=== PATIENT | female | born 1935 | race Caucasian/White ===

== ENCOUNTER 2019-01-15 19:35 | Inpatient (IN) | payer MEDICARE, MEDICAID ==
[~2019-01-15] VITALS: Ht 154.9 cm; Wt 51.3 kg
--- NOTE | 2019-01-15 22:00 | NUR ---
NURSE NOTES: Patient came on the floor via ambulance accompanied by 2 EMS. Patient is non compliant. Patient keeps on getting up without pressing the call light. Admission orders done. No belongings list. Patient has unsteady gait. Needs attended. Call light within reach. In stable condition.
[2019-01-15] MEDS ORDERED: MOM30 ML ORAL (22:47)
[2019-01-15] MEDS ORDERED: CRESTOR10 M1 ORAL (22:47)
[2019-01-15] MEDS ORDERED: LETROZOLE2.5 MG ORAL (22:47)
[2019-01-15] MEDS ORDERED: METOPROLOL TART25 MG ORAL (22:47)
[2019-01-15] MEDS ORDERED: FOLIC ACID0.8 MG ORAL (22:47)
[2019-01-15] MEDS ORDERED: DULCOLAX10 MG RC (22:47)
[2019-01-15] MEDS ORDERED: DYAZIDE1 CAP ORAL (22:47)
[2019-01-15] MEDS ORDERED: POTASSIUM CHLO20 ME2 ORAL (22:47)
[2019-01-15] MEDS ORDERED: ASPIRIN-LOW81 MG ORAL (22:47)
[2019-01-16] VITALS: BP 134/81
--- NOTE | 2019-01-16 02:14 | NUR ---
NURSE NOTES: Patient removed IV line several times. IV site wrapped but patient still removed IV. Will notify
[2019-01-16 04:00] VITALS: BP 145/85
[2019-01-16 06:16] LABS: HEMATOCRIT 48.5 % (37.0-47.0); HEMOGLOBIN 16.4 G/DL (12.0-16.0); MEAN CORPUSCULAR VOLUME 84 FL (80-99); PLATELET COUNT 290 K/UL (150-450); RED BLOOD COUNT 5.78 M/UL (4.20-5.40); RED CELL DISTRIBUTION WIDTH 11.2 % (11.6-14.8); WHITE BLOOD COUNT 18.9 K/UL (4.8-10.8)
[2019-01-16] MEDS ORDERED: LORazepam Inj 2mg/ml 1ml IV PRN (07:00)
[2019-01-16] MEDS ORDERED: LORazepam 1mg tab ORAL PRN ×2 (07:00→11:00)
--- NOTE | 2019-01-16 07:01 | NUR ---
NURSE NOTES: Dr. Chapa came and saw the patient with orders noted and carried out.
[2019-01-16 07:27] LABS: ALANINE AMINOTRANSFERASE 45 U/L (12-78); ALBUMIN 3.1 G/DL (3.4-5.0); ALBUMIN/GLOBULIN RATIO 0.6 (1.0-2.7); ALKALINE PHOSPHATASE 181 U/L (46-116); ANION GAP 21 mmol/L (5-15); ASPARTATE AMINO TRANSFERASE 73 U/L (15-37); BILIRUBIN,TOTAL 0.7 MG/DL (0.2-1.0); BLOOD UREA NITROGEN 64 mg/dL (7-18); CALCIUM 6.9 MG/DL (8.5-10.1); CARBON DIOXIDE 22 MMOL/L (21-32); CHLORIDE 93 MMOL/L (98-107); CREATININE 3.6 MG/DL (0.55-1.30); SODIUM 136 MMOL/L (136-145)
--- NOTE | 2019-01-16 07:45 | History and Physical Report ---
DATE OF ADMISSION: 01/15/2019 CHIEF COMPLAINT: Failure to thrive and dehydration. HISTORY OF PRESENT ILLNESS: The patient is an 84-year-old female known to me from the longterm facility. She has a history of breast cancer, status post mastectomy. She has a history of ischemic cardiomyopathy, status post angioplasty, scleroderma, and hypertension. She has a prior history of left hip fracture, status post ORIF. She presented from longterm facility with complaints of dehydration, failure to thrive, and generalized weakness. At the [facility], she had multiple falls. She has been refusing to eat or drink. An IV was placed at the [facility], the patient repetitively pulled out her IV. Because of continued dehydration and failure to thrive, she is now admitted for further evaluation and care. PAST MEDICAL HISTORY: As above. She has a history of depression and insomnia. History of scleroderma. PAST SURGICAL HISTORY: Includes mastectomy and left hip ORIF. CURRENT MEDICATIONS: Reconciled and reviewed. ALLERGIES: None. FAMILY HISTORY: Significant for heart disease. SOCIAL HISTORY: The patient was a prior smoker, but quit. No alcohol. No drugs. REVIEW OF SYSTEMS: GENERAL: No fevers or chills. HEENT: No headaches or visual changes. CARDIOPULMONARY: No chest pain or shortness of breath. GASTROINTESTINAL: No nausea or vomiting. Positive anorexia. GENITOURINARY: No urgency or frequency. MUSCULOSKELETAL: No joint pain or swelling. NEUROLOGIC: No evidence of seizures. PHYSICAL EXAMINATION: VITAL SIGNS: Temperature was 98.5, pulse 61, respirations 18, and blood pressure 145/85. GENERAL: The patient is well developed, in no apparent distress. She is awake, alert, and oriented x1. NECK: Supple. There is no adenopathy noted. HEART: Regular rate and rhythm. LUNGS: Clear. ABDOMEN: Soft, nontender, and nondistended. EXTREMITIES: Without clubbing or cyanosis. The patient has multiple wounds on the chest. LABORATORY DATA: Labs are pending. ASSESSMENT: This is an 84-year-old female with history of hypertensive heart disease, ischemic cardiomyopathy, breast cancer, and scleroderma admitted with failure to thrive and dehydration. PLAN: 1. IV hydration. 2. Check a swallow evaluation. 3. Check urinalysis. 4. Check thyroid function test. 5. Psychiatric consultation. Mesfin Chapa M.D. DR: RENY JOB#: [id number] CC:
--- NOTE | 2019-01-16 07:47 | NUR ---
NURSE NOTES: dr ding gave orders for potassium 40 meq , one dose now and one dose in 4 hours. Secondary to pt potassium level at 2.0 . Gave orders for ekg as well, and to transfer pt to tele
[2019-01-16 08:00] VITALS: BP 130/83
--- NOTE | 2019-01-16 08:29 | NUR ---
NURSE NOTES: Pt vomited into hand holding pills due medications administration undone
--- NOTE | 2019-01-16 08:55 | NUR ---
NURSE NOTES: pt. admitted to tele unit. Report given by Laura. Pt on potline monitor no signs of cardiac or respiratory distress at this time. Pt has multiple wounds (right breast and Right shoulder / Laura pictures have been taken pt was admitted with this wounds). In addition pt has r thigh skin tare and multiple skin discoloration in different parts of her body. Pt has no belongings. Bed is locked and in lowest position. Call light is within reach. Food tray is at bedside. Bed alarm is on . Pt has no IV access she has pulled them out, we will try to put new IV. Per lilian Real to use soft restrains to make sure pt keeps IV on. will continue to monitor labs and follow plans of care.
--- NOTE | 2019-01-16 08:57 | NUR ---
NURSE NOTES: Pt transferred to tele . Report given to Tiarra Griffin RN, informed of pt impulsive bx despite being able to answer multiple questions correctly. Receiving nurse made that pt does not have an IV line, and there are orders to attempt and restrain pt. Pt does not have any belonging with exception of glasses she is wearing. Pt is a fall risk , bed alarm on on when pt arrived to room
[2019-01-16] MEDS ORDERED: Heparin 5000 units/ml inj SUBQ SCH (09:00)
[2019-01-16] MEDS ORDERED: Metoprolol 25mg tab ORAL SCH (09:00)
[2019-01-16] MEDS ORDERED: Anastrazole 1mg tab ORAL SCH (09:00)
[2019-01-16] MEDS ORDERED: Aspirin EC 81mg tab ORAL SCH (09:00)
--- NOTE | 2019-01-16 09:03 | NUR ---
NURSE NOTES: Dr Sabillon phoned made aware that pt has been transferred and is already on tele, for abnormal potassium level, multiple abnormal labs did not give further orders with exception of po potassium ekg and to transfer pt
[2019-01-16] MEDS ORDERED: Piperacillin/Tazobactam 3.375 GM in NS 110 ML IVPB SCH (10:00)
--- NOTE | 2019-01-16 11:12 | Consultation ---
History of Present Illness General Date patient seen: Jan 16, 2019 Present Illness HPI This is a very pleasant 84-year-old female [facility] resident with history of breast cancer status post mastectomy, cardiomyopathy, scleroderma, hypertension, hip fracture status post ORIF, failure to thrive who presented to [facility] for evaluation of dehydration, failure to thrive, deteriorating condition. Per report patient has been having minimal p.o. intake and not compliant with care plan. On admission identified to have multiple decubitus ulcers requiring care and management. Surgery called to evaluate and assist with care. Patient seen, patient [place], chart reviewed. I discussion the patient and she states she is able to move but very reluctant to do so. She states she only moves minimally and does not want to move much more. She understands the concept behind decubitus ulcers and understands that she inform them but does not want to. Currently no nausea vomiting fever chills. Leukocytosis on labs. Abnormal electrolytes. Allergies: Coded Allergies: No Known Allergies (Unverified , 01/15/19) Medication History Scheduled Aspirin (Aspirin EC), 81 MG ORAL DAILY, (Reported) Folic Acid (Folic Acid), 1 MG ORAL DAILY, (Reported) Letrozole (Letrozole), 2.5 MG ORAL DAILY, (Reported) Magnesium Hydroxide (Milk of Magnesia), 30 ML ORAL DAILY, (Reported) Metoprolol Tartrate* (Metoprolol Tartrate*), 25 MG ORAL EVERY 12 HOURS, ( Reported) Potassium Chloride (Potassium Chloride), 20 MEQ ORAL DAILY, (Reported) Rosuvastatin Calcium (Crestor), 40 MG ORAL DAILY, (Reported) Triamterene/Hctz (Triamterene-Hctz 37.5-25 mg Cp), 1 CAP ORAL DAILY, (Reported) Miscellaneous Medications Bisacodyl (Dulcolax), 10 MG RC, (Reported) Patient History Limited by: other History Provided By: Patient, Medical Record, PMD Healthcare decision maker N Resuscitation status Do Not Resuscitate Advanced Directive on File Past Medical/Surgical History Past Medical/Surgical History: (1) Leukocytosis (2) Severe protein-calorie malnutrition (3) Failure to thrive in adult (4) Decubitus skin ulcer (5) Dehydration Review of Systems Review of Symptoms General ROS: no weight loss or fever Psychological ROS: no depression or mood changes, no memory loss Ophthalmic ROS: no visual changes or eye irritation ENT ROS: no nasal congestion, hearing loss, dizziness Allergy and Immunology ROS: no allergic symptoms or urticaria Hematological and Lymphatic ROS: no swollen glands, unusual bleeding or bruising Endocrine ROS: no polyuria, polydipsia, weight changes, temperature intolerance Respiratory ROS: no cough, shortness of breath, or wheezing Cardiovascular ROS: no chest pain or dyspnea on exertion Gastrointestinal ROS: denies abdominal pain, no bright red blood in stool. Musculoskeletal ROS: no myalgias or arthralgias Neurological ROS: no TIA or stroke symptoms Dermatological ROS: no new or changing skin lesions, rashes or pruritis Physical Exam Physical Exam General appearance: alert, cooperative, no distress, appears stated age Head: Normocephalic, without obvious abnormality, atraumatic Eyes: conjunctivae/corneas clear. PERRL, EOM's intact. Fundi benign Throat: Lips, mucosa, and tongue normal. Teeth and gums normal Neck: supple, symmetrical, trachea midline, no adenopathy, thyroid: not enlarged, symmetric, no tenderness/mass/nodules, no carotid bruit and no JVD Lungs: clear to auscultation bilaterally Heart: regular rate and rhythm, S1, S2 normal, no murmur, click, rub or gallop Abdomen: soft, non-tender. Bowel sounds normal. No masses, no organomegaly Extremities: extremities normal, atraumatic, no cyanosis or edema Pulses: 2+ and symmetric Skin: Skin color, texture, turgor normal. No rashes or lesions Neurologic: Grossly normal Last 24 Hour Vital Signs Date Time Temp Pulse Resp B/P (MAP) Pulse Ox O2 Delivery O2 Flow Rate FiO2 01/16/19 09:00 Room Air 01/16/19 08:00 97.5 82 16 130/83 (99) 01/16/19 04:00 98.5 61 18 145/85 (105) 94 01/16/19 00:00 98.5 74 20 134/81 (98) 01/15/19 23:35 Room Air Intake and Output 01/15/19 01/16/19 19:00 07:00 Intake Total 300 ml Balance 300 ml Intake Oral 300 ml # Voids 1 Laboratory Tests Test 01/16/19 05:05 White Blood Count 18.9 K/UL (4.8-10.8) H Red Blood Count 5.78 M/UL (4.20-5.40) H Hemoglobin 16.4 G/DL (12.0-16.0) H Hematocrit 48.5 % (37.0-47.0) H Mean Corpuscular Volume 84 FL (80-99) Mean Corpuscular Hemoglobin 28.3 PG (27.0-31.0) Mean Corpuscular Hemoglobin Concent 33.8 G/DL (32.0-36.0) Red Cell Distribution Width 11.2 % (11.6-14.8) L Platelet Count 290 K/UL (150-450) Mean Platelet Volume 8.0 FL (6.5-10.1) Neutrophils (%) (Auto) % (45.0-75.0) Lymphocytes (%) (Auto) % (20.0-45.0) Monocytes (%) (Auto) % (1.0-10.0) Eosinophils (%) (Auto) % (0.0-3.0) Basophils (%) (Auto) % (0.0-2.0) Differential Total Cells Counted 100 Neutrophils % (Manual) 85 % (45-75) H Lymphocytes % (Manual) 6 % (20-45) L Monocytes % (Manual) 9 % (1-10) Eosinophils % (Manual) 0 % (0-3) Basophils % (Manual) 0 % (0-2) Band Neutrophils 0 % (0-8) Platelet Estimate Adequate Platelet Morphology Normal Red Blood Cell Morphology Normal Sodium Level 136 MMOL/L (136-145) Potassium Level 2.0 MMOL/L (3.5-5.1) *L Chloride Level 93 MMOL/L (98-107) L Carbon Dioxide Level 22 MMOL/L (21-32) Anion Gap 21 mmol/L (5-15) H Blood Urea Nitrogen 64 mg/dL (7-18) H Creatinine 3.6 MG/DL (0.55-1.30) H Estimat Glomerular Filtration Rate mL/min (>60) Glucose Level 149 MG/DL (74-106) H Calcium Level 6.9 MG/DL (8.5-10.1) L Total Bilirubin 0.7 MG/DL (0.2-1.0) Aspartate Amino Transf (AST/SGOT) 73 U/L (15-37) H Alanine Aminotransferase (ALT/SGPT) 45 U/L (12-78) Alkaline Phosphatase 181 U/L (46-116) H Troponin I 0.042 ng/mL (0.000-0.056) Total Protein 8.4 G/DL (6.4-8.2) H Albumin 3.1 G/DL (3.4-5.0) L Globulin 5.3 g/dL Albumin/Globulin Ratio 0.6 (1.0-2.7) L Thyroid Stimulating Hormone (TSH) 3.939 uiU/mL (0.358-3.740) Height (Feet): 5 Height (Inches): 1.00 Weight (Pounds): 110 Medications Current Medications Medications (Trade) Dose Ordered Sig/Whitley Route PRN Reason Start Time Stop Time Status Last Admin Dose Admin Anastrozole (Arimidex) 1 mg DAILY ORAL 01/17/19 09:00 02/15/19 08:59 Aspirin (Ecotrin) 81 mg DAILY ORAL 01/17/19 09:00 02/15/19 08:59 Atorvastatin Calcium (Lipitor) 20 mg BEDTIME ORAL 01/16/19 21:00 02/15/19 20:59 Dextrose/ Electrolytes 1,000 ml @ 100 mls/hr Q10H IV 01/16/19 10:15 02/14/19 21:59 Heparin Sodium (Porcine) (Heparin 5000 units/ml) 5,000 units EVERY 12 HOURS SUBQ 01/16/19 21:00 02/15/19 08:59 Lorazepam (Ativan 2mg/ml 1ml) 1 mg Q4H PRN IV For Anxiety 01/16/19 11:00 01/23/19 06:59 Lorazepam (Ativan) 1 mg Q4H PRN ORAL For Anxiety 01/16/19 11:00 01/23/19 06:59 Metoprolol Tartrate (Lopressor) 25 mg Q12HR ORAL 01/16/19 21:00 02/15/19 08:59 Piperacillin Sod/ Tazobactam Sod 3.375 gm/Sodium Chloride 110 ml @ 27.5 mls/hr Q12H IVPB 01/16/19 22:00 01/23/19 09:59 Potassium Chloride 100 ml @ 100 mls/hr Q1H IVPB 01/16/19 11:00 01/16/19 14:59 Potassium Chloride (K-Dur) 40 meq ONCE ONCE ORAL 01/16/19 12:00 01/16/19 12:01 Assessment/Plan Problem List: (1) Dehydration ICD Codes: E86.0 - Dehydration SNOMED: 36744294 (2) Decubitus skin ulcer Assessment & Plan: Pt presented on admission with multiple wounds.Hx R Mastectomy . Full thickness wound that is tunneled into R axilla noted to aleksander R mastectomy.Base of wound is sahara with macerated borders oozing small amt serous exudate noted. No odor noted. (L)3cm x (W)6cm x (D)0.3, tunneling clockwise @10o'clock by 6.6cm. Full thickness wound lateral/posterior R chest. Scattered slough at base of wound with erythematous borders .Periwound indurated. wound oozing small amt serous exudate. (L)1cm x (W)3cm. Full thickness wound posterior thoracic. 100% slough at base of wound. Erythematous borders. No odor or exudate noted(L)2.3cm x (W)2.5cm. Full thickness wound median R humerus. 100% slough with erythematous borders. No odor or exudate noted.(L)3.9cm x (W)2.4cm. Incontinence associated dermatitis noted to sacral and cleft of buttocks. Affected area is erythematous. Pt denied burning or itching. DTPI noted to medial L foot . Base of wound is indurated,purple with red margins.(L)3.2cm x (W)1cm. L heel boggy with non-blanchable erythema. Non-blanchable erythema without fluctuance R heel. Tx.Plan: Cleanse wound Aleksander R chest with Saline. Loosely pack wound (@10o'clock) with 1 /2 inch Iodoform packing. Apply Cavilon periwound. Cover with Optifoam drsg.Daily and prn. Cleanse wounds R arm with saline. Apply Xeroform gauze.Apply Cavilon periwound. Cover with Optifoam drsg. Change daily and prn. Cleanse wound Lateral/posterior chest with Saline. Apply xeroform gauze. Cover with Optifoam drsg. Change Daily and prn. Cleanse wound Posterior R thoracic with Saline. Cover with Xeroform. Apply Cavilon Skin Barrier periwound. Cover with Optifoam drsg. Daily and prn. Apply Triad Paste to Buttocks with each perineal care. Apply Cavilon Skin Barrier to both heels. Cover each heel with Optifoam drsg. every 7 days and prn. Reposition at least every 2hours or as tolerated. Off-load heels with pillow. ICD Codes: L89.90 - Pressure ulcer of unspecified site, unspecified stage SNOMED: 541506930 (3) Leukocytosis Assessment & Plan: cont Abx ICD Codes: D72.829 - Elevated white blood cell count, unspecified SNOMED: 559605867, 323254148 (4) Severe protein-calorie malnutrition ICD Codes: E43 - Unspecified severe protein-calorie malnutrition SNOMED: 439128577, 104353724, 509861159 (5) Failure to thrive in adult ICD Codes: R62.7 - Adult failure to thrive SNOMED: 072758991 Jesus Bennett Jan 16, 2019 11:12
[2019-01-16 12:00] VITALS: BP 133/87
--- NOTE | 2019-01-16 12:18 | Diagnostic Imaging Report ---
Indications: Altered mental status Technique: Spiral acquisitions obtained through the brain. Angled axial and coronal 5 x 5 mm slices were reconstructed. Total dose length product 1245.89 mGycm. CTDI vol(s) 70.38 mGy. Dose reduction achieved using automated exposure control Comparison: None. Findings: There is age-related enlargement of the ventricles and extra-axial CSF spaces. There is periventricular deep white matter low-attenuation, consistent with chronic microvascular ischemic change. No acute intracranial hemorrhage or edema, mass effect, nor midline shift. The calvarium is intact. The mastoids are clear. The visualized orbits and sinuses are unremarkable. Impression: Chronic age-related changes, as described Negative for acute intracranial bleed or mass effect The CT scanner at [facility] is accredited by the [employer] and the scans are performed using protocols designed to limit radiation exposure to as low as reasonably achievable to attain images of sufficient resolution adequate for diagnostic evaluation.
--- NOTE | 2019-01-16 12:38 | NUR ---
NURSE NOTES: pt. is complaining that IV infusion is hurting but is not allowing us to start a new IV site. Pt family Fidencio was informed and he will try to convince her to allow us to start a new IV.
--- NOTE | 2019-01-16 13:39 | NUR ---
NOTES: Referred for swallow evaluation by Dr. Chapa, see full report to follow. Dysphagia Risk factors for this advanced aged 84 y.o.f.: Acute Status: dehydration, FTT, lungs are clear, on room air relevant meds: ativan h/o Dementia, scleroderma, HTN, MDD, Anxiety, breast cancer s/p mastectomy, left hip fx s/p ORIF. Hospitalized at [facility] 12/25-12/29/18 for abscess of breast. h/o cognitive-communicative deficit. The patient lives at a SNF but has a son. At snf on a GAGE Regular texture and thin liquids. No RD report to date. Currently on a Regular Soft Chew diet and thin liquids (no record of intake). PER POLST ON COMFORT-FOCUSED CARE. ALERT BUT FEELS NAUSEATED. DOES NOT WANT TO EAT ANY LUNCH. ABLE TO EXPRESS BASIC NEEDS IN INTELLIGIBLE SPEECH. INITIAL IMPRESSIONS: LIMITED ASSESSMENT SINCE PT FEELS NAUSEATED. GROSSLY FUNCTIONAL SWALLOW SKILLS WITH THIN LIQUIDS VIA STRAW SEQUENTIAL SIPS (3 OZ WATER RICO SWALLOW PROTOCOL) W/ OVERT ASPIRATION. REFUSED PUREED AND MASTICATED SOLIDS AND DOES NOT WANT ANY DIET DOWNGRADES. MAY HAVE SILENT ASPIRATION RISK GIVEN DEMENTIA HX RECOMMENDATIONS: CONSIDER CONTINUING WITH CURRENT SOFT CHEW DIET AND THIN LIQUIDS WITH GENERAL ASPIRATION PRECAUTIONS AND SUPERVISION/ASSIST NEEDED. CONSIDER CALORIE COUNT AND SEND HIGH PANCHO SUP IF POOR PO INTAKE (AND PER RD RECOMMENDATIONS) CONSIDER ADDING GAGE (NSF DIET TYPE) OR PER RD. WILL F/UP WITH MODIFIED BARIUM SWALLOW STUDY IF NEEDED WILL OBSERVE MEAL AND CONTINUE WITH DYSPHAGIA MANAGEMENT/TX IF NEEDS [facility] [place] EVAL/TX IF NEEDS Addendum: 01/16/19 at 1342 by NAWAF CARSON EDUCATION MANAGERS TONGUE WHITISH COLOR HAS UPPER FULL DENTURES AND PARTIAL LOWER DENTURES. EDUCATED/TRAINED STAFF IN ORAL CARE AND POSTED GENERAL ASPIRATION PRECAUTIONS.
[2019-01-16 16:00] VITALS: BP 139/73
--- NOTE | 2019-01-16 16:31 | NUR ---
CASE MANAGEMENT:REVIEW 84YR OLD FEMALE DIRECTLY ADMITTED TO HOSPITAL SI: DEHYDRATION. FAILURE TO THRIVE 97.5 82 16 130/83 94% ON RA K-2.0 BUN+64 CR+3.6 IS: IVF@100/HR K-DUR PO X1 HEPARIN SQ Q12 IV ZOSYN Q12 IV KCL Q1HRS X4 BAGS : TELEMETRY
--- NOTE | 2019-01-16 19:00 | NUR ---
NURSE NOTES: Report received from GAIL Mayen, patient stable AOx2,3, able to make needs known, denies pain at this time, resting in bed, watching tv, IV site on L wrist G24, asymptomatic, intact, patent, bed low&locked, side rails upX3, call light within reach will continue to monitor and reassess
--- NOTE | 2019-01-16 19:48 | NUR ---
HAND-OFF: Report given to Ariadna/RN, pt recieved 4 bags of potassium.
[2019-01-16 20:00] VITALS: BP 131/73
[2019-01-16] MEDS: Metoprolol 25mg tab ORAL SCH (20:52)
[2019-01-16] MEDS: Heparin 5000 units/ml inj SUBQ SCH (20:56)
[2019-01-16] MEDS ORDERED: Atorvastatin 20mg tab ORAL SCH ×2 (21:00)
[2019-01-16] MEDS: Piperacillin/Tazobactam 3.375 GM in NS 110 ML IVPB SCH (22:19)
[2019-01-17] VITALS: BP 111/59
--- NOTE | 2019-01-17 01:00 | NUR ---
Patient pulled out IV. Unable to insert another IV, aware, awaiting call back.
[2019-01-17 04:00] VITALS: BP 117/65
[2019-01-17 05:38] LABS: HEMATOCRIT 49.6 % (37.0-47.0); HEMOGLOBIN 16.6 G/DL (12.0-16.0); MEAN CORPUSCULAR VOLUME 86 FL (80-99); PLATELET COUNT 243 K/UL (150-450); RED BLOOD COUNT 5.79 M/UL (4.20-5.40); RED CELL DISTRIBUTION WIDTH 11.5 % (11.6-14.8); WHITE BLOOD COUNT 18.4 K/UL (4.8-10.8)
[2019-01-17 05:55] LABS: ANION GAP 17 mmol/L (5-15); BLOOD UREA NITROGEN 66 mg/dL (7-18); CALCIUM 6.6 MG/DL (8.5-10.1); CARBON DIOXIDE 21 MMOL/L (21-32); CHLORIDE 98 MMOL/L (98-107); CREATININE 3.6 MG/DL (0.55-1.30); SODIUM 136 MMOL/L (136-145)
[2019-01-17 05:59] LABS: ALANINE AMINOTRANSFERASE 41 U/L (12-78); ALBUMIN 2.8 G/DL (3.4-5.0); ALBUMIN/GLOBULIN RATIO 0.6 (1.0-2.7); ALKALINE PHOSPHATASE 154 U/L (46-116); ASPARTATE AMINO TRANSFERASE 76 U/L (15-37); BILIRUBIN,TOTAL 0.8 MG/DL (0.2-1.0)
--- NOTE | 2019-01-17 07:15 | NUR ---
Md ordered PICC line, noted and endorsed to incoming nurse to carry out the order
--- NOTE | 2019-01-17 07:32 | NUR ---
HAND-OFF: Report given to GAIL Webster, patient stable, plan of care endorsed.
--- NOTE | 2019-01-17 07:33 | NUR ---
NURSE NOTES: Received patient in bed. Awake, confused, able to verbalize some needs. Bed alarm on, in lowest position. Call light within reach. Will continue plan of care.
--- NOTE | 2019-01-17 07:53 | NUR ---
NURSE NOTES:WOUND CARE NOTES:Pt presented on admission with multiple wounds.Hx R Mastectomy . Full thickness wound that is tunneled into R axilla noted to aleksander R mastectomy.Base of wound is sahara with macerated borders oozing small amt serous exudate noted. No odor noted. (L)3cm x (W)6cm x (D)0.3, tunneling clockwise @10o'clock by 6.6cm. Full thickness wound lateral/posterior R chest. Scattered slough at base of wound with erythematous borders .Periwound indurated. wound oozing small amt serous exudate. (L)1cm x (W)3cm. Full thickness wound posterior thoracic. 100% slough at base of wound. Erythematous borders. No odor or exudate noted(L)2.3cm x (W)2.5cm. Full thickness wound median R humerus. 100% slough with erythematous borders. No odor or exudate noted.(L)3.9cm x (W)2.4cm. Incontinence associated dermatitis noted to sacral and cleft of buttocks. Affected area is erythematous. Pt denied burning or itching. DTPI noted to medial L foot . Base of wound is indurated,purple with red margins.(L)3.2cm x (W)1cm. L heel boggy with non-blanchable erythema. Non-blanchable erythema without fluctuance R heel. Tx.Plan: Cleanse wound Aleksander R chest with Saline. Loosely pack wound (@10o'clock) with 1/2 inch Iodoform packing. Apply Cavilon periwound. Cover with Optifoam drsg.Daily and prn. Cleanse wounds R arm with saline. Apply Xeroform gauze.Apply Cavilon periwound. Cover with Optifoam drsg. Change daily and prn. Cleanse wound Lateral/posterior chest with Saline. Apply xeroform gauze. Cover with Optifoam drsg. Change Daily and prn. Cleanse wound Posterior R thoracic with Saline. Cover with Xeroform. Apply Cavilon Skin Barrier periwound. Cover with Optifoam drsg. Daily and prn. Apply Triad Paste to Buttocks with each perineal care. Apply Cavilon Skin Barrier to both heels. Cover each heel with Optifoam drsg. every 7 days and prn. Reposition at least every 2hours or as tolerated. Off-load heels with pillow. Addendum: 01/17/19 at 0840 by Raul Day LVN ABOVE WOUND NOTES IS A LATE ENTRY FOR 01/16/2019
[2019-01-17 08:00] VITALS: BP 113/68
--- NOTE | 2019-01-17 08:52 | General Progress Note ---
Assessment/Plan Problem List: (1) Acute renal failure (ARF) ICD Codes: N17.9 - Acute kidney failure, unspecified SNOMED: 48867257 (2) Dehydration ICD Codes: E86.0 - Dehydration SNOMED: 99960953 (3) Decubitus skin ulcer ICD Codes: L89.90 - Pressure ulcer of unspecified site, unspecified stage SNOMED: 321097325 (4) Leukocytosis ICD Codes: D72.829 - Elevated white blood cell count, unspecified SNOMED: 188006183, 368368303 (5) Failure to thrive in adult ICD Codes: R62.7 - Adult failure to thrive SNOMED: 081856152 (6) Severe protein-calorie malnutrition ICD Codes: E43 - Unspecified severe protein-calorie malnutrition SNOMED: 824380527, 782276213, [id number] Status: stable Assessment/Plan: picc line cont ivf renal us monitor renal fxn/lytes psych and renal eval wound care Subjective ROS Limited/Unobtainable: No Constitutional: Reports: malaise, weakness HEENT: Reports: no symptoms Cardiovascular: Reports: no symptoms Respiratory: Reports: no symptoms Gastrointestinal/Abdominal: Reports: poor appetite, poor fluid intake Genitourinary: Reports: no symptoms Neurologic/Psychiatric: Reports: no symptoms Endocrine: Reports: no symptoms Hematologic/Lymphatic: Reports: no symptoms Allergies: Coded Allergies: No Known Allergies (Unverified , 01/15/19) All Systems: reviewed and negative except above Subjective poor po intake. pulled out iv. renal fxn not improved. K better Objective Last 24 Hour Vital Signs Date Time Temp Pulse Resp B/P (MAP) Pulse Ox O2 Delivery O2 Flow Rate FiO2 01/17/19 08:00 97.4 115 18 113/68 (83) 97 01/17/19 04:00 67 01/17/19 04:00 97.8 70 18 117/65 (82) 98 01/17/19 00:11 65 01/17/19 00:00 97.7 70 18 111/59 (76) 98 01/16/19 23:23 Room Air 01/16/19 20:52 88 131/73 01/16/19 20:00 83 01/16/19 20:00 97.5 88 18 131/73 (92) 98 9/11/19 16:00 97.0 86 22 139/73 (95) 94 01/16/19 14:27 82 01/16/19 12:00 97.0 83 21 133/87 (102) 94 01/16/19 09:00 Room Air Intake and Output 01/16/19 01/17/19 18:59 06:59 Intake Total 100 ml Balance 100 ml Intake Oral 100 ml # Voids 2 1 Laboratory Tests 01/17/19 05:27: White Blood Count 18.4H, Red Blood Count 5.79H, Hemoglobin 16.6H, Hematocrit 49.6H, Mean Corpuscular Volume 86, Mean Corpuscular Hemoglobin 28.6, Mean Corpuscular Hemoglobin Concent 33.4, Red Cell Distribution Width 11.5L, Platelet Count 243, Mean Platelet Volume 9.0, Neutrophils (%) (Auto) , Lymphocytes (%) (Auto) , Monocytes (%) (Auto) , Eosinophils (%) (Auto) , Basophils (%) (Auto) , Neutrophils % (Manual) [Pending], Lymphocytes % (Manual) [Pending], Platelet Estimate [Pending], Platelet Morphology [Pending], Sodium Level 136, Potassium Level 4.0#, Chloride Level 98, Carbon Dioxide Level 21, Anion Gap 17H, Blood Urea Nitrogen 66H, Creatinine 3.6H, Estimat Glomerular Filtration Rate , Glucose Level 127H, Calcium Level 6.6L, Total Bilirubin 0.8, Aspartate Amino Transf (AST/SGOT) 76H, Alanine Aminotransferase (ALT/SGPT) 41, Alkaline Phosphatase 154H, Total Protein 7.8, Albumin 2.8L, Globulin 5.0, Albumin/Globulin Ratio 0.6L Height (Feet): 5 Height (Inches): 1.00 Weight (Pounds): 110 General Appearance: WD/WN, no apparent distress, alert Neck: supple Cardiovascular: normal rate, regular rhythm Respiratory/Chest: chest wall non-tender, lungs clear, normal breath sounds, no respiratory distress Abdomen: normal bowel sounds, non tender, soft, no organomegaly Edema: no edema noted Arm (L), no edema noted Arm (R), no edema noted Leg (L), no edema noted Leg (R), no edema noted Pedal (L), no edema noted Pedal (R), no edema noted Generalized Neurologic: alert, responsive UomotoMesfin MD Jan 17, 2019 08:51
[2019-01-17] MEDS: Heparin 5000 units/ml inj SUBQ SCH ×2 (09:00→21:09)
[2019-01-17] MEDS ORDERED: Heparin1,000 units/500ml Premix(Conc:2 units/ml) IV PRN (09:00)
[2019-01-17] MEDS ORDERED: Lidocaine 1% Plain 30 ml INJ PRN (09:00)
[2019-01-17] MEDS: Aspirin EC 81mg tab ORAL SCH (09:08)
[2019-01-17] MEDS: Metoprolol 25mg tab ORAL SCH ×2 (09:08→21:05)
[2019-01-17] MEDS: Anastrazole 1mg tab ORAL SCH (09:09)
--- NOTE | 2019-01-17 09:25 | NUR ---
RD ASSESSMENT & RECOMMENDATIONS SEE CARE ACTIVITY FOR COMPLETE ASSESSMENT DAILY ESTIMATED NEEDS: Needs based on Cancer, wounds 48kg 30-40 kcals/kg 1450-4741 total kcals 1.25-2 g protein/kg 60-96 g total protein 25-30 mL/kg 7339-0735 total fluid mLs NUTRITION DIAGNOSIS: Increased kcal and pro needs r/t wound healing and low BMI as evidenced by BMI underweight per guidelines, pt w/ multiple partial thickness wounds, refer to WC eval. CURRENT DIET: Soft GAGE PO DIET RECOMMENDATIONS: GAGE diet/ texture as tolerated ADDITIONAL RECOMMENDATIONS: - Pt w/ poor po intake, would rec to liberalized diet to REGULAR - Add ENSURE ENLIVE TID w/ meals - Obtain a standing scale wt as able Or recalibrate bed scale for accurate CBW - Monitor renal fxn/ lytes and need for renal supplement - WOUND CARE: add DILAN BID + MVI x1 + VIT C 500mg daily
--- NOTE | 2019-01-17 10:00 | NUR ---
NURSE NOTES: Patient is still have no IV access. Patient is for PICC placement today. Spoke with radiology department/Scott and he said that they will have the procedure in the afternoon.
--- NOTE | 2019-01-17 10:46 | Consultation ---
Consult Note Consult Note I WAS ASKED TO EVAL FOR RENAL FAILURE Patient admitted last night for renal failure and dehydration and FTT 84-year-old female assisted resident with history of breast cancer status post mastectomy, cardiomyopathy, scleroderma, hypertension, hip fracture status post ORIF, failure to thrive deteriorating condition. Per report patient has been having minimal p.o. intake and not compliant with care plan. On admission identified to have multiple decubitus ulcers requiring care and management. examined- discussed with elementary school registrar/Plan Acute on chronic renal failure- Dehydration Failing to thrive, Malnutrition Decubiti Urinary retention marte Urine studies Hydrate change IV with no KCL until BUN and Cr improves CXR STANLEY kidney per orders Mauri Huddleston MD Jan 17, 2019 10:46
[2019-01-17 11:22] LABS: APPEARANCE,URINE CLEAR; BILIRUBIN, URINE NEGATIVE (NEGATIVE); COLOR,URINE PALE YELLOW; GLUCOSE, URINE (UA) NEGATIVE (NEGATIVE); KETONES,URINE NEGATIVE (NEGATIVE); LEUKOCYTE ESTERASE ,URINE NEGATIVE (NEGATIVE); NITRITE,URINE NEGATIVE (NEGATIVE); PH,URINE 5 (4.5-8.0); PROTEIN,URINE 2+ (NEGATIVE); UROBILINOGEN,URINE NORMAL MG/DL (0.0-1.0)
[2019-01-17 12:00] VITALS: BP 110/70
--- NOTE | 2019-01-17 12:30 | NUR ---
NURSE NOTES: Patient's son/Jose Raul at bedside. Informed son that patient is not cooperating with care. Patient still doesn't have IV access. Patient son said that he will talk to his mom.
--- NOTE | 2019-01-17 12:38 | Diagnostic Imaging Report ---
Indication:Elevated Bun and Creatinine. Technique: Grayscale and duplex Doppler imaging of the kidneys performed. Comparison: None Findings: There are cysts within both kidneys of varying size. Largest cyst is seen in the left kidney measuring about 2.7 cm.. Cortical echogenicity is within normal limits. There is no hydronephrosis. The right kidney measures 9.3 cm. in length. The left kidney measures 9.3 cm. in length. The IVC is patent. Urinary bladder is unremarkable. IMPRESSION: Bilateral renal cysts
--- NOTE | 2019-01-17 14:16 | Surgery Progress Note ---
Surgery Progress Note Subjective Additional Comments no acute events comfortable stable Objective Last 24 Hour Vital Signs Date Time Temp Pulse Resp B/P (MAP) Pulse Ox O2 Delivery O2 Flow Rate FiO2 01/17/19 12:29 85 01/17/19 12:00 98.1 108 20 110/70 (83) 98 01/17/19 11:00 Room Air 01/17/19 09:08 115 113/68 01/17/19 09:00 Room Air 01/17/19 08:00 97.4 115 18 113/68 (83) 97 01/17/19 07:47 72 01/17/19 07:47 72 01/17/19 04:00 67 01/17/19 04:00 97.8 70 18 117/65 (82) 98 01/17/19 00:11 65 01/17/19 00:00 97.7 70 18 111/59 (76) 98 01/16/19 23:23 Room Air 01/16/19 20:52 88 131/73 01/16/19 20:00 83 01/16/19 20:00 97.5 88 18 131/73 (92) 98 01/16/19 16:00 97.0 86 22 139/73 (95) 94 01/16/19 14:27 82 I&O Intake and Output 01/16/19 01/17/19 19:00 07:00 Intake Total 100 ml Balance 100 ml Intake Oral 100 ml # Voids 2 1 Dressing: other Wound: other Drains: other Cardiovascular: RSR Respiratory: clear Abdomen: soft, flat, present bowel sounds, non-distended Extremities: no cyanosis, other Laboratory Tests Test 01/17/19 05:27 01/17/19 11:00 White Blood Count 18.4 K/UL (4.8-10.8) H Red Blood Count 5.79 M/UL (4.20-5.40) H Hemoglobin 16.6 G/DL (12.0-16.0) H Hematocrit 49.6 % (37.0-47.0) H Mean Corpuscular Volume 86 FL (80-99) Mean Corpuscular Hemoglobin 28.6 PG (27.0-31.0) Mean Corpuscular Hemoglobin Concent 33.4 G/DL (32.0-36.0) Red Cell Distribution Width 11.5 % (11.6-14.8) L Platelet Count 243 K/UL (150-450) Mean Platelet Volume 9.0 FL (6.5-10.1) Neutrophils (%) (Auto) % (45.0-75.0) Lymphocytes (%) (Auto) % (20.0-45.0) Monocytes (%) (Auto) % (1.0-10.0) Eosinophils (%) (Auto) % (0.0-3.0) Basophils (%) (Auto) % (0.0-2.0) Differential Total Cells Counted 100 Neutrophils % (Manual) 87 % (45-75) H Lymphocytes % (Manual) 5 % (20-45) L Monocytes % (Manual) 8 % (1-10) Eosinophils % (Manual) 0 % (0-3) Basophils % (Manual) 0 % (0-2) Band Neutrophils 0 % (0-8) Platelet Estimate Adequate Platelet Morphology Normal Red Blood Cell Morphology Normal Sodium Level 136 MMOL/L (136-145) Potassium Level 4.0 MMOL/L (3.5-5.1) # Chloride Level 98 MMOL/L (98-107) Carbon Dioxide Level 21 MMOL/L (21-32) Anion Gap 17 mmol/L (5-15) H Blood Urea Nitrogen 66 mg/dL (7-18) H Creatinine 3.6 MG/DL (0.55-1.30) H Estimat Glomerular Filtration Rate mL/min (>60) Glucose Level 127 MG/DL (74-106) H Calcium Level 6.6 MG/DL (8.5-10.1) L Total Bilirubin 0.8 MG/DL (0.2-1.0) Aspartate Amino Transf (AST/SGOT) 76 U/L (15-37) H Alanine Aminotransferase (ALT/SGPT) 41 U/L (12-78) Alkaline Phosphatase 154 U/L (46-116) H Total Protein 7.8 G/DL (6.4-8.2) Albumin 2.8 G/DL (3.4-5.0) L Globulin 5.0 g/dL Albumin/Globulin Ratio 0.6 (1.0-2.7) L Urine Color Pale yellow Urine Appearance Clear Urine pH 5 (4.5-8.0) Urine Specific [place] 1.010 (1.005-1.035) Urine Protein 2+ (NEGATIVE) H Urine Glucose (UA) Negative (NEGATIVE) Urine Ketones Negative (NEGATIVE) Urine Blood 3+ (NEGATIVE) H Urine Nitrite Negative (NEGATIVE) Urine Bilirubin Negative (NEGATIVE) Urine Urobilinogen Normal MG/DL (0.0-1.0) Urine Leukocyte Esterase Negative (NEGATIVE) Urine RBC 5-10 /HPF (0 - 2) H Urine WBC 2-4 /HPF (0 - 2) Urine Squamous Epithelial Cells Few /LPF (NONE/OCC) Urine Bacteria Few /HPF (NONE) Urine Granular Casts 2-4 /LPF (NONE) H Urine Random Sodium 23 mmol/L (20-110) Plan Problems: (1) Dehydration (2) Decubitus skin ulcer Assessment & Plan: Pt presented on admission with multiple wounds.Hx R Mastectomy . Full thickness wound that is tunneled into R axilla noted to aleksander R mastectomy.Base of wound is sahara with macerated borders oozing small amt serous exudate noted. No odor noted. (L)3cm x (W)6cm x (D)0.3, tunneling clockwise @10o'clock by 6.6cm. Full thickness wound lateral/posterior R chest. Scattered slough at base of wound with erythematous borders .Periwound indurated. wound oozing small amt serous exudate. (L)1cm x (W)3cm. Full thickness wound posterior thoracic. 100% slough at base of wound. Erythematous borders. No odor or exudate noted(L)2.3cm x (W)2.5cm. Full thickness wound median R humerus. 100% slough with erythematous borders. No odor or exudate noted.(L)3.9cm x (W)2.4cm. Incontinence associated dermatitis noted to sacral and cleft of buttocks. Affected area is erythematous. Pt denied burning or itching. DTPI noted to medial L foot . Base of wound is indurated,purple with red margins.(L)3.2cm x (W)1cm. L heel boggy with non-blanchable erythema. Non-blanchable erythema without fluctuance R heel. Tx.Plan: Cleanse wound Aleksander R chest with Saline. Loosely pack wound (@10o'clock) with 1 /2 inch Iodoform packing. Apply Cavilon periwound. Cover with Optifoam drsg.Daily and prn. Cleanse wounds R arm with saline. Apply Xeroform gauze.Apply Cavilon periwound. Cover with Optifoam drsg. Change daily and prn. Cleanse wound Lateral/posterior chest with Saline. Apply xeroform gauze. Cover with Optifoam drsg. Change Daily and prn. Cleanse wound Posterior R thoracic with Saline. Cover with Xeroform. Apply Cavilon Skin Barrier periwound. Cover with Optifoam drsg. Daily and prn. Apply Triad Paste to Buttocks with each perineal care. Apply Cavilon Skin Barrier to both heels. Cover each heel with Optifoam drsg. every 7 days and prn. Reposition at least every 2hours or as tolerated. Off-load heels with pillow. (3) Leukocytosis Assessment & Plan: cont Abx (4) Severe protein-calorie malnutrition Assessment & Plan: DAILY ESTIMATED NEEDS: Needs based on Cancer, wounds 48kg 30-40 kcals/kg 4411-8468 total kcals 1.25-2 g protein/kg 60-96 g total protein 25-30 mL/kg 5483-9803 total fluid mLs NUTRITION DIAGNOSIS: Increased kcal and pro needs r/t wound healing and low BMI as evidenced by BMI underweight per guidelines, pt w/ multiple partial thickness wounds, refer to WC eval. CURRENT DIET: Soft GAGE PO DIET RECOMMENDATIONS: GAGE diet/ texture as tolerated ADDITIONAL RECOMMENDATIONS: - Pt w/ poor po intake, would rec to liberalized diet to REGULAR - Add ENSURE ENLIVE TID w/ meals - Obtain a standing scale wt as able Or recalibrate bed scale for accurate CBW - Monitor renal fxn/ lytes and need for renal supplement - WOUND CARE: add DILAN BID + MVI x1 + VIT C 500mg daily (5) Failure to thrive in adult Jesus Bennett Jan 17, 2019 14:16
--- NOTE | 2019-01-17 14:33 | NUR ---
NURSE NOTES: Dr. Huddleston made aware that patient still have no IV access. Unable to administer D5NS IV hydration and albumin order.
--- NOTE | 2019-01-17 14:40 | NUR ---
NURSE NOTES: Informed Dr. Chapa via telephone that patient is refusing to cooperate with PICC line placement procedure. Informed MD that even charge nurse tried to talk with patient, but patient is not cooperating. Order obtained to have haldol 2 mg IM every 4 hours PRN for agitation.
[2019-01-17] MEDS: Haloperidol 5mg/ml Inj IM PRN ×2 (14:55→22:31)
--- NOTE | 2019-01-17 16:00 | NUR ---
NURSE NOTES: Patient's son/Fidencio at bedside. Informed him that patient is not cooperating with care. Patient's son said he'll try to talk with the patient.
[2019-01-17] MEDS: Piperacillin/Tazobactam 3.375 GM in NS 110 ML IVPB SCH ×2 (16:40→22:00)
--- NOTE | 2019-01-17 17:30 | NUR ---
NURSE NOTES: Tried to insert peripheral IV with patient's family presence but unable to have successful insertion. Patient son asked to stop trying for now and to have the PICC insertion tomorrow.
[2019-01-17] MEDS: D5NS 1,000 ML IV SCH ×2 (17:37→21:00)
--- NOTE | 2019-01-17 18:30 | NUR ---
NURSE NOTES: Informed Dr. Chapa that patient is really uncooperative with care. Trying to get out of bed, pulling plate mill hand and pulling marte cath. With order obtained to apply bilateral soft wrist restraints. Charge nurse made aware.
--- NOTE | 2019-01-17 19:20 | NUR ---
NURSE NOTES: Received patient from GAIL Webster, patient in stable condition, AOx2, denies pain at this time, no IV site, patient scheduled for PICC, F/C patent , draining well, soft restraints on, tolerating well no skin impairment under restraints, resting in bed, bed low&locked, side rails up x3, call light within easy reach, will continue to monitor and reassess.
--- NOTE | 2019-01-17 19:30 | NUR ---
HAND-OFF: Report given to Yaritza Talbert RN.
[2019-01-17 20:00] VITALS: BP 133/75
[2019-01-17] MEDS: Dyna-Hex 2% Top Sol 2oz TOPIC SCH (21:09)
--- NOTE | 2019-01-17 23:24 | NUR ---
NURSE NOTES: Unable to give patient remeron. She received Haldol prn, sleeping deeply and unable to follow simple commands, at risk for aspiration. Will continue to monitor.
--- NOTE | 2019-01-17 23:45 | Consultation ---
DATE OF CONSULTATION: 01/17/2019 CONSULTING PHYSICIAN: Cynthia Nicholson M.D. HISTORY OF PRESENT ILLNESS: The patient is an 84-year-old female with a history of multiple medical problems including depression, anxiety, scleroderma who has been admitted to the hospital due to failure to thrive and dehydration. The patient has a history of breast cancer, status post mastectomy. The patient has been presenting with more forgetfulness, confusion, memory impairment, decreased appetite, weakness, weight loss, depressed mood, worthlessness. The patient also has been refusing to eat and drink. The patient is able to simple answer questions; however, she has poor memory. PAST PSYCHIATRIC HISTORY: Depression and insomnia. PAST MEDICAL HISTORY: Significant for breast cancer, ischemic cardiomyopathy, scleroderma, hypertension. ALLERGIES: No known drug allergies. SUBSTANCE ABUSE HISTORY: No known history of illicit drug use or alcohol. MENTAL STATUS EXAMINATION: The patient is alert, oriented x2. Mood is depressed. Affect is constricted, congruent with mood. Thought process is linear and goal oriented. Thought content, no suicidal or homicidal ideation. ASSESSMENT: Acute metabolic encephalopathy, major depressive disorder. PLAN: 1. We will start the patient on Remeron 15 mg at bedtime. 2. Continue the Ativan p.r.n. 3. Continue the bilateral soft restraints. Cynthia Nicholson M.D. DR: JAKY JOB#: [id number] CC:
[2019-01-18] VITALS: BP 125/68
--- NOTE | 2019-01-18 01:00 | Consultation ---
DATE OF CONSULTATION: 01/15/2019 CARDIOLOGY CONSULTATION CONSULTING PHYSICIAN: Jorge Self M.D. REFERRING PHYSICIAN: Mesfin Chapa M.D. REASON: Abnormal EKG. HISTORY OF PRESENT ILLNESS: This is an 84-year-old female. She resides at a assisted facility. She has a history of coronary artery disease with prior angioplasty. She has had generalized weakness and failure to thrive. She is unable to give much reliable history and she has been refusing to eat or drink and has failed outpatient care. I have been asked to address her cardiovascular disease and possible acute event contributing to this presentation. PAST MEDICAL HISTORY: Depression, insomnia, scleroderma, coronary artery disease, breast cancer with mastectomy, history of coronary angioplasty, hypertension, history of hip fracture and left ORIF. MEDICATIONS: Reviewed and reconciled. ALLERGIES: None known. SOCIAL HISTORY: Prior smoker, quit several years ago. No alcohol or substance abuse. FAMILY HISTORY: Notable for premature coronary artery disease. REVIEW OF SYSTEMS: A 10-point review of systems performed. All systems negative other than noted above. PHYSICAL EXAMINATION: VITAL SIGNS: Blood pressure 145/85, pulse 61, respiratory rate 18, afebrile. HEENT: Temporal wasting. Pale conjunctivae. Oropharynx clear. Mucous membranes dry. NECK: Supple. Jugular venous pressure normal. LUNGS: Clear. CARDIAC: Regular rhythm and rate. Normal S1, S2 with a fourth heart sound. ABDOMEN: Soft, nontender. EXTREMITIES: No edema. There are several wounds on the chest. DIAGNOSTIC DATA: EKG revealed sinus rhythm, anterior and inferolateral ST-T wave abnormalities, possible inferior infarction of indeterminate age. LABORATORY DATA: Pending. IMPRESSION: 1. Failure to thrive. 2. Ischemic cardiomyopathy. 3. Hypovolemia. 4. Dehydration. 5. Cerebrovascular disease with dementia. PLAN: 1. Hydration. 2. Review laboratory studies. 3. Echocardiogram to be checked. 4. Lipid panel to be checked. 5. Anti-platelet therapy to be considered as well as further cardiovascular regimen. Jorge Self M.D. DR: MARIO JOB#: [id number] CC:
--- NOTE | 2019-01-18 01:45 | Progress Note ---
DATE: 01/16/2019 CARDIOLOGY PROGRESS NOTE Late entry for 01/16/2019. SUBJECTIVE: Labs have been obtained and reviewed. The patient remains withdrawn with poor appetite. No fevers or chills. OBJECTIVE: VITAL SIGNS: Blood pressure 133/87, pulse 83, and respirations 21. Afebrile. HEENT: Dry mucous membranes. NECK: Jugular venous pressure normal. LUNGS: Clear. CARDIAC: Regular. Normal S1, S2 with a 1/6 systolic murmur at apex. ABDOMEN: Soft. EXTREMITIES: No edema. DIAGNOSTIC DATA: Echocardiogram revealed normal ejection fraction, mild mitral regurgitation. No pulmonary hypertension. IMPRESSION: 1. Failure to thrive. 2. Hypokalemia. 3. Coronary artery disease. 4. Stable angina. 5. Leukocytosis. 6. Acute on chronic renal failure. 7. Mild protein-calorie malnutrition. PLAN: 1. Continue hydration. 2. Replace potassium. 3. Monitor renal function, cardiovascular parameters, and volume status. 4. Metabolic profile pending. 5. DVT prophylaxis. 6. Anti-platelet therapy added. 7. Titrate anti-failure and antihypertensive regimen based on clinical parameters as well. Jorge Self M.D. DR: DREW JOB#: [id number] CC:
--- NOTE | 2019-01-18 01:45 | Progress Note ---
DATE: 01/17/2019 CARDIOLOGY PROGRESS NOTE SUBJECTIVE: Renal ultrasound revealed cyst. Labs are reviewed. Potassium has been repleted. Vitals remained stable. Metabolic profile is still pending. OBJECTIVE: LUNGS: Clear. CARDIAC: Regular. ABDOMEN: Soft. EXTREMITIES: No edema. IMPRESSION: 1. Ischemic heart disease. 2. Stable angina. 3. Acute on chronic renal failure. 4. Hypovolemia. 5. Dehydration. 6. Dementia. 7. Possible depression. PLAN: 1. Hydration by IV route. 2. Continue to monitor and replace electrolytes. 3. DVT and stress ulcer prophylaxes. 4. Continue anti-platelet and anti-lipid therapy, and antianginal regimen with titration based on clinical parameters. Jorge Self M.D. DR: DREW JOB#: [id number] CC:
[2019-01-18 04:00] VITALS: BP 133/59
[2019-01-18] MEDS: Haloperidol 5mg/ml Inj IM PRN ×2 (04:24→09:22)
[2019-01-18] MEDS: D5NS 1,000 ML IV SCH ×3 (07:00→21:52)
[2019-01-18 07:11] LABS: HEMATOCRIT 48.7 % (37.0-47.0); HEMOGLOBIN 16.3 G/DL (12.0-16.0); MEAN CORPUSCULAR VOLUME 85 FL (80-99); PLATELET COUNT 232 K/UL (150-450); RED BLOOD COUNT 5.73 M/UL (4.20-5.40); RED CELL DISTRIBUTION WIDTH 11.1 % (11.6-14.8)
[2019-01-18 07:24] LABS: AMMONIA 32 umol/L (11-32)
[2019-01-18 07:45] LABS: ALANINE AMINOTRANSFERASE 37 U/L (12-78); ALBUMIN 2.4 G/DL (3.4-5.0); ALBUMIN/GLOBULIN RATIO 0.5 (1.0-2.7); ALKALINE PHOSPHATASE 141 U/L (46-116); ANION GAP 19 mmol/L (5-15); ASPARTATE AMINO TRANSFERASE 73 U/L (15-37); BILIRUBIN,TOTAL 0.6 MG/DL (0.2-1.0); BLOOD UREA NITROGEN 67 mg/dL (7-18); CALCIUM 7.5 MG/DL (8.5-10.1); CARBON DIOXIDE 23 MMOL/L (21-32); CHLORIDE 89 MMOL/L (98-107); CHOLESTEROL 119 MG/DL (< 200); CREATINE KINASE 861 U/L (26-308); CREATININE 3.1 MG/DL (0.55-1.30); FERRITIN 335 NG/ML (8-388); GAMMA GLUTAMYL TRANSPEPTIDASE 6 U/L (5-85); HDL CHOLESTEROL 45 MG/DL (40-60); PHOSPHORUS 2.7 MG/DL (2.5-4.9); SODIUM 131 MMOL/L (136-145); TRIGLYCERIDES 102 MG/DL (30-150)
--- NOTE | 2019-01-18 07:45 | NUR ---
NURSE NOTES: Nurse report given by GAIL Arnold. Patient's awake in bed, AO x 1, no s/s of distress or SOB. On soft wrist restraints, bilateral wrists. No IV access, is aware. Naranjo is drained well, will renew at 1042. Bed at lowest position, call light within reach, break engaged, safety precaution is on, side rails x 3. Will continue to monitor.
--- NOTE | 2019-01-18 07:47 | NUR ---
HAND-OFF: Report given to Blank REYNOLDS, patient in stable condition, plan of care endorsed.
[2019-01-18 07:48] LABS: POTASSIUM 3.3 MMOL/L (3.5-5.1)
[2019-01-18 08:00] VITALS: BP 108/66
[2019-01-18 08:15] LABS: WHITE BLOOD COUNT 25.5 K/UL (4.8-10.8)
[2019-01-18 08:31] LABS: % IRON SATURATION 12 % (15-50); IRON 26 ug/dL (50-175); TOTAL IRON BINDING CAPACITY 218 ug/dL (250-450)
--- NOTE | 2019-01-18 08:36 | NUR ---
RADIOLOGY DEPT., CHEST X-RAY DONE.-P.DYE
[2019-01-18] MEDS: Anastrazole 1mg tab ORAL SCH (08:44)
[2019-01-18] MEDS: Aspirin EC 81mg tab ORAL SCH (08:46)
[2019-01-18] MEDS: Heparin 5000 units/ml inj SUBQ SCH ×2 (08:46→21:55)
[2019-01-18] MEDS: Metoprolol 25mg tab ORAL SCH ×2 (08:47→21:51)
[2019-01-18] MEDS: Ascorbic Acid 500mg tab ORAL SCH (08:48)
--- NOTE | 2019-01-18 09:09 | Nephrology Progress Note ---
Assessment/Plan Problem List: (1) Acute renal failure (ARF) (2) Failure to thrive in adult (3) Severe protein-calorie malnutrition (4) Dehydration Assessment Acute on chronic renal failure- Dehydration Failing to thrive, Malnutrition Decubiti Urinary retention Plan marte Urine studies Hydrate- patient refused IV hydration and Picc line since admission K supplement CXR STANLEY kidney per orders Subjective ROS Limited/Unobtainable: No Constitutional: Reports: malaise, weakness Objective Objective Last 24 Hour Vital Signs Date Time Temp Pulse Resp B/P (MAP) Pulse Ox O2 Delivery O2 Flow Rate FiO2 01/18/19 08:47 85 109/66 01/18/19 04:00 79 01/18/19 04:00 97.9 68 18 133/59 (83) 98 01/18/19 00:00 98.0 69 18 125/68 (87) 97 01/18/19 00:00 73 01/17/19 21:05 77 133/75 01/17/19 21:00 Room Air 01/17/19 20:00 98.3 77 18 133/75 (94) 99 01/17/19 20:00 80 01/17/19 15:31 92 01/17/19 12:29 85 01/17/19 12:00 98.1 108 20 110/70 (83) 98 01/17/19 11:00 Room Air 01/17/19 09:08 115 113/68 Intake and Output 01/17/19 01/18/19 18:59 06:59 Intake Total 120 ml 500 ml Output Total 400 ml 375 ml Balance -280 ml 125 ml Intake Oral 120 ml 500 ml Output Urine Total 400 ml 375 ml # Bowel Movements 2 1 Laboratory Tests 01/17/19 11:00: Urine Color Pale yellow, Urine Appearance Clear, Urine pH 5, Urine Specific [place] 1.010, Urine Protein 2+H, Urine Glucose (UA) Negative, Urine Ketones Negative, Urine Blood 3+H, Urine Nitrite Negative, Urine Bilirubin Negative, Urine Urobilinogen Normal, Urine Leukocyte Esterase Negative, Urine RBC 5-10H, Urine WBC 2-4, Urine Squamous Epithelial Cells Few, Urine Bacteria Few, Urine Granular Casts 2-4H, Urine Random Sodium 23 01/18/19 06:14: White Blood Count 25.5*H, Red Blood Count 5.73H, Hemoglobin 16.3H, Hematocrit 48.7H, Mean Corpuscular Volume 85, Mean Corpuscular Hemoglobin 28.4, Mean Corpuscular Hemoglobin Concent 33.5, Red Cell Distribution Width 11.1L, Platelet Count 232, Mean Platelet Volume 7.5, Neutrophils (%) (Auto) , Lymphocytes (%) (Auto) , Monocytes (%) (Auto) , Eosinophils (%) (Auto) , Basophils (%) (Auto) , Differential Total Cells Counted 100, Neutrophils % ( Manual) 79H, Lymphocytes % (Manual) 4L, Monocytes % (Manual) 14H, Eosinophils % (Manual) 0, Basophils % (Manual) 0, Band Neutrophils 3, Platelet Estimate Adequate, Platelet Morphology Normal, Red Blood Cell Morphology Normal, Sodium Level 131L, Potassium Level 3.3L, Chloride Level 89L, Carbon Dioxide Level 23, Anion Gap 19H, Blood Urea Nitrogen 67H, Creatinine 3.1H, Estimat Glomerular Filtration Rate , Glucose Level 233#H, Uric Acid 9.1H, Calcium Level 7.5L, Phosphorus Level 2.7, Magnesium Level 2.5H, Iron Level 26L, Total Iron Binding Capacity 218L, Percent Iron Saturation 12L, Unsaturated Iron Binding 192, Ferritin 335, Total Bilirubin 0.6, Gamma Glutamyl Transpeptidase 6, Aspartate Amino Transf (AST/SGOT) 73H, Alanine Aminotransferase (ALT/SGPT) 37, Alkaline Phosphatase 141H, Ammonia 32, Total Creatine Kinase 861H, C-Reactive Protein, Quantitative 5.6H, Pro-B-Type Natriuretic Peptide 3734H, Total Protein 7.4, Albumin 2.4L, Globulin 5.0, Albumin/Globulin Ratio 0.5L, Triglycerides Level 102 , Cholesterol Level 119, LDL Cholesterol 54, HDL Cholesterol 45, Cholesterol/ HDL Ratio 2.6L, Lipase > 2000H, Vitamin B12 Level 1398H, Folate 23.6, Free Thyroxine 1.31, Free Triiodothyronine 1.6L Height (Feet): 5 Height (Inches): 1.00 Weight (Pounds): 110 General Appearance: no apparent distress, lethargic Cardiovascular: regular rhythm Respiratory/Chest: decreased breath sounds Abdomen: soft Mauri Huddleston MD Jan 18, 2019 09:09
--- NOTE | 2019-01-18 09:30 | NUR ---
NURSE NOTES: Patient's off the floor for PICC placement. IM Haldol was given prior to the procedure. Patient tolerated well. Patient's transported by dealer support technician. Patient was in stable condition when leaving the floor. Off tele order was put in.
--- NOTE | 2019-01-18 09:30 | NUR ---
NURSE NOTES: Patient's off the floor for MRI procedure. Nurse gave Haldol IM prior to the procedure. Patient tolerated well, Patient was in stable condition before going off the floor for the procedure, assisted by Radiology technicians. Addendum: 01/18/19 at 1124 by Lisa Mendes RN Entered wrong procedure.
[2019-01-18] MEDS ORDERED: Heparin1,000 units/500ml Premix(Conc:2 units/ml) IV PRN (10:00)
[2019-01-18] MEDS ORDERED: Lidocaine 1% Plain 30 ml INJ PRN (10:00)
--- NOTE | 2019-01-18 10:08 | Diagnostic Imaging Report ---
Indication: Cough Technique: One view of the chest Comparison: none Findings: There is slight blunting of the right costophrenic sulcus. The left hemidiaphragm is elevated. Gas is seen in the right axilla. Surgical clips are seen in the right axilla. The lungs and pleural spaces are otherwise clear. The heart size is normal. Impression: Gas within the right axilla. Review of electronic medical record indicates patient has an open wound in the right axilla so this finding is presumably related to such Possible small right pleural effusion. Clear lungs otherwise
--- NOTE | 2019-01-18 10:45 | Diagnostic Imaging Report ---
. Indications: Needs long-term IV access Technique: Ultrasound confirms patent compressible left basilic vein. Total sterile technique, including sterile probe cover and sterile gel, hat, mask, sterile gown, large sterile drape, and preparation with 2% chlorhexidine utilized. Local anesthesia with 1% lidocaine. Under real-time ultrasound guidance, puncture basilic vein using 21-gauge needle, documented and archived, passage 0.018 guidewire under direct fluoroscopy, which was used to determine appropriate catheter length, exchange for 4 Australian peel-away sheath. 4 Australian Bard dual-lumen power PICC cut to 41 cm. It was inserted through the peel-away sheath. Peel-away sheath and guidewire removed. Catheter fixed to the skin. Both catheter ports aspirated and flushed. Patient tolerated procedure well, without immediate complication. Digital radiograph documents satisfactory catheter tip position, at the cavoatrial junction. Total fluoroscopy time 10.5 seconds. Total dose area product [id number] mGym2 Total number of images: 1 Impression: Successful placement of left arm PICC under sonographic and fluoroscopic guidance, as described above.
--- NOTE | 2019-01-18 10:50 | NUR ---
NURSE NOTES: Patient's back from the procedure. Patient is still sedated and arouseable. PICC line assessment, no s/s of bleeding, flushed well, blood flash back, no pain, patent and asymptomatic. Bed in lowest position, break engaged, call light within reach, side rails x 3, safety precaution is on, soft wrist restraints bilateral applied. Will continue to monitor.
[2019-01-18] MEDS: Piperacillin/Tazobactam 3.375 GM in NS 110 ML IVPB SCH ×2 (11:02→21:53)
[2019-01-18 12:00] VITALS: BP 101/66
--- NOTE | 2019-01-18 14:53 | Surgery Progress Note ---
Surgery Progress Note Subjective Additional Comments worsening leukocytosis electrolytes and labs noted exam stable no complaints cxr noted PICC line Objective Last 24 Hour Vital Signs Date Time Temp Pulse Resp B/P (MAP) Pulse Ox O2 Delivery O2 Flow Rate FiO2 01/18/19 12:00 97.7 86 18 101/66 (78) 94 01/18/19 12:00 99 01/18/19 09:00 Room Air 01/18/19 08:47 85 109/66 01/18/19 08:00 93 01/18/19 08:00 97.6 82 18 108/66 (80) 98 01/18/19 04:00 79 01/18/19 04:00 97.9 68 18 133/59 (83) 98 01/18/19 00:00 98.0 69 18 125/68 (87) 97 01/18/19 00:00 73 01/17/19 21:05 77 133/75 01/17/19 21:00 Room Air 01/17/19 20:00 98.3 77 18 133/75 (94) 99 01/17/19 20:00 80 01/17/19 15:31 92 I&O Intake and Output 01/17/19 01/18/19 19:00 07:00 Intake Total 120 ml 500 ml Output Total 400 ml 375 ml Balance -280 ml 125 ml Intake Oral 120 ml 500 ml Output Urine Total 400 ml 375 ml # Bowel Movements 2 1 Dressing: saturated Wound: clean Cardiovascular: RSR Respiratory: clear Abdomen: soft, non-tender, present bowel sounds Extremities: no cyanosis, other Laboratory Tests Test 01/18/19 06:14 White Blood Count 25.5 K/UL (4.8-10.8) *H Red Blood Count 5.73 M/UL (4.20-5.40) H Hemoglobin 16.3 G/DL (12.0-16.0) H Hematocrit 48.7 % (37.0-47.0) H Mean Corpuscular Volume 85 FL (80-99) Mean Corpuscular Hemoglobin 28.4 PG (27.0-31.0) Mean Corpuscular Hemoglobin Concent 33.5 G/DL (32.0-36.0) Red Cell Distribution Width 11.1 % (11.6-14.8) L Platelet Count 232 K/UL (150-450) Mean Platelet Volume 7.5 FL (6.5-10.1) Neutrophils (%) (Auto) % (45.0-75.0) Lymphocytes (%) (Auto) % (20.0-45.0) Monocytes (%) (Auto) % (1.0-10.0) Eosinophils (%) (Auto) % (0.0-3.0) Basophils (%) (Auto) % (0.0-2.0) Differential Total Cells Counted 100 Neutrophils % (Manual) 79 % (45-75) H Lymphocytes % (Manual) 4 % (20-45) L Monocytes % (Manual) 14 % (1-10) H Eosinophils % (Manual) 0 % (0-3) Basophils % (Manual) 0 % (0-2) Band Neutrophils 3 % (0-8) Platelet Estimate Adequate Platelet Morphology Normal Red Blood Cell Morphology Normal Sodium Level 131 MMOL/L (136-145) L Potassium Level 3.3 MMOL/L (3.5-5.1) L Chloride Level 89 MMOL/L (98-107) L Carbon Dioxide Level 23 MMOL/L (21-32) Anion Gap 19 mmol/L (5-15) H Blood Urea Nitrogen 67 mg/dL (7-18) H Creatinine 3.1 MG/DL (0.55-1.30) H Estimat Glomerular Filtration Rate mL/min (>60) Glucose Level 233 MG/DL (74-106) #H Uric Acid 9.1 MG/DL (2.6-7.2) H Calcium Level 7.5 MG/DL (8.5-10.1) L Phosphorus Level 2.7 MG/DL (2.5-4.9) Magnesium Level 2.5 MG/DL (1.8-2.4) H Iron Level 26 ug/dL (50-175) L Total Iron Binding Capacity 218 ug/dL (250-450) L Percent Iron Saturation 12 % (15-50) L Unsaturated Iron Binding 192 ug/dL (112-346) Ferritin 335 NG/ML (8-388) Total Bilirubin 0.6 MG/DL (0.2-1.0) Gamma Glutamyl Transpeptidase 6 U/L (5-85) Aspartate Amino Transf (AST/SGOT) 73 U/L (15-37) H Alanine Aminotransferase (ALT/SGPT) 37 U/L (12-78) Alkaline Phosphatase 141 U/L (46-116) H Ammonia 32 umol/L (11-32) Total Creatine Kinase 861 U/L (26-308) H C-Reactive Protein, Quantitative 5.6 mg/dL (0.00-0.90) H Pro-B-Type Natriuretic Peptide 3734 pg/mL (0-125) H Total Protein 7.4 G/DL (6.4-8.2) Albumin 2.4 G/DL (3.4-5.0) L Globulin 5.0 g/dL Albumin/Globulin Ratio 0.5 (1.0-2.7) L Triglycerides Level 102 MG/DL (30-150) Cholesterol Level 119 MG/DL (< 200) LDL Cholesterol 54 mg/dL (<100) HDL Cholesterol 45 MG/DL (40-60) Cholesterol/HDL Ratio 2.6 (3.3-4.4) L Lipase > 2000 U/L (73-393) H Vitamin B12 Level 1398 PG/ML (193-986) H Folate 23.6 NG/ML (8.6-58.9) Free Thyroxine 1.31 NG/DL (0.76-1.46) Free Triiodothyronine 1.6 pg/mL (2.3-4.2) L Plan Problems: (1) Dehydration (2) Decubitus skin ulcer Assessment & Plan: Pt presented on admission with multiple wounds.Hx R Mastectomy . Full thickness wound that is tunneled into R axilla noted to aleksander R mastectomy.Base of wound is sahara with macerated borders oozing small amt serous exudate noted. No odor noted. (L)3cm x (W)6cm x (D)0.3, tunneling clockwise @10o'clock by 6.6cm. Full thickness wound lateral/posterior R chest. Scattered slough at base of wound with erythematous borders .Periwound indurated. wound oozing small amt serous exudate. (L)1cm x (W)3cm. Full thickness wound posterior thoracic. 100% slough at base of wound. Erythematous borders. No odor or exudate noted(L)2.3cm x (W)2.5cm. Full thickness wound median R humerus. 100% slough with erythematous borders. No odor or exudate noted.(L)3.9cm x (W)2.4cm. Incontinence associated dermatitis noted to sacral and cleft of buttocks. Affected area is erythematous. Pt denied burning or itching. DTPI noted to medial L foot . Base of wound is indurated,purple with red margins.(L)3.2cm x (W)1cm. L heel boggy with non-blanchable erythema. Non-blanchable erythema without fluctuance R heel. Tx.Plan: Cleanse wound Aleksander R chest with Saline. Loosely pack wound (@10o'clock) with 1 /2 inch Iodoform packing. Apply Cavilon periwound. Cover with Optifoam drsg.Daily and prn. Cleanse wounds R arm with saline. Apply Xeroform gauze.Apply Cavilon periwound. Cover with Optifoam drsg. Change daily and prn. Cleanse wound Lateral/posterior chest with Saline. Apply xeroform gauze. Cover with Optifoam drsg. Change Daily and prn. Cleanse wound Posterior R thoracic with Saline. Cover with Xeroform. Apply Cavilon Skin Barrier periwound. Cover with Optifoam drsg. Daily and prn. Apply Triad Paste to Buttocks with each perineal care. Apply Cavilon Skin Barrier to both heels. Cover each heel with Optifoam drsg. every 7 days and prn. Reposition at least every 2hours or as tolerated. Off-load heels with pillow. (3) Leukocytosis Assessment & Plan: cont Abx worsening unlikely related to wounds that do not seem actively infected (4) Severe protein-calorie malnutrition Assessment & Plan: DAILY ESTIMATED NEEDS: Needs based on Cancer, wounds 48kg 30-40 kcals/kg 9312-2598 total kcals 1.25-2 g protein/kg 60-96 g total protein 25-30 mL/kg 9959-6275 total fluid mLs NUTRITION DIAGNOSIS: Increased kcal and pro needs r/t wound healing and low BMI as evidenced by BMI underweight per guidelines, pt w/ multiple partial thickness wounds, refer to WC eval. CURRENT DIET: Soft GAGE PO DIET RECOMMENDATIONS: GAGE diet/ texture as tolerated ADDITIONAL RECOMMENDATIONS: - Pt w/ poor po intake, would rec to liberalized diet to REGULAR - Add ENSURE ENLIVE TID w/ meals - Obtain a standing scale wt as able Or recalibrate bed scale for accurate CBW - Monitor renal fxn/ lytes and need for renal supplement - WOUND CARE: add DILAN BID + MVI x1 + VIT C 500mg daily (5) Failure to thrive in adult Jesus Bennett Jan 18, 2019 14:53
--- NOTE | 2019-01-18 15:30 | General Progress Note ---
Assessment/Plan Problem List: (1) Acute renal failure (ARF) ICD Codes: N17.9 - Acute kidney failure, unspecified SNOMED: 91331867 (2) Dehydration ICD Codes: E86.0 - Dehydration SNOMED: 20740644 (3) Decubitus skin ulcer ICD Codes: L89.90 - Pressure ulcer of unspecified site, unspecified stage SNOMED: 767462512 (4) Leukocytosis ICD Codes: D72.829 - Elevated white blood cell count, unspecified SNOMED: 651513915, 684553314 (5) Failure to thrive in adult ICD Codes: R62.7 - Adult failure to thrive SNOMED: 677040484 (6) Severe protein-calorie malnutrition ICD Codes: E43 - Unspecified severe protein-calorie malnutrition SNOMED: 662000304, 749986346, 788479812 Status: stable, progressing Assessment/Plan: picc line cont ivf renal us noted monitor renal fxn/lytes psych and renal eval appreciated ID called for leukocytosis check blood culture wound care Subjective ROS Limited/Unobtainable: No Constitutional: Reports: malaise, weakness HEENT: Reports: no symptoms Cardiovascular: Reports: no symptoms Respiratory: Reports: no symptoms Gastrointestinal/Abdominal: Reports: no symptoms Genitourinary: Reports: no symptoms Neurologic/Psychiatric: Reports: anxiety, emotional problems Endocrine: Reports: no symptoms Hematologic/Lymphatic: Reports: anemia Allergies: Coded Allergies: No Known Allergies (Unverified , 01/15/19) All Systems: reviewed and negative except above Subjective uncooperative with care and rx. +bladder distention. pulled out iv and refused picc. states she will cooperative now. WBC higher Objective Last 24 Hour Vital Signs Date Time Temp Pulse Resp B/P (MAP) Pulse Ox O2 Delivery O2 Flow Rate FiO2 01/18/19 12:00 97.7 86 18 101/66 (78) 94 01/18/19 12:00 99 01/18/19 09:00 Room Air 01/18/19 08:47 85 109/66 01/18/19 08:00 93 01/18/19 08:00 97.6 82 18 108/66 (80) 98 01/18/19 04:00 79 01/18/19 04:00 97.9 68 18 133/59 (83) 98 01/18/19 00:00 98.0 69 18 125/68 (87) 97 01/18/19 00:00 73 01/17/19 21:05 77 133/75 01/17/19 21:00 Room Air 01/17/19 20:00 98.3 77 18 133/75 (94) 99 01/17/19 20:00 80 01/17/19 15:31 92 Intake and Output 01/17/19 01/18/19 19:00 07:00 Intake Total 120 ml 500 ml Output Total 400 ml 375 ml Balance -280 ml 125 ml Intake Oral 120 ml 500 ml Output Urine Total 400 ml 375 ml # Bowel Movements 2 1 Laboratory Tests 01/18/19 06:14: White Blood Count 25.5*H, Red Blood Count 5.73H, Hemoglobin 16.3H, Hematocrit 48.7H, Mean Corpuscular Volume 85, Mean Corpuscular Hemoglobin 28.4, Mean Corpuscular Hemoglobin Concent 33.5, Red Cell Distribution Width 11.1L, Platelet Count 232, Mean Platelet Volume 7.5, Neutrophils (%) (Auto) , Lymphocytes (%) (Auto) , Monocytes (%) (Auto) , Eosinophils (%) (Auto) , Basophils (%) (Auto) , Differential Total Cells Counted 100, Neutrophils % ( Manual) 79H, Lymphocytes % (Manual) 4L, Monocytes % (Manual) 14H, Eosinophils % (Manual) 0, Basophils % (Manual) 0, Band Neutrophils 3, Platelet Estimate Adequate, Platelet Morphology Normal, Red Blood Cell Morphology Normal, Sodium Level 131L, Potassium Level 3.3L, Chloride Level 89L, Carbon Dioxide Level 23, Anion Gap 19H, Blood Urea Nitrogen 67H, Creatinine 3.1H, Estimat Glomerular Filtration Rate , Glucose Level 233#H, Uric Acid 9.1H, Calcium Level 7.5L, Phosphorus Level 2.7, Magnesium Level 2.5H, Iron Level 26L, Total Iron Binding Capacity 218L, Percent Iron Saturation 12L, Unsaturated Iron Binding 192, Ferritin 335, Total Bilirubin 0.6, Gamma Glutamyl Transpeptidase 6, Aspartate Amino Transf (AST/SGOT) 73H, Alanine Aminotransferase (ALT/SGPT) 37, Alkaline Phosphatase 141H, Ammonia 32, Total Creatine Kinase 861H, C-Reactive Protein, Quantitative 5.6H, Pro-B-Type Natriuretic Peptide 3734H, Total Protein 7.4, Albumin 2.4L, Globulin 5.0, Albumin/Globulin Ratio 0.5L, Triglycerides Level 102 , Cholesterol Level 119, LDL Cholesterol 54, HDL Cholesterol 45, Cholesterol/ HDL Ratio 2.6L, Lipase > 2000H, Vitamin B12 Level 1398H, Folate 23.6, Free Thyroxine 1.31, Free Triiodothyronine 1.6L Height (Feet): 5 Height (Inches): 1.00 Weight (Pounds): 110 General Appearance: WD/WN, alert Neck: supple Cardiovascular: regular rhythm Respiratory/Chest: chest wall non-tender, lungs clear, normal breath sounds, no respiratory distress Abdomen: normal bowel sounds, non tender, soft, no organomegaly Edema: no edema noted Arm (L), no edema noted Arm (R), no edema noted Leg (L), no edema noted Leg (R), no edema noted Pedal (L), no edema noted Pedal (R), no edema noted Generalized Mesfin Chapa MD Jan 18, 2019 15:30
[2019-01-18] MEDS ORDERED: D5NS 1000ml IV ONE (15:47)
[2019-01-18] MEDS ORDERED: NS 275ml ONE (15:47)
[2019-01-18 16:00] VITALS: BP 106/63
[2019-01-18] MEDS ORDERED: Vancomycin 1gm/D5W 275ml IVPB ONE ×2 (17:00)
--- NOTE | 2019-01-18 19:15 | NUR ---
HAND-OFF: Report given to GAIL Donovan. Plan of care endorsed. .
--- NOTE | 2019-01-18 19:20 | NUR ---
NURSE NOTES: Received report from GAIL Parson. Pt is resting in bed. In no acute distress. SHAHNAZ PICC line intact and patent. Bed in lowest position, call light within reach. Will continue plan of care.
[2019-01-18 20:00] VITALS: BP 94/59
[2019-01-18] MEDS: Dyna-Hex 2% Top Sol 2oz TOPIC SCH (21:03)
[2019-01-18] MEDS: LORazepam Inj 2mg/ml 1ml IV PRN (21:56)
[2019-01-19] VITALS: BP 136/75
--- NOTE | 2019-01-19 00:30 | Progress Note ---
DATE: 01/18/2019 CARDIOLOGY PROGRESS NOTE SUBJECTIVE: The patient is frequently confused and agitated and refuses care. OBJECTIVE: VITAL SIGNS: Blood pressure 101/66, pulse 86, respirations 18, and afebrile. LUNGS: Clear. CARDIAC: Regular. Normal S1, S2 with a fourth heart sound. ABDOMEN: Soft. EXTREMITIES: No edema. LABORATORY DATA: White count 25.5, hemoglobin 16.3. Sodium 131, potassium 3.3, chloride 89, BUN 67, and creatinine 3.1. Glucose 233. Magnesium 2.5. Ammonia normal. Natriuretic peptide 3700. Lipase over 2000. IMPRESSION: 1. Leukocytosis. 2. Possible pancreatitis. 3. Acute renal failure. 4. Ischemic cardiomyopathy. 5. Chronic ischemic heart disease. 6. Dehydration. 7. Hypovolemia. 8. Severe protein-calorie malnutrition. PLAN: 1. Imaging of the abdomen. 2. Consider NPO. 3. IV fluid hydration. 4. Maintain beta-rehana, anti-lipid and anti-platelet drugs. 5. Follow up blood cultures. Jorge Self M.D. DR: DREW JOB#: [id number] CC:
--- NOTE | 2019-01-19 02:00 | Progress Note ---
DATE: 01/18/2019 SUBJECTIVE: The patient has been uncooperative, confused, disoriented. She is unable to understand process, communicate, and appreciate information given to her. The patient is having episodes of agitation and refuses care. MENTAL STATUS EXAMINATION: The patient is alert, confused, disoriented. Mood is anxious. Affect is flat. Thought process, there is a paucity of thought content. Thought content, no suicidal or homicidal ideation. ASSESSMENT: 1. Acute encephalopathy. 2. Dementia with behavior disturbance. 3. The patient lacks capacity to make any decisions. 4. Continue the current psychotropic medications. 5. The patient any care or medication as she lacks capacity. Medications were given to her against her will. Cynthia Nicholson M.D. DR: Calvin JOB#: [id number] CC: AMISHA
[2019-01-19 04:00] VITALS: BP 106/50
--- NOTE | 2019-01-19 07:28 | NUR ---
HAND-OFF: Report given to GAIL Jackson.
--- NOTE | 2019-01-19 07:31 | NUR ---
NURSE NOTES: received patinet report from zack brush. patienti s on bed asleep. not in acute distress. no arrythmias reported during the night. bed is low and locked for safety. will follow plan of care.
[2019-01-19 07:57] LABS: HEMATOCRIT 36.4 % (37.0-47.0); HEMOGLOBIN 11.6 G/DL (12.0-16.0); MEAN CORPUSCULAR VOLUME 90 FL (80-99); PLATELET COUNT 156 K/UL (150-450); RED BLOOD COUNT 4.06 M/UL (4.20-5.40)
[2019-01-19 08:00] VITALS: BP 117/68
[2019-01-19] MEDS: D5NS 1,000 ML IV SCH ×2 (08:13→18:15)
[2019-01-19] MEDS: Metoprolol 25mg tab ORAL SCH ×2 (08:15→21:32)
[2019-01-19] MEDS: Anastrazole 1mg tab ORAL SCH (08:15)
[2019-01-19] MEDS: Aspirin EC 81mg tab ORAL SCH (08:15)
[2019-01-19] MEDS: Ascorbic Acid 500mg tab ORAL SCH (08:15)
[2019-01-19 08:16] LABS: WHITE BLOOD COUNT 29.1 K/UL (4.8-10.8)
[2019-01-19] MEDS: Heparin 5000 units/ml inj SUBQ SCH ×2 (08:16→21:33)
--- NOTE | 2019-01-19 10:20 | General Progress Note ---
Assessment/Plan Problem List: (1) Acute renal failure (ARF) ICD Codes: N17.9 - Acute kidney failure, unspecified SNOMED: 01025980 (2) Dehydration ICD Codes: E86.0 - Dehydration SNOMED: 48894140 (3) Decubitus skin ulcer ICD Codes: L89.90 - Pressure ulcer of unspecified site, unspecified stage SNOMED: 556536388 (4) Leukocytosis ICD Codes: D72.829 - Elevated white blood cell count, unspecified SNOMED: 669261621, 146270649 (5) Failure to thrive in adult ICD Codes: R62.7 - Adult failure to thrive SNOMED: 873781364 (6) Severe protein-calorie malnutrition ICD Codes: E43 - Unspecified severe protein-calorie malnutrition SNOMED: 472361512, 214366052, 501884190 Status: stable, progressing Assessment/Plan: npo cont ivf follow up ct trending labs/lipase ID eval pending monitor renal fxn/lytes psych and renal eval appreciated wound care Subjective ROS Limited/Unobtainable: No Constitutional: Reports: malaise, weakness HEENT: Reports: no symptoms Cardiovascular: Reports: no symptoms Respiratory: Reports: no symptoms Gastrointestinal/Abdominal: Reports: poor appetite Genitourinary: Reports: no symptoms Neurologic/Psychiatric: Reports: anxiety, depressed, emotional problems, pre- existing deficit Endocrine: Reports: no symptoms Hematologic/Lymphatic: Reports: anemia Allergies: Coded Allergies: No Known Allergies (Unverified , 01/15/19) All Systems: reviewed and negative except above Subjective s/p picc. on ivf. wbc trending up. elevated lipase noted. denies pain but "no appetite." npo currently ct pending. Objective Last 24 Hour Vital Signs Date Time Temp Pulse Resp B/P (MAP) Pulse Ox O2 Delivery O2 Flow Rate FiO2 01/19/19 09:00 Room Air 01/19/19 08:15 87 118/65 01/19/19 08:00 97.5 85 24 117/68 (84) 100 01/19/19 07:44 83 01/19/19 04:00 97.8 73 20 106/50 (68) 99 01/19/19 04:00 73 01/19/19 00:00 97.8 83 20 136/75 (95) 98 01/19/19 00:00 83 01/18/19 21:51 94 127/80 01/18/19 21:00 Room Air 01/18/19 20:00 97.9 83 20 94/59 (71) 98 01/18/19 20:00 83 01/18/19 16:00 98.7 83 18 106/63 (77) 100 01/18/19 16:00 84 01/18/19 12:00 97.7 86 18 101/66 (78) 94 01/18/19 12:00 99 Intake and Output 01/18/19 01/19/19 18:59 06:59 Intake Total 500 ml 1285 ml Output Total 900 ml Balance 500 ml 385 ml Intake Oral 500 ml IV Total 1285 ml Output Urine Total 900 ml # Bowel Movements 1 1 Laboratory Tests 01/19/19 05:40: White Blood Count 29.1*H, Red Blood Count 4.06L, Hemoglobin 11.6L, Hematocrit 36.4L, Mean Corpuscular Volume 90, Mean Corpuscular Hemoglobin 28.7, Mean Corpuscular Hemoglobin Concent 32.0, Red Cell Distribution Width 12.0, Platelet Count 156, Mean Platelet Volume 8.0, Neutrophils (%) (Auto) , Lymphocytes (%) ( Auto) , Monocytes (%) (Auto) , Eosinophils (%) (Auto) , Basophils (%) (Auto) , Differential Total Cells Counted 100, Neutrophils % (Manual) 83H, Lymphocytes % (Manual) 9L, Monocytes % (Manual) 8, Eosinophils % (Manual) 0, Basophils % ( Manual) 0, Band Neutrophils 0, Platelet Estimate Adequate, Platelet Morphology Normal, Red Blood Cell Morphology Normal, Sodium Level [Pending], Potassium Level [Pending], Chloride Level [Pending], Carbon Dioxide Level [Pending], Blood Urea Nitrogen [Pending], Creatinine [Pending], Estimat Glomerular Filtration Rate [Pending], Glucose Level [Pending], Calcium Level [Pending], Total Bilirubin [Pending], Aspartate Amino Transf (AST/SGOT) [Pending], Alanine Aminotransferase (ALT/SGPT) [Pending], Alkaline Phosphatase [Pending], Total Protein [Pending], Albumin [Pending], Globulin [Pending], Lipase [Pending] Height (Feet): 5 Height (Inches): 1.00 Weight (Pounds): 110 Objective General Appearance: WD/WN, alert Neck: supple Cardiovascular: regular rhythm Respiratory/Chest: chest wall non-tender, lungs clear, normal breath sounds, no respiratory distress Abdomen: normal bowel sounds, non tender, soft, no organomegaly Edema: no edema noted Arm (L), no edema noted Arm (R), no edema noted Leg (L), no edema noted Leg (R), no edema noted Pedal (L), no edema noted Pedal (R), no edema noted Generalized Mesfin Chapa MD Jan 19, 2019 10:20
--- NOTE | 2019-01-19 10:23 | Nephrology Progress Note ---
Assessment/Plan Status: stable, progressing Assessment/Plan: A/P 1) MELANIE- resolving, Cr down to 3.1 - am labs pending 2) Failure to thrive in adult- continue aggressive nutrition 3) Severe protein-calorie malnutrition 4) Dehydration- IVFs Subjective Date patient seen: Jan 19, 2019 Time patient seen: 10:21 ROS Limited/Unobtainable: Yes Allergies: Coded Allergies: No Known Allergies (Unverified , 01/15/19) Subjective Patient remains confused and disoriented Objective Last 24 Hour Vital Signs Date Time Temp Pulse Resp B/P (MAP) Pulse Ox O2 Delivery O2 Flow Rate FiO2 01/19/19 09:00 Room Air 01/19/19 08:15 87 118/65 01/19/19 08:00 97.5 85 24 117/68 (84) 100 01/19/19 07:44 83 01/19/19 04:00 97.8 73 20 106/50 (68) 99 01/19/19 04:00 73 01/19/19 00:00 97.8 83 20 136/75 (95) 98 01/19/19 00:00 83 01/18/19 21:51 94 127/80 01/18/19 21:00 Room Air 01/18/19 20:00 97.9 83 20 94/59 (71) 98 01/18/19 20:00 83 01/18/19 16:00 98.7 83 18 106/63 (77) 100 01/18/19 16:00 84 01/18/19 12:00 97.7 86 18 101/66 (78) 94 01/18/19 12:00 99 Intake and Output 01/18/19 01/19/19 18:59 06:59 Intake Total 500 ml 1285 ml Output Total 900 ml Balance 500 ml 385 ml Intake Oral 500 ml IV Total 1285 ml Output Urine Total 900 ml # Bowel Movements 1 1 Laboratory Tests 01/19/19 05:40: White Blood Count 29.1*H, Red Blood Count 4.06L, Hemoglobin 11.6L, Hematocrit 36.4L, Mean Corpuscular Volume 90, Mean Corpuscular Hemoglobin 28.7, Mean Corpuscular Hemoglobin Concent 32.0, Red Cell Distribution Width 12.0, Platelet Count 156, Mean Platelet Volume 8.0, Neutrophils (%) (Auto) , Lymphocytes (%) ( Auto) , Monocytes (%) (Auto) , Eosinophils (%) (Auto) , Basophils (%) (Auto) , Differential Total Cells Counted 100, Neutrophils % (Manual) 83H, Lymphocytes % (Manual) 9L, Monocytes % (Manual) 8, Eosinophils % (Manual) 0, Basophils % ( Manual) 0, Band Neutrophils 0, Platelet Estimate Adequate, Platelet Morphology Normal, Red Blood Cell Morphology Normal, Sodium Level [Pending], Potassium Level [Pending], Chloride Level [Pending], Carbon Dioxide Level [Pending], Blood Urea Nitrogen [Pending], Creatinine [Pending], Estimat Glomerular Filtration Rate [Pending], Glucose Level [Pending], Calcium Level [Pending], Total Bilirubin [Pending], Aspartate Amino Transf (AST/SGOT) [Pending], Alanine Aminotransferase (ALT/SGPT) [Pending], Alkaline Phosphatase [Pending], Total Protein [Pending], Albumin [Pending], Globulin [Pending], Lipase [Pending] Height (Feet): 5 Height (Inches): 1.00 Weight (Pounds): 110 General Appearance: no apparent distress EENT: normal ENT inspection Neck: normal alignment, supple Cardiovascular: normal rate, regular rhythm Respiratory/Chest: lungs clear, normal breath sounds Abdomen: non tender, soft Edema: no edema noted Arm (L), no edema noted Arm (R), no edema noted Leg (L), no edema noted Leg (R), no edema noted Pedal (L), no edema noted Pedal (R), no edema noted Generalized Esequiel Salter MD Jan 19, 2019 10:23
--- NOTE | 2019-01-19 10:33 | NUR ---
CASE MANAGEMENT: REVIEW 01/19/2019 SI: DEHYDRATION. FAILURE TO THRIVE T 97.5 HR 85 RR 24 B/P 117/68 SATS 100% ON RA WBC 29.1 BMP: PENDING IS: IVF @ 100 mL/HR ZOSYN IV Q8H MEROPENEM IV Q12H REMERON PO QHS ARIMEDEX PO QD ASA PO QD PROTONIX PO QD LOPRESSOR PO Q12H : TELEMETRY DCP: PATIENT TO BE DISCHARGED TO PAVILION ONCE MEDICALLY CLEARED. PLAN OF CARE: CT ABD PELVIS
[2019-01-19 10:53] LABS: ALANINE AMINOTRANSFERASE 27 U/L (12-78); ALBUMIN 1.4 G/DL (3.4-5.0); ALBUMIN/GLOBULIN RATIO 0.4 (1.0-2.7); ALKALINE PHOSPHATASE 93 U/L (46-116); ANION GAP 15 mmol/L (5-15); ASPARTATE AMINO TRANSFERASE 45 U/L (15-37); BILIRUBIN,TOTAL 0.7 MG/DL (0.2-1.0); BLOOD UREA NITROGEN 52 mg/dL (7-18); CARBON DIOXIDE 19 MMOL/L (21-32); CHLORIDE 108 MMOL/L (98-107); SODIUM 142 MMOL/L (136-145)
--- NOTE | 2019-01-19 11:09 | NUR ---
NURSE NOTES: reported to dr sousa regarding blood sugar of 601 and k of 2.0 and ca 6.0. awaits callback and new order.
[2019-01-19] MEDS: Meropenem 500 MG in NS 55 ML IVPB SCH ×2 (11:45→23:02)
[2019-01-19 12:00] VITALS: BP 120/67
--- NOTE | 2019-01-19 12:00 | Consultation ---
DATE OF CONSULTATION: 01/19/2019 INFECTIOUS DISEASES CONSULTATION CONSULTING PHYSICIAN: Lalito Major M.D. REFERRING PHYSICIAN: Mesfin Chapa M.D. REASON FOR CONSULTATION: Leukocytosis. HISTORY OF PRESENTING ILLNESS: This is an 84-year-old lady with history of breast cancer, status post mastectomy, cardiomyopathy, scleroderma, hypertension, who comes in from a retirement facility with dehydration, failure to thrive, and weakness. She was found to have leukocytosis and an Infectious Diseases consultation has been obtained for antibiotics. PAST MEDICAL HISTORY: 1. History of breast cancer, status post mastectomy. 2. Cardiomyopathy, status post angioplasty. 3. Scleroderma. 4. Hypertension. 5. History of left hip fracture, status post ORIF. 6. Depression. SOCIAL HISTORY: She used to be a smoker. She does not smoke anymore. No history of alcohol or drug use. FAMILY HISTORY: Positive for heart disease. REVIEW OF SYSTEMS: Unable to obtain currently. MEDICATIONS: As an inpatient, she is on IV vancomycin, barium sulfate, Protonix, multivitamin, ascorbic acid, Remeron, chlorhexidine gluconate, haloperidol, Arimidex, aspirin, Zosyn, subcu heparin, metoprolol, Ativan. ALLERGIES: No known drug allergies. PHYSICAL EXAMINATION: VITAL SIGNS: Temperature of 97.5, T-max of 98.3, pulse of 87, respiratory rate 24, blood pressure 118/65, O2 saturation of 100%. HEENT: Pupils equally reactive to light and accommodation. Mouth appears clean without thrush. NECK: Supple. No adenopathy. No JVD. CARDIOVASCULAR: Regular rate and rhythm. No murmurs. LUNGS: Clear to auscultation bilaterally. No crackles. No wheezes. The right chest wound noted. ABDOMEN: Soft, nontender. No organomegaly. EXTREMITIES: No cyanosis, no clubbing, no edema. Left arm PICC line noted. LABORATORY AND DIAGNOSTIC DATA: White count of 29.1, hemoglobin 11.6, hematocrit 36.4, MCV 90, platelet count of 156,000. Sodium 131, potassium 3.3, chloride 89, bicarb 23, BUN 67, creatinine 3.1, glucose 233, calcium 7.5, AST 73, ALT 37, and alkaline phosphatase 141. CK of 861. C-reactive protein 5.6. Beta-natriuretic peptide 3734. Total protein 7.4, albumin 2.4. Cholesterol of 119. Lipase more than 2000. Urine cultures are negative. Rectal swab was negative for Enterobacteriaceae. Rectal swab was negative for VRE. Nasal swab was positive for MRSA. Chest x-ray showing possible small right-sided pleural effusion, right axillary wound noted. Renal ultrasound showing bilateral renal cysts. CT of head showing chronic age-related changes, negative for bleed or mass effect. ASSESSMENT: This is an 84-year-old lady with history of breast cancer, cardiomyopathy, and hypertension, who comes in and is found to have: 1. Pancreatitis. 2. Leukocytosis, is worsening. 3. Renal failure, is improving. 4. History of breast cancer. PLAN: 1. We will order blood cultures. 2. Continue IV vancomycin. 3. Discontinue Zosyn. 4. We will start the patient on meropenem. 5. We will follow up cultures and adjust antibiotics accordingly. I would like to thank, Dr. Chapa, for this consultation. Lalito Major M.D. DR: Ana JOB#: [id number] CC: Mesfin Chapa M.D.
[2019-01-19] MEDS: NovoLOG Insulin Flexpen SUBQ SCH ×3 (12:48→21:36)
--- NOTE | 2019-01-19 13:17 | Cardiology Report ---
APPROVED REPORT EKG Measurement Heart [id number] Normal sinus rhythm Biatrial enlargement Abnormal ECG
--- NOTE | 2019-01-19 13:19 | Diagnostic Imaging Report ---
EXAM: CT Abdomen and Pelvis Without Intravenous Contrast CLINICAL HISTORY: ABN LABS TECHNIQUE: Axial computed tomography images of the abdomen and pelvis without intravenous contrast. CTDI is 9.57 mGy and DLP is 503 mGy-cm. One or more of the following dose reduction techniques were used: automated exposure control, adjustment of the mA and or kV according to patient size, use of iterative reconstruction technique. COMPARISON: No relevant prior studies available. FINDINGS: Lung bases: Thickened interstitial markings in the right lung base. Pleural space: Trace complex and loculated right pleural effusion. Right pleural thickening. ABDOMEN: Liver: Small lobulated liver with mass lesions. Mass lesion in the right upper quadrant versus exophytic hepatic lesion, about 6 cm. Gallbladder and bile ducts: Gallbladder distention and gallbladder wall thickening with surrounding infiltration. No radiodense gallstones. Pancreas: Unremarkable. Spleen: Unremarkable. Adrenals: Unremarkable. Kidneys and ureters: Renal cysts, the largest measures approximately 17 mm in the left kidney. No hydronephrosis. Stomach and bowel: Stomach is underdistended and not well assessed. Large amount of stool in the rectum. Nonspecific thickening in segments of the colon. PELVIS: Appendix: No findings to suggest acute appendicitis. Bladder: Naranjo catheter. Reproductive: Unremarkable. Subperitoneal space: Presacral edema. ABDOMEN and PELVIS: Intraperitoneal space: Small amount of fluid in the peritoneal cavity. Bones joints: Osseous metastasis. Left hip replacement. Soft tissues: Right mastectomy. Vasculature: Unremarkable. No abdominal aortic aneurysm. Lymph nodes: No enlarged lymph nodes. IMPRESSION: 1. Gallbladder distention and gallbladder wall thickening with surrounding infiltration. No radiodense gallstones. Findings worrisome for cholecystitis. Ultrasound HIDA scan can further assess as warranted. 2. Small lobulated liver with mass lesions. Mass lesion in the right upper quadrant versus exophytic hepatic lesion, about 6 cm. 3. Osseous metastasis. <MYCVCSECTION> Critical [employer] 01 19 19 13:30 Verify Receipt with Nurse Verified receipt with GAIL Jackson on 01 19 13:30 (-07:00)
[2019-01-19] MEDS ORDERED: Piperacillin/Tazobactam 3.375 GM in NS 110 ML IVPB SCH (14:00)
--- NOTE | 2019-01-19 14:08 | Surgery Progress Note ---
Surgery Progress Note Subjective Additional Comments Patient seen and examined bedside. She is mildly confused and very agitated. Very difficult to the pain exam on the patient given she yells at me and potentially tries to be aggressive and combative. Leukocytosis worsening. CT noted and distended inflamed gallbladder with thickened wall and pericholecystic induration but no stones identified. Electrolytes off. On the limited exam unable to obtain from her she does not seem significantly more tender on the right side. Furthermore multiple liver masses identified. Acutely elevated lipase levels yesterday which have resolved since. Objective Last 24 Hour Vital Signs Date Time Temp Pulse Resp B/P (MAP) Pulse Ox O2 Delivery O2 Flow Rate FiO2 01/19/19 12:00 97.3 81 19 120/67 (84) 98 01/19/19 09:00 Room Air 01/19/19 08:15 87 118/65 01/19/19 08:00 97.5 85 24 117/68 (84) 100 01/19/19 07:44 83 01/19/19 04:00 97.8 73 20 106/50 (68) 99 01/19/19 04:00 73 01/19/19 00:00 97.8 83 20 136/75 (95) 98 01/19/19 00:00 83 01/18/19 21:51 94 127/80 01/18/19 21:00 Room Air 01/18/19 20:00 97.9 83 20 94/59 (71) 98 01/18/19 20:00 83 01/18/19 16:00 98.7 83 18 106/63 (77) 100 01/18/19 16:00 84 I&O Intake and Output 01/18/19 01/19/19 18:59 06:59 Intake Total 500 ml 1285 ml Output Total 900 ml Balance 500 ml 385 ml Intake Oral 500 ml IV Total 1285 ml Output Urine Total 900 ml # Bowel Movements 1 1 Cardiovascular: RSR Respiratory: clear Abdomen: soft, distended, non-tender, present bowel sounds Extremities: no edema, no tenderness, no cyanosis, other Laboratory Tests Test 01/19/19 05:40 01/19/19 10:15 01/19/19 11:38 White Blood Count 29.1 K/UL (4.8-10.8) *H Red Blood Count 4.06 M/UL (4.20-5.40) L Hemoglobin 11.6 G/DL (12.0-16.0) L Hematocrit 36.4 % (37.0-47.0) L Mean Corpuscular Volume 90 FL (80-99) Mean Corpuscular Hemoglobin 28.7 PG (27.0-31.0) Mean Corpuscular Hemoglobin Concent 32.0 G/DL (32.0-36.0) Red Cell Distribution Width 12.0 % (11.6-14.8) Platelet Count 156 K/UL (150-450) Mean Platelet Volume 8.0 FL (6.5-10.1) Neutrophils (%) (Auto) % (45.0-75.0) Lymphocytes (%) (Auto) % (20.0-45.0) Monocytes (%) (Auto) % (1.0-10.0) Eosinophils (%) (Auto) % (0.0-3.0) Basophils (%) (Auto) % (0.0-2.0) Differential Total Cells Counted 100 Neutrophils % (Manual) 83 % (45-75) H Lymphocytes % (Manual) 9 % (20-45) L Monocytes % (Manual) 8 % (1-10) Eosinophils % (Manual) 0 % (0-3) Basophils % (Manual) 0 % (0-2) Band Neutrophils 0 % (0-8) Platelet Estimate Adequate Platelet Morphology Normal Red Blood Cell Morphology Normal Sodium Level 142 MMOL/L (136-145) Potassium Level 2.0 MMOL/L (3.5-5.1) *L Chloride Level 108 MMOL/L (98-107) H Carbon Dioxide Level 19 MMOL/L (21-32) L Anion Gap 15 mmol/L (5-15) Blood Urea Nitrogen 52 mg/dL (7-18) H Creatinine 3.0 MG/DL (0.55-1.30) H Estimat Glomerular Filtration Rate mL/min (>60) Glucose Level 601 MG/DL (74-106) #*H Calcium Level 6.0 MG/DL (8.5-10.1) L Total Bilirubin 0.7 MG/DL (0.2-1.0) Aspartate Amino Transf (AST/SGOT) 45 U/L (15-37) H Alanine Aminotransferase (ALT/SGPT) 27 U/L (12-78) Alkaline Phosphatase 93 U/L (46-116) Total Protein 5.1 G/DL (6.4-8.2) #L Albumin 1.4 G/DL (3.4-5.0) L Globulin 3.7 g/dL Albumin/Globulin Ratio 0.4 (1.0-2.7) L Lipase 382 U/L (73-393) Hemoglobin A1c 6.4 % (4.3-6.0) H Plan Problems: (1) Dehydration (2) Decubitus skin ulcer Assessment & Plan: Pt presented on admission with multiple wounds.Hx R Mastectomy . Full thickness wound that is tunneled into R axilla noted to aleksander R mastectomy.Base of wound is sahara with macerated borders oozing small amt serous exudate noted. No odor noted. (L)3cm x (W)6cm x (D)0.3, tunneling clockwise @10o'clock by 6.6cm. Full thickness wound lateral/posterior R chest. Scattered slough at base of wound with erythematous borders .Periwound indurated. wound oozing small amt serous exudate. (L)1cm x (W)3cm. Full thickness wound posterior thoracic. 100% slough at base of wound. Erythematous borders. No odor or exudate noted(L)2.3cm x (W)2.5cm. Full thickness wound median R humerus. 100% slough with erythematous borders. No odor or exudate noted.(L)3.9cm x (W)2.4cm. Incontinence associated dermatitis noted to sacral and cleft of buttocks. Affected area is erythematous. Pt denied burning or itching. DTPI noted to medial L foot . Base of wound is indurated,purple with red margins.(L)3.2cm x (W)1cm. L heel boggy with non-blanchable erythema. Non-blanchable erythema without fluctuance R heel. Tx.Plan: Cleanse wound Aleksander R chest with Saline. Loosely pack wound (@10o'clock) with 1 /2 inch Iodoform packing. Apply Cavilon periwound. Cover with Optifoam drsg.Daily and prn. Cleanse wounds R arm with saline. Apply Xeroform gauze.Apply Cavilon periwound. Cover with Optifoam drsg. Change daily and prn. Cleanse wound Lateral/posterior chest with Saline. Apply xeroform gauze. Cover with Optifoam drsg. Change Daily and prn. Cleanse wound Posterior R thoracic with Saline. Cover with Xeroform. Apply Cavilon Skin Barrier periwound. Cover with Optifoam drsg. Daily and prn. Apply Triad Paste to Buttocks with each perineal care. Apply Cavilon Skin Barrier to both heels. Cover each heel with Optifoam drsg. every 7 days and prn. Reposition at least every 2hours or as tolerated. Off-load heels with pillow. (3) Leukocytosis Assessment & Plan: cont Abx worsening unlikely related to wounds that do not seem actively infected (4) Severe protein-calorie malnutrition Assessment & Plan: DAILY ESTIMATED NEEDS: Needs based on Cancer, wounds 48kg 30-40 kcals/kg 6618-0834 total kcals 1.25-2 g protein/kg 60-96 g total protein 25-30 mL/kg 6307-0926 total fluid mLs NUTRITION DIAGNOSIS: Increased kcal and pro needs r/t wound healing and low BMI as evidenced by BMI underweight per guidelines, pt w/ multiple partial thickness wounds, refer to WC eval. CURRENT DIET: Soft GAGE PO DIET RECOMMENDATIONS: GAGE diet/ texture as tolerated ADDITIONAL RECOMMENDATIONS: - Pt w/ poor po intake, would rec to liberalized diet to REGULAR - Add ENSURE ENLIVE TID w/ meals - Obtain a standing scale wt as able Or recalibrate bed scale for accurate CBW - Monitor renal fxn/ lytes and need for renal supplement - WOUND CARE: add DILAN BID + MVI x1 + VIT C 500mg daily (5) Failure to thrive in adult (6) Acute cholecystitis Assessment & Plan: Patient with possible acalculous cholecystitis. Afebrile, hemodynamic stable, leukocytosis, acute episode of pancreatitis which is resolved chemically. On examination difficult to examine but no significant tenderness identified in the right upper quadrant. CT reviewed. Will order ultrasound to further evaluate these liver masses as well as gallbladder. Continue IV antibiotics We will follow with recommendations Will need to consider depending on ultrasound findings potential laparoscopic versus percutaneous drainage if necessary. Jesus Bennett Jan 19, 2019 14:08
[2019-01-19] MEDS ORDERED: D5NS 1000ml IV ONE (15:55)
[2019-01-19 16:00] VITALS: BP 111/68
[2019-01-19] MEDS ORDERED: Vancomycin 1gm/D5W 275ml IVPB ONE ×2 (19:00)
--- NOTE | 2019-01-19 19:25 | NUR ---
HAND-OFF: Report given to zack brush.
[2019-01-19] MEDS: Dyna-Hex 2% Top Sol 2oz TOPIC SCH (19:59)
[2019-01-19 20:00] VITALS: BP 139/69
--- NOTE | 2019-01-19 20:00 | Diagnostic Imaging Report ---
EXAM: US Abdomen Complete CLINICAL HISTORY: ABN LABS TECHNIQUE: Real-time ultrasound of the abdomen with image documentation. COMPARISON: No relevant prior studies available. FINDINGS: Limitations: Limited examination. Patient combative. Distal colonic gas limits assessment. Liver: The liver is heterogeneous and with irregular lobulated wall. No intrahepatic bile duct dilation. Gallbladder: Gallbladder is distended with wall thickening to 10 mm. No definite shadowing gallstones. Common bile duct: Unremarkable as visualized. No stones. No dilation. Pancreas: Pancreas is hyperechoic without focal mass. Kidneys: Right kidney is unremarkable. No stones. No hydronephrosis. Spleen: Unremarkable. No splenomegaly. Aorta: Aorta contains a large amount of calcific plaque. No aneurysm. Inferior vena cava: Unremarkable. IMPRESSION: Cirrhotic liver is suggested. No ascites, and spleen was not evaluated. Thickened gallbladder wall could be related to underlying chronic liver disease with no shadowing gallstones or pericholecystic seen.
--- NOTE | 2019-01-19 20:25 | NUR ---
NURSE NOTES: Report received from GAIL Jackson. pt in bed resting. no s/s of distress. left upper arm PICC line intact and patent. f/c intact and draining. bed in lowest position, call lights within reach. will continue plan of care. Addendum: 01/19/19 at 2030 by Reg Mcgee RN received report at 1924.
--- NOTE | 2019-01-19 23:45 | Progress Note ---
DATE: 01/19/2019 CARDIOLOGY PROGRESS NOTE SUBJECTIVE: The patient has a new PICC line. She remains on IV fluid. The patient has poor appetite. She is NPO since lipase level was noted to be elevated. PHYSICAL EXAMINATION: VITAL SIGNS: Blood pressure 118/65, pulse 87, respiratory rate 18. NECK: Supple. LUNGS: Clear. ABDOMEN: Soft. No focal tenderness. EXTREMITIES: No edema LABORATORY AND DIAGNOSTIC DATA: Abdominal ultrasound reveals cirrhotic liver, thickened gallbladder. Abdominal CT scan reveals possible cholecystitis, lobulated liver with mass lesions, osseous metastatic disease. White count 29, hemoglobin 11. Albumin 1.4. Lipase down to 382 now. Glucose now over 600. Potassium 2. IMPRESSION: 1. Possible laboratory erroneous draw. 2. Possible metastatic disease. 3. History of breast cancer with right mastectomy. 4. Ischemic cardiomyopathy. 5. Stable angina. 6. Chronic diastolic and systolic congestive heart failure. 7. Possible cholecystitis. 8. Persistent leukocytosis. PLAN: 1. Recheck lab studies. 2. HIDA scan. 3. NPO. 4. IV fluids. 5. Malignancy workup. 6. Empiric antimicrobials. Jorge Self M.D. DR: Alyce JOB#: [id number] CC:
[2019-01-20] VITALS (7 sets, daily range): BP systolic 94–153; BP diastolic 48–78
[2019-01-20] MEDS: LORazepam Inj 2mg/ml 1ml IV PRN (00:04)
--- NOTE | 2019-01-20 02:45 | Progress Note ---
DATE: 01/20/2019 SUBJECTIVE: The patient continues to have low appetite, confused, agitated, and not able to be engaged during the evaluation. MENTAL STATUS EXAMINATION: The patient is alert and confused. Mood is anxious and agitated. Affect is flat. Thought process, there is a paucity of thought content. Thought content, no suicidal or homicidal ideations. ASSESSMENT: 1. Acute encephalopathy. 2. Dementia with behavior disturbance. PLAN: 1. We will continue the Remeron 7.5 at bedtime. 2. Zyprexa 5 mg at bedtime and 2.5 mg in the morning. 3. We will continue to follow and readjust her medications. Cynthia Nicholson M.D. DR: KARINA JOB#: [id number] CC:
[2019-01-20] MEDS: D5NS 1,000 ML IV SCH (05:09)
[2019-01-20] MEDS: NovoLOG Insulin Flexpen SUBQ SCH ×4 (06:46→20:56)
--- NOTE | 2019-01-20 07:20 | NUR ---
NURSE NOTES: Report received from GAIL Rosario. pt in bed resting. AAO x 2. no s/s of distress. left upper arm PICC line intact and patent. f/c intact and draining. bed in lowest position, call lights within reach. will continue plan of care.
[2019-01-20 07:32] LABS: HEMATOCRIT 32.6 % (37.0-47.0); HEMOGLOBIN 10.9 G/DL (12.0-16.0); MEAN CORPUSCULAR VOLUME 86 FL (80-99); PLATELET COUNT 154 K/UL (150-450); RED BLOOD COUNT 3.78 M/UL (4.20-5.40)
--- NOTE | 2019-01-20 07:32 | NUR ---
HAND-OFF: Report given to GAIL Allison.
[2019-01-20 07:34] LABS: WHITE BLOOD COUNT 23.9 K/UL (4.8-10.8)
[2019-01-20 08:04] LABS: ALANINE AMINOTRANSFERASE 35 U/L (12-78); ALBUMIN 1.2 G/DL (3.4-5.0); ALBUMIN/GLOBULIN RATIO 0.3 (1.0-2.7); ALKALINE PHOSPHATASE 94 U/L (46-116); ASPARTATE AMINO TRANSFERASE 57 U/L (15-37); BILIRUBIN,TOTAL 0.5 MG/DL (0.2-1.0); BLOOD UREA NITROGEN 45 mg/dL (7-18); CHLORIDE 113 MMOL/L (98-107); CREATININE 3.2 MG/DL (0.55-1.30); SODIUM 146 MMOL/L (136-145)
[2019-01-20 08:19] LABS: ANION GAP 13 mmol/L (5-15); CALCIUM 5.7 MG/DL (8.5-10.1); CARBON DIOXIDE 20 MMOL/L (21-32); POTASSIUM 2.2 MMOL/L (3.5-5.1)
--- NOTE | 2019-01-20 08:26 | NUR ---
NURSE NOTES: 7:35am- Critical lab value of wbc 23.9 8:25am- Critical lab value of potassium 2.2 and calcium 5.7. 8:26am- Notified Dr. Chapa of all three critical lab values. Received order.
[2019-01-20] MEDS: Metoprolol 25mg tab ORAL SCH ×2 (08:42→20:53)
--- NOTE | 2019-01-20 09:15 | NUR ---
NURSE NOTES: Morning oral meds were on hold. Patient was obtunded and only awakens by sternal rub.
[2019-01-20] MEDS: Heparin 5000 units/ml inj SUBQ SCH ×2 (09:42→20:55)
--- NOTE | 2019-01-20 10:00 | General Progress Note ---
Assessment/Plan Problem List: (1) Acute renal failure (ARF) ICD Codes: N17.9 - Acute kidney failure, unspecified SNOMED: 90295766 (2) Dehydration ICD Codes: E86.0 - Dehydration SNOMED: 52655562 (3) Decubitus skin ulcer ICD Codes: L89.90 - Pressure ulcer of unspecified site, unspecified stage SNOMED: 964865438 (4) Leukocytosis ICD Codes: D72.829 - Elevated white blood cell count, unspecified SNOMED: 017934027, 732492262 (5) Failure to thrive in adult ICD Codes: R62.7 - Adult failure to thrive SNOMED: 779576069 (6) Severe protein-calorie malnutrition ICD Codes: E43 - Unspecified severe protein-calorie malnutrition SNOMED: 924780216, 403853652, 997739394 Status: stable, progressing Assessment/Plan: cont ivf follow up hida scan replace lytes monitor renal fxn/lytes psych and renal eval appreciated wound care poor prognosis Subjective ROS Limited/Unobtainable: No Constitutional: Reports: malaise, weakness HEENT: Reports: no symptoms Cardiovascular: Reports: no symptoms Respiratory: Reports: no symptoms Gastrointestinal/Abdominal: Reports: poor appetite, poor fluid intake Genitourinary: Reports: no symptoms Neurologic/Psychiatric: Reports: anxiety, depressed Endocrine: Reports: no symptoms Hematologic/Lymphatic: Reports: anemia Allergies: Coded Allergies: No Known Allergies (Unverified , 01/15/19) All Systems: reviewed and negative except above Subjective no events. stable. remains on ivf. po intake labe- as good as 50%. surgery noted. Objective Last 24 Hour Vital Signs Date Time Temp Pulse Resp B/P (MAP) Pulse Ox O2 Delivery O2 Flow Rate FiO2 01/20/19 09:38 97.5 72 22 153/61 (91) 100 01/20/19 08:42 72 94/48 01/20/19 08:00 97.5 72 22 94/48 (63) 100 01/20/19 07:47 73 01/20/19 04:00 84 01/20/19 04:00 97.5 84 16 137/73 (94) 98 01/20/19 00:00 88 01/20/19 00:00 97.7 88 18 134/72 (92) 97 01/19/19 21:32 80 157/72 01/19/19 21:00 Room Air 01/19/19 20:00 85 01/19/19 20:00 97.5 85 18 139/69 (92) 98 01/19/19 16:00 97.5 79 21 111/68 (82) 97 01/19/19 15:44 78 01/19/19 12:00 97.3 81 19 120/67 (84) 98 01/19/19 11:46 81 Intake and Output 01/19/19 01/20/19 19:00 07:00 Intake Total 1530 ml 1190 ml Output Total 500 ml 900 ml Balance 1030 ml 290 ml Intake Oral 120 ml 60 ml IV Total 1410 ml 1130 ml Output Urine Total 500 ml 900 ml # Bowel Movements 3 1 Laboratory Tests 01/19/19 10:15: Sodium Level 142, Potassium Level 2.0*L, Chloride Level 108H, Carbon Dioxide Level 19L, Anion Gap 15, Blood Urea Nitrogen 52H, Creatinine 3.0H, Estimat Glomerular Filtration Rate , Glucose Level 601#*H, Calcium Level 6.0L, Total Bilirubin 0.7, Aspartate Amino Transf (AST/SGOT) 45H, Alanine Aminotransferase ( ALT/SGPT) 27, Alkaline Phosphatase 93, Total Protein 5.1#L, Albumin 1.4L, Globulin 3.7, Albumin/Globulin Ratio 0.4L, Lipase 382 01/19/19 11:38: Hemoglobin A1c 6.4H 01/19/19 16:45: Random Vancomycin Level 14.1 01/20/19 05:50: Sodium Level 146H, Potassium Level 2.2*L, Chloride Level 113H, Carbon Dioxide Level 20L, Anion Gap 13, Blood Urea Nitrogen 45H, Creatinine 3.2H, Estimat Glomerular Filtration Rate , Glucose Level 438#H, Calcium Level 5.7*L, Total Bilirubin 0.5, Aspartate Amino Transf (AST/SGOT) 57H, Alanine Aminotransferase ( ALT/SGPT) 35, Alkaline Phosphatase 94, Total Protein 4.7L, Albumin 1.2L, Globulin 3.5, Albumin/Globulin Ratio 0.3L, Lipase 191, White Blood Count 23.9*H , Red Blood Count 3.78L, Hemoglobin 10.9L, Hematocrit 32.6L, Mean Corpuscular Volume 86, Mean Corpuscular Hemoglobin 28.8, Mean Corpuscular Hemoglobin Concent 33.4, Red Cell Distribution Width 12.0, Platelet Count 154, Mean Platelet Volume 8.7, Neutrophils (%) (Auto) , Lymphocytes (%) (Auto) , Monocytes (%) (Auto) , Eosinophils (%) (Auto) , Basophils (%) (Auto) , Differential Total Cells Counted 100, Neutrophils % (Manual) 85H, Lymphocytes % (Manual) 2L, Monocytes % (Manual) 13H, Eosinophils % (Manual) 0, Basophils % ( Manual) 0, Band Neutrophils 0, Platelet Estimate Adequate, Platelet Morphology Normal, Red Blood Cell Morphology Normal Height (Feet): 5 Height (Inches): 1.00 Weight (Pounds): 110 Objective General Appearance: WD/WN, alert Neck: supple Cardiovascular: regular rhythm Respiratory/Chest: chest wall non-tender, lungs clear, normal breath sounds, no respiratory distress Abdomen: normal bowel sounds, non tender, soft, no organomegaly Edema: no edema noted Arm (L), no edema noted Arm (R), no edema noted Leg (L), no edema noted Leg (R), no edema noted Pedal (L), no edema noted Pedal (R), no edema noted Generalized Mesfin Chapa MD Jan 20, 2019 10:00
--- NOTE | 2019-01-20 10:06 | Nephrology Progress Note ---
Assessment/Plan Status: stable, progressing Assessment/Plan: A/P 1) MELANIE- resolving, AM labs possibly contaminated - STAT peripheral (not line draw) re-ordered 2) Failure to thrive in adult- continue aggressive nutrition 3) Severe protein-calorie malnutrition 4) Dehydration- IVFs adjusted 5) Hyperglycemia- D5NS changed to NS 6) E- ABN- Ca / K+ / Glu - stat re-order peripheral check only Subjective Date patient seen: Jan 20, 2019 Time patient seen: 10:04 ROS Limited/Unobtainable: Yes Allergies: Coded Allergies: No Known Allergies (Unverified , 01/15/19) Subjective Patient remains confused and disoriented but arousable Objective Last 24 Hour Vital Signs Date Time Temp Pulse Resp B/P (MAP) Pulse Ox O2 Delivery O2 Flow Rate FiO2 01/20/19 09:38 97.5 72 22 153/61 (91) 100 01/20/19 08:42 72 94/48 01/20/19 08:00 97.5 72 22 94/48 (63) 100 01/20/19 07:47 73 01/20/19 04:00 84 01/20/19 04:00 97.5 84 16 137/73 (94) 98 01/20/19 00:00 88 01/20/19 00:00 97.7 88 18 134/72 (92) 97 01/19/19 21:32 80 157/72 01/19/19 21:00 Room Air 01/19/19 20:00 85 01/19/19 20:00 97.5 85 18 139/69 (92) 98 01/19/19 16:00 97.5 79 21 111/68 (82) 97 01/19/19 15:44 78 01/19/19 12:00 97.3 81 19 120/67 (84) 98 01/19/19 11:46 81 Intake and Output 01/19/19 01/20/19 19:00 07:00 Intake Total 1530 ml 1190 ml Output Total 500 ml 900 ml Balance 1030 ml 290 ml Intake Oral 120 ml 60 ml IV Total 1410 ml 1130 ml Output Urine Total 500 ml 900 ml # Bowel Movements 3 1 Laboratory Tests 01/19/19 10:15: Sodium Level 142, Potassium Level 2.0*L, Chloride Level 108H, Carbon Dioxide Level 19L, Anion Gap 15, Blood Urea Nitrogen 52H, Creatinine 3.0H, Estimat Glomerular Filtration Rate , Glucose Level 601#*H, Calcium Level 6.0L, Total Bilirubin 0.7, Aspartate Amino Transf (AST/SGOT) 45H, Alanine Aminotransferase ( ALT/SGPT) 27, Alkaline Phosphatase 93, Total Protein 5.1#L, Albumin 1.4L, Globulin 3.7, Albumin/Globulin Ratio 0.4L, Lipase 382 01/19/19 11:38: Hemoglobin A1c 6.4H 01/19/19 16:45: Random Vancomycin Level 14.1 01/20/19 05:50: Sodium Level 146H, Potassium Level 2.2*L, Chloride Level 113H, Carbon Dioxide Level 20L, Anion Gap 13, Blood Urea Nitrogen 45H, Creatinine 3.2H, Estimat Glomerular Filtration Rate , Glucose Level 438#H, Calcium Level 5.7*L, Total Bilirubin 0.5, Aspartate Amino Transf (AST/SGOT) 57H, Alanine Aminotransferase ( ALT/SGPT) 35, Alkaline Phosphatase 94, Total Protein 4.7L, Albumin 1.2L, Globulin 3.5, Albumin/Globulin Ratio 0.3L, Lipase 191, White Blood Count 23.9*H , Red Blood Count 3.78L, Hemoglobin 10.9L, Hematocrit 32.6L, Mean Corpuscular Volume 86, Mean Corpuscular Hemoglobin 28.8, Mean Corpuscular Hemoglobin Concent 33.4, Red Cell Distribution Width 12.0, Platelet Count 154, Mean Platelet Volume 8.7, Neutrophils (%) (Auto) , Lymphocytes (%) (Auto) , Monocytes (%) (Auto) , Eosinophils (%) (Auto) , Basophils (%) (Auto) , Differential Total Cells Counted 100, Neutrophils % (Manual) 85H, Lymphocytes % (Manual) 2L, Monocytes % (Manual) 13H, Eosinophils % (Manual) 0, Basophils % ( Manual) 0, Band Neutrophils 0, Platelet Estimate Adequate, Platelet Morphology Normal, Red Blood Cell Morphology Normal Height (Feet): 5 Height (Inches): 1.00 Weight (Pounds): 110 General Appearance: lethargic, confused EENT: normal ENT inspection Neck: normal alignment, supple Cardiovascular: regular rhythm Respiratory/Chest: rhonchi - bilaterally Abdomen: non tender, soft Edema: no edema noted Arm (L), no edema noted Arm (R), no edema noted Leg (L), no edema noted Leg (R), no edema noted Pedal (L), no edema noted Pedal (R), no edema noted Generalized Esequiel Saltre MD Jan 20, 2019 10:06
[2019-01-20] MEDS: Ascorbic Acid 500mg tab ORAL SCH (10:25)
[2019-01-20] MEDS: OLANZapine 2.5mg tab ORAL SCH (10:25)
[2019-01-20] MEDS: Anastrazole 1mg tab ORAL SCH (10:26)
[2019-01-20] MEDS: Aspirin EC 81mg tab ORAL SCH (10:26)
--- NOTE | 2019-01-20 10:30 | NUR ---
NURSE NOTES: 1015 - Spoke to Dr. Salter. States the need to draw potassium via peripheral after 2nd potassium IV bag was completed 1016- Spoke to Dr. Chapa about patient being obtunded and was unable to take oral medications. Will continue monitoring patient. 10:17- Spoke with lab about blood draw. It will be finished at 10:45am and the blood draw will be at 11:20am per protocol. 10:30am- Patient was alert x2. Patient was able to swallow medications.
--- NOTE | 2019-01-20 11:30 | NUR ---
NURSE NOTES: 1140- 3rd bag of potassium out of 4 bags were hold. Lab was drawn by [employer] recruiter.
[2019-01-20] MEDS: Meropenem 500 MG in NS 55 ML IVPB SCH ×2 (12:42→22:42)
[2019-01-20 13:03] LABS: ANION GAP 13 mmol/L (5-15); BLOOD UREA NITROGEN 49 mg/dL (7-18); CALCIUM 6.8 MG/DL (8.5-10.1); CARBON DIOXIDE 20 MMOL/L (21-32); CHLORIDE 108 MMOL/L (98-107); CREATININE 3.3 MG/DL (0.55-1.30); POTASSIUM 2.8 MMOL/L (3.5-5.1); SODIUM 142 MMOL/L (136-145)
--- NOTE | 2019-01-20 13:15 | Infectious Diseases Prog Note ---
Assessment/Plan Assessment/Plan Impression: 1. Pancreatitis. 2. Leukocytosis, 3. Renal failure, is improving. 4. 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 Dementia PLAN: 1. We will f/u HIDA scan cultures. 2. Continue IV vancomycin &meropenem Subjective ROS Limited/Unobtainable: Yes Neurologic: Reports: confusion, other - on restraint Allergies: Coded Allergies: No Known Allergies (Unverified , 01/15/19) Objective Vital Signs Last 24 Hour Vital Signs Date Time Temp Pulse Resp B/P (MAP) Pulse Ox O2 Delivery O2 Flow Rate FiO2 01/20/19 09:38 97.5 72 22 153/61 (91) 100 01/20/19 09:00 Room Air 01/20/19 08:42 72 94/48 01/20/19 08:00 97.5 72 22 94/48 (63) 100 01/20/19 07:47 73 01/20/19 04:00 84 01/20/19 04:00 97.5 84 16 137/73 (94) 98 01/20/19 00:00 88 01/20/19 00:00 97.7 88 18 134/72 (92) 97 01/19/19 21:32 80 157/72 01/19/19 21:00 Room Air 01/19/19 20:00 85 01/19/19 20:00 97.5 85 18 139/69 (92) 98 01/19/19 16:00 97.5 79 21 111/68 (82) 97 01/19/19 15:44 78 Height (Feet): 5 Height (Inches): 1.00 Weight (Pounds): 110 General Appearance: no acute distress HEENT: mucous membranes moist Respiratory/Chest: lungs clear Cardiovascular: normal rate, other - Left arm PICC line Abdomen: soft, non tender Extremities: no edema Neurologic/Psychiatric: other - sleeping Laboratory Tests Test 01/19/19 16:45 01/20/19 05:50 01/20/19 12:30 Random Vancomycin Level 14.1 ug/mL White Blood Count 23.9 K/UL (4.8-10.8) *H Red Blood Count 3.78 M/UL (4.20-5.40) L Hemoglobin 10.9 G/DL (12.0-16.0) L Hematocrit 32.6 % (37.0-47.0) L Mean Corpuscular Volume 86 FL (80-99) Mean Corpuscular Hemoglobin 28.8 PG (27.0-31.0) Mean Corpuscular Hemoglobin Concent 33.4 G/DL (32.0-36.0) Red Cell Distribution Width 12.0 % (11.6-14.8) Platelet Count 154 K/UL (150-450) Mean Platelet Volume 8.7 FL (6.5-10.1) Neutrophils (%) (Auto) % (45.0-75.0) Lymphocytes (%) (Auto) % (20.0-45.0) Monocytes (%) (Auto) % (1.0-10.0) Eosinophils (%) (Auto) % (0.0-3.0) Basophils (%) (Auto) % (0.0-2.0) Differential Total Cells Counted 100 Neutrophils % (Manual) 85 % (45-75) H Lymphocytes % (Manual) 2 % (20-45) L Monocytes % (Manual) 13 % (1-10) H Eosinophils % (Manual) 0 % (0-3) Basophils % (Manual) 0 % (0-2) Band Neutrophils 0 % (0-8) Platelet Estimate Adequate Platelet Morphology Normal Red Blood Cell Morphology Normal Sodium Level 146 MMOL/L (136-145) H 142 MMOL/L (136-145) Potassium Level 2.2 MMOL/L (3.5-5.1) *L 2.8 MMOL/L (3.5-5.1) L Chloride Level 113 MMOL/L (98-107) H 108 MMOL/L (98-107) H Carbon Dioxide Level 20 MMOL/L (21-32) L 20 MMOL/L (21-32) L Anion Gap 13 mmol/L (5-15) 13 mmol/L (5-15) Blood Urea Nitrogen 45 mg/dL (7-18) H 49 mg/dL (7-18) H Creatinine 3.2 MG/DL (0.55-1.30) H 3.3 MG/DL (0.55-1.30) H Estimat Glomerular Filtration Rate mL/min (>60) mL/min (>60) Glucose Level 438 MG/DL (74-106) #H 132 MG/DL (74-106) #H Calcium Level 5.7 MG/DL (8.5-10.1) *L 6.8 MG/DL (8.5-10.1) L Total Bilirubin 0.5 MG/DL (0.2-1.0) Aspartate Amino Transf (AST/SGOT) 57 U/L (15-37) H Alanine Aminotransferase (ALT/SGPT) 35 U/L (12-78) Alkaline Phosphatase 94 U/L (46-116) Total Protein 4.7 G/DL (6.4-8.2) L Albumin 1.2 G/DL (3.4-5.0) L Globulin 3.5 g/dL Albumin/Globulin Ratio 0.3 (1.0-2.7) L Lipase 191 U/L (73-393) Current Medications Medications (Trade) Dose Ordered Sig/Whitley Route PRN Reason Start Time Stop Time Status Last Admin Dose Admin Acetaminophen (Tylenol) 650 mg Q4H PRN ORAL Mild Pain/Temp > 100.5 01/16/19 15:30 02/15/19 15:29 01/16/19 15:39 Anastrozole (Arimidex) 1 mg DAILY ORAL 01/17/19 09:00 02/15/19 08:59 01/20/19 10:26 Ascorbic Acid (Vitamin C) 500 mg DAILY ORAL 01/18/19 09:00 02/17/19 08:59 01/20/19 10:25 Aspirin (Ecotrin) 81 mg DAILY ORAL 01/17/19 09:00 02/15/19 08:59 01/20/19 10:26 Barium Sulfate (Readi-Cat 2) 450 ml NOW PRN ORAL Radiology Procedure 01/18/19 23:30 01/20/19 23:19 Chlorhexidine Gluconate (Lizette-Hex 2%) 1 applic DAILY@1999 TOPIC 01/17/19 20:00 02/16/19 19:59 01/19/19 19:59 Dextrose (Dextrose 50%) 25 ml Q30M PRN IV Hypoglycemia 01/19/19 11:15 02/18/19 11:14 Dextrose (Dextrose 50%) 50 ml Q30M PRN IV Hypoglycemia 01/19/19 11:15 02/18/19 11:14 Haloperidol Lactate (Haldol) 2 mg Q4H PRN IM Agitation 01/17/19 14:45 02/16/19 14:44 01/18/19 09:22 Heparin Sodium (Porcine) (Heparin 5000 units/ml) 5,000 units EVERY 12 HOURS SUBQ 01/16/19 21:00 02/15/19 08:59 01/20/19 09:42 Insulin Aspart (NovoLOG) BEFORE MEALS AND HS SUBQ 01/19/19 11:30 02/18/19 11:29 01/20/19 06:46 Lorazepam (Ativan 2mg/ml 1ml) 1 mg Q4H PRN IV For Anxiety 01/16/19 11:00 01/23/19 06:59 01/20/19 00:04 Lorazepam (Ativan) 1 mg Q4H PRN ORAL For Anxiety 01/16/19 11:00 01/23/19 06:59 01/18/19 01:11 Meropenem 500 mg/ Sodium Chloride 55 ml @ 110 mls/hr Q12H IVPB 01/19/19 11:00 01/24/19 10:59 01/20/19 12:42 Metoprolol Tartrate (Lopressor) 25 mg Q12HR ORAL 01/16/19 21:00 02/15/19 08:59 01/19/19 21:32 Mirtazapine (Remeron) 15 mg BEDTIME ORAL 01/17/19 23:15 02/16/19 23:14 01/19/19 21:32 Multivitamins (Multivitamins) 1 tab DAILY ORAL 01/18/19 09:00 02/17/19 08:59 01/20/19 10:26 Olanzapine (ZyPREXA) 2.5 mg DAILY ORAL 01/20/19 09:00 02/19/19 08:59 01/20/19 10:25 Olanzapine (ZyPREXA) 5 mg BEDTIME ORAL 01/20/19 21:00 02/19/19 20:59 Pantoprazole (Protonix) 40 mg DAILY ORAL 01/18/19 09:00 02/17/19 08:59 01/20/19 10:26 Sodium Chloride 1,000 ml @ 75 mls/hr [id number] IV 01/20/19 10:15 02/19/19 10:14 01/20/19 10:26 Vancomycin HCl (Vanco rx to dose) 1 ea DAILY PRN MISC Per rx protocol 01/18/19 15:30 02/17/19 15:29 Gregorio Paredes MD Jan 20, 2019 13:15
--- NOTE | 2019-01-20 13:53 | Surgery Progress Note ---
Surgery Progress Note Subjective Additional Comments no acute events wbc slightly decreased US noted and inconsistent with CT findings HIDA ordered she is otherwise the same Objective Last 24 Hour Vital Signs Date Time Temp Pulse Resp B/P (MAP) Pulse Ox O2 Delivery O2 Flow Rate FiO2 01/20/19 09:38 97.5 72 22 153/61 (91) 100 01/20/19 09:00 Room Air 01/20/19 08:42 72 94/48 01/20/19 08:00 97.5 72 22 94/48 (63) 100 01/20/19 07:47 73 01/20/19 04:00 84 01/20/19 04:00 97.5 84 16 137/73 (94) 98 01/20/19 00:00 88 01/20/19 00:00 97.7 88 18 134/72 (92) 97 01/19/19 21:32 80 157/72 01/19/19 21:00 Room Air 01/19/19 20:00 85 01/19/19 20:00 97.5 85 18 139/69 (92) 98 01/19/19 16:00 97.5 79 21 111/68 (82) 97 01/19/19 15:44 78 I&O Intake and Output 01/19/19 01/20/19 18:59 06:59 Intake Total 1530 ml 1190 ml Output Total 500 ml 900 ml Balance 1030 ml 290 ml Intake Oral 120 ml 60 ml IV Total 1410 ml 1130 ml Output Urine Total 500 ml 900 ml # Bowel Movements 3 1 Dressing: saturated Wound: clean Cardiovascular: RSR Respiratory: clear Abdomen: soft, flat, non-tender, present bowel sounds, non-distended Extremities: no edema, no tenderness, no cyanosis Laboratory Tests Test 01/19/19 16:45 01/20/19 05:50 01/20/19 12:30 Random Vancomycin Level 14.1 ug/mL White Blood Count 23.9 K/UL (4.8-10.8) *H Red Blood Count 3.78 M/UL (4.20-5.40) L Hemoglobin 10.9 G/DL (12.0-16.0) L Hematocrit 32.6 % (37.0-47.0) L Mean Corpuscular Volume 86 FL (80-99) Mean Corpuscular Hemoglobin 28.8 PG (27.0-31.0) Mean Corpuscular Hemoglobin Concent 33.4 G/DL (32.0-36.0) Red Cell Distribution Width 12.0 % (11.6-14.8) Platelet Count 154 K/UL (150-450) Mean Platelet Volume 8.7 FL (6.5-10.1) Neutrophils (%) (Auto) % (45.0-75.0) Lymphocytes (%) (Auto) % (20.0-45.0) Monocytes (%) (Auto) % (1.0-10.0) Eosinophils (%) (Auto) % (0.0-3.0) Basophils (%) (Auto) % (0.0-2.0) Differential Total Cells Counted 100 Neutrophils % (Manual) 85 % (45-75) H Lymphocytes % (Manual) 2 % (20-45) L Monocytes % (Manual) 13 % (1-10) H Eosinophils % (Manual) 0 % (0-3) Basophils % (Manual) 0 % (0-2) Band Neutrophils 0 % (0-8) Platelet Estimate Adequate Platelet Morphology Normal Red Blood Cell Morphology Normal Sodium Level 146 MMOL/L (136-145) H 142 MMOL/L (136-145) Potassium Level 2.2 MMOL/L (3.5-5.1) *L 2.8 MMOL/L (3.5-5.1) L Chloride Level 113 MMOL/L (98-107) H 108 MMOL/L (98-107) H Carbon Dioxide Level 20 MMOL/L (21-32) L 20 MMOL/L (21-32) L Anion Gap 13 mmol/L (5-15) 13 mmol/L (5-15) Blood Urea Nitrogen 45 mg/dL (7-18) H 49 mg/dL (7-18) H Creatinine 3.2 MG/DL (0.55-1.30) H 3.3 MG/DL (0.55-1.30) H Estimat Glomerular Filtration Rate mL/min (>60) mL/min (>60) Glucose Level 438 MG/DL (74-106) #H 132 MG/DL (74-106) #H Calcium Level 5.7 MG/DL (8.5-10.1) *L 6.8 MG/DL (8.5-10.1) L Total Bilirubin 0.5 MG/DL (0.2-1.0) Aspartate Amino Transf (AST/SGOT) 57 U/L (15-37) H Alanine Aminotransferase (ALT/SGPT) 35 U/L (12-78) Alkaline Phosphatase 94 U/L (46-116) Total Protein 4.7 G/DL (6.4-8.2) L Albumin 1.2 G/DL (3.4-5.0) L Globulin 3.5 g/dL Albumin/Globulin Ratio 0.3 (1.0-2.7) L Lipase 191 U/L (73-393) Plan Problems: (1) Dehydration (2) Decubitus skin ulcer Assessment & Plan: Pt presented on admission with multiple wounds.Hx R Mastectomy . Full thickness wound that is tunneled into R axilla noted to aleksander R mastectomy.Base of wound is sahara with macerated borders oozing small amt serous exudate noted. No odor noted. (L)3cm x (W)6cm x (D)0.3, tunneling clockwise @10o'clock by 6.6cm. Full thickness wound lateral/posterior R chest. Scattered slough at base of wound with erythematous borders .Periwound indurated. wound oozing small amt serous exudate. (L)1cm x (W)3cm. Full thickness wound posterior thoracic. 100% slough at base of wound. Erythematous borders. No odor or exudate noted(L)2.3cm x (W)2.5cm. Full thickness wound median R humerus. 100% slough with erythematous borders. No odor or exudate noted.(L)3.9cm x (W)2.4cm. Incontinence associated dermatitis noted to sacral and cleft of buttocks. Affected area is erythematous. Pt denied burning or itching. DTPI noted to medial L foot . Base of wound is indurated,purple with red margins.(L)3.2cm x (W)1cm. L heel boggy with non-blanchable erythema. Non-blanchable erythema without fluctuance R heel. Tx.Plan: Cleanse wound Aleksander R chest with Saline. Loosely pack wound (@10o'clock) with 1 /2 inch Iodoform packing. Apply Cavilon periwound. Cover with Optifoam drsg.Daily and prn. Cleanse wounds R arm with saline. Apply Xeroform gauze.Apply Cavilon periwound. Cover with Optifoam drsg. Change daily and prn. Cleanse wound Lateral/posterior chest with Saline. Apply xeroform gauze. Cover with Optifoam drsg. Change Daily and prn. Cleanse wound Posterior R thoracic with Saline. Cover with Xeroform. Apply Cavilon Skin Barrier periwound. Cover with Optifoam drsg. Daily and prn. Apply Triad Paste to Buttocks with each perineal care. Apply Cavilon Skin Barrier to both heels. Cover each heel with Optifoam drsg. every 7 days and prn. Reposition at least every 2hours or as tolerated. Off-load heels with pillow. (3) Leukocytosis Assessment & Plan: cont Abx worsening unlikely related to wounds that do not seem actively infected (4) Severe protein-calorie malnutrition Assessment & Plan: DAILY ESTIMATED NEEDS: Needs based on Cancer, wounds 48kg 30-40 kcals/kg 3737-4974 total kcals 1.25-2 g protein/kg 60-96 g total protein 25-30 mL/kg 0656-9380 total fluid mLs NUTRITION DIAGNOSIS: Increased kcal and pro needs r/t wound healing and low BMI as evidenced by BMI underweight per guidelines, pt w/ multiple partial thickness wounds, refer to WC eval. CURRENT DIET: Soft GAGE PO DIET RECOMMENDATIONS: GAGE diet/ texture as tolerated ADDITIONAL RECOMMENDATIONS: - Pt w/ poor po intake, would rec to liberalized diet to REGULAR - Add ENSURE ENLIVE TID w/ meals - Obtain a standing scale wt as able Or recalibrate bed scale for accurate CBW - Monitor renal fxn/ lytes and need for renal supplement - WOUND CARE: add DILAN BID + MVI x1 + VIT C 500mg daily (5) Failure to thrive in adult (6) Acute cholecystitis Assessment & Plan: Patient with possible acalculous cholecystitis. Afebrile, hemodynamic stable, leukocytosis, acute episode of pancreatitis which is resolved chemically. On examination difficult to examine but no significant tenderness identified in the right upper quadrant. CT reviewed. US noted. inconsistent with CT findings HIDA ordered Continue IV antibiotics We will follow with recommendations Will need to consider depending on ultrasound findings potential laparoscopic versus percutaneous drainage if necessary. Jesus Bennett Jan 20, 2019 13:52
--- NOTE | 2019-01-20 14:30 | NUR ---
NURSE NOTES: Spoke to Dr. Salter. Potassium was 2.8. States to continue potassium IVPB and finish bag 3 and 4.
--- NOTE | 2019-01-20 18:23 | NUR ---
NURSE NOTES: 1140- 3rd bag of potassium out of 4 bags were hold. Lab was drawn by iron worker foreman.
--- NOTE | 2019-01-20 19:29 | NUR ---
HAND-OFF: Report given to GAIL Donovan.
--- NOTE | 2019-01-20 19:30 | NUR ---
NURSE NOTES: Report received from GAIL Allison. Patient in bed, resting. PICC line on left upper arm intact and patent. No acute distress noted. bed in lowest position. Will continue plan of care.
--- NOTE | 2019-01-20 20:00 | Progress Note ---
DATE: 01/20/2019 CARDIOLOGY PROGRESS NOTE SUBJECTIVE: The patient remains on IV fluids. Oral intake is improved. HIDA scan is pending. PHYSICAL EXAMINATION: VITAL SIGNS: Blood pressure 153/61, earlier 94/48, heart rate 72, respiratory rate 22, afebrile. LUNGS: Clear. CARDIAC: Regular. ABDOMEN: Soft. No rebound tenderness. EXTREMITIES: Without edema. LABORATORY DATA: White count 23.9, hemoglobin 10.9. Potassium 2.8, BUN 49 creatinine 3.3. IMPRESSION: 1. Renal failure. 2. Severe protein-calorie malnutrition. 3. Possible metastatic disease. 4. History of breast cancer. 5. Hypokalemia. 6. Metabolic acidosis . 7. Possible cholecystitis. 8. Obstructive uropathy, remains serious and guarded. 9. Possible pancreatitis. PLAN: 1. IV fluids. 2. Await HIDA. 3. Replace potassium. 4. Recheck magnesium. 5. Antimicrobials per Infectious Diseases client experience consultant. Jorge Self M.D. DR: Alyce JOB#: [id number] CC:
[2019-01-20 20:13] LABS: ANION GAP 12 mmol/L (5-15); BLOOD UREA NITROGEN 48 mg/dL (7-18); CALCIUM 6.5 MG/DL (8.5-10.1); CARBON DIOXIDE 18 MMOL/L (21-32); CHLORIDE 111 MMOL/L (98-107); CREATININE 3.4 MG/DL (0.55-1.30); POTASSIUM 3.4 MMOL/L (3.5-5.1); SODIUM 141 MMOL/L (136-145)
[2019-01-20] MEDS ORDERED: Tubing IV Secondary IV ONE ×2 (20:29→20:30)
[2019-01-20] MEDS ORDERED: NS 275ml ONE (20:29)
[2019-01-20] MEDS ORDERED: D5NS 1000ml IV ONE (20:30)
[2019-01-20] MEDS: Dyna-Hex 2% Top Sol 2oz TOPIC SCH (20:52)
[2019-01-21] VITALS: BP 119/64
[2019-01-21] MEDS: LORazepam Inj 2mg/ml 1ml IV PRN (01:22)
[2019-01-21 04:00] VITALS: BP 117/68
[2019-01-21] MEDS ORDERED: Vancomycin 1gm/D5W 275ml IVPB ONE ×2 (06:00)
[2019-01-21] MEDS: NovoLOG Insulin Flexpen SUBQ SCH ×4 (06:30→21:02)
[2019-01-21 07:12] LABS: HEMOGLOBIN 13.1 G/DL (12.0-16.0); MEAN CORPUSCULAR VOLUME 87 FL (80-99); PLATELET COUNT 179 K/UL (150-450); RED BLOOD COUNT 4.62 M/UL (4.20-5.40); RED CELL DISTRIBUTION WIDTH 12.1 % (11.6-14.8); WHITE BLOOD COUNT 18.9 K/UL (4.8-10.8)
--- NOTE | 2019-01-21 07:14 | NUR ---
HAND-OFF: Report given to GAIL Raymond.
--- NOTE | 2019-01-21 07:15 | NUR ---
NURSE NOTES: Received bedside report from Zion REYNOLDS. Pt. in bed, asleep but arousable. No sign of distress. No grimacing noted. PICC line at left upper arm with 2 lumen in placed patent/intact running NS at 75cc/hr. On calorie count. Bilateral soft wrist restrain in placed. F/C in placed patent/intact draining yellow colored urine. Bed in low position, locked. Call light within reach. Will cont. to monitor.
[2019-01-21 08:00] VITALS: BP 150/86
[2019-01-21 08:33] LABS: ALANINE AMINOTRANSFERASE 141 U/L (12-78); ALBUMIN 1.7 G/DL (3.4-5.0); ALBUMIN/GLOBULIN RATIO 0.4 (1.0-2.7); ALKALINE PHOSPHATASE 214 U/L (46-116); ANION GAP 14 mmol/L (5-15); ASPARTATE AMINO TRANSFERASE 204 U/L (15-37); BILIRUBIN,TOTAL 0.7 MG/DL (0.2-1.0); BLOOD UREA NITROGEN 47 mg/dL (7-18); CARBON DIOXIDE 19 MMOL/L (21-32); CHLORIDE 112 MMOL/L (98-107); CREATININE 3.5 MG/DL (0.55-1.30); POTASSIUM 3.3 MMOL/L (3.5-5.1); SODIUM 144 MMOL/L (136-145)
--- NOTE | 2019-01-21 08:54 | Cardiology Report ---
APPROVED REPORT EXAM: Two-dimensional echocardiogram with contrast. INDICATION Congestive Heart Failure M-Mode DIMENSIONS IVSd1.5 (0.7-1.1cm)Left Atrium (MM)3.6 (1.6-4.0cm) LVDd5.4 (3.5-5.6cm)Aortic Root2.6 (2.0-3.7cm) PWd1.0 (0.7-1.1cm)Aortic Cusp Exc.1.6 (1.5-2.0cm) IVSs1.8 cm LVDs3.6 (2.5-4.0cm) PWs1.4 cm Technically difficult study due to poor acoustical windows. Normal left ventricular chamber size, systolic function and wall motion to extent visualized. Left ventricular ejection fraction estimated to be 55-60%. Mild left ventricular hypertrophy. No evidence of pericardial effusion. All other cardiac chamber sizes are within normal limits. Focal aortic valve sclerosis with adequate cusp excursion. Thickened mitral valve leaflets with normal excursion. Mitral annulus and aortic root calcification. Pulmonic valve not well visualized. Normal tricuspid valve structure. No subcostal views obtained. A color flow and spectral Doppler study was performed and revealed: Trace aortic regurgitation. Mild mitral regurgitation. Mitral diastolic velocities suggest reduced left ventricular relaxation c/w mild LV diastolic dysfunction (Grade I). Trace tricuspid regurgitation. Tricuspid systolic velocities suggests peak right ventricular systolic pressure of 12mmHg. Pulmonic regurgitation present.
[2019-01-21] MEDS: Anastrazole 1mg tab ORAL SCH (09:00)
[2019-01-21] MEDS: OLANZapine 2.5mg tab ORAL SCH (09:00)
[2019-01-21] MEDS: Heparin 5000 units/ml inj SUBQ SCH ×2 (09:00→21:01)
[2019-01-21] MEDS: Ascorbic Acid 500mg tab ORAL SCH (09:00)
[2019-01-21] MEDS: Aspirin EC 81mg tab ORAL SCH (09:00)
[2019-01-21] MEDS: Metoprolol 25mg tab ORAL SCH ×2 (09:00→21:03)
[2019-01-21 09:55] LABS: CALCIUM 6.8 MG/DL (8.5-10.1)
[2019-01-21 09:56] LABS: PHOSPHORUS 2.6 MG/DL (2.5-4.9)
--- NOTE | 2019-01-21 10:08 | Surgery Progress Note ---
Surgery Progress Note Subjective Additional Comments leukocytosis trending down lft's elevated US with ?liver cirrhosis. multiple liver lesions exam stable Objective Last 24 Hour Vital Signs Date Time Temp Pulse Resp B/P (MAP) Pulse Ox O2 Delivery O2 Flow Rate FiO2 01/21/19 08:00 97.3 90 20 150/86 (107) 99 01/21/19 04:00 98.2 90 18 117/68 (84) 97 01/21/19 04:00 90 01/21/19 00:00 98.1 88 18 119/64 (82) 100 01/21/19 00:00 88 01/20/19 21:00 Room Air 01/20/19 20:53 90 119/60 01/20/19 20:00 98.1 93 18 119/60 (79) 100 01/20/19 20:00 93 01/20/19 16:00 97.9 95 21 147/78 (101) 97 01/20/19 12:00 97.4 92 22 116/53 (74) 95 01/20/19 11:58 93 I&O Intake and Output 01/20/19 01/21/19 19:00 07:00 Intake Total 200 ml 930 ml Output Total 700 ml Balance -500 ml 930 ml IV Total 200 ml 930 ml Output Urine Total 700 ml # Voids 3 # Bowel Movements 1 3 Cardiovascular: RSR Respiratory: clear Abdomen: soft, non-tender, present bowel sounds, non-distended Extremities: no edema, no tenderness, no cyanosis Laboratory Tests Test 01/20/19 12:30 01/20/19 19:30 01/21/19 06:39 Sodium Level 142 MMOL/L (136-145) 141 MMOL/L (136-145) 144 MMOL/L (136-145) Potassium Level 2.8 MMOL/L (3.5-5.1) L 3.4 MMOL/L (3.5-5.1) L 3.3 MMOL/L (3.5-5.1) L Chloride Level 108 MMOL/L (98-107) H 111 MMOL/L (98-107) H 112 MMOL/L (98-107) H Carbon Dioxide Level 20 MMOL/L (21-32) L 18 MMOL/L (21-32) L 19 MMOL/L (21-32) L Anion Gap 13 mmol/L (5-15) 12 mmol/L (5-15) 14 mmol/L (5-15) Blood Urea Nitrogen 49 mg/dL (7-18) H 48 mg/dL (7-18) H 47 mg/dL (7-18) H Creatinine 3.3 MG/DL (0.55-1.30) H 3.4 MG/DL (0.55-1.30) H 3.5 MG/DL (0.55-1.30) H Estimat Glomerular Filtration Rate mL/min (>60) mL/min (>60) mL/min (>60) Glucose Level 132 MG/DL (74-106) #H 152 MG/DL (74-106) H 108 MG/DL (74-106) H Calcium Level 6.8 MG/DL (8.5-10.1) L 6.5 MG/DL (8.5-10.1) L 6.8 MG/DL (8.5-10.1) L C-Reactive Protein, Quantitative 41.9 mg/dL (0.00-0.90) H Random Vancomycin Level 21.2 ug/mL White Blood Count 18.9 K/UL (4.8-10.8) H Red Blood Count 4.62 M/UL (4.20-5.40) Hemoglobin 13.1 G/DL (12.0-16.0) Hematocrit 40.0 % (37.0-47.0) Mean Corpuscular Volume 87 FL (80-99) Mean Corpuscular Hemoglobin 28.3 PG (27.0-31.0) Mean Corpuscular Hemoglobin Concent 32.7 G/DL (32.0-36.0) Red Cell Distribution Width 12.1 % (11.6-14.8) Platelet Count 179 K/UL (150-450) Mean Platelet Volume 8.0 FL (6.5-10.1) Neutrophils (%) (Auto) % (45.0-75.0) Lymphocytes (%) (Auto) % (20.0-45.0) Monocytes (%) (Auto) % (1.0-10.0) Eosinophils (%) (Auto) % (0.0-3.0) Basophils (%) (Auto) % (0.0-2.0) Differential Total Cells Counted 100 Neutrophils % (Manual) 87 % (45-75) H Lymphocytes % (Manual) 5 % (20-45) L Monocytes % (Manual) 8 % (1-10) Eosinophils % (Manual) 0 % (0-3) Basophils % (Manual) 0 % (0-2) Band Neutrophils 0 % (0-8) Platelet Estimate Adequate Platelet Morphology Normal Red Blood Cell Morphology Normal Uric Acid 6.4 MG/DL (2.6-7.2) Phosphorus Level 2.6 MG/DL (2.5-4.9) Magnesium Level 1.9 MG/DL (1.5-2.4) Total Bilirubin 0.7 MG/DL (0.2-1.0) Aspartate Amino Transf (AST/SGOT) 204 U/L (15-37) H Alanine Aminotransferase (ALT/SGPT) 141 U/L (12-78) H Alkaline Phosphatase 214 U/L (46-116) H Total Protein 6.1 G/DL (6.4-8.2) L Albumin 1.7 G/DL (3.4-5.0) L Globulin 4.4 g/dL Albumin/Globulin Ratio 0.4 (1.0-2.7) L Plan Problems: (1) Dehydration (2) Decubitus skin ulcer Assessment & Plan: Pt presented on admission with multiple wounds.Hx R Mastectomy . Full thickness wound that is tunneled into R axilla noted to aleksander R mastectomy.Base of wound is sahara with macerated borders oozing small amt serous exudate noted. No odor noted. (L)3cm x (W)6cm x (D)0.3, tunneling clockwise @10o'clock by 6.6cm. Full thickness wound lateral/posterior R chest. Scattered slough at base of wound with erythematous borders .Periwound indurated. wound oozing small amt serous exudate. (L)1cm x (W)3cm. Full thickness wound posterior thoracic. 100% slough at base of wound. Erythematous borders. No odor or exudate noted(L)2.3cm x (W)2.5cm. Full thickness wound median R humerus. 100% slough with erythematous borders. No odor or exudate noted.(L)3.9cm x (W)2.4cm. Incontinence associated dermatitis noted to sacral and cleft of buttocks. Affected area is erythematous. Pt denied burning or itching. DTPI noted to medial L foot . Base of wound is indurated,purple with red margins.(L)3.2cm x (W)1cm. L heel boggy with non-blanchable erythema. Non-blanchable erythema without fluctuance R heel. Tx.Plan: Cleanse wound Aleksander R chest with Saline. Loosely pack wound (@10o'clock) with 1 /2 inch Iodoform packing. Apply Cavilon periwound. Cover with Optifoam drsg.Daily and prn. Cleanse wounds R arm with saline. Apply Xeroform gauze.Apply Cavilon periwound. Cover with Optifoam drsg. Change daily and prn. Cleanse wound Lateral/posterior chest with Saline. Apply xeroform gauze. Cover with Optifoam drsg. Change Daily and prn. Cleanse wound Posterior R thoracic with Saline. Cover with Xeroform. Apply Cavilon Skin Barrier periwound. Cover with Optifoam drsg. Daily and prn. Apply Triad Paste to Buttocks with each perineal care. Apply Cavilon Skin Barrier to both heels. Cover each heel with Optifoam drsg. every 7 days and prn. Reposition at least every 2hours or as tolerated. Off-load heels with pillow. (3) Leukocytosis Assessment & Plan: cont Abx worsening unlikely related to wounds that do not seem actively infected (4) Severe protein-calorie malnutrition Assessment & Plan: DAILY ESTIMATED NEEDS: Needs based on Cancer, wounds 48kg 30-40 kcals/kg 9995-4007 total kcals 1.25-2 g protein/kg 60-96 g total protein 25-30 mL/kg 3882-8088 total fluid mLs NUTRITION DIAGNOSIS: Increased kcal and pro needs r/t wound healing and low BMI as evidenced by BMI underweight per guidelines, pt w/ multiple partial thickness wounds, refer to WC eval. CURRENT DIET: Soft GAGE PO DIET RECOMMENDATIONS: GAGE diet/ texture as tolerated ADDITIONAL RECOMMENDATIONS: - Pt w/ poor po intake, would rec to liberalized diet to REGULAR - Add ENSURE ENLIVE TID w/ meals - Obtain a standing scale wt as able Or recalibrate bed scale for accurate CBW - Monitor renal fxn/ lytes and need for renal supplement - WOUND CARE: add DILAN BID + MVI x1 + VIT C 500mg daily (5) Failure to thrive in adult (6) Acute cholecystitis Assessment & Plan: Patient with possible acalculous cholecystitis. Afebrile, hemodynamic stable, leukocytosis, acute episode of pancreatitis which is resolved chemically. On examination difficult to examine but no significant tenderness identified in the right upper quadrant. CT reviewed. US noted. inconsistent with CT findings HIDA ordered Continue IV antibiotics We will follow with recommendations Will need to consider depending on ultrasound findings potential laparoscopic versus percutaneous drainage if necessary. Additional Comments Pending Jesus Avery Jan 21, 2019 10:08
--- NOTE | 2019-01-21 10:45 | Nephrology Progress Note ---
Assessment/Plan Problem List: (1) Acute renal failure (ARF) (2) Failure to thrive in adult (3) Severe protein-calorie malnutrition (4) Dehydration (5) Elevated LFTs Assessment Acute on chronic renal failure- Dehydration Failing to thrive, Malnutrition Decubiti Urinary retention Plan marte Urine studies Hydrate- has PICC now K supplement as needed CXR STANLEY kidney noted per orders monitor Vanco level Subjective ROS Limited/Unobtainable: No Constitutional: Reports: malaise, weakness Objective Objective Last 24 Hour Vital Signs Date Time Temp Pulse Resp B/P (MAP) Pulse Ox O2 Delivery O2 Flow Rate FiO2 01/21/19 08:00 97.3 90 20 150/86 (107) 99 01/21/19 04:00 98.2 90 18 117/68 (84) 97 01/21/19 04:00 90 01/21/19 00:00 98.1 88 18 119/64 (82) 100 01/21/19 00:00 88 01/20/19 21:00 Room Air 01/20/19 20:53 90 119/60 01/20/19 20:00 98.1 93 18 119/60 (79) 100 01/20/19 20:00 93 01/20/19 16:00 97.9 95 21 147/78 (101) 97 01/20/19 12:00 97.4 92 22 116/53 (74) 95 01/20/19 11:58 93 Intake and Output 01/20/19 01/21/19 19:00 07:00 Intake Total 200 ml 930 ml Output Total 700 ml Balance -500 ml 930 ml IV Total 200 ml 930 ml Output Urine Total 700 ml # Voids 3 # Bowel Movements 1 3 Laboratory Tests 01/20/19 12:30: Sodium Level 142, Potassium Level 2.8L, Chloride Level 108H, Carbon Dioxide Level 20L, Anion Gap 13, Blood Urea Nitrogen 49H, Creatinine 3.3H, Estimat Glomerular Filtration Rate , Glucose Level 132#H, Calcium Level 6.8L 01/20/19 19:30: Sodium Level 141, Potassium Level 3.4L, Chloride Level 111H, Carbon Dioxide Level 18L, Anion Gap 12, Blood Urea Nitrogen 48H, Creatinine 3.4H, Estimat Glomerular Filtration Rate , Glucose Level 152H, Calcium Level 6.5L, C-Reactive Protein, Quantitative 41.9H, Random Vancomycin Level 21.2 01/21/19 06:39: Sodium Level 144, Potassium Level 3.3L, Chloride Level 112H, Carbon Dioxide Level 19L, Anion Gap 14, Blood Urea Nitrogen 47H, Creatinine 3.5H, Estimat Glomerular Filtration Rate , Glucose Level 108H, Calcium Level 6.8L, White Blood Count 18.9H, Red Blood Count 4.62, Hemoglobin 13.1, Hematocrit 40.0, Mean Corpuscular Volume 87, Mean Corpuscular Hemoglobin 28.3, Mean Corpuscular Hemoglobin Concent 32.7, Red Cell Distribution Width 12.1, Platelet Count 179, Mean Platelet Volume 8.0, Neutrophils (%) (Auto) , Lymphocytes (%) (Auto) , Monocytes (%) (Auto) , Eosinophils (%) (Auto) , Basophils (%) (Auto) , Differential Total Cells Counted 100, Neutrophils % (Manual) 87H, Lymphocytes % (Manual) 5L, Monocytes % (Manual) 8, Eosinophils % (Manual) 0, Basophils % ( Manual) 0, Band Neutrophils 0, Platelet Estimate Adequate, Platelet Morphology Normal, Red Blood Cell Morphology Normal, Uric Acid 6.4, Phosphorus Level 2.6, Magnesium Level 1.9, Total Bilirubin 0.7, Aspartate Amino Transf (AST/SGOT) 204H , Alanine Aminotransferase (ALT/SGPT) 141H, Alkaline Phosphatase 214H, Total Protein 6.1L, Albumin 1.7L, Globulin 4.4, Albumin/Globulin Ratio 0.4L Height (Feet): 5 Height (Inches): 1.00 Weight (Pounds): 110 General Appearance: no apparent distress, lethargic Cardiovascular: tachycardia Respiratory/Chest: decreased breath sounds Abdomen: distended Mauri Huddleston MD Jan 21, 2019 10:45
[2019-01-21] MEDS: Meropenem 500 MG in NS 55 ML IVPB SCH ×2 (11:27→23:11)
--- NOTE | 2019-01-21 11:57 | NUR ---
CASE MANAGEMENT:REVIEW 01/21/19 SI: LEUKOCYTOSIS. MULTIPLE LIVER LESIONS 97.3 90 20 150/86 99% ON RA WBC+18.9 K-3.3 BUN+47 CR+3.5 AST/ALT+204/141 IS: IV KCL Q1 X2 IV MEROPENEM Q12 ZYPREXA PO QHS IVF@75/HR : TELEMETRY STATUS PLAN: HIDA SCAN
[2019-01-21 12:00] VITALS: BP 131/70
--- NOTE | 2019-01-21 13:34 | General Progress Note ---
Assessment/Plan Problem List: (1) Acute renal failure (ARF) ICD Codes: N17.9 - Acute kidney failure, unspecified SNOMED: 38713828 (2) Dehydration ICD Codes: E86.0 - Dehydration SNOMED: 31393787 (3) Decubitus skin ulcer ICD Codes: L89.90 - Pressure ulcer of unspecified site, unspecified stage SNOMED: 876374668 (4) Leukocytosis ICD Codes: D72.829 - Elevated white blood cell count, unspecified SNOMED: 342311363, 954510262 (5) Failure to thrive in adult ICD Codes: R62.7 - Adult failure to thrive SNOMED: 664827132 (6) Severe protein-calorie malnutrition ICD Codes: E43 - Unspecified severe protein-calorie malnutrition SNOMED: 405472954, 757263403, 597297465 Status: stable, progressing Assessment/Plan: cont ivf follow up hida scan replace lytes monitor renal fxn/lytes psych and renal eval appreciated wound care d/w son. DNR affirmed. Family declined hospice. poor prognosis Subjective ROS Limited/Unobtainable: Yes Constitutional: Reports: malaise, weakness HEENT: Reports: no symptoms Cardiovascular: Reports: no symptoms Respiratory: Reports: no symptoms Gastrointestinal/Abdominal: Reports: poor appetite Genitourinary: Reports: no symptoms Neurologic/Psychiatric: Reports: anxiety, depressed, pre-existing deficit Endocrine: Reports: no symptoms Hematologic/Lymphatic: Reports: no symptoms Allergies: Coded Allergies: No Known Allergies (Unverified , 01/15/19) All Systems: reviewed and negative except above Subjective no events. w/o complaints. no real change. remains confused. restrained to prevent pt from pulling out lines. po intake 25-50%. d/w son- updated on test results and poc. Objective Last 24 Hour Vital Signs Date Time Temp Pulse Resp B/P (MAP) Pulse Ox O2 Delivery O2 Flow Rate FiO2 01/21/19 12:00 97.8 92 22 131/70 (90) 98 01/21/19 11:54 103 01/21/19 09:00 Room Air 01/21/19 08:00 97.3 90 20 150/86 (107) 99 01/21/19 07:48 80 01/21/19 07:31 76 01/21/19 04:00 98.2 90 18 117/68 (84) 97 01/21/19 04:00 90 01/21/19 00:00 98.1 88 18 119/64 (82) 100 01/21/19 00:00 88 01/20/19 21:00 Room Air 01/20/19 20:53 90 119/60 01/20/19 20:00 98.1 93 18 119/60 (79) 100 01/20/19 20:00 93 01/20/19 16:00 97.9 95 21 147/78 (101) 97 Intake and Output 01/20/19 01/21/19 19:00 07:00 Intake Total 200 ml 930 ml Output Total 700 ml Balance -500 ml 930 ml IV Total 200 ml 930 ml Output Urine Total 700 ml # Voids 3 # Bowel Movements 1 3 Laboratory Tests 01/20/19 19:30: Sodium Level 141, Potassium Level 3.4L, Chloride Level 111H, Carbon Dioxide Level 18L, Anion Gap 12, Blood Urea Nitrogen 48H, Creatinine 3.4H, Estimat Glomerular Filtration Rate , Glucose Level 152H, Calcium Level 6.5L, C-Reactive Protein, Quantitative 41.9H, Random Vancomycin Level 21.2 01/21/19 06:39: Sodium Level 144, Potassium Level 3.3L, Chloride Level 112H, Carbon Dioxide Level 19L, Anion Gap 14, Blood Urea Nitrogen 47H, Creatinine 3.5H, Estimat Glomerular Filtration Rate , Glucose Level 108H, Calcium Level 6.8L, White Blood Count 18.9H, Red Blood Count 4.62, Hemoglobin 13.1, Hematocrit 40.0, Mean Corpuscular Volume 87, Mean Corpuscular Hemoglobin 28.3, Mean Corpuscular Hemoglobin Concent 32.7, Red Cell Distribution Width 12.1, Platelet Count 179, Mean Platelet Volume 8.0, Neutrophils (%) (Auto) , Lymphocytes (%) (Auto) , Monocytes (%) (Auto) , Eosinophils (%) (Auto) , Basophils (%) (Auto) , Differential Total Cells Counted 100, Neutrophils % (Manual) 87H, Lymphocytes % (Manual) 5L, Monocytes % (Manual) 8, Eosinophils % (Manual) 0, Basophils % ( Manual) 0, Band Neutrophils 0, Platelet Estimate Adequate, Platelet Morphology Normal, Red Blood Cell Morphology Normal, Uric Acid 6.4, Phosphorus Level 2.6, Magnesium Level 1.9, Total Bilirubin 0.7, Aspartate Amino Transf (AST/SGOT) 204H , Alanine Aminotransferase (ALT/SGPT) 141H, Alkaline Phosphatase 214H, Total Protein 6.1L, Albumin 1.7L, Globulin 4.4, Albumin/Globulin Ratio 0.4L Height (Feet): 5 Height (Inches): 1.00 Weight (Pounds): 110 Objective General Appearance: WD/WN, alert Neck: supple Cardiovascular: regular rhythm Respiratory/Chest: chest wall non-tender, lungs clear, normal breath sounds, no respiratory distress Abdomen: normal bowel sounds, non tender, soft, no organomegaly Edema: no edema noted Arm (L), no edema noted Arm (R), no edema noted Leg (L), no edema noted Leg (R), no edema noted Pedal (L), no edema noted Pedal (R), no edema noted Generalized Mesfin Chapa MD Jan 21, 2019 13:33
--- NOTE | 2019-01-21 14:00 | Infectious Diseases Prog Note ---
Assessment/Plan Assessment/Plan Impression: 1. Pancreatitis. 2. Leukocytosis, 3. Renal failure, is improving. 4. 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 Dementia PLAN: 1. We will f/u HIDA scan. 2. Continue IV vancomycin &meropenem Subjective ROS Limited/Unobtainable: Yes Respiratory: Reports: no symptoms Gastrointestinal/Abdominal: Reports: no symptoms Genitourinary: Reports: no symptoms Neurologic: Reports: confusion, other - on restraint Musculoskeletal: Reports: pain Allergies: Coded Allergies: No Known Allergies (Unverified , 01/15/19) Objective Vital Signs Last 24 Hour Vital Signs Date Time Temp Pulse Resp B/P (MAP) Pulse Ox O2 Delivery O2 Flow Rate FiO2 01/21/19 12:00 97.8 92 22 131/70 (90) 98 01/21/19 11:54 103 01/21/19 09:00 Room Air 01/21/19 08:00 97.3 90 20 150/86 (107) 99 01/21/19 07:48 80 01/21/19 07:31 76 01/21/19 04:00 98.2 90 18 117/68 (84) 97 01/21/19 04:00 90 01/21/19 00:00 98.1 88 18 119/64 (82) 100 01/21/19 00:00 88 01/20/19 21:00 Room Air 01/20/19 20:53 90 119/60 01/20/19 20:00 98.1 93 18 119/60 (79) 100 01/20/19 20:00 93 01/20/19 16:00 97.9 95 21 147/78 (101) 97 Height (Feet): 5 Height (Inches): 1.00 Weight (Pounds): 110 General Appearance: no acute distress HEENT: other - dry mouth Respiratory/Chest: lungs clear Cardiovascular: normal rate, other - left arm PICC line Abdomen: soft, non tender Extremities: no edema Skin: other - left hand IV site bruise Neurologic/Psychiatric: alert, responsive Microbiology Date/Time Source Procedure Growth Status 01/19/19 11:38 Blood Blood Culture - Preliminary NO GROWTH AFTER 24 HOURS Resulted Laboratory Tests Test 01/20/19 19:30 01/21/19 06:39 Sodium Level 141 MMOL/L (136-145) 144 MMOL/L (136-145) Potassium Level 3.4 MMOL/L (3.5-5.1) L 3.3 MMOL/L (3.5-5.1) L Chloride Level 111 MMOL/L (98-107) H 112 MMOL/L (98-107) H Carbon Dioxide Level 18 MMOL/L (21-32) L 19 MMOL/L (21-32) L Anion Gap 12 mmol/L (5-15) 14 mmol/L (5-15) Blood Urea Nitrogen 48 mg/dL (7-18) H 47 mg/dL (7-18) H Creatinine 3.4 MG/DL (0.55-1.30) H 3.5 MG/DL (0.55-1.30) H Estimat Glomerular Filtration Rate mL/min (>60) mL/min (>60) Glucose Level 152 MG/DL (74-106) H 108 MG/DL (74-106) H Calcium Level 6.5 MG/DL (8.5-10.1) L 6.8 MG/DL (8.5-10.1) L C-Reactive Protein, Quantitative 41.9 mg/dL (0.00-0.90) H Random Vancomycin Level 21.2 ug/mL White Blood Count 18.9 K/UL (4.8-10.8) H Red Blood Count 4.62 M/UL (4.20-5.40) Hemoglobin 13.1 G/DL (12.0-16.0) Hematocrit 40.0 % (37.0-47.0) Mean Corpuscular Volume 87 FL (80-99) Mean Corpuscular Hemoglobin 28.3 PG (27.0-31.0) Mean Corpuscular Hemoglobin Concent 32.7 G/DL (32.0-36.0) Red Cell Distribution Width 12.1 % (11.6-14.8) Platelet Count 179 K/UL (150-450) Mean Platelet Volume 8.0 FL (6.5-10.1) Neutrophils (%) (Auto) % (45.0-75.0) Lymphocytes (%) (Auto) % (20.0-45.0) Monocytes (%) (Auto) % (1.0-10.0) Eosinophils (%) (Auto) % (0.0-3.0) Basophils (%) (Auto) % (0.0-2.0) Differential Total Cells Counted 100 Neutrophils % (Manual) 87 % (45-75) H Lymphocytes % (Manual) 5 % (20-45) L Monocytes % (Manual) 8 % (1-10) Eosinophils % (Manual) 0 % (0-3) Basophils % (Manual) 0 % (0-2) Band Neutrophils 0 % (0-8) Platelet Estimate Adequate Platelet Morphology Normal Red Blood Cell Morphology Normal Uric Acid 6.4 MG/DL (2.6-7.2) Phosphorus Level 2.6 MG/DL (2.5-4.9) Magnesium Level 1.9 MG/DL (1.5-2.4) Total Bilirubin 0.7 MG/DL (0.2-1.0) Aspartate Amino Transf (AST/SGOT) 204 U/L (15-37) H Alanine Aminotransferase (ALT/SGPT) 141 U/L (12-78) H Alkaline Phosphatase 214 U/L (46-116) H Total Protein 6.1 G/DL (6.4-8.2) L Albumin 1.7 G/DL (3.4-5.0) L Globulin 4.4 g/dL Albumin/Globulin Ratio 0.4 (1.0-2.7) L Current Medications Medications (Trade) Dose Ordered Sig/Whitley Route PRN Reason Start Time Stop Time Status Last Admin Dose Admin Acetaminophen (Tylenol) 650 mg Q4H PRN ORAL Mild Pain/Temp > 100.5 01/16/19 15:30 02/15/19 15:29 01/16/19 15:39 Anastrozole (Arimidex) 1 mg DAILY ORAL 01/17/19 09:00 02/15/19 08:59 01/20/19 10:26 Ascorbic Acid (Vitamin C) 500 mg DAILY ORAL 01/18/19 09:00 02/17/19 08:59 01/20/19 10:25 Aspirin (Ecotrin) 81 mg DAILY ORAL 01/17/19 09:00 02/15/19 08:59 01/20/19 10:26 Chlorhexidine Gluconate (Lizette-Hex 2%) 1 applic DAILY@1999 TOPIC 01/17/19 20:00 02/16/19 19:59 01/20/19 20:52 Dextrose (Dextrose 50%) 25 ml Q30M PRN IV Hypoglycemia 01/19/19 11:15 02/18/19 11:14 Dextrose (Dextrose 50%) 50 ml Q30M PRN IV Hypoglycemia 01/19/19 11:15 02/18/19 11:14 Haloperidol Lactate (Haldol) 2 mg Q4H PRN IM Agitation 01/17/19 14:45 02/16/19 14:44 01/18/19 09:22 Heparin Sodium (Porcine) (Heparin 5000 units/ml) 5,000 units EVERY 12 HOURS SUBQ 01/16/19 21:00 02/15/19 08:59 01/20/19 20:55 Insulin Aspart (NovoLOG) BEFORE MEALS AND HS SUBQ 01/19/19 11:30 02/18/19 11:29 01/20/19 20:56 Lorazepam (Ativan 2mg/ml 1ml) 1 mg Q4H PRN IV For Anxiety 01/16/19 11:00 01/23/19 06:59 01/21/19 01:22 Lorazepam (Ativan) 1 mg Q4H PRN ORAL For Anxiety 01/16/19 11:00 01/23/19 06:59 01/18/19 01:11 Meropenem 500 mg/ Sodium Chloride 55 ml @ 110 mls/hr Q12H IVPB 01/19/19 11:00 01/24/19 10:59 01/21/19 11:27 Metoprolol Tartrate (Lopressor) 25 mg Q12HR ORAL 01/16/19 21:00 02/15/19 08:59 01/20/19 20:53 Mirtazapine (Remeron) 15 mg BEDTIME ORAL 01/17/19 23:15 02/16/19 23:14 01/20/19 20:53 Multivitamins (Multivitamins) 1 tab DAILY ORAL 01/18/19 09:00 02/17/19 08:59 01/20/19 10:26 Olanzapine (ZyPREXA) 2.5 mg DAILY ORAL 01/20/19 09:00 02/19/19 08:59 01/20/19 10:25 Olanzapine (ZyPREXA) 5 mg BEDTIME ORAL 01/20/19 21:00 02/19/19 20:59 01/20/19 20:52 Pantoprazole (Protonix) 40 mg DAILY ORAL 01/18/19 09:00 02/17/19 08:59 01/20/19 10:26 Sodium Chloride 1,000 ml @ 75 mls/hr [id number] IV 01/20/19 10:15 02/19/19 10:14 01/21/19 05:34 Vancomycin HCl (Vanco rx to dose) 1 ea DAILY PRN MISC Per rx protocol 01/18/19 15:30 02/17/19 15:29 Gregorio Paredes MD Jan 21, 2019 14:00
[2019-01-21 16:00] VITALS: BP 137/84
--- NOTE | 2019-01-21 19:36 | NUR ---
HAND-OFF: Report given to Shy RN. Pt. remain stable.
--- NOTE | 2019-01-21 19:40 | NUR ---
NURSE NOTES: Received report from GAIL Santiago. Patient in bed asleep showing no signs of acute distress. Respiration even and non labored on room air. No sob noted. Pt. on bilateral soft wrist restraints, cap refill <3sec, skin is intact, on injury noted. Pt. on [place] for retention, draining, patent and intact, yellow urine noted. Pt. on Left ua 2 lumen central line, patent and intact, dressing intact. Side rails up x3. Bed in lowest position, wheels locked and alarm on. All needs attended and met. Will continue plan of care.
[2019-01-21 20:00] VITALS: BP 147/81
[2019-01-21] MEDS: Dyna-Hex 2% Top Sol 2oz TOPIC SCH (21:00)
--- NOTE | 2019-01-21 21:00 | Progress Note ---
DATE: 01/21/2019 SUBJECTIVE: The patient was asleep, arousable with verbal stimuli. Calm. She has been having no behavioral issues noted. Continues to have waxing and waning consciousness. Compliant with medication. MENTAL STATUS EXAMINATION: The patient is alert, oriented times self and place. Mood is neutral. Affect is flat. Thought process is concrete. Thought content, no suicidal or homicidal ideations. Memory is impaired. Insight and judgment is impaired. ASSESSMENT: Stable. PLAN: 1. We will continue current medications. 2. Provide the patient with reality orientation and supportive therapy. Cynthia Nicholson M.D. DR: VONDA JOB#: [id number] CC:
--- NOTE | 2019-01-21 23:15 | Progress Note ---
DATE: 01/21/2019 CARDIOLOGY PROGRESS NOTE SUBJECTIVE: The patient remains confused. Intake is less than 50%. Results of diagnostic studies have been made, known to family members. OBJECTIVE: VITAL SIGNS: Blood pressure 131/70, pulse 103, respiratory rate 18, and afebrile. LUNGS: Clear. CARDIAC: Regular rhythm. Rapid rate. Normal S1, S2. ABDOMEN: Soft. EXTREMITIES: No edema. LABORATORY DATA: Notable for white count 18.9. Potassium 3.3. Magnesium 1.9. BUN and creatinine 47/3.5, and albumin 1.7. IMPRESSION: 1. Cirrhosis. 2. Probable metastatic disease. 3. Acute on chronic renal failure. 4. Secondary sinus tachycardia. 5. Toxic encephalopathy. 6. Sepsis. 7. Possible cholecystitis. 8. Obstructive uropathy. PLAN: 1. Await HIDA scan. 2. Consider alternate efforts to obtain tissue for diagnostic purposes in view of history of breast cancer in the past. 3. Replace potassium. 4. Adjust IV fluids. Jorge Self M.D. DR: Alyce JOB#: [id number] CC:
[2019-01-22] VITALS: BP 144/77
[2019-01-22 04:00] VITALS: BP 159/86
[2019-01-22] MEDS: NovoLOG Insulin Flexpen SUBQ SCH ×4 (06:30→21:00)
[2019-01-22 06:55] LABS: ALANINE AMINOTRANSFERASE 179 U/L (12-78); ALBUMIN 1.5 G/DL (3.4-5.0); ALBUMIN/GLOBULIN RATIO 0.3 (1.0-2.7); ALKALINE PHOSPHATASE 316 U/L (46-116); ANION GAP 12 mmol/L (5-15); ASPARTATE AMINO TRANSFERASE 275 U/L (15-37); BILIRUBIN,TOTAL 0.6 MG/DL (0.2-1.0); BLOOD UREA NITROGEN 39 mg/dL (7-18); CALCIUM 6.7 MG/DL (8.5-10.1); CARBON DIOXIDE 21 MMOL/L (21-32); CHLORIDE 115 MMOL/L (98-107); CREATININE 3.4 MG/DL (0.55-1.30); POTASSIUM 3.1 MMOL/L (3.5-5.1); SODIUM 148 MMOL/L (136-145)
[2019-01-22 07:00] LABS: INR 1.4 (0.9-1.1)
[2019-01-22 07:25] LABS: BASOPHILS % (AUTO) 0.8 % (0.0-2.0); EOSINOPHILS % (AUTO) 0.9 % (0.0-3.0); HEMATOCRIT 34.2 % (37.0-47.0); HEMOGLOBIN 11.6 G/DL (12.0-16.0); LYMPHOCYTES % (AUTO) 4.7 % (20.0-45.0); MEAN CORPUSCULAR VOLUME 87 FL (80-99); MONOCYTES % (AUTO) 17.2 % (1.0-10.0); NEUTROPHILS % (AUTO) 76.4 % (45.0-75.0); PLATELET COUNT 169 K/UL (150-450); RED BLOOD COUNT 3.93 M/UL (4.20-5.40); WHITE BLOOD COUNT 14.4 K/UL (4.8-10.8)
--- NOTE | 2019-01-22 07:40 | NUR ---
HAND-OFF: Report given to GAIL Cheng.
--- NOTE | 2019-01-22 07:42 | NUR ---
NURSE NOTES: Received report from GAIL Cody. bed resting, denies any pain at this time, no signs and symptoms of acute distress noted. Respiration is even and unlabored. Patient is on room air. No sob noted. Patient is on bilateral soft wrist restraints, cap refill <3sec, noted right hand edematous on rounding with outgoing nurse. Patient is on [place] for retention, intact, patent and draining to gravity, yellow color urine noted. Patient has Left upper arm PICC double lumen, intact and patent, dressing intact. Side rails up x3. Bed is in lowest position with bedside rails up X3, brakes engaged for safety and bed alarm on. All needs anticipated and met. Will continue plan of care.
[2019-01-22 08:00] VITALS: BP 123/91
[2019-01-22] MEDS: Aspirin EC 81mg tab ORAL SCH (08:46)
[2019-01-22] MEDS: OLANZapine 2.5mg tab ORAL SCH (08:46)
[2019-01-22] MEDS: Anastrazole 1mg tab ORAL SCH (08:46)
[2019-01-22] MEDS: Ascorbic Acid 500mg tab ORAL SCH (08:46)
[2019-01-22] MEDS: Heparin 5000 units/ml inj SUBQ SCH ×2 (08:47→21:08)
[2019-01-22] MEDS: Metoprolol 25mg tab ORAL SCH ×2 (08:47→21:03)
[2019-01-22] MEDS: Meropenem 500 MG in NS 55 ML IVPB SCH (10:18)
[2019-01-22 10:24] LABS: PHOSPHORUS 2.5 MG/DL (2.5-4.9)
--- NOTE | 2019-01-22 10:53 | Infectious Diseases Prog Note ---
Assessment/Plan Assessment/Plan antibiotics : vancomycin iv, meropenem A 1. ? cholecystitis 2. cirrhosis 3. leucocytosis improving 4. pancreatitis improving 5. renal failure improving 6. 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 patient refusing iv, d/c vancomycin, meropenem 2. start po levoquin, flagyl 3. will follow up cultures 4. will follow up HIDA scan Subjective Constitutional: Denies: fever, chills Respiratory: Denies: shortness of breath, dry cough Gastrointestinal/Abdominal: Reports: nausea; Denies: vomiting, diarrhea Musculoskeletal: Reports: pain - in abdomen Allergies: Coded Allergies: No Known Allergies (Unverified , 01/15/19) Objective Vital Signs Last 24 Hour Vital Signs Date Time Temp Pulse Resp B/P (MAP) Pulse Ox O2 Delivery O2 Flow Rate FiO2 01/22/19 09:00 Room Air 01/22/19 08:47 95 123/91 01/22/19 08:00 87 01/22/19 08:00 97.1 95 18 123/91 (102) 99 01/22/19 04:00 89 01/22/19 04:00 98.1 81 18 159/86 (110) 96 01/22/19 00:00 97.9 67 18 144/77 (99) 97 01/22/19 00:00 97 01/21/19 21:03 105 147/81 01/21/19 21:00 Room Air 01/21/19 20:00 97.0 105 18 147/81 (103) 96 01/21/19 20:00 90 01/21/19 16:04 83 01/21/19 16:00 98.5 90 20 137/84 (101) 97 01/21/19 12:00 97.8 92 22 131/70 (90) 98 01/21/19 11:54 103 Height (Feet): 5 Height (Inches): 1.00 Weight (Pounds): 110 Respiratory/Chest: lungs clear Cardiovascular: normal rate, regular rhythm, no gallop/murmur Abdomen: tender - diffusely Extremities: no edema Microbiology Date/Time Source Procedure Growth Status 01/19/19 11:38 Blood Blood Culture - Preliminary NO GROWTH AFTER 48 HOURS Resulted Laboratory Tests Test 01/22/19 06:15 White Blood Count 14.4 K/UL (4.8-10.8) H Red Blood Count 3.93 M/UL (4.20-5.40) L Hemoglobin 11.6 G/DL (12.0-16.0) L Hematocrit 34.2 % (37.0-47.0) L Mean Corpuscular Volume 87 FL (80-99) Mean Corpuscular Hemoglobin 29.5 PG (27.0-31.0) Mean Corpuscular Hemoglobin Concent 33.9 G/DL (32.0-36.0) Red Cell Distribution Width 11.0 % (11.6-14.8) L Platelet Count 169 K/UL (150-450) Mean Platelet Volume 7.8 FL (6.5-10.1) Neutrophils (%) (Auto) 76.4 % (45.0-75.0) H Lymphocytes (%) (Auto) 4.7 % (20.0-45.0) L Monocytes (%) (Auto) 17.2 % (1.0-10.0) H Eosinophils (%) (Auto) 0.9 % (0.0-3.0) Basophils (%) (Auto) 0.8 % (0.0-2.0) Prothrombin Time 14.4 SEC (9.30-11.50) H Prothromb Time International Ratio 1.4 (0.9-1.1) H Activated Partial Thromboplast Time 89 SEC (23-33) H Sodium Level 148 MMOL/L (136-145) H Potassium Level 3.1 MMOL/L (3.5-5.1) L Chloride Level 115 MMOL/L (98-107) H Carbon Dioxide Level 21 MMOL/L (21-32) Anion Gap 12 mmol/L (5-15) Blood Urea Nitrogen 39 mg/dL (7-18) H Creatinine 3.4 MG/DL (0.55-1.30) H Estimat Glomerular Filtration Rate mL/min (>60) Glucose Level 100 MG/DL (74-106) Calcium Level 6.7 MG/DL (8.5-10.1) L Phosphorus Level 2.5 MG/DL (2.5-4.9) Magnesium Level 1.8 MG/DL (1.8-2.4) Total Bilirubin 0.6 MG/DL (0.2-1.0) Aspartate Amino Transf (AST/SGOT) 275 U/L (15-37) H Alanine Aminotransferase (ALT/SGPT) 179 U/L (12-78) H Alkaline Phosphatase 316 U/L (46-116) H Total Protein 5.9 G/DL (6.4-8.2) L Albumin 1.5 G/DL (3.4-5.0) L Globulin 4.4 g/dL Albumin/Globulin Ratio 0.3 (1.0-2.7) L Current Medications Medications (Trade) Dose Ordered Sig/Whitley Route PRN Reason Start Time Stop Time Status Last Admin Dose Admin Acetaminophen (Tylenol) 650 mg Q4H PRN ORAL Mild Pain/Temp > 100.5 01/16/19 15:30 02/15/19 15:29 01/16/19 15:39 Anastrozole (Arimidex) 1 mg DAILY ORAL 01/17/19 09:00 02/15/19 08:59 01/22/19 08:46 Ascorbic Acid (Vitamin C) 500 mg DAILY ORAL 01/18/19 09:00 02/17/19 08:59 01/22/19 08:46 Aspirin (Ecotrin) 81 mg DAILY ORAL 01/17/19 09:00 02/15/19 08:59 01/22/19 08:46 Chlorhexidine Gluconate (Lizette-Hex 2%) 1 applic DAILY@2000 TOPIC 01/17/19 20:00 02/16/19 19:59 01/21/19 21:00 Dextrose (Dextrose 50%) 25 ml Q30M PRN IV Hypoglycemia 01/19/19 11:15 02/18/19 11:14 Dextrose (Dextrose 50%) 50 ml Q30M PRN IV Hypoglycemia 01/19/19 11:15 02/18/19 11:14 Haloperidol Lactate (Haldol) 2 mg Q4H PRN IM Agitation 01/17/19 14:45 02/16/19 14:44 01/18/19 09:22 Heparin Sodium (Porcine) (Heparin 5000 units/ml) 5,000 units EVERY 12 HOURS SUBQ 01/16/19 21:00 02/15/19 08:59 01/22/19 08:47 Insulin Aspart (NovoLOG) BEFORE MEALS AND HS SUBQ 01/19/19 11:30 02/18/19 11:29 01/21/19 21:02 Lorazepam (Ativan 2mg/ml 1ml) 1 mg Q4H PRN IV For Anxiety 01/16/19 11:00 01/23/19 06:59 01/21/19 01:22 Lorazepam (Ativan) 1 mg Q4H PRN ORAL For Anxiety 01/16/19 11:00 01/23/19 06:59 01/18/19 01:11 Meropenem 500 mg/ Sodium Chloride 55 ml @ 110 mls/hr Q12H IVPB 01/19/19 11:00 01/24/19 10:59 01/22/19 10:18 Metoprolol Tartrate (Lopressor) 25 mg Q12HR ORAL 01/16/19 21:00 02/15/19 08:59 01/22/19 08:47 Mirtazapine (Remeron) 15 mg BEDTIME ORAL 01/17/19 23:15 02/16/19 23:14 01/21/19 21:02 Multivitamins (Multivitamins) 1 tab DAILY ORAL 01/18/19 09:00 02/17/19 08:59 01/22/19 08:46 Olanzapine (ZyPREXA) 2.5 mg DAILY ORAL 01/20/19 09:00 02/19/19 08:59 01/22/19 08:46 Olanzapine (ZyPREXA) 5 mg BEDTIME ORAL 01/20/19 21:00 02/19/19 20:59 01/21/19 21:02 Pantoprazole (Protonix) 40 mg DAILY ORAL 01/18/19 09:00 02/17/19 08:59 01/22/19 08:46 Potassium Chloride 100 ml @ 100 mls/hr Q1HR IVPB 01/22/19 11:00 01/22/19 13:59 01/22/19 10:36 Sodium Chloride 1,000 ml @ 75 mls/hr [id number] IV 01/20/19 10:15 02/19/19 10:14 01/21/19 20:00 Vancomycin HCl (Vanco rx to dose) 1 ea DAILY PRN MISC Per rx protocol 01/18/19 15:30 02/17/19 15:29 Lalito Major MD Jan 22, 2019 10:53
--- NOTE | 2019-01-22 10:53 | NUR ---
RD ASSESSMENT & RECOMMENDATIONS SEE CARE ACTIVITY FOR COMPLETE ASSESSMENT DAILY ESTIMATED NEEDS: Needs based on Cancer, wounds 48kg 30-40 kcals/kg 6609-1470 total kcals 1.25-2 g protein/kg 60-96 g total protein 25-30 mL/kg 6997-5428 total fluid mLs NUTRITION DIAGNOSIS: Increased kcal and pro needs r/t wound healing and low BMI as evidenced by BMI underweight per guidelines, pt w/ multiple partial thickness wounds, refer to WC eval. CURRENT DIET: GAGE, CCHO MED/ pureed moist PO DIET RECOMMENDATIONS: LIBERALIZED REGULAR DIET/ texture per SHAGGER ADDITIONAL RECOMMENDATIONS: - Calibrated bedscale wt for accurate CBW - F/up w/ [place]iles Count x 48 hrs- overall poor intake - WOUND CARE: add DILNA BID, continue MVI x1 + VIT C 500mg daily - Add Glucerna TID w/ meals - Monitor lytes, replete as needed - Consider SHAGGER re-eval: episodes of being obtunded, difficulty swallowing per notes
[2019-01-22] MEDS ORDERED: Levofloxacin 500mg tab ORAL SCH (10:59)
[2019-01-22 12:00] VITALS: BP 125/88
--- NOTE | 2019-01-22 12:32 | NUR ---
NURSE NOTES: call placed to nuc med department in regards to schedule for HIDA scan, and message left in answering machine.
--- NOTE | 2019-01-22 12:38 | General Progress Note ---
Assessment/Plan Problem List: (1) Acute renal failure (ARF) ICD Codes: N17.9 - Acute kidney failure, unspecified SNOMED: 06059845 (2) Dehydration ICD Codes: E86.0 - Dehydration SNOMED: 43208675 (3) Decubitus skin ulcer ICD Codes: L89.90 - Pressure ulcer of unspecified site, unspecified stage SNOMED: 125162544 (4) Leukocytosis ICD Codes: D72.829 - Elevated white blood cell count, unspecified SNOMED: 278221122, 572315768 (5) Failure to thrive in adult ICD Codes: R62.7 - Adult failure to thrive SNOMED: 717829289 (6) Severe protein-calorie malnutrition ICD Codes: E43 - Unspecified severe protein-calorie malnutrition SNOMED: 042614968, 365197171, 227497720 Status: stable, progressing Assessment/Plan: cont ivf encourage pos follow up hida scan- scheduled for today replace lytes monitor renal fxn/lytes anxiolytics as needed wound care dnr conservative rx family did not want hospice poor prognosis Subjective ROS Limited/Unobtainable: Yes Constitutional: Reports: malaise, weakness HEENT: Reports: no symptoms Cardiovascular: Reports: no symptoms Respiratory: Reports: no symptoms Gastrointestinal/Abdominal: Reports: poor fluid intake Genitourinary: Reports: no symptoms Neurologic/Psychiatric: Reports: no symptoms Endocrine: Reports: no symptoms Hematologic/Lymphatic: Reports: no symptoms Allergies: Coded Allergies: No Known Allergies (Unverified , 01/15/19) All Systems: reviewed and negative except above Subjective no events. confused. ate well last night. close to 100% but had to be feed by charge nurse. wbc trending down. HIDA scheduled for today. on ivf. restrained for safety. Objective Last 24 Hour Vital Signs Date Time Temp Pulse Resp B/P (MAP) Pulse Ox O2 Delivery O2 Flow Rate FiO2 01/22/19 09:00 Room Air 01/22/19 08:47 95 123/91 01/22/19 08:00 87 01/22/19 08:00 97.1 95 18 123/91 (102) 99 01/22/19 04:00 89 01/22/19 04:00 98.1 81 18 159/86 (110) 96 01/22/19 00:00 97.9 67 18 144/77 (99) 97 01/22/19 00:00 97 01/21/19 21:03 105 147/81 01/21/19 21:00 Room Air 01/21/19 20:00 97.0 105 18 147/81 (103) 96 01/21/19 20:00 90 01/21/19 16:04 83 01/21/19 16:00 98.5 90 20 137/84 (101) 97 Intake and Output 01/21/19 01/22/19 19:00 07:00 Intake Total 1100 ml 690 ml Output Total 1200 ml 1100 ml Balance -100 ml -410 ml Intake Oral 240 ml IV Total 1100 ml 450 ml Output Urine Total 1200 ml 1100 ml Laboratory Tests 01/22/19 06:15: White Blood Count 14.4H, Red Blood Count 3.93L, Hemoglobin 11.6L, Hematocrit 34.2L, Mean Corpuscular Volume 87, Mean Corpuscular Hemoglobin 29.5, Mean Corpuscular Hemoglobin Concent 33.9, Red Cell Distribution Width 11.0L, Platelet Count 169, Mean Platelet Volume 7.8, Neutrophils (%) (Auto) 76.4H, Lymphocytes (%) (Auto) 4.7L, Monocytes (%) (Auto) 17.2H, Eosinophils (%) (Auto) 0.9, Basophils (%) (Auto) 0.8, Prothrombin Time 14.4H, Prothromb Time International Ratio 1.4H, Activated Partial Thromboplast Time 89H, Sodium Level 148H, Potassium Level 3.1L, Chloride Level 115H, Carbon Dioxide Level 21, Anion Gap 12, Blood Urea Nitrogen 39H, Creatinine 3.4H, Estimat Glomerular Filtration Rate , Glucose Level 100, Calcium Level 6.7L, Phosphorus Level 2.5, Magnesium Level 1.8, Total Bilirubin 0.6, Aspartate Amino Transf (AST/SGOT) 275H, Alanine Aminotransferase (ALT/SGPT) 179H, Alkaline Phosphatase 316H, Total Protein 5.9L , Albumin 1.5L, Globulin 4.4, Albumin/Globulin Ratio 0.3L Height (Feet): 5 Height (Inches): 1.00 Weight (Pounds): 110 Objective General Appearance: WD/WN, alert Neck: supple Cardiovascular: regular rhythm Respiratory/Chest: chest wall non-tender, lungs clear, normal breath sounds, no respiratory distress Abdomen: normal bowel sounds, non tender, soft, no organomegaly Edema: no edema noted Arm (L), no edema noted Arm (R), no edema noted Leg (L), no edema noted Leg (R), no edema noted Pedal (L), no edema noted Pedal (R), no edema noted Generalized Mesfin Chapa MD Jan 22, 2019 12:38
--- NOTE | 2019-01-22 13:26 | Nephrology Progress Note ---
Assessment/Plan Problem List: (1) Acute renal failure (ARF) (2) Failure to thrive in adult (3) Severe protein-calorie malnutrition (4) Dehydration (5) Elevated LFTs Assessment Acute on chronic renal failure- Dehydration Failing to thrive, Malnutrition Decubiti Urinary retention Plan marte Urine studies Hydrate- has PICC now K supplement as needed CXR STANLEY kidney noted per orders monitor Vanco level Subjective ROS Limited/Unobtainable: No Constitutional: Reports: malaise, weakness Objective Objective Last 24 Hour Vital Signs Date Time Temp Pulse Resp B/P (MAP) Pulse Ox O2 Delivery O2 Flow Rate FiO2 01/22/19 12:00 96.8 79 18 125/88 (100) 96 01/22/19 09:00 Room Air 01/22/19 08:47 95 123/91 01/22/19 08:00 87 01/22/19 08:00 97.1 95 18 123/91 (102) 99 01/22/19 04:00 89 01/22/19 04:00 98.1 81 18 159/86 (110) 96 01/22/19 00:00 97.9 67 18 144/77 (99) 97 01/22/19 00:00 97 01/21/19 21:03 105 147/81 01/21/19 21:00 Room Air 01/21/19 20:00 97.0 105 18 147/81 (103) 96 01/21/19 20:00 90 01/21/19 16:04 83 01/21/19 16:00 98.5 90 20 137/84 (101) 97 Intake and Output 01/21/19 01/22/19 19:00 07:00 Intake Total 1100 ml 690 ml Output Total 1200 ml 1100 ml Balance -100 ml -410 ml Intake Oral 240 ml IV Total 1100 ml 450 ml Output Urine Total 1200 ml 1100 ml Laboratory Tests 01/22/19 06:15: White Blood Count 14.4H, Red Blood Count 3.93L, Hemoglobin 11.6L, Hematocrit 34.2L, Mean Corpuscular Volume 87, Mean Corpuscular Hemoglobin 29.5, Mean Corpuscular Hemoglobin Concent 33.9, Red Cell Distribution Width 11.0L, Platelet Count 169, Mean Platelet Volume 7.8, Neutrophils (%) (Auto) 76.4H, Lymphocytes (%) (Auto) 4.7L, Monocytes (%) (Auto) 17.2H, Eosinophils (%) (Auto) 0.9, Basophils (%) (Auto) 0.8, Prothrombin Time 14.4H, Prothromb Time International Ratio 1.4H, Activated Partial Thromboplast Time 89H, Sodium Level 148H, Potassium Level 3.1L, Chloride Level 115H, Carbon Dioxide Level 21, Anion Gap 12, Blood Urea Nitrogen 39H, Creatinine 3.4H, Estimat Glomerular Filtration Rate , Glucose Level 100, Calcium Level 6.7L, Phosphorus Level 2.5, Magnesium Level 1.8, Total Bilirubin 0.6, Aspartate Amino Transf (AST/SGOT) 275H, Alanine Aminotransferase (ALT/SGPT) 179H, Alkaline Phosphatase 316H, Total Protein 5.9L , Albumin 1.5L, Globulin 4.4, Albumin/Globulin Ratio 0.3L Height (Feet): 5 Height (Inches): 1.00 Weight (Pounds): 110 General Appearance: no apparent distress Cardiovascular: normal rate Respiratory/Chest: decreased breath sounds Abdomen: soft Objective no change Mauri Hudldeston MD Jan 22, 2019 13:25
--- NOTE | 2019-01-22 15:15 | Surgery Progress Note ---
Surgery Progress Note Subjective Additional Comments no acute events wbc trending down lft's remain elevated no n/v/f/c pending HIDA. Objective Last 24 Hour Vital Signs Date Time Temp Pulse Resp B/P (MAP) Pulse Ox O2 Delivery O2 Flow Rate FiO2 01/22/19 12:00 79 01/22/19 12:00 96.8 79 18 125/88 (100) 96 01/22/19 09:00 Room Air 01/22/19 08:47 95 123/91 01/22/19 08:00 87 01/22/19 08:00 97.1 95 18 123/91 (102) 99 01/22/19 04:00 89 01/22/19 04:00 98.1 81 18 159/86 (110) 96 01/22/19 00:00 97.9 67 18 144/77 (99) 97 01/22/19 00:00 97 01/21/19 21:03 105 147/81 01/21/19 21:00 Room Air 01/21/19 20:00 97.0 105 18 147/81 (103) 96 01/21/19 20:00 90 01/21/19 16:04 83 01/21/19 16:00 98.5 90 20 137/84 (101) 97 I&O Intake and Output 01/21/19 01/22/19 19:00 07:00 Intake Total 1100 ml 690 ml Output Total 1200 ml 1100 ml Balance -100 ml -410 ml Intake Oral 240 ml IV Total 1100 ml 450 ml Output Urine Total 1200 ml 1100 ml Cardiovascular: RSR Respiratory: clear Abdomen: soft, flat, non-tender, present bowel sounds, non-distended Extremities: no edema, no tenderness, no cyanosis Laboratory Tests Test 01/22/19 06:15 White Blood Count 14.4 K/UL (4.8-10.8) H Red Blood Count 3.93 M/UL (4.20-5.40) L Hemoglobin 11.6 G/DL (12.0-16.0) L Hematocrit 34.2 % (37.0-47.0) L Mean Corpuscular Volume 87 FL (80-99) Mean Corpuscular Hemoglobin 29.5 PG (27.0-31.0) Mean Corpuscular Hemoglobin Concent 33.9 G/DL (32.0-36.0) Red Cell Distribution Width 11.0 % (11.6-14.8) L Platelet Count 169 K/UL (150-450) Mean Platelet Volume 7.8 FL (6.5-10.1) Neutrophils (%) (Auto) 76.4 % (45.0-75.0) H Lymphocytes (%) (Auto) 4.7 % (20.0-45.0) L Monocytes (%) (Auto) 17.2 % (1.0-10.0) H Eosinophils (%) (Auto) 0.9 % (0.0-3.0) Basophils (%) (Auto) 0.8 % (0.0-2.0) Prothrombin Time 14.4 SEC (9.30-11.50) H Prothromb Time International Ratio 1.4 (0.9-1.1) H Activated Partial Thromboplast Time 89 SEC (23-33) H Sodium Level 148 MMOL/L (136-145) H Potassium Level 3.1 MMOL/L (3.5-5.1) L Chloride Level 115 MMOL/L (98-107) H Carbon Dioxide Level 21 MMOL/L (21-32) Anion Gap 12 mmol/L (5-15) Blood Urea Nitrogen 39 mg/dL (7-18) H Creatinine 3.4 MG/DL (0.55-1.30) H Estimat Glomerular Filtration Rate mL/min (>60) Glucose Level 100 MG/DL (74-106) Calcium Level 6.7 MG/DL (8.5-10.1) L Phosphorus Level 2.5 MG/DL (2.5-4.9) Magnesium Level 1.8 MG/DL (1.8-2.4) Total Bilirubin 0.6 MG/DL (0.2-1.0) Aspartate Amino Transf (AST/SGOT) 275 U/L (15-37) H Alanine Aminotransferase (ALT/SGPT) 179 U/L (12-78) H Alkaline Phosphatase 316 U/L (46-116) H Total Protein 5.9 G/DL (6.4-8.2) L Albumin 1.5 G/DL (3.4-5.0) L Globulin 4.4 g/dL Albumin/Globulin Ratio 0.3 (1.0-2.7) L Plan Problems: (1) Dehydration (2) Decubitus skin ulcer Assessment & Plan: Pt presented on admission with multiple wounds.Hx R Mastectomy . Full thickness wound that is tunneled into R axilla noted to aleksander R mastectomy.Base of wound is sahara with macerated borders oozing small amt serous exudate noted. No odor noted. (L)3cm x (W)6cm x (D)0.3, tunneling clockwise @10o'clock by 6.6cm. Full thickness wound lateral/posterior R chest. Scattered slough at base of wound with erythematous borders .Periwound indurated. wound oozing small amt serous exudate. (L)1cm x (W)3cm. Full thickness wound posterior thoracic. 100% slough at base of wound. Erythematous borders. No odor or exudate noted(L)2.3cm x (W)2.5cm. Full thickness wound median R humerus. 100% slough with erythematous borders. No odor or exudate noted.(L)3.9cm x (W)2.4cm. Incontinence associated dermatitis noted to sacral and cleft of buttocks. Affected area is erythematous. Pt denied burning or itching. DTPI noted to medial L foot . Base of wound is indurated,purple with red margins.(L)3.2cm x (W)1cm. L heel boggy with non-blanchable erythema. Non-blanchable erythema without fluctuance R heel. Tx.Plan: Cleanse wound Aleksander R chest with Saline. Loosely pack wound (@10o'clock) with 1 /2 inch Iodoform packing. Apply Cavilon periwound. Cover with Optifoam drsg.Daily and prn. Cleanse wounds R arm with saline. Apply Xeroform gauze.Apply Cavilon periwound. Cover with Optifoam drsg. Change daily and prn. Cleanse wound Lateral/posterior chest with Saline. Apply xeroform gauze. Cover with Optifoam drsg. Change Daily and prn. Cleanse wound Posterior R thoracic with Saline. Cover with Xeroform. Apply Cavilon Skin Barrier periwound. Cover with Optifoam drsg. Daily and prn. Apply Triad Paste to Buttocks with each perineal care. Apply Cavilon Skin Barrier to both heels. Cover each heel with Optifoam drsg. every 7 days and prn. Reposition at least every 2hours or as tolerated. Off-load heels with pillow. (3) Leukocytosis Assessment & Plan: cont Abx worsening unlikely related to wounds that do not seem actively infected (4) Severe protein-calorie malnutrition Assessment & Plan: DAILY ESTIMATED NEEDS: Needs based on Cancer, wounds 48kg 30-40 kcals/kg 8374-7155 total kcals 1.25-2 g protein/kg 60-96 g total protein 25-30 mL/kg 6456-8946 total fluid mLs NUTRITION DIAGNOSIS: Increased kcal and pro needs r/t wound healing and low BMI as evidenced by BMI underweight per guidelines, pt w/ multiple partial thickness wounds, refer to WC eval. CURRENT DIET: Soft GAGE PO DIET RECOMMENDATIONS: GAGE diet/ texture as tolerated ADDITIONAL RECOMMENDATIONS: - Pt w/ poor po intake, would rec to liberalized diet to REGULAR - Add ENSURE ENLIVE TID w/ meals - Obtain a standing scale wt as able Or recalibrate bed scale for accurate CBW - Monitor renal fxn/ lytes and need for renal supplement - WOUND CARE: add DILAN BID + MVI x1 + VIT C 500mg daily (5) Failure to thrive in adult (6) Acute cholecystitis Assessment & Plan: Patient with possible acalculous cholecystitis. Afebrile, hemodynamic stable, leukocytosis, acute episode of pancreatitis which is resolved chemically. On examination difficult to examine but no significant tenderness identified in the right upper quadrant. CT reviewed. US noted. inconsistent with CT findings HIDA ordered Continue IV antibiotics We will follow with recommendations Will need to consider depending on ultrasound findings potential laparoscopic versus percutaneous drainage if necessary. Jesus Bennett Jan 22, 2019 15:15
[2019-01-22 16:00] VITALS: BP 110/57
--- NOTE | 2019-01-22 16:00 | Progress Note ---
DATE: 01/22/2019 SUBJECTIVE: The patient was asleep, but arousable with verbal stimuli. She continues to be in soft restraints. The patient is having waxing and waning consciousness, memory impairment, episodes of anxiety. She is confused. MENTAL STATUS EXAMINATION: The patient is alert, confused, disoriented. Mood is neutral to anxious. Affect is flat. Thought process is concrete. Thought content, no suicidal or homicidal ideation. Cognition is impaired. Insight and judgment is impaired. ASSESSMENT: 1. Acute encephalopathy. 2. Dementia with behavior disturbance. PLAN: 1. We will continue with the current psychotropic medication. 2. Continue to treat the underlying cause of encephalopathy. 3. Discussed with the nurse. Cynthia Nicholson M.D. DR: JAMARCUS JOB#: [id number] CC:
--- NOTE | 2019-01-22 19:20 | NUR ---
HAND-OFF: Report given to GAIL Arnold. Patient s in stable condition.
--- NOTE | 2019-01-22 19:31 | NUR ---
NURSE NOTES: Received patient from GAIL Cheng, patient in stable condition, AOx2, denies pain at this time,PICC on left arm double lumen, asymptomatic,intact, patent, F/C patent , draining well, to gravity,soft restraints on, tolerating well no skin impairment under restraints, resting in bed, bed low&locked, side rails up x3, call light within easy reach, will continue to monitor and reassess.
[2019-01-22 20:00] VITALS: BP 130/70
[2019-01-22] MEDS: Dyna-Hex 2% Top Sol 2oz TOPIC SCH (21:02)
--- NOTE | 2019-01-22 23:56 | NUR ---
HAND-OFF: Report given to GAIL Centeno, patient in stable condition, plan of care endorsed.
[2019-01-23] VITALS: BP 114/68
--- NOTE | 2019-01-23 | NUR ---
NURSE NOTES: Received report from Dominik Rosenthal RN. Patient in bed AAO X1 with episodes of confusion at times. Active orders for non-behavioral bilateral soft wrist restraints in place for episodes of pulling tubes and trying to get out of bed. No complaints of acute pain or discomfort at this time. Kept clean, dry, and comfortable in bed. IV line intact and patent with continuous cardiac monitoring per protocol. FC free flowing with no obstruction. Safety precaution in place; siderails X3 up, call light within reach, bed in lowest position, brakes and alarm on at all times. Needs and wants anticipated and attended. Will continue plan of care and monitor for any changes noted. HIDA NM Scan scheduled today 01/23/19 NPO status after midnight
--- NOTE | 2019-01-23 00:15 | Progress Note ---
DATE: 01/22/2019 CARDIOLOGY PROGRESS NOTE SUBJECTIVE: The patient had better oral intake yesterday with assistance. No nausea or vomiting noted. No new fevers. HIDA scan is still pending. OBJECTIVE: VITAL SIGNS: Blood pressure 123/91, pulse 84, respirations 18. LUNGS: Clear. CARDIAC: Regular. Normal S1, S2. No new murmur. ABDOMEN: Soft. EXTREMITIES: No edema. IMPRESSION: 1. Transaminitis. 2. Possible cholecystitis. 3. Possible metastatic disease. 4. Resolved tachycardia. 5. Chronic diastolic congestive heart failure. 6. Leukocytosis, improving. PLAN: 1. Diagnostic workup in progress. 2. No change in cardiovascular regimen. 3. Taper off IV fluids as oral intake improves. Jorge Self M.D. DR: DREW JOB#: [id number] CC:
--- NOTE | 2019-01-23 03:08 | NUR ---
HAND-OFF: Report given to Pravin Vaughn RN. Patient in bed asleep with no S/S of distress. Endorsed plan of care.
[2019-01-23 04:00] VITALS: BP 111/71
[2019-01-23] MEDS: NovoLOG Insulin Flexpen SUBQ SCH ×4 (06:25→21:19)
[2019-01-23 06:58] LABS: BASOPHILS % (AUTO) 0.8 % (0.0-2.0); HEMATOCRIT 37.2 % (37.0-47.0); HEMOGLOBIN 12.2 G/DL (12.0-16.0); LYMPHOCYTES % (AUTO) 5.6 % (20.0-45.0); MEAN CORPUSCULAR VOLUME 86 FL (80-99); MONOCYTES % (AUTO) 16.7 % (1.0-10.0); NEUTROPHILS % (AUTO) 75.9 % (45.0-75.0); PLATELET COUNT 170 K/UL (150-450); RED BLOOD COUNT 4.33 M/UL (4.20-5.40); RED CELL DISTRIBUTION WIDTH 12.7 % (11.6-14.8); WHITE BLOOD COUNT 13.4 K/UL (4.8-10.8)
[2019-01-23 07:46] LABS: ALANINE AMINOTRANSFERASE 154 U/L (12-78); ALBUMIN 1.6 G/DL (3.4-5.0); ALBUMIN/GLOBULIN RATIO 0.4 (1.0-2.7); ALKALINE PHOSPHATASE 391 U/L (46-116); ANION GAP 14 mmol/L (5-15); ASPARTATE AMINO TRANSFERASE 225 U/L (15-37); BILIRUBIN,TOTAL 0.6 MG/DL (0.2-1.0); BLOOD UREA NITROGEN 37 mg/dL (7-18); CALCIUM 7.1 MG/DL (8.5-10.1); CARBON DIOXIDE 19 MMOL/L (21-32); CHLORIDE 118 MMOL/L (98-107); CREATININE 3.4 MG/DL (0.55-1.30); POTASSIUM 3.6 MMOL/L (3.5-5.1); SODIUM 151 MMOL/L (136-145)
--- NOTE | 2019-01-23 07:55 | NUR ---
HAND-OFF: Report given to GAIL Banerjee.
--- NOTE | 2019-01-23 07:55 | NUR ---
NURSE NOTES: Report received from Zion Vaughn RN.Pt awake,alert in no distress no signs of pain or discomfort, SR on the monitior,confused on and off,bilat wrist restraints in place,kept NPO for Hida Scan,SR up x2 HOB elevated,bed lock in lowest position,will continue with plans of care.
[2019-01-23 08:00] VITALS: BP 132/80
--- NOTE | 2019-01-23 08:23 | General Progress Note ---
Assessment/Plan Problem List: (1) Acute renal failure (ARF) ICD Codes: N17.9 - Acute kidney failure, unspecified SNOMED: 31492370 (2) Dehydration ICD Codes: E86.0 - Dehydration SNOMED: 38325920 (3) Decubitus skin ulcer ICD Codes: L89.90 - Pressure ulcer of unspecified site, unspecified stage SNOMED: 250620284 (4) Leukocytosis ICD Codes: D72.829 - Elevated white blood cell count, unspecified SNOMED: 561500634, 759365553 (5) Failure to thrive in adult ICD Codes: R62.7 - Adult failure to thrive SNOMED: 882992761 (6) Severe protein-calorie malnutrition ICD Codes: E43 - Unspecified severe protein-calorie malnutrition SNOMED: 441665920, 665553804, 489203462 Status: stable, progressing Assessment/Plan: ivf adjusted encourage pos follow up hida scan- scheduled for today replace lytes monitor renal fxn/lytes anxiolytics as needed wound care dnr conservative rx family did not want hospice poor prognosis Subjective ROS Limited/Unobtainable: No Constitutional: Reports: malaise, weakness HEENT: Reports: no symptoms Cardiovascular: Reports: no symptoms Respiratory: Reports: no symptoms Gastrointestinal/Abdominal: Reports: poor appetite, poor fluid intake Genitourinary: Reports: no symptoms Neurologic/Psychiatric: Reports: no symptoms Endocrine: Reports: no symptoms Hematologic/Lymphatic: Reports: no symptoms Allergies: Coded Allergies: No Known Allergies (Unverified , 01/15/19) All Systems: reviewed and negative except above Subjective no events. confused. ate well last night. eats well if feed. HIDA scheduled for today. Na trending up Objective Last 24 Hour Vital Signs Date Time Temp Pulse Resp B/P (MAP) Pulse Ox O2 Delivery O2 Flow Rate FiO2 01/23/19 04:00 98.3 87 18 111/71 (84) 97 01/23/19 04:00 87 01/23/19 00:00 97.9 81 18 114/68 (83) 95 01/22/19 21:03 91 130/70 01/22/19 21:00 Room Air 01/22/19 20:00 86 01/22/19 20:00 97.4 91 18 130/70 (90) 96 01/22/19 16:00 77 01/22/19 16:00 96.6 76 18 110/57 (74) 96 01/22/19 12:00 79 01/22/19 12:00 96.8 79 18 125/88 (100) 96 01/22/19 09:00 Room Air 01/22/19 08:47 95 123/91 Intake and Output 01/22/19 01/23/19 19:00 07:00 Intake Total 150 ml Output Total 550 ml Balance -400 ml Intake Oral 150 ml Output Urine Total 550 ml # Voids 2 # Bowel Movements 1 Laboratory Tests 01/23/19 05:26: White Blood Count 13.4H, Red Blood Count 4.33, Hemoglobin 12.2, Hematocrit 37.2 , Mean Corpuscular Volume 86, Mean Corpuscular Hemoglobin 28.3, Mean Corpuscular Hemoglobin Concent 32.9, Red Cell Distribution Width 12.7, Platelet Count 170, Mean Platelet Volume 8.0, Neutrophils (%) (Auto) 75.9H, Lymphocytes ( %) (Auto) 5.6L, Monocytes (%) (Auto) 16.7H, Eosinophils (%) (Auto) 1.0, Basophils (%) (Auto) 0.8, Sodium Level 151H, Potassium Level 3.6, Chloride Level 118H, Carbon Dioxide Level 19L, Anion Gap 14, Blood Urea Nitrogen 37H, Creatinine 3.4H, Estimat Glomerular Filtration Rate , Glucose Level 113H, Calcium Level 7.1L, Total Bilirubin 0.6, Aspartate Amino Transf (AST/SGOT) 225H , Alanine Aminotransferase (ALT/SGPT) 154H, Alkaline Phosphatase 391H, Total Protein 6.1L, Albumin 1.6L, Globulin 4.5, Albumin/Globulin Ratio 0.4L, Lipase 324 Height (Feet): 5 Height (Inches): 1.00 Weight (Pounds): 120 Objective General Appearance: WD/WN, alert Neck: supple Cardiovascular: regular rhythm Respiratory/Chest: chest wall non-tender, lungs clear, normal breath sounds, no respiratory distress Abdomen: normal bowel sounds, non tender, soft, no organomegaly Edema: no edema noted Arm (L), no edema noted Arm (R), no edema noted Leg (L), no edema noted Leg (R), no edema noted Pedal (L), no edema noted Pedal (R), no edema noted Generalized Mesfin Chapa MD Jan 23, 2019 08:23
[2019-01-23] MEDS ORDERED: Morphine Sulfate 2mg/ml Inj(IV/IM USE ONLY) IVP SCH (08:30)
--- NOTE | 2019-01-23 11:00 | NUR ---
NURSE NOTES: Pt brought downstairs for Hida Scan accompanied by Private Client Advisor awake,alert in no distress with bilat wrist restraints in placed.
--- NOTE | 2019-01-23 11:06 | Infectious Diseases Prog Note ---
Assessment/Plan Assessment/Plan antibiotics : levoquin, flagyl A 1. ? cholecystitis 2. cirrhosis 3. leucocytosis improving 4. pancreatitis improving 5. renal failure improving 6. 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 continue po levoquin, flagyl 2. will follow up cultures 3. will follow up HIDA scan Subjective ROS Limited/Unobtainable: Yes Allergies: Coded Allergies: No Known Allergies (Unverified , 01/15/19) Objective Vital Signs Last 24 Hour Vital Signs Date Time Temp Pulse Resp B/P (MAP) Pulse Ox O2 Delivery O2 Flow Rate FiO2 01/23/19 08:00 98.2 94 22 132/80 (97) 98 01/23/19 04:00 98.3 87 18 111/71 (84) 97 01/23/19 04:00 87 01/23/19 00:00 97.9 81 18 114/68 (83) 95 01/22/19 21:03 91 130/70 01/22/19 21:00 Room Air 01/22/19 20:00 86 01/22/19 20:00 97.4 91 18 130/70 (90) 96 01/22/19 16:00 77 01/22/19 16:00 96.6 76 18 110/57 (74) 96 01/22/19 12:00 79 01/22/19 12:00 96.8 79 18 125/88 (100) 96 Height (Feet): 5 Height (Inches): 1.00 Weight (Pounds): 120 Respiratory/Chest: lungs clear Cardiovascular: normal rate, regular rhythm, no gallop/murmur Abdomen: soft, non tender Extremities: no clubbing - left arm PICC, no edema, other - left arm Laboratory Tests Test 01/23/19 05:26 White Blood Count 13.4 K/UL (4.8-10.8) H Red Blood Count 4.33 M/UL (4.20-5.40) Hemoglobin 12.2 G/DL (12.0-16.0) Hematocrit 37.2 % (37.0-47.0) Mean Corpuscular Volume 86 FL (80-99) Mean Corpuscular Hemoglobin 28.3 PG (27.0-31.0) Mean Corpuscular Hemoglobin Concent 32.9 G/DL (32.0-36.0) Red Cell Distribution Width 12.7 % (11.6-14.8) Platelet Count 170 K/UL (150-450) Mean Platelet Volume 8.0 FL (6.5-10.1) Neutrophils (%) (Auto) 75.9 % (45.0-75.0) H Lymphocytes (%) (Auto) 5.6 % (20.0-45.0) L Monocytes (%) (Auto) 16.7 % (1.0-10.0) H Eosinophils (%) (Auto) 1.0 % (0.0-3.0) Basophils (%) (Auto) 0.8 % (0.0-2.0) Sodium Level 151 MMOL/L (136-145) H Potassium Level 3.6 MMOL/L (3.5-5.1) Chloride Level 118 MMOL/L (98-107) H Carbon Dioxide Level 19 MMOL/L (21-32) L Anion Gap 14 mmol/L (5-15) Blood Urea Nitrogen 37 mg/dL (7-18) H Creatinine 3.4 MG/DL (0.55-1.30) H Estimat Glomerular Filtration Rate mL/min (>60) Glucose Level 113 MG/DL (74-106) H Calcium Level 7.1 MG/DL (8.5-10.1) L Total Bilirubin 0.6 MG/DL (0.2-1.0) Aspartate Amino Transf (AST/SGOT) 225 U/L (15-37) H Alanine Aminotransferase (ALT/SGPT) 154 U/L (12-78) H Alkaline Phosphatase 391 U/L (46-116) H Total Protein 6.1 G/DL (6.4-8.2) L Albumin 1.6 G/DL (3.4-5.0) L Globulin 4.5 g/dL Albumin/Globulin Ratio 0.4 (1.0-2.7) L Lipase 324 U/L (73-393) Current Medications Medications (Trade) Dose Ordered Sig/Whitley Route PRN Reason Start Time Stop Time Status Last Admin Dose Admin Acetaminophen (Tylenol) 650 mg Q4H PRN ORAL Mild Pain/Temp > 100.5 01/16/19 15:30 02/15/19 15:29 01/16/19 15:39 Anastrozole (Arimidex) 1 mg DAILY ORAL 01/17/19 09:00 02/15/19 08:59 01/22/19 08:46 Ascorbic Acid (Vitamin C) 500 mg DAILY ORAL 01/18/19 09:00 02/17/19 08:59 01/22/19 08:46 Aspirin (Ecotrin) 81 mg DAILY ORAL 01/17/19 09:00 02/15/19 08:59 01/22/19 08:46 Chlorhexidine Gluconate (Lizette-Hex 2%) 1 applic DAILY@2000 TOPIC 01/17/19 20:00 02/16/19 19:59 01/22/19 21:02 Dextrose 1,000 ml @ 75 mls/hr [id number] IV 01/23/19 08:30 02/22/19 08:29 Dextrose (Dextrose 50%) 25 ml Q30M PRN IV Hypoglycemia 01/19/19 11:15 02/18/19 11:14 Dextrose (Dextrose 50%) 50 ml Q30M PRN IV Hypoglycemia 01/19/19 11:15 02/18/19 11:14 Haloperidol Lactate (Haldol) 2 mg Q4H PRN IM Agitation 01/17/19 14:45 02/16/19 14:44 01/18/19 09:22 Heparin Sodium (Porcine) (Heparin 5000 units/ml) 5,000 units EVERY 12 HOURS SUBQ 01/16/19 21:00 02/15/19 08:59 01/22/19 21:08 Insulin Aspart (NovoLOG) BEFORE MEALS AND HS SUBQ 01/19/19 11:30 02/18/19 11:29 01/22/19 11:43 Levofloxacin (Levaquin) 250 mg Q48H ORAL 01/24/19 09:00 01/31/19 08:59 Metoprolol Tartrate (Lopressor) 25 mg Q12HR ORAL 01/16/19 21:00 02/15/19 08:59 01/22/19 21:03 Metronidazole (Flagyl) 500 mg Q8HR ORAL 01/23/19 10:00 01/30/19 09:59 Mirtazapine (Remeron) 15 mg BEDTIME ORAL 01/17/19 23:15 02/16/19 23:14 01/22/19 21:03 Multivitamins (Multivitamins) 1 tab DAILY ORAL 01/18/19 09:00 02/17/19 08:59 01/22/19 08:46 Olanzapine (ZyPREXA) 2.5 mg DAILY ORAL 01/20/19 09:00 02/19/19 08:59 01/22/19 08:46 Olanzapine (ZyPREXA) 5 mg BEDTIME ORAL 01/20/19 21:00 02/19/19 20:59 01/22/19 21:02 Pantoprazole (Protonix) 40 mg DAILY ORAL 01/18/19 09:00 02/17/19 08:59 01/22/19 08:46 Lalito Major MD Jan 23, 2019 11:06
--- NOTE | 2019-01-23 11:10 | Nephrology Progress Note ---
Assessment/Plan Problem List: (1) Acute renal failure (ARF) Assessment: Cr 3.4 stable (2) Failure to thrive in adult (3) Severe protein-calorie malnutrition (4) Dehydration (5) Elevated LFTs Assessment Acute on chronic renal failure- Dehydration Failing to thrive, Malnutrition Decubiti Urinary retention Plan marte Urine studies Hydrate- has PICC now K supplement as needed CXR STANLEY kidney noted per orders monitor Vanco level Subjective ROS Limited/Unobtainable: No Constitutional: Reports: malaise, weakness Objective Objective Last 24 Hour Vital Signs Date Time Temp Pulse Resp B/P (MAP) Pulse Ox O2 Delivery O2 Flow Rate FiO2 01/23/19 08:00 98.2 94 22 132/80 (97) 98 01/23/19 04:00 98.3 87 18 111/71 (84) 97 01/23/19 04:00 87 01/23/19 00:00 97.9 81 18 114/68 (83) 95 01/22/19 21:03 91 130/70 01/22/19 21:00 Room Air 01/22/19 20:00 86 01/22/19 20:00 97.4 91 18 130/70 (90) 96 01/22/19 16:00 77 01/22/19 16:00 96.6 76 18 110/57 (74) 96 01/22/19 12:00 79 01/22/19 12:00 96.8 79 18 125/88 (100) 96 Intake and Output 01/22/19 01/23/19 19:00 07:00 Intake Total 150 ml Output Total 550 ml Balance -400 ml Intake Oral 150 ml Output Urine Total 550 ml # Voids 2 # Bowel Movements 1 Laboratory Tests 01/23/19 05:26: White Blood Count 13.4H, Red Blood Count 4.33, Hemoglobin 12.2, Hematocrit 37.2 , Mean Corpuscular Volume 86, Mean Corpuscular Hemoglobin 28.3, Mean Corpuscular Hemoglobin Concent 32.9, Red Cell Distribution Width 12.7, Platelet Count 170, Mean Platelet Volume 8.0, Neutrophils (%) (Auto) 75.9H, Lymphocytes ( %) (Auto) 5.6L, Monocytes (%) (Auto) 16.7H, Eosinophils (%) (Auto) 1.0, Basophils (%) (Auto) 0.8, Sodium Level 151H, Potassium Level 3.6, Chloride Level 118H, Carbon Dioxide Level 19L, Anion Gap 14, Blood Urea Nitrogen 37H, Creatinine 3.4H, Estimat Glomerular Filtration Rate , Glucose Level 113H, Calcium Level 7.1L, Total Bilirubin 0.6, Aspartate Amino Transf (AST/SGOT) 225H , Alanine Aminotransferase (ALT/SGPT) 154H, Alkaline Phosphatase 391H, Total Protein 6.1L, Albumin 1.6L, Globulin 4.5, Albumin/Globulin Ratio 0.4L, Lipase 324 Height (Feet): 5 Height (Inches): 1.00 Weight (Pounds): 120 General Appearance: no apparent distress, lethargic Cardiovascular: regular rhythm Respiratory/Chest: decreased breath sounds Abdomen: soft Objective no change Mauri Huddleston MD Jan 23, 2019 11:10
--- NOTE | 2019-01-23 11:58 | NUR ---
WEEKLY SWALLOW/SPEECH THERAPY SUMMARY: NOT SEEN RECENTLY DUE TO SCHEDULE CONFLICTS. PATIENT GETTING HIDA SCAN. GOALS MET FOR STAFF AWARE OF POSTED ASPIRATION PRECAUTIONS (SEE SWALLOW REPORT FOR SPECIFICS). GOALS FOR INTAKE ARE MET ON SOFT CHEW AND THIN LIQUID DIET WITH POSTED ASPIRATION PRECAUTIONS. PER KITCHEN ASSISTANT, HARIS, NO OVERT S/S OF ASPIRATION BUT SHE NEEDS TO BE FED. HAS SILENT ASPIRATION RISK DUE TO DEMENTIA DX BUT NOT ABLE TO HAVE MODIFIED BARIUM SWALLOW STUDY DUE TO SCHEDULING CONFLICTS. SPEECH/COG-COM EVAL/TX: NOT COMPLETED BUT ORDER SIGNED BY . PLAN: MOD BARIUM SWALLOW STUDY TO FURTHER ASSESS SWALLOW, DETERMINE SILENT ASPIRATION RISK, AND ATTEMPT TRIAL TX. CONTINUE WITH CURRENT DIET/LIQUIDS FOR USING POSTED PRECAUTIONS. COMPLETE COGNITIVE-COM EVAL/TX IF NEEDS D/W RN (JEAN CARLOS)
--- NOTE | 2019-01-23 12:36 | NUR ---
NM Hepatobiliary (HIDA) Scan complete.
[2019-01-23] MEDS: Aspirin EC 81mg tab ORAL SCH (12:52)
[2019-01-23] MEDS: OLANZapine 2.5mg tab ORAL SCH (12:52)
[2019-01-23] MEDS: Metoprolol 25mg tab ORAL SCH ×2 (12:52→21:16)
[2019-01-23] MEDS: Anastrazole 1mg tab ORAL SCH (12:52)
[2019-01-23] MEDS: Ascorbic Acid 500mg tab ORAL SCH (12:52)
[2019-01-23] MEDS: Heparin 5000 units/ml inj SUBQ SCH ×2 (12:54→21:19)
--- NOTE | 2019-01-23 13:00 | NUR ---
NURSE NOTES: Pt back to unit awake,alert in no distress with bilat wrist restraints in placed.
[2019-01-23] MEDS: metroNIDAZOLE 500mg tab ORAL SCH ×2 (13:05→21:15)
--- NOTE | 2019-01-23 13:50 | NUR ---
CASE MANAGEMENT:REVIEW 01/23/19 SI: ACUTE RENAL FAILURE DEHYDRATION. LEUKOCYTOSIS. MULTIPLE LIVER LESIONS 98.2 94 22 132/80 98% ON RA WBC+13.4 NA+151 BUN+37 CR+3.4 IS: LEVAQUIN PO Q48HRS FLAGYL PO Q8HRS IVF@75/HR ZYPREXA PO QHS PROTONIX PO QD REMERON PO QHS ASA PO QD LOPRESSOR PO Q12 : TELEMETRY STATUS
--- NOTE | 2019-01-23 13:55 | Surgery Progress Note ---
Surgery Progress Note Subjective Additional Comments labs improved hida done and pending exam stable Objective Last 24 Hour Vital Signs Date Time Temp Pulse Resp B/P (MAP) Pulse Ox O2 Delivery O2 Flow Rate FiO2 01/23/19 12:52 94 132/80 01/23/19 08:00 98.2 94 22 132/80 (97) 98 01/23/19 04:00 98.3 87 18 111/71 (84) 97 01/23/19 04:00 87 01/23/19 00:00 97.9 81 18 114/68 (83) 95 01/22/19 21:03 91 130/70 01/22/19 21:00 Room Air 01/22/19 20:00 86 01/22/19 20:00 97.4 91 18 130/70 (90) 96 01/22/19 16:00 77 01/22/19 16:00 96.6 76 18 110/57 (74) 96 I&O Intake and Output 01/22/19 01/23/19 19:00 07:00 Intake Total 150 ml Output Total 550 ml Balance -400 ml Intake Oral 150 ml Output Urine Total 550 ml # Voids 2 # Bowel Movements 1 Cardiovascular: RSR Respiratory: clear Abdomen: soft, flat, non-tender, present bowel sounds Extremities: no tenderness, no cyanosis Laboratory Tests Test 01/23/19 05:26 White Blood Count 13.4 K/UL (4.8-10.8) H Red Blood Count 4.33 M/UL (4.20-5.40) Hemoglobin 12.2 G/DL (12.0-16.0) Hematocrit 37.2 % (37.0-47.0) Mean Corpuscular Volume 86 FL (80-99) Mean Corpuscular Hemoglobin 28.3 PG (27.0-31.0) Mean Corpuscular Hemoglobin Concent 32.9 G/DL (32.0-36.0) Red Cell Distribution Width 12.7 % (11.6-14.8) Platelet Count 170 K/UL (150-450) Mean Platelet Volume 8.0 FL (6.5-10.1) Neutrophils (%) (Auto) 75.9 % (45.0-75.0) H Lymphocytes (%) (Auto) 5.6 % (20.0-45.0) L Monocytes (%) (Auto) 16.7 % (1.0-10.0) H Eosinophils (%) (Auto) 1.0 % (0.0-3.0) Basophils (%) (Auto) 0.8 % (0.0-2.0) Sodium Level 151 MMOL/L (136-145) H Potassium Level 3.6 MMOL/L (3.5-5.1) Chloride Level 118 MMOL/L (98-107) H Carbon Dioxide Level 19 MMOL/L (21-32) L Anion Gap 14 mmol/L (5-15) Blood Urea Nitrogen 37 mg/dL (7-18) H Creatinine 3.4 MG/DL (0.55-1.30) H Estimat Glomerular Filtration Rate mL/min (>60) Glucose Level 113 MG/DL (74-106) H Calcium Level 7.1 MG/DL (8.5-10.1) L Total Bilirubin 0.6 MG/DL (0.2-1.0) Aspartate Amino Transf (AST/SGOT) 225 U/L (15-37) H Alanine Aminotransferase (ALT/SGPT) 154 U/L (12-78) H Alkaline Phosphatase 391 U/L (46-116) H Total Protein 6.1 G/DL (6.4-8.2) L Albumin 1.6 G/DL (3.4-5.0) L Globulin 4.5 g/dL Albumin/Globulin Ratio 0.4 (1.0-2.7) L Lipase 324 U/L (73-393) Plan Problems: (1) Dehydration (2) Decubitus skin ulcer Assessment & Plan: Pt presented on admission with multiple wounds.Hx R Mastectomy . Full thickness wound that is tunneled into R axilla noted to aleksander R mastectomy.Base of wound is sahara with macerated borders oozing small amt serous exudate noted. No odor noted. (L)3cm x (W)6cm x (D)0.3, tunneling clockwise @10o'clock by 6.6cm. Full thickness wound lateral/posterior R chest. Scattered slough at base of wound with erythematous borders .Periwound indurated. wound oozing small amt serous exudate. (L)1cm x (W)3cm. Full thickness wound posterior thoracic. 100% slough at base of wound. Erythematous borders. No odor or exudate noted(L)2.3cm x (W)2.5cm. Full thickness wound median R humerus. 100% slough with erythematous borders. No odor or exudate noted.(L)3.9cm x (W)2.4cm. Incontinence associated dermatitis noted to sacral and cleft of buttocks. Affected area is erythematous. Pt denied burning or itching. DTPI noted to medial L foot . Base of wound is indurated,purple with red margins.(L)3.2cm x (W)1cm. L heel boggy with non-blanchable erythema. Non-blanchable erythema without fluctuance R heel. Tx.Plan: Cleanse wound Aleksander R chest with Saline. Loosely pack wound (@10o'clock) with 1 /2 inch Iodoform packing. Apply Cavilon periwound. Cover with Optifoam drsg.Daily and prn. Cleanse wounds R arm with saline. Apply Xeroform gauze.Apply Cavilon periwound. Cover with Optifoam drsg. Change daily and prn. Cleanse wound Lateral/posterior chest with Saline. Apply xeroform gauze. Cover with Optifoam drsg. Change Daily and prn. Cleanse wound Posterior R thoracic with Saline. Cover with Xeroform. Apply Cavilon Skin Barrier periwound. Cover with Optifoam drsg. Daily and prn. Apply Triad Paste to Buttocks with each perineal care. Apply Cavilon Skin Barrier to both heels. Cover each heel with Optifoam drsg. every 7 days and prn. Reposition at least every 2hours or as tolerated. Off-load heels with pillow. (3) Leukocytosis Assessment & Plan: cont Abx worsening unlikely related to wounds that do not seem actively infected (4) Severe protein-calorie malnutrition Assessment & Plan: DAILY ESTIMATED NEEDS: Needs based on Cancer, wounds 48kg 30-40 kcals/kg 6613-6302 total kcals 1.25-2 g protein/kg 60-96 g total protein 25-30 mL/kg 6406-1525 total fluid mLs NUTRITION DIAGNOSIS: Increased kcal and pro needs r/t wound healing and low BMI as evidenced by BMI underweight per guidelines, pt w/ multiple partial thickness wounds, refer to WC eval. CURRENT DIET: Soft GAGE PO DIET RECOMMENDATIONS: GAGE diet/ texture as tolerated ADDITIONAL RECOMMENDATIONS: - Pt w/ poor po intake, would rec to liberalized diet to REGULAR - Add ENSURE ENLIVE TID w/ meals - Obtain a standing scale wt as able Or recalibrate bed scale for accurate CBW - Monitor renal fxn/ lytes and need for renal supplement - WOUND CARE: add DILAN BID + MVI x1 + VIT C 500mg daily (5) Failure to thrive in adult (6) Acute cholecystitis Assessment & Plan: Patient with possible acalculous cholecystitis. Afebrile, hemodynamic stable, leukocytosis, acute episode of pancreatitis which is resolved chemically. On examination difficult to examine but no significant tenderness identified in the right upper quadrant. CT reviewed. US noted. inconsistent with CT findings HIDA ordered Continue IV antibiotics We will follow with recommendations Will need to consider depending on ultrasound findings potential laparoscopic versus percutaneous drainage if necessary. Jesus Bennett Jan 23, 2019 13:55
--- NOTE | 2019-01-23 14:35 | Diagnostic Imaging Report ---
Indication: Abdominal Pain Technique: 5.3 mCi of technetium 99 m-Choletec was injected intravenously. Planar imaging of the abdomen was then performed up to 60 minutes. Findings: There is uptake of radiotracer within the liver with expected washout of radiotracer from the liver on subsequent imaging. There is excretion into the biliary ducts. There is passage of radiotracer in the small bowel indicating patency of the common bile duct. There is passage of radiotracer into the gallbladder by 45 minutes indicating patency of the cystic duct. IMPRESSION: No evidence of acute cholecystitis. Passage of radiotracer into the gallbladder indicating patency of the cystic duct. Passage of radiotracer into the small bowel indicating patency of the common bile duct.
[2019-01-23 16:00] VITALS: BP 123/65
--- NOTE | 2019-01-23 19:30 | NUR ---
HAND-OFF: Report given to Taylor WHITTAKER.
--- NOTE | 2019-01-23 19:40 | NUR ---
NURSE NOTES: NURSE NOTES: Received patient from GAIL Banerjee. Patient is awake, alert, and talkative. Patient is confused, but able to communicate needs. Bed is in lowest position, brakes on, call light within reach.
[2019-01-23 20:00] VITALS: BP 116/57
[2019-01-23] MEDS: Dyna-Hex 2% Top Sol 2oz TOPIC SCH (21:15)
[2019-01-24] VITALS: BP 132/65
--- NOTE | 2019-01-24 01:15 | Progress Note ---
DATE: 01/24/2019 SUBJECTIVE: The patient is in bed, no acute distress. Confused. Episodes of agitation. Presents with disorganized speech and behavior. Poor memory. MENTAL STATUS EXAMINATION: The patient is alert and confused. Mood is agitated. Affect is flat. Thought process is concrete. Thought content, no suicidal or homicidal ideation. Cognition is impaired. Insight and judgment, non-existent. ASSESSMENT: 1. Dementia with behavior disturbance. 2. Acute encephalopathy, improved. PLAN: 1. We will continue the Zyprexa. 2. Discussed with the nurse. 3. Provide the patient with reality orientation. Cynthia Nicholson M.D. DR: ROMERO JOB#: [id number] CC:
--- NOTE | 2019-01-24 01:45 | Progress Note ---
DATE: 01/23/2019 CARDIOLOGY PROGRESS NOTE SUBJECTIVE: The patient is confused. Appetite has improved. HIDA scan completed today. Study is negative for acute cholecystitis. PHYSICAL EXAMINATION: VITAL SIGNS: Blood pressure 116/57, pulse 95, and respirations 18. LUNGS: Clear. CARDIAC: Regular. ABDOMEN: Soft. No ascites. EXTREMITIES: No edema. IMPRESSION: 1. Ischemic cardiomyopathy. 2. Stable angina. 3. Acute on chronic diastolic congestive heart failure. 4. Possible metastatic carcinoma. 5. Severe protein-calorie malnutrition. 6. Acute on chronic renal failure. RECOMMENDATION: 1. Conservative management. 2. Nutritional support. 3. Off IV fluids. 4. Avoid tight blood pressure control. 5. Replace electrolytes as needed. Jorge Self M.D. DR: DREW JOB#: [id number] CC:
[2019-01-24 04:00] VITALS: BP 109/57
[2019-01-24] MEDS: NovoLOG Insulin Flexpen SUBQ SCH ×4 (06:12→21:16)
[2019-01-24] MEDS: metroNIDAZOLE 500mg tab ORAL SCH ×3 (06:28→21:14)
[2019-01-24 06:58] LABS: BASOPHILS % (AUTO) 0.8 % (0.0-2.0); EOSINOPHILS % (AUTO) 1.5 % (0.0-3.0); HEMATOCRIT 33.6 % (37.0-47.0); HEMOGLOBIN 11.1 G/DL (12.0-16.0); MEAN CORPUSCULAR VOLUME 86 FL (80-99); MONOCYTES % (AUTO) 17.5 % (1.0-10.0); NEUTROPHILS % (AUTO) 72.2 % (45.0-75.0); PLATELET COUNT 142 K/UL (150-450); RED BLOOD COUNT 3.92 M/UL (4.20-5.40); RED CELL DISTRIBUTION WIDTH 12.4 % (11.6-14.8); WHITE BLOOD COUNT 12.3 K/UL (4.8-10.8)
[2019-01-24 07:20] LABS: ALANINE AMINOTRANSFERASE 113 U/L (12-78); ALBUMIN 1.5 G/DL (3.4-5.0); ALBUMIN/GLOBULIN RATIO 0.4 (1.0-2.7); ALKALINE PHOSPHATASE 368 U/L (46-116); ANION GAP 14 mmol/L (5-15); ASPARTATE AMINO TRANSFERASE 140 U/L (15-37); BILIRUBIN,TOTAL 0.7 MG/DL (0.2-1.0); BLOOD UREA NITROGEN 33 mg/dL (7-18); CALCIUM 6.5 MG/DL (8.5-10.1); CARBON DIOXIDE 20 MMOL/L (21-32); CHLORIDE 113 MMOL/L (98-107); CREATININE 3.3 MG/DL (0.55-1.30); SODIUM 147 MMOL/L (136-145)
--- NOTE | 2019-01-24 07:27 | NUR ---
NURSE NOTES: Received report from Marlene REYNOLDS. Pt in bed awake and confused. Side rails upx2. No acute distress noted. On room air and saturating with 93%. IV site in SHAHNAZ PICC running with D5 @75ml/hr asymptomatic. Bed in lowest position and locked. Call light within easy reach. Will continue to plan of care.
--- NOTE | 2019-01-24 07:27 | NUR ---
HAND-OFF: Report given to GAIL Xiong. Patient is awake lying semi-valladares's; restless and disoriented. In stable condition otherwise.
--- NOTE | 2019-01-24 07:38 | General Progress Note ---
Assessment/Plan Problem List: (1) Acute renal failure (ARF) ICD Codes: N17.9 - Acute kidney failure, unspecified SNOMED: 04146036 (2) Dehydration ICD Codes: E86.0 - Dehydration SNOMED: 62331796 (3) Decubitus skin ulcer ICD Codes: L89.90 - Pressure ulcer of unspecified site, unspecified stage SNOMED: 970593654 (4) Leukocytosis ICD Codes: D72.829 - Elevated white blood cell count, unspecified SNOMED: 190420361, 394581645 (5) Failure to thrive in adult ICD Codes: R62.7 - Adult failure to thrive SNOMED: 027918168 (6) Severe protein-calorie malnutrition ICD Codes: E43 - Unspecified severe protein-calorie malnutrition SNOMED: 549273592, 115041080, 486957647 Status: stable, progressing Assessment/Plan: ivf encourage po replace lytes monitor renal fxn/lytes anxiolytics as needed wound care dnr conservative rx family did not want hospice poor prognosis Subjective ROS Limited/Unobtainable: No Constitutional: Reports: malaise, weakness HEENT: Reports: no symptoms Cardiovascular: Reports: no symptoms Respiratory: Reports: no symptoms Gastrointestinal/Abdominal: Reports: poor appetite, poor fluid intake Genitourinary: Reports: no symptoms Neurologic/Psychiatric: Reports: anxiety, pre-existing deficit Endocrine: Reports: no symptoms Hematologic/Lymphatic: Reports: anemia Allergies: Coded Allergies: No Known Allergies (Unverified , 01/15/19) All Systems: reviewed and negative except above Subjective no events. confused. labs noted. Na level improving. K low. HIDA negative. Objective Last 24 Hour Vital Signs Date Time Temp Pulse Resp B/P (MAP) Pulse Ox O2 Delivery O2 Flow Rate FiO2 01/24/19 04:00 126 01/24/19 04:00 97.9 84 18 109/57 (74) 95 01/24/19 00:00 112 01/24/19 00:00 97.8 87 18 132/65 (87) 96 01/23/19 21:16 95 116/57 01/23/19 21:00 Room Air 01/23/19 20:00 97.8 95 18 116/57 (76) 97 01/23/19 16:00 85 01/23/19 16:00 98.0 88 20 123/65 (84) 98 01/23/19 12:52 94 132/80 01/23/19 12:00 84 01/23/19 09:00 Room Air 01/23/19 08:00 98.2 94 22 132/80 (97) 98 01/23/19 08:00 100 Intake and Output 01/23/19 01/24/19 19:00 07:00 Intake Total 75 ml 964 ml Output Total 1200 ml 1200 ml Balance -1125 ml -236 ml Intake Oral 200 ml IV Total 75 ml 764 ml Output Urine Total 1200 ml 1200 ml Laboratory Tests 01/24/19 06:00: White Blood Count 12.3H, Red Blood Count 3.92L, Hemoglobin 11.1L, Hematocrit 33.6L, Mean Corpuscular Volume 86, Mean Corpuscular Hemoglobin 28.3, Mean Corpuscular Hemoglobin Concent 33.0, Red Cell Distribution Width 12.4, Platelet Count 142L, Mean Platelet Volume 6.5, Neutrophils (%) (Auto) 72.2, Lymphocytes ( %) (Auto) 8.0L, Monocytes (%) (Auto) 17.5H, Eosinophils (%) (Auto) 1.5, Basophils (%) (Auto) 0.8, Sodium Level 147H, Potassium Level 3.0L, Chloride Level 113H, Carbon Dioxide Level 20L, Anion Gap 14, Blood Urea Nitrogen 33H, Creatinine 3.3H, Estimat Glomerular Filtration Rate , Glucose Level 111H, Calcium Level 6.5L, Magnesium Level [Pending], Total Bilirubin 0.7, Aspartate Amino Transf (AST/SGOT) 140H, Alanine Aminotransferase (ALT/SGPT) 113H, Alkaline Phosphatase 368H, Pro-B-Type Natriuretic Peptide [Pending], Total Protein 5.7L, Albumin 1.5L, Globulin 4.2, Albumin/Globulin Ratio 0.4L Height (Feet): 5 Height (Inches): 1.00 Weight (Pounds): 120 Objective General Appearance: WD/WN, alert Neck: supple Cardiovascular: regular rhythm Respiratory/Chest: chest wall non-tender, lungs clear, normal breath sounds, no respiratory distress Abdomen: normal bowel sounds, non tender, soft, no organomegaly Edema: no edema noted Arm (L), no edema noted Arm (R), no edema noted Leg (L), no edema noted Leg (R), no edema noted Pedal (L), no edema noted Pedal (R), no edema noted Generalized Mesfin Chapa MD Jan 24, 2019 07:38
[2019-01-24 07:54] VITALS: BP 133/66
[2019-01-24] MEDS: Aspirin EC 81mg tab ORAL SCH (08:51)
[2019-01-24] MEDS: OLANZapine 2.5mg tab ORAL SCH (08:51)
[2019-01-24] MEDS: Ascorbic Acid 500mg tab ORAL SCH (08:52)
[2019-01-24] MEDS: Anastrazole 1mg tab ORAL SCH (08:52)
[2019-01-24] MEDS: Metoprolol 25mg tab ORAL SCH ×2 (08:52→21:17)
[2019-01-24] MEDS: Heparin 5000 units/ml inj SUBQ SCH ×2 (08:53→21:15)
[2019-01-24 12:00] VITALS: BP 109/63
--- NOTE | 2019-01-24 13:11 | Infectious Diseases Prog Note ---
Assessment/Plan Assessment/Plan Impression: 1. Pancreatitis. 2. Leukocytosis, improving 3. Renal failure, is improving. 4. 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 Dementia PLAN: 1. Continue IV Levaquin & Flagyl Subjective ROS Limited/Unobtainable: Yes Respiratory: Reports: no symptoms Neurologic: Reports: confusion, other - on restraint Allergies: Coded Allergies: No Known Allergies (Unverified , 01/15/19) Objective Vital Signs Last 24 Hour Vital Signs Date Time Temp Pulse Resp B/P (MAP) Pulse Ox O2 Delivery O2 Flow Rate FiO2 01/24/19 09:00 Room Air 01/24/19 08:52 81 133/66 01/24/19 08:00 112 01/24/19 07:54 98.1 81 18 133/66 (88) 97 01/24/19 04:00 126 01/24/19 04:00 97.9 84 18 109/57 (74) 95 01/24/19 00:00 112 01/24/19 00:00 97.8 87 18 132/65 (87) 96 01/23/19 21:16 95 116/57 01/23/19 21:00 Room Air 01/23/19 20:00 97.8 95 18 116/57 (76) 97 01/23/19 20:00 94 01/23/19 16:00 85 01/23/19 16:00 98.0 88 20 123/65 (84) 98 Height (Feet): 5 Height (Inches): 1.00 Weight (Pounds): 120 General Appearance: no acute distress HEENT: mucous membranes moist Respiratory/Chest: lungs clear Cardiovascular: normal rate Abdomen: soft, non tender Extremities: no edema Neurologic/Psychiatric: alert, responsive Laboratory Tests Test 01/24/19 06:00 White Blood Count 12.3 K/UL (4.8-10.8) H Red Blood Count 3.92 M/UL (4.20-5.40) L Hemoglobin 11.1 G/DL (12.0-16.0) L Hematocrit 33.6 % (37.0-47.0) L Mean Corpuscular Volume 86 FL (80-99) Mean Corpuscular Hemoglobin 28.3 PG (27.0-31.0) Mean Corpuscular Hemoglobin Concent 33.0 G/DL (32.0-36.0) Red Cell Distribution Width 12.4 % (11.6-14.8) Platelet Count 142 K/UL (150-450) L Mean Platelet Volume 6.5 FL (6.5-10.1) Neutrophils (%) (Auto) 72.2 % (45.0-75.0) Lymphocytes (%) (Auto) 8.0 % (20.0-45.0) L Monocytes (%) (Auto) 17.5 % (1.0-10.0) H Eosinophils (%) (Auto) 1.5 % (0.0-3.0) Basophils (%) (Auto) 0.8 % (0.0-2.0) Sodium Level 147 MMOL/L (136-145) H Potassium Level 3.0 MMOL/L (3.5-5.1) L Chloride Level 113 MMOL/L (98-107) H Carbon Dioxide Level 20 MMOL/L (21-32) L Anion Gap 14 mmol/L (5-15) Blood Urea Nitrogen 33 mg/dL (7-18) H Creatinine 3.3 MG/DL (0.55-1.30) H Estimat Glomerular Filtration Rate mL/min (>60) Glucose Level 111 MG/DL (74-106) H Calcium Level 6.5 MG/DL (8.5-10.1) L Magnesium Level 1.5 MG/DL (1.8-2.4) L Total Bilirubin 0.7 MG/DL (0.2-1.0) Aspartate Amino Transf (AST/SGOT) 140 U/L (15-37) H Alanine Aminotransferase (ALT/SGPT) 113 U/L (12-78) H Alkaline Phosphatase 368 U/L (46-116) H Pro-B-Type Natriuretic Peptide 66050 pg/mL (0-125) H Total Protein 5.7 G/DL (6.4-8.2) L Albumin 1.5 G/DL (3.4-5.0) L Globulin 4.2 g/dL Albumin/Globulin Ratio 0.4 (1.0-2.7) L Current Medications Medications (Trade) Dose Ordered Sig/Whitley Route PRN Reason Start Time Stop Time Status Last Admin Dose Admin Acetaminophen (Tylenol) 650 mg Q4H PRN ORAL Mild Pain/Temp > 100.5 01/16/19 15:30 10/11/19 15:29 01/16/19 15:39 Anastrozole (Arimidex) 1 mg DAILY ORAL 01/17/19 09:00 02/15/19 08:59 01/24/19 08:52 Ascorbic Acid (Vitamin C) 500 mg DAILY ORAL 01/18/19 09:00 02/17/19 08:59 01/24/19 08:52 Aspirin (Ecotrin) 81 mg DAILY ORAL 01/17/19 09:00 02/15/19 08:59 01/24/19 08:51 Chlorhexidine Gluconate (Lizette-Hex 2%) 1 applic DAILY@2000 TOPIC 01/17/19 20:00 02/16/19 19:59 01/23/19 21:15 Dextrose 1,000 ml @ 75 mls/hr [id number] IV 01/23/19 08:30 02/22/19 08:29 01/24/19 12:12 Dextrose (Dextrose 50%) 25 ml Q30M PRN IV Hypoglycemia 01/19/19 11:15 02/18/19 11:14 Dextrose (Dextrose 50%) 50 ml Q30M PRN IV Hypoglycemia 01/19/19 11:15 02/18/19 11:14 Haloperidol Lactate (Haldol) 2 mg Q4H PRN IM Agitation 01/17/19 14:45 02/16/19 14:44 01/18/19 09:22 Heparin Sodium (Porcine) (Heparin 5000 units/ml) 5,000 units EVERY 12 HOURS SUBQ 01/16/19 21:00 02/15/19 08:59 01/24/19 08:53 Insulin Aspart (NovoLOG) BEFORE MEALS AND HS SUBQ 01/19/19 11:30 02/18/19 11:29 01/24/19 12:12 Levofloxacin (Levaquin) 250 mg Q48H ORAL 01/24/19 09:00 01/31/19 08:59 01/24/19 08:52 Metoprolol Tartrate (Lopressor) 25 mg Q12HR ORAL 01/16/19 21:00 02/15/19 08:59 01/24/19 08:52 Metronidazole (Flagyl) 500 mg Q8HR ORAL 01/23/19 10:00 01/30/19 09:59 01/24/19 06:28 Mirtazapine (Remeron) 15 mg BEDTIME ORAL 01/17/19 23:15 02/16/19 23:14 01/23/19 21:16 Multivitamins (Multivitamins) 1 tab DAILY ORAL 01/18/19 09:00 02/17/19 08:59 01/24/19 08:51 Olanzapine (ZyPREXA) 2.5 mg DAILY ORAL 01/20/19 09:00 02/19/19 08:59 01/24/19 08:51 Olanzapine (ZyPREXA) 5 mg BEDTIME ORAL 01/20/19 21:00 02/19/19 20:59 01/23/19 21:15 Pantoprazole (Protonix) 40 mg DAILY ORAL 01/18/19 09:00 02/17/19 08:59 01/24/19 08:51 Gregorio Paredes MD Jan 24, 2019 13:11
--- NOTE | 2019-01-24 13:41 | Nephrology Progress Note ---
Assessment/Plan Problem List: (1) Acute renal failure (ARF) Assessment: Cr 3.4 stable (2) Failure to thrive in adult (3) Severe protein-calorie malnutrition (4) Dehydration (5) Elevated LFTs Assessment Acute on chronic renal failure- Dehydration Failing to thrive, Malnutrition Decubiti Urinary retention Plan marte Urine studies Hydrate- has PICC now K supplement as needed CXR STANLEY kidney noted per orders monitor Vanco level Subjective ROS Limited/Unobtainable: No Constitutional: Reports: malaise, weakness Objective Objective Last 24 Hour Vital Signs Date Time Temp Pulse Resp B/P (MAP) Pulse Ox O2 Delivery O2 Flow Rate FiO2 01/24/19 09:00 Room Air 01/24/19 08:52 81 133/66 01/24/19 08:00 112 01/24/19 07:54 98.1 81 18 133/66 (88) 97 01/24/19 04:00 126 01/24/19 04:00 97.9 84 18 109/57 (74) 95 01/24/19 00:00 112 01/24/19 00:00 97.8 87 18 132/65 (87) 96 01/23/19 21:16 95 116/57 01/23/19 21:00 Room Air 01/23/19 20:00 97.8 95 18 116/57 (76) 97 01/23/19 20:00 94 01/23/19 16:00 85 01/23/19 16:00 98.0 88 20 123/65 (84) 98 Intake and Output 01/23/19 01/24/19 19:00 07:00 Intake Total 75 ml 1039 ml Output Total 1200 ml 1200 ml Balance -1125 ml -161 ml Intake Oral 200 ml IV Total 75 ml 839 ml Output Urine Total 1200 ml 1200 ml Laboratory Tests 01/24/19 06:00: White Blood Count 12.3H, Red Blood Count 3.92L, Hemoglobin 11.1L, Hematocrit 33.6L, Mean Corpuscular Volume 86, Mean Corpuscular Hemoglobin 28.3, Mean Corpuscular Hemoglobin Concent 33.0, Red Cell Distribution Width 12.4, Platelet Count 142L, Mean Platelet Volume 6.5, Neutrophils (%) (Auto) 72.2, Lymphocytes ( %) (Auto) 8.0L, Monocytes (%) (Auto) 17.5H, Eosinophils (%) (Auto) 1.5, Basophils (%) (Auto) 0.8, Sodium Level 147H, Potassium Level 3.0L, Chloride Level 113H, Carbon Dioxide Level 20L, Anion Gap 14, Blood Urea Nitrogen 33H, Creatinine 3.3H, Estimat Glomerular Filtration Rate , Glucose Level 111H, Calcium Level 6.5L, Magnesium Level 1.5L, Total Bilirubin 0.7, Aspartate Amino Transf (AST/SGOT) 140H, Alanine Aminotransferase (ALT/SGPT) 113H, Alkaline Phosphatase 368H, Pro-B-Type Natriuretic Peptide 79209C, Total Protein 5.7L, Albumin 1.5L, Globulin 4.2, Albumin/Globulin Ratio 0.4L Height (Feet): 5 Height (Inches): 1.00 Weight (Pounds): 120 General Appearance: no apparent distress Objective no change Mauri Huddleston MD Jan 24, 2019 13:41
--- NOTE | 2019-01-24 13:59 | NUR ---
SPEECH PATHOLOGY: S: PATIENT CLEARED FOR ST INTERVENTION BY GAIL SOFIA. PATIENT SEEN IN CONTEXT OF NOON MEAL. O: DYSPHAGIA TX, COGNITIVE/LINGUISTIC SCREEN A: PATIENT OPPOSITIONAL TO P.O. OF PUREE TEXTURE DIET, CLINICIAN REVISED DIET ORDER TO BE CONSISTENT WITH FINDINGS OF BEDSIDE SWALLOW EVAL 01/16/19 WITH SIPS OF THIN LIQUID (MEALTIME SUPPLEMENT) AND 3 BITES OF PUREE PRESENTED BY SPOON, PATIENT APPEARED TOLERATE CURRENT TEXTURE WITH NO OVERT S/S OF ASPIRATION PATIENTS OPPOSITIONAL/NON-COMPLIANT BEHAVIOR PREVENTED HER FROM PARTICIPATING IN A FORMAL ASSESSMENT OF HER COGNITIVE ABILITIES WHEN ASKED "WHERE ARE YOU? PATIENT STATED "[facility]" P: CONTINUE PER PLAN
[2019-01-24] MEDS ORDERED: Varibar Honey 250ml MC PRN (14:00)
[2019-01-24] MEDS ORDERED: Varibar Nectar 240ml MC PRN (14:00)
[2019-01-24] MEDS ORDERED: Varibar Pudding 230ml MC PRN (14:00)
[2019-01-24] MEDS ORDERED: DiphenhydrAMINE & Zinc 28g Cream TOPIC PRN (14:15)
[2019-01-24 16:00] VITALS: BP 110/54
--- NOTE | 2019-01-24 17:20 | Surgery Progress Note ---
Surgery Progress Note Subjective Additional Comments HIDA negative labs improved exam stable overall improving Objective Last 24 Hour Vital Signs Date Time Temp Pulse Resp B/P (MAP) Pulse Ox O2 Delivery O2 Flow Rate FiO2 01/24/19 16:00 97.8 87 18 110/54 (72) 95 01/24/19 12:00 98.9 82 18 109/63 (78) 98 01/24/19 12:00 85 01/24/19 09:00 Room Air 01/24/19 08:52 81 133/66 01/24/19 08:00 112 01/24/19 07:54 98.1 81 18 133/66 (88) 97 01/24/19 04:00 126 01/24/19 04:00 97.9 84 18 109/57 (74) 95 01/24/19 00:00 112 01/24/19 00:00 97.8 87 18 132/65 (87) 96 01/23/19 21:16 95 116/57 01/23/19 21:00 Room Air 01/23/19 20:00 97.8 95 18 116/57 (76) 97 01/23/19 20:00 94 I&O Intake and Output 01/23/19 01/24/19 19:00 07:00 Intake Total 75 ml 1114 ml Output Total 1200 ml 1200 ml Balance -1125 ml -86 ml Intake Oral 200 ml IV Total 75 ml 914 ml Output Urine Total 1200 ml 1200 ml Cardiovascular: RSR Respiratory: clear Abdomen: soft, flat, non-tender, present bowel sounds, non-distended Extremities: no edema, no tenderness, no cyanosis Laboratory Tests Test 01/24/19 06:00 White Blood Count 12.3 K/UL (4.8-10.8) H Red Blood Count 3.92 M/UL (4.20-5.40) L Hemoglobin 11.1 G/DL (12.0-16.0) L Hematocrit 33.6 % (37.0-47.0) L Mean Corpuscular Volume 86 FL (80-99) Mean Corpuscular Hemoglobin 28.3 PG (27.0-31.0) Mean Corpuscular Hemoglobin Concent 33.0 G/DL (32.0-36.0) Red Cell Distribution Width 12.4 % (11.6-14.8) Platelet Count 142 K/UL (150-450) L Mean Platelet Volume 6.5 FL (6.5-10.1) Neutrophils (%) (Auto) 72.2 % (45.0-75.0) Lymphocytes (%) (Auto) 8.0 % (20.0-45.0) L Monocytes (%) (Auto) 17.5 % (1.0-10.0) H Eosinophils (%) (Auto) 1.5 % (0.0-3.0) Basophils (%) (Auto) 0.8 % (0.0-2.0) Sodium Level 147 MMOL/L (136-145) H Potassium Level 3.0 MMOL/L (3.5-5.1) L Chloride Level 113 MMOL/L (98-107) H Carbon Dioxide Level 20 MMOL/L (21-32) L Anion Gap 14 mmol/L (5-15) Blood Urea Nitrogen 33 mg/dL (7-18) H Creatinine 3.3 MG/DL (0.55-1.30) H Estimat Glomerular Filtration Rate mL/min (>60) Glucose Level 111 MG/DL (74-106) H Calcium Level 6.5 MG/DL (8.5-10.1) L Magnesium Level 1.5 MG/DL (1.8-2.4) L Total Bilirubin 0.7 MG/DL (0.2-1.0) Aspartate Amino Transf (AST/SGOT) 140 U/L (15-37) H Alanine Aminotransferase (ALT/SGPT) 113 U/L (12-78) H Alkaline Phosphatase 368 U/L (46-116) H Pro-B-Type Natriuretic Peptide 46212 pg/mL (0-125) H Total Protein 5.7 G/DL (6.4-8.2) L Albumin 1.5 G/DL (3.4-5.0) L Globulin 4.2 g/dL Albumin/Globulin Ratio 0.4 (1.0-2.7) L Plan Problems: (1) Dehydration (2) Decubitus skin ulcer Assessment & Plan: Pt presented on admission with multiple wounds.Hx R Mastectomy . Full thickness wound that is tunneled into R axilla noted to aleksander R mastectomy.Base of wound is sahara with macerated borders oozing small amt serous exudate noted. No odor noted. (L)3cm x (W)6cm x (D)0.3, tunneling clockwise @10o'clock by 6.6cm. Full thickness wound lateral/posterior R chest. Scattered slough at base of wound with erythematous borders .Periwound indurated. wound oozing small amt serous exudate. (L)1cm x (W)3cm. Full thickness wound posterior thoracic. 100% slough at base of wound. Erythematous borders. No odor or exudate noted(L)2.3cm x (W)2.5cm. Full thickness wound median R humerus. 100% slough with erythematous borders. No odor or exudate noted.(L)3.9cm x (W)2.4cm. Incontinence associated dermatitis noted to sacral and cleft of buttocks. Affected area is erythematous. Pt denied burning or itching. DTPI noted to medial L foot . Base of wound is indurated,purple with red margins.(L)3.2cm x (W)1cm. L heel boggy with non-blanchable erythema. Non-blanchable erythema without fluctuance R heel. Tx.Plan: Cleanse wound Aleksander R chest with Saline. Loosely pack wound (@10o'clock) with 1 /2 inch Iodoform packing. Apply Cavilon periwound. Cover with Optifoam drsg.Daily and prn. Cleanse wounds R arm with saline. Apply Xeroform gauze.Apply Cavilon periwound. Cover with Optifoam drsg. Change daily and prn. Cleanse wound Lateral/posterior chest with Saline. Apply xeroform gauze. Cover with Optifoam drsg. Change Daily and prn. Cleanse wound Posterior R thoracic with Saline. Cover with Xeroform. Apply Cavilon Skin Barrier periwound. Cover with Optifoam drsg. Daily and prn. Apply Triad Paste to Buttocks with each perineal care. Apply Cavilon Skin Barrier to both heels. Cover each heel with Optifoam drsg. every 7 days and prn. Reposition at least every 2hours or as tolerated. Off-load heels with pillow. (3) Leukocytosis Assessment & Plan: cont Abx worsening unlikely related to wounds that do not seem actively infected (4) Severe protein-calorie malnutrition Assessment & Plan: DAILY ESTIMATED NEEDS: Needs based on Cancer, wounds 48kg 30-40 kcals/kg 7117-5948 total kcals 1.25-2 g protein/kg 60-96 g total protein 25-30 mL/kg 0788-6331 total fluid mLs NUTRITION DIAGNOSIS: Increased kcal and pro needs r/t wound healing and low BMI as evidenced by BMI underweight per guidelines, pt w/ multiple partial thickness wounds, refer to WC eval. CURRENT DIET: Soft GAGE PO DIET RECOMMENDATIONS: GAGE diet/ texture as tolerated ADDITIONAL RECOMMENDATIONS: - Pt w/ poor po intake, would rec to liberalized diet to REGULAR - Add ENSURE ENLIVE TID w/ meals - Obtain a standing scale wt as able Or recalibrate bed scale for accurate CBW - Monitor renal fxn/ lytes and need for renal supplement - WOUND CARE: add DILAN BID + MVI x1 + VIT C 500mg daily (5) Failure to thrive in adult (6) Acute cholecystitis Assessment & Plan: Patient with possible acalculous cholecystitis. Afebrile, hemodynamic stable, leukocytosis, acute episode of pancreatitis which is resolved chemically. On examination difficult to examine but no significant tenderness identified in the right upper quadrant. CT reviewed. US noted. inconsistent with CT findings HIDA negative Continue IV antibiotics We will follow with recommendations no acute surgical intervention recommended at this time conservative management with Jesus Barker Jan 24, 2019 17:20
--- NOTE | 2019-01-24 19:15 | NUR ---
HAND-OFF: Report given to Marlene REYNOLDS. Pt remains stable.
--- NOTE | 2019-01-24 19:15 | Progress Note ---
DATE: 01/24/2019 SUBJECTIVE: The patient remains confused. HIDA scan was negative. No nausea or vomiting. PHYSICAL EXAMINATION: VITAL SIGNS: Blood pressure 109/63, pulse 82, respiratory rate 18. LUNGS: Clear. CARDIAC: Regular. Normal S1, S2. ABDOMEN: Soft. EXTREMITIES: No edema. LABORATORY AND DIAGNOSTIC DATA: White count 12.3, hemoglobin 11.1. Sodium , potassium 3, bicarb 20, magnesium 1.5. BUN 33, creatinine 3.3. Pro natriuretic peptide 20,000. IMPRESSION: 1. Dehydration. 2. . 3. Hypokalemia. 4. Acute on chronic diastolic congestive heart failure. 5. Acute on chronic renal failure. 6. Secondary sinus tachycardia. 7. Severe protein-calorie malnutrition. PLAN: 1. Hypotonic IV fluid hydration. 2. Potassium replacement. 3. IV magnesium replacement. 4. Antimicrobials per Infectious Diseases parts consultant. 5. No role for diuresis at this time. 6. Adjust IV fluids. 7. Monitor cardiorenal parameters. Jorge Self M.D. DR: Alyce JOB#: [id number] CC:
--- NOTE | 2019-01-24 19:47 | NUR ---
NURSE NOTES: Received patient from GAIL Xiong. Patient is alert, awake, restless and disoriented in bed. No signs of distress or pain noted, patient able to make needs known limitedly. Patient found without wound care dressing on right chest, wound care rendered. Left upper arm PICC line checked, intact and patent, no signs of erythema, redness, or bleeding noted. Bed in lowest position, brakes on, call light within reach, and bed alarm activated. Will continue to monitor.
[2019-01-24 20:00] VITALS: BP 111/65
[2019-01-24] MEDS: Dyna-Hex 2% Top Sol 2oz TOPIC SCH (21:17)
[2019-01-25] VITALS: BP 127/66
[2019-01-25] MEDS: Haloperidol 5mg/ml Inj IM PRN (01:20)
--- NOTE | 2019-01-25 03:19 | NUR ---
NURSE NOTES: Patient asleep in bed, resting comfortably. No signs of distress or pain noted. Bed in lowest position, brakes on, and call light within reach. Will continue to monitor.
[2019-01-25 04:00] VITALS: BP 123/56
[2019-01-25] MEDS: metroNIDAZOLE 500mg tab ORAL SCH (06:00)
--- NOTE | 2019-01-25 06:07 | General Progress Note ---
Assessment/Plan Problem List: (1) Acute renal failure (ARF) ICD Codes: N17.9 - Acute kidney failure, unspecified SNOMED: 93515093 (2) Dehydration ICD Codes: E86.0 - Dehydration SNOMED: 61551128 (3) Decubitus skin ulcer ICD Codes: L89.90 - Pressure ulcer of unspecified site, unspecified stage SNOMED: 011712373 (4) Leukocytosis ICD Codes: D72.829 - Elevated white blood cell count, unspecified SNOMED: 379334699, 700038406 (5) Failure to thrive in adult ICD Codes: R62.7 - Adult failure to thrive SNOMED: 615689584 (6) Severe protein-calorie malnutrition ICD Codes: E43 - Unspecified severe protein-calorie malnutrition SNOMED: 998613618, 115161508, 898498168 Status: stable, progressing Assessment/Plan: ivf encourage po monitor renal fxn/lytes anxiolytics as needed psych follow up cannot go back to snf if needing restraints. wound care dnr conservative rx family did not want hospice poor prognosis Subjective ROS Limited/Unobtainable: No Constitutional: Reports: weakness Cardiovascular: Reports: no symptoms Respiratory: Reports: no symptoms Gastrointestinal/Abdominal: Reports: poor appetite, poor fluid intake Genitourinary: Reports: no symptoms Neurologic/Psychiatric: Reports: pre-existing deficit Endocrine: Reports: no symptoms Hematologic/Lymphatic: Reports: no symptoms Allergies: Coded Allergies: No Known Allergies (Unverified , 01/15/19) All Systems: reviewed and negative except above Subjective the same. intermittent agitated and aggressive. repeatedly trying to pullout iv and marte catheter. given haldol im. currently resting. Objective Last 24 Hour Vital Signs Date Time Temp Pulse Resp B/P (MAP) Pulse Ox O2 Delivery O2 Flow Rate FiO2 01/25/19 04:00 97.4 76 18 123/56 (78) 97 01/25/19 04:00 79 01/25/19 00:00 98.7 79 18 127/66 (86) 96 01/25/19 00:00 107 01/24/19 21:17 82 111/65 01/24/19 21:00 Room Air 01/24/19 20:00 97.9 82 18 111/65 (80) 97 01/24/19 20:00 77 01/24/19 16:00 97.8 87 18 110/54 (72) 95 01/24/19 16:00 90 01/24/19 12:00 98.9 82 18 109/63 (78) 98 01/24/19 12:00 85 01/24/19 09:00 Room Air 01/24/19 08:52 81 133/66 01/24/19 08:00 112 01/24/19 07:54 98.1 81 18 133/66 (88) 97 Intake and Output 01/24/19 01/25/19 18:59 06:59 Intake Total 1231 ml 730 ml Output Total 300 ml Balance 931 ml 730 ml Intake Oral 120 ml IV Total 1111 ml 730 ml Output Urine Total 300 ml # Bowel Movements 1 Height (Feet): 5 Height (Inches): 1.00 Weight (Pounds): 120 Objective General Appearance: WD/WN, alert Neck: supple Cardiovascular: regular rhythm Respiratory/Chest: chest wall non-tender, lungs clear, normal breath sounds, no respiratory distress Abdomen: normal bowel sounds, non tender, soft, no organomegaly Edema: no edema noted Arm (L), no edema noted Arm (R), no edema noted Leg (L), no edema noted Leg (R), no edema noted Pedal (L), no edema noted Pedal (R), no edema noted Generalized Mesfin Chapa MD Jan 25, 2019 06:07
[2019-01-25] MEDS: NovoLOG Insulin Flexpen SUBQ SCH ×4 (06:11→21:06)
[2019-01-25 06:28] LABS: BASOPHILS % (AUTO) 0.8 % (0.0-2.0); EOSINOPHILS % (AUTO) 1.6 % (0.0-3.0); HEMOGLOBIN 10.1 G/DL (12.0-16.0); LYMPHOCYTES % (AUTO) 7.1 % (20.0-45.0); MEAN CORPUSCULAR VOLUME 86 FL (80-99); MONOCYTES % (AUTO) 11.8 % (1.0-10.0); NEUTROPHILS % (AUTO) 78.8 % (45.0-75.0); PLATELET COUNT 119 K/UL (150-450); RED BLOOD COUNT 3.59 M/UL (4.20-5.40); RED CELL DISTRIBUTION WIDTH 12.2 % (11.6-14.8); WHITE BLOOD COUNT 12.1 K/UL (4.8-10.8)
[2019-01-25 06:49] LABS: ALANINE AMINOTRANSFERASE 83 U/L (12-78); ALBUMIN 1.3 G/DL (3.4-5.0); ALBUMIN/GLOBULIN RATIO 0.3 (1.0-2.7); ALKALINE PHOSPHATASE 341 U/L (46-116); ANION GAP 11 mmol/L (5-15); ASPARTATE AMINO TRANSFERASE 101 U/L (15-37); BILIRUBIN,TOTAL 0.7 MG/DL (0.2-1.0); BLOOD UREA NITROGEN 31 mg/dL (7-18); CALCIUM 6.5 MG/DL (8.5-10.1); CARBON DIOXIDE 21 MMOL/L (21-32); CHLORIDE 110 MMOL/L (98-107); POTASSIUM 2.9 MMOL/L (3.5-5.1); SODIUM 142 MMOL/L (136-145)
--- NOTE | 2019-01-25 07:39 | NUR ---
HAND-OFF: Report given to GAIL Branch and GAIL Montilla. Patient is asleep lying semi-valladares's; resting comfortably. On 2L nasal cannula. In stable condition. Addendum: 01/25/19 at 0741 by MCIHELLE MCCALL RN RN Wrong patient.
--- NOTE | 2019-01-25 07:41 | NUR ---
HAND-OFF: Report given to GAIL Branch and GAIL Montilla. Patient is asleep lying semi-valladares's; resting comfortably. Naranjo catheter draining well to gravity. In stable condition.
[2019-01-25 08:00] VITALS: BP 131/73
[2019-01-25 08:11] LABS: PHOSPHORUS 2.7 MG/DL (2.5-4.9)
--- NOTE | 2019-01-25 08:28 | NUR ---
NURSE NOTES: Patient stable. AOx3. RR even and unlabored on RA. Restraints on. Good circulation noted. Naranjo draining well to gravity. Bed in lowest position, side rails upx2. Breakfast given to her. Will continue to monitor.
[2019-01-25] MEDS: Anastrazole 1mg tab ORAL SCH (08:35)
[2019-01-25] MEDS: Ascorbic Acid 500mg tab ORAL SCH (08:36)
[2019-01-25] MEDS: Aspirin EC 81mg tab ORAL SCH (08:36)
[2019-01-25] MEDS: OLANZapine 2.5mg tab ORAL SCH (08:36)
[2019-01-25] MEDS: Heparin 5000 units/ml inj SUBQ SCH ×2 (08:37→21:00)
[2019-01-25] MEDS: Metoprolol 25mg tab ORAL SCH ×2 (08:39→21:12)
--- NOTE | 2019-01-25 10:09 | Surgery Progress Note ---
Surgery Progress Note Subjective Additional Comments leukocytosis resolving. labs improving still at risk for fall exam without pain awake responsive Objective Last 24 Hour Vital Signs Date Time Temp Pulse Resp B/P (MAP) Pulse Ox O2 Delivery O2 Flow Rate FiO2 01/25/19 08:39 68 131/73 01/25/19 08:00 96.8 68 22 131/73 (92) 01/25/19 07:55 Room Air 01/25/19 04:00 97.4 76 18 123/56 (78) 97 01/25/19 04:00 79 01/25/19 00:00 98.7 79 18 127/66 (86) 96 01/25/19 00:00 107 01/24/19 21:17 82 111/65 01/24/19 21:00 Room Air 01/24/19 20:00 97.9 82 18 111/65 (80) 97 01/24/19 20:00 77 01/24/19 16:00 97.8 87 18 110/54 (72) 95 01/24/19 16:00 90 01/24/19 12:00 98.9 82 18 109/63 (78) 98 01/24/19 12:00 85 I&O Intake and Output 01/24/19 01/25/19 19:00 07:00 Intake Total 1156 ml 925 ml Output Total 300 ml 800 ml Balance 856 ml 125 ml Intake Oral 120 ml 120 ml IV Total 1036 ml 805 ml Output Urine Total 300 ml 800 ml # Bowel Movements 1 Cardiovascular: RSR Respiratory: clear Abdomen: soft, non-tender, present bowel sounds, non-distended Extremities: no cyanosis, other Laboratory Tests Test 01/25/19 05:20 01/25/19 05:44 White Blood Count 12.1 K/UL (4.8-10.8) H Red Blood Count 3.59 M/UL (4.20-5.40) L Hemoglobin 10.1 G/DL (12.0-16.0) L Hematocrit 31.0 % (37.0-47.0) L Mean Corpuscular Volume 86 FL (80-99) Mean Corpuscular Hemoglobin 28.1 PG (27.0-31.0) Mean Corpuscular Hemoglobin Concent 32.6 G/DL (32.0-36.0) Red Cell Distribution Width 12.2 % (11.6-14.8) Platelet Count 119 K/UL (150-450) L Mean Platelet Volume 6.6 FL (6.5-10.1) Neutrophils (%) (Auto) 78.8 % (45.0-75.0) H Lymphocytes (%) (Auto) 7.1 % (20.0-45.0) L Monocytes (%) (Auto) 11.8 % (1.0-10.0) H Eosinophils (%) (Auto) 1.6 % (0.0-3.0) Basophils (%) (Auto) 0.8 % (0.0-2.0) Sodium Level 142 MMOL/L (136-145) Potassium Level 2.9 MMOL/L (3.5-5.1) L Chloride Level 110 MMOL/L (98-107) H Carbon Dioxide Level 21 MMOL/L (21-32) Anion Gap 11 mmol/L (5-15) Blood Urea Nitrogen 31 mg/dL (7-18) H Creatinine 3.0 MG/DL (0.55-1.30) H Estimat Glomerular Filtration Rate mL/min (>60) Glucose Level 120 MG/DL (74-106) H Calcium Level 6.5 MG/DL (8.5-10.1) L Total Bilirubin 0.7 MG/DL (0.2-1.0) Aspartate Amino Transf (AST/SGOT) 101 U/L (15-37) H Alanine Aminotransferase (ALT/SGPT) 83 U/L (12-78) H Alkaline Phosphatase 341 U/L (46-116) H Total Protein 5.4 G/DL (6.4-8.2) L Albumin 1.3 G/DL (3.4-5.0) L Globulin 4.1 g/dL Albumin/Globulin Ratio 0.3 (1.0-2.7) L Phosphorus Level 2.7 MG/DL (2.5-4.9) Magnesium Level 2.0 MG/DL (1.8-2.4) Plan Problems: (1) Dehydration (2) Decubitus skin ulcer Assessment & Plan: Pt presented on admission with multiple wounds.Hx R Mastectomy . Full thickness wound that is tunneled into R axilla noted to aleksander R mastectomy.Base of wound is sahara with macerated borders oozing small amt serous exudate noted. No odor noted. (L)3cm x (W)6cm x (D)0.3, tunneling clockwise @10o'clock by 6.6cm. Full thickness wound lateral/posterior R chest. Scattered slough at base of wound with erythematous borders .Periwound indurated. wound oozing small amt serous exudate. (L)1cm x (W)3cm. Full thickness wound posterior thoracic. 100% slough at base of wound. Erythematous borders. No odor or exudate noted(L)2.3cm x (W)2.5cm. Full thickness wound median R humerus. 100% slough with erythematous borders. No odor or exudate noted.(L)3.9cm x (W)2.4cm. Incontinence associated dermatitis noted to sacral and cleft of buttocks. Affected area is erythematous. Pt denied burning or itching. DTPI noted to medial L foot . Base of wound is indurated,purple with red margins.(L)3.2cm x (W)1cm. L heel boggy with non-blanchable erythema. Non-blanchable erythema without fluctuance R heel. Tx.Plan: Cleanse wound Aleksander R chest with Saline. Loosely pack wound (@10o'clock) with 1 /2 inch Iodoform packing. Apply Cavilon periwound. Cover with Optifoam drsg.Daily and prn. Cleanse wounds R arm with saline. Apply Xeroform gauze.Apply Cavilon periwound. Cover with Optifoam drsg. Change daily and prn. Cleanse wound Lateral/posterior chest with Saline. Apply xeroform gauze. Cover with Optifoam drsg. Change Daily and prn. Cleanse wound Posterior R thoracic with Saline. Cover with Xeroform. Apply Cavilon Skin Barrier periwound. Cover with Optifoam drsg. Daily and prn. Apply Triad Paste to Buttocks with each perineal care. Apply Cavilon Skin Barrier to both heels. Cover each heel with Optifoam drsg. every 7 days and prn. Reposition at least every 2hours or as tolerated. Off-load heels with pillow. (3) Leukocytosis Assessment & Plan: cont Abx worsening unlikely related to wounds that do not seem actively infected (4) Severe protein-calorie malnutrition Assessment & Plan: DAILY ESTIMATED NEEDS: Needs based on Cancer, wounds 48kg 30-40 kcals/kg 7707-2034 total kcals 1.25-2 g protein/kg 60-96 g total protein 25-30 mL/kg 9471-8305 total fluid mLs NUTRITION DIAGNOSIS: Increased kcal and pro needs r/t wound healing and low BMI as evidenced by BMI underweight per guidelines, pt w/ multiple partial thickness wounds, refer to WC eval. CURRENT DIET: Soft GAGE PO DIET RECOMMENDATIONS: GAGE diet/ texture as tolerated ADDITIONAL RECOMMENDATIONS: - Pt w/ poor po intake, would rec to liberalized diet to REGULAR - Add ENSURE ENLIVE TID w/ meals - Obtain a standing scale wt as able Or recalibrate bed scale for accurate CBW - Monitor renal fxn/ lytes and need for renal supplement - WOUND CARE: add DILAN BID + MVI x1 + VIT C 500mg daily (5) Failure to thrive in adult (6) Acute cholecystitis Assessment & Plan: Patient with possible acalculous cholecystitis. Afebrile, hemodynamic stable, leukocytosis, acute episode of pancreatitis which is resolved chemically. On examination difficult to examine but no significant tenderness identified in the right upper quadrant. CT reviewed. US noted. inconsistent with CT findings HIDA negative Continue IV antibiotics We will follow with recommendations no acute surgical intervention recommended at this time conservative management with Jesus Barker Jan 25, 2019 10:09
--- NOTE | 2019-01-25 10:27 | NUR ---
NURSE NOTES: PICC line dressing changed. Both ports patent and intact.
--- NOTE | 2019-01-25 10:42 | Infectious Diseases Prog Note ---
Assessment/Plan Assessment/Plan antibiotics : levoquin, flagyl A 1. pancreatitis resolved 2. cirrhosis 3. leucocytosis improving 4. renal failure improving 5. 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 d/c po levoquin, flagyl 2. observe off antibiotics Subjective Constitutional: Denies: fever, chills Respiratory: Denies: shortness of breath, dry cough Gastrointestinal/Abdominal: Denies: nausea, vomiting, diarrhea Musculoskeletal: Denies: pain Allergies: Coded Allergies: No Known Allergies (Unverified , 01/15/19) Objective Vital Signs Last 24 Hour Vital Signs Date Time Temp Pulse Resp B/P (MAP) Pulse Ox O2 Delivery O2 Flow Rate FiO2 01/25/19 08:39 68 131/73 01/25/19 08:00 80 01/25/19 08:00 96.8 68 22 131/73 (92) 01/25/19 07:55 Room Air 01/25/19 04:00 97.4 76 18 123/56 (78) 97 01/25/19 04:00 79 01/25/19 00:00 98.7 79 18 127/66 (86) 96 01/25/19 00:00 107 01/24/19 21:17 82 111/65 01/24/19 21:00 Room Air 01/24/19 20:00 97.9 82 18 111/65 (80) 97 01/24/19 20:00 77 01/24/19 16:00 97.8 87 18 110/54 (72) 95 01/24/19 16:00 90 01/24/19 12:00 98.9 82 18 109/63 (78) 98 01/24/19 12:00 85 Height (Feet): 5 Height (Inches): 1.00 Weight (Pounds): 120 Respiratory/Chest: lungs clear Cardiovascular: normal rate, regular rhythm, no gallop/murmur Abdomen: soft, non tender Extremities: no edema Musculoskeletal: other - left arm PICC Laboratory Tests Test 01/25/19 05:20 01/25/19 05:44 White Blood Count 12.1 K/UL (4.8-10.8) H Red Blood Count 3.59 M/UL (4.20-5.40) L Hemoglobin 10.1 G/DL (12.0-16.0) L Hematocrit 31.0 % (37.0-47.0) L Mean Corpuscular Volume 86 FL (80-99) Mean Corpuscular Hemoglobin 28.1 PG (27.0-31.0) Mean Corpuscular Hemoglobin Concent 32.6 G/DL (32.0-36.0) Red Cell Distribution Width 12.2 % (11.6-14.8) Platelet Count 119 K/UL (150-450) L Mean Platelet Volume 6.6 FL (6.5-10.1) Neutrophils (%) (Auto) 78.8 % (45.0-75.0) H Lymphocytes (%) (Auto) 7.1 % (20.0-45.0) L Monocytes (%) (Auto) 11.8 % (1.0-10.0) H Eosinophils (%) (Auto) 1.6 % (0.0-3.0) Basophils (%) (Auto) 0.8 % (0.0-2.0) Sodium Level 142 MMOL/L (136-145) Potassium Level 2.9 MMOL/L (3.5-5.1) L Chloride Level 110 MMOL/L (98-107) H Carbon Dioxide Level 21 MMOL/L (21-32) Anion Gap 11 mmol/L (5-15) Blood Urea Nitrogen 31 mg/dL (7-18) H Creatinine 3.0 MG/DL (0.55-1.30) H Estimat Glomerular Filtration Rate mL/min (>60) Glucose Level 120 MG/DL (74-106) H Calcium Level 6.5 MG/DL (8.5-10.1) L Total Bilirubin 0.7 MG/DL (0.2-1.0) Aspartate Amino Transf (AST/SGOT) 101 U/L (15-37) H Alanine Aminotransferase (ALT/SGPT) 83 U/L (12-78) H Alkaline Phosphatase 341 U/L (46-116) H Total Protein 5.4 G/DL (6.4-8.2) L Albumin 1.3 G/DL (3.4-5.0) L Globulin 4.1 g/dL Albumin/Globulin Ratio 0.3 (1.0-2.7) L Phosphorus Level 2.7 MG/DL (2.5-4.9) Magnesium Level 2.0 MG/DL (1.8-2.4) Current Medications Medications (Trade) Dose Ordered Sig/Whitley Route PRN Reason Start Time Stop Time Status Last Admin Dose Admin Acetaminophen (Tylenol) 650 mg Q4H PRN ORAL Mild Pain/Temp > 100.5 01/16/19 15:30 02/15/19 15:29 01/16/19 15:39 Anastrozole (Arimidex) 1 mg DAILY ORAL 01/17/19 09:00 02/15/19 08:59 01/25/19 08:35 Ascorbic Acid (Vitamin C) 500 mg DAILY ORAL 01/18/19 09:00 02/17/19 08:59 01/25/19 08:36 Aspirin (Ecotrin) 81 mg DAILY ORAL 01/17/19 09:00 02/15/19 08:59 01/25/19 08:36 Barium Sulfate (Varibar Honey) 250 ml NOW PRN MC RAD 01/24/19 14:00 01/27/19 13:59 Barium Sulfate (Varibar [place]) 240 ml NOW PRN RAD 01/24/19 14:00 01/27/19 13:57 Barium Sulfate (Varibar Pudding) 230 ml NOW PRN MC RAD 01/24/19 14:00 01/27/19 13:57 Chlorhexidine Gluconate (Lizette-Hex 2%) 1 applic DAILY@2000 TOPIC 01/17/19 20:00 02/16/19 19:59 01/24/19 21:17 Dextrose 1,000 ml @ 75 mls/hr [id number] IV 01/23/19 08:30 02/22/19 08:29 01/25/19 01:16 Dextrose (Dextrose 50%) 25 ml Q30M PRN IV Hypoglycemia 01/19/19 11:15 02/18/19 11:14 Dextrose (Dextrose 50%) 50 ml Q30M PRN IV Hypoglycemia 01/19/19 11:15 02/18/19 11:14 Diphenhydramine HCl (Benadryl Cream) 1 applic QIDPRN PRN TOPIC Itching 01/24/19 14:15 02/23/19 14:14 Haloperidol Lactate (Haldol) 2 mg Q4H PRN IM Agitation 01/17/19 14:45 02/16/19 14:44 01/25/19 01:20 Heparin Sodium (Porcine) (Heparin 5000 units/ml) 5,000 units EVERY 12 HOURS SUBQ 01/16/19 21:00 02/15/19 08:59 01/24/19 21:15 Insulin Aspart (NovoLOG) BEFORE MEALS AND HS SUBQ 01/19/19 11:30 02/18/19 11:29 01/25/19 06:11 Levofloxacin (Levaquin) 250 mg Q48H ORAL 01/24/19 09:00 01/31/19 08:59 01/24/19 08:52 Metoprolol Tartrate (Lopressor) 25 mg Q12HR ORAL 01/16/19 21:00 02/15/19 08:59 01/25/19 08:39 Metronidazole (Flagyl) 500 mg Q8HR ORAL 01/23/19 10:00 01/30/19 09:59 01/24/19 21:14 Mirtazapine (Remeron) 15 mg BEDTIME ORAL 01/17/19 23:15 02/16/19 23:14 01/24/19 21:16 Multivitamins (Multivitamins) 1 tab DAILY ORAL 01/18/19 09:00 02/17/19 08:59 01/25/19 08:35 Olanzapine (ZyPREXA) 2.5 mg DAILY ORAL 01/20/19 09:00 02/19/19 08:59 01/25/19 08:36 Olanzapine (ZyPREXA) 5 mg BEDTIME ORAL 01/20/19 21:00 02/19/19 20:59 01/24/19 21:16 Pantoprazole (Protonix) 40 mg DAILY ORAL 01/18/19 09:00 02/17/19 08:59 01/25/19 08:35 Potassium Chloride 100 ml @ 100 mls/hr Q1HR IVPB 01/25/19 08:00 01/25/19 12:59 01/25/19 10:00 Lalito Major MD Jan 25, 2019 10:42
--- NOTE | 2019-01-25 11:49 | Nephrology Progress Note ---
Assessment/Plan Problem List: (1) Acute renal failure (ARF) Assessment: Cr 3.4 stable (2) Failure to thrive in adult (3) Severe protein-calorie malnutrition (4) Dehydration (5) Elevated LFTs Assessment Acute on chronic renal failure- Dehydration Failing to thrive, Malnutrition Decubiti Urinary retention Plan marte Urine studies Hydrate- has PICC now K supplement as needed CXR STANLEY kidney noted per orders monitor Vanco level Subjective ROS Limited/Unobtainable: No Constitutional: Reports: malaise Objective Objective Last 24 Hour Vital Signs Date Time Temp Pulse Resp B/P (MAP) Pulse Ox O2 Delivery O2 Flow Rate FiO2 01/25/19 08:39 68 131/73 01/25/19 08:00 80 01/25/19 08:00 96.8 68 22 131/73 (92) 01/25/19 07:55 Room Air 01/25/19 04:00 97.4 76 18 123/56 (78) 97 01/25/19 04:00 79 01/25/19 00:00 98.7 79 18 127/66 (86) 96 01/25/19 00:00 107 01/24/19 21:17 82 111/65 01/24/19 21:00 Room Air 01/24/19 20:00 97.9 82 18 111/65 (80) 97 01/24/19 20:00 77 01/24/19 16:00 97.8 87 18 110/54 (72) 95 01/24/19 16:00 90 01/24/19 12:00 98.9 82 18 109/63 (78) 98 01/24/19 12:00 85 Intake and Output 01/24/19 01/25/19 19:00 07:00 Intake Total 1156 ml 925 ml Output Total 300 ml 800 ml Balance 856 ml 125 ml Intake Oral 120 ml 120 ml IV Total 1036 ml 805 ml Output Urine Total 300 ml 800 ml # Bowel Movements 1 Current Medications Medications (Trade) Dose Ordered Sig/Whitley Route PRN Reason Start Time Stop Time Status Last Admin Dose Admin Acetaminophen (Tylenol) 650 mg Q4H PRN ORAL Mild Pain/Temp > 100.5 01/16/19 15:30 02/15/19 15:29 01/16/19 15:39 Anastrozole (Arimidex) 1 mg DAILY ORAL 01/17/19 09:00 02/15/19 08:59 01/25/19 08:35 Ascorbic Acid (Vitamin C) 500 mg DAILY ORAL 01/18/19 09:00 02/17/19 08:59 01/25/19 08:36 Aspirin (Ecotrin) 81 mg DAILY ORAL 01/17/19 09:00 02/15/19 08:59 01/25/19 08:36 Barium Sulfate (Varibar Honey) 250 ml NOW PRN MC RAD 01/24/19 14:00 01/27/19 13:59 Barium Sulfate (Varibar [place]) 240 ml NOW PRN RAD 01/24/19 14:00 01/27/19 13:57 Barium Sulfate (Varibar Pudding) 230 ml NOW PRN RAD 01/24/19 14:00 01/27/19 13:57 Chlorhexidine Gluconate (Lizette-Hex 2%) 1 applic DAILY@2000 TOPIC 01/17/19 20:00 02/16/19 19:59 01/24/19 21:17 Dextrose 1,000 ml @ 75 mls/hr [id number] IV 01/23/19 08:30 02/22/19 08:29 01/25/19 01:16 Dextrose (Dextrose 50%) 25 ml Q30M PRN IV Hypoglycemia 01/19/19 11:15 02/18/19 11:14 Dextrose (Dextrose 50%) 50 ml Q30M PRN IV Hypoglycemia 01/19/19 11:15 02/18/19 11:14 Diphenhydramine HCl (Benadryl Cream) 1 applic QIDPRN PRN TOPIC Itching 01/24/19 14:15 02/23/19 14:14 Haloperidol Lactate (Haldol) 2 mg Q4H PRN IM Agitation 01/17/19 14:45 02/16/19 14:44 01/25/19 01:20 Heparin Sodium (Porcine) (Heparin 5000 units/ml) 5,000 units EVERY 12 HOURS SUBQ 01/16/19 21:00 02/15/19 08:59 01/24/19 21:15 Insulin Aspart (NovoLOG) BEFORE MEALS AND HS SUBQ 01/19/19 11:30 02/18/19 11:29 01/25/19 11:15 Metoprolol Tartrate (Lopressor) 25 mg Q12HR ORAL 01/16/19 21:00 02/15/19 08:59 01/25/19 08:39 Mirtazapine (Remeron) 15 mg BEDTIME ORAL 01/17/19 23:15 02/16/19 23:14 01/24/19 21:16 Multivitamins (Multivitamins) 1 tab DAILY ORAL 01/18/19 09:00 02/17/19 08:59 01/25/19 08:35 Olanzapine (ZyPREXA) 2.5 mg DAILY ORAL 01/20/19 09:00 02/19/19 08:59 01/25/19 08:36 Olanzapine (ZyPREXA) 5 mg BEDTIME ORAL 01/20/19 21:00 02/19/19 20:59 01/24/19 21:16 Pantoprazole (Protonix) 40 mg DAILY ORAL 01/18/19 09:00 02/17/19 08:59 01/25/19 08:35 Potassium Chloride 100 ml @ 100 mls/hr Q1HR IVPB 01/25/19 08:00 01/25/19 12:59 01/25/19 11:06 Laboratory Tests 01/25/19 05:20: White Blood Count 12.1H, Red Blood Count 3.59L, Hemoglobin 10.1L, Hematocrit 31.0L, Mean Corpuscular Volume 86, Mean Corpuscular Hemoglobin 28.1, Mean Corpuscular Hemoglobin Concent 32.6, Red Cell Distribution Width 12.2, Platelet Count 119L, Mean Platelet Volume 6.6, Neutrophils (%) (Auto) 78.8H, Lymphocytes (%) (Auto) 7.1L, Monocytes (%) (Auto) 11.8H, Eosinophils (%) (Auto) 1.6, Basophils (%) (Auto) 0.8, Sodium Level 142, Potassium Level 2.9L, Chloride Level 110H, Carbon Dioxide Level 21, Anion Gap 11, Blood Urea Nitrogen 31H, Creatinine 3.0H, Estimat Glomerular Filtration Rate , Glucose Level 120H, Calcium Level 6.5L, Total Bilirubin 0.7, Aspartate Amino Transf (AST/SGOT) 101H , Alanine Aminotransferase (ALT/SGPT) 83H, Alkaline Phosphatase 341H, Total Protein 5.4L, Albumin 1.3L, Globulin 4.1, Albumin/Globulin Ratio 0.3L 9/20/19 05:44: Phosphorus Level 2.7, Magnesium Level 2.0 Height (Feet): 5 Height (Inches): 1.00 Weight (Pounds): 120 General Appearance: no apparent distress Cardiovascular: normal rate Respiratory/Chest: decreased breath sounds Abdomen: distended Objective no change Mauri Huddleston MD Jan 25, 2019 11:49
[2019-01-25 12:00] VITALS: BP 111/63
--- NOTE | 2019-01-25 12:19 | NUR ---
RD ASSESSMENT & RECOMMENDATIONS SEE CARE ACTIVITY FOR COMPLETE ASSESSMENT DAILY ESTIMATED NEEDS: Needs based on Cancer, wounds 48kg 30-40 kcals/kg 0164-4396 total kcals 1.25-2 g protein/kg 60-96 g total protein 25-30 mL/kg 5178-3097 total fluid mLs NUTRITION DIAGNOSIS: Increased kcal and pro needs r/t wound healing and low BMI as evidenced by BMI underweight per guidelines, pt w/ multiple partial thickness wounds, refer to WC dioneal. CURRENT DIET:CCHO MED/ pureed moist -> SOFT EASY CHEW + Glucerna TID w/ meals PO DIET RECOMMENDATIONS: Liberalized regular diet w/ poor PO (texture per COMPUTER CONSULTANT) ADDITIONAL RECOMMENDATIONS: - Calibrated bedscale wt for accurate CBW - F/up w/ [place] Count x 48 hrs- completed, overall poor intake - WOUND CARE: add DILAN BID, continue MVI x1 + VIT C 500mg daily - Continue Glucerna TID w/ meals - Monitor lytes, replete as needed - Consider appetite stimulant if medically appropriate - Add CCHO MED to diet w/ PO intake consistently >50%
--- NOTE | 2019-01-25 13:41 | NUR ---
CASE MANAGEMENT:REVIEW 01/25/19 SI: ACUTE RENAL FAILURE DEHYDRATION. LEUKOCYTOSIS. MULTIPLE LIVER LESIONS 96.8 68 22 131/73 97% ON RA K-2.9 BUN+31 CR+3.0 IS: IV KCL Q1HRS X5 LEVAQUIN PO Q48HRS FLAGYL PO Q8HRS IVF@75/HR ZYPREXA PO QHS PROTONIX PO QD REMERON PO QHS ASA PO QD LOPRESSOR PO Q12 : TELEMETRY STATUS DCP: FROM [facility]
[2019-01-25] MEDS ORDERED: NS 275ml ONE (14:40)
[2019-01-25 16:00] VITALS: BP 129/74
--- NOTE | 2019-01-25 16:55 | NUR ---
DISCHARGE PLANNING: [facility] IS READY TO DISCHARGE PATIENT OVER THE WEEKEND PATIENT TRANSFER PACKET HAS BEEN SENT TO [facility]. PHONE: [phone] FAX:[phone]
--- NOTE | 2019-01-25 19:19 | NUR ---
HAND-OFF: Report given to Eliana Mchugh RN. Patient stable sleeping at this time. Endorsed that pt has been very compliant all day and AOx3-4. Recommending that restraints be d/ch.
--- NOTE | 2019-01-25 19:54 | NUR ---
NURSE NOTES: RECEIVED PATIENT RESTING IN BED, SOFT WRIST RESTRAINTS ON. FALL PRECAUTIONS IN PLACE: CALL LIGHT AND BEDSIDE TABLE WITHIN REACH, BED IN LOW POSITION AND BED ALARM ON. WILL CONTINUE WITH PLAN OF CARE.
[2019-01-25 20:00] VITALS: BP 106/63
--- NOTE | 2019-01-25 20:00 | NUR ---
NURSE NOTES: ENDORSED BY OUTGOING RN THAT PICC LINE DRESSING CHANGED TODAY.
[2019-01-25] MEDS: Dyna-Hex 2% Top Sol 2oz TOPIC SCH (21:04)
[2019-01-26] VITALS: BP 95/50
--- NOTE | 2019-01-26 02:15 | Progress Note ---
DATE: 01/25/2019 SUBJECTIVE: The patient is in bed, asleep, no behavior issues, and she is calm. MENTAL STATUS EXAMINATION: The patient is alert, disoriented to date. She knew she is in the hospital. Mood is neutral. Affect is flat. Thought process, there is a paucity of thought content. Thought content, no suicidal or homicidal ideation. ASSESSMENT: 1. Dementia with behavioral disturbance. 2. Acute encephalopathy. PLAN: We will continue current medications. Cynthia Nicholson M.D. DR: VONDA JOB#: [id number] CC:
[2019-01-26 04:00] VITALS: BP 101/53
[2019-01-26 05:46] LABS: BASOPHILS % (AUTO) 0.7 % (0.0-2.0); EOSINOPHILS % (AUTO) 3.3 % (0.0-3.0); HEMATOCRIT 29.6 % (37.0-47.0); HEMOGLOBIN 9.7 G/DL (12.0-16.0); LYMPHOCYTES % (AUTO) 9.4 % (20.0-45.0); MEAN CORPUSCULAR VOLUME 86 FL (80-99); MONOCYTES % (AUTO) 10.2 % (1.0-10.0); NEUTROPHILS % (AUTO) 76.3 % (45.0-75.0); PLATELET COUNT 112 K/UL (150-450); RED BLOOD COUNT 3.45 M/UL (4.20-5.40); RED CELL DISTRIBUTION WIDTH 12.3 % (11.6-14.8); WHITE BLOOD COUNT 10.6 K/UL (4.8-10.8)
[2019-01-26 06:09] LABS: ALANINE AMINOTRANSFERASE 72 U/L (12-78); ALBUMIN 1.2 G/DL (3.4-5.0); ALBUMIN/GLOBULIN RATIO 0.3 (1.0-2.7); ALKALINE PHOSPHATASE 358 U/L (46-116); ANION GAP 9 mmol/L (5-15); ASPARTATE AMINO TRANSFERASE 86 U/L (15-37); BILIRUBIN,TOTAL 0.7 MG/DL (0.2-1.0); BLOOD UREA NITROGEN 30 mg/dL (7-18); CALCIUM 6.3 MG/DL (8.5-10.1); CARBON DIOXIDE 21 MMOL/L (21-32); CHLORIDE 107 MMOL/L (98-107); SODIUM 137 MMOL/L (136-145)
[2019-01-26] MEDS: NovoLOG Insulin Flexpen SUBQ SCH ×4 (06:10→21:00)
--- NOTE | 2019-01-26 07:37 | NUR ---
NURSE NOTES: Received report from GAIL Monroy. The patient is sleeping on the bed without acute distress or shortness of breath. The patient's bed in the lowest position, call light in reach, and fall and aspiration precaution reinforced. PICC line on L upper arm double lumen intact and running D5W 75mL/hr. Bilateral soft wrist restraints on place per order, and the patient's skin and circulation is intact. [place] inserted on 01/22 for urinary retention is intact, patent, and draining well. Will continue plan of care.
--- NOTE | 2019-01-26 07:37 | NUR ---
HAND-OFF: Report given to Pravin MARTE RN. PATIENT RESTING IN BED, NO SIGNS OF DISTRESS NOTED.
[2019-01-26 08:00] VITALS: BP 90/59
--- NOTE | 2019-01-26 08:28 | NUR ---
NURSE NOTES: Notified Dr. Huddleston regarding abnormal lab including low potassium level. Dr. Huddleston will order after reviewing the result. Will continue plan of care.
--- NOTE | 2019-01-26 08:32 | Surgery Progress Note ---
Surgery Progress Note Subjective Additional Comments leukocytosis resolved exam stable improving labs improved Objective Last 24 Hour Vital Signs Date Time Temp Pulse Resp B/P (MAP) Pulse Ox O2 Delivery O2 Flow Rate FiO2 01/26/19 04:00 97.9 75 18 101/53 (69) 97 01/26/19 04:00 76 01/26/19 00:00 75 01/26/19 00:00 98.0 77 18 95/50 (65) 98 01/25/19 21:12 83 106/63 01/25/19 21:00 Room Air 01/25/19 20:00 97.9 78 16 106/63 (77) 97 01/25/19 20:00 86 01/25/19 16:00 118 01/25/19 16:00 98.4 79 22 129/74 (92) 98 01/25/19 12:00 97.7 78 23 111/63 (79) 01/25/19 12:00 73 01/25/19 08:39 68 131/73 I&O Intake and Output 01/25/19 01/26/19 18:59 06:59 Intake Total 1395 ml 985 ml Output Total 450 ml 1000 ml Balance 945 ml -15 ml Intake Oral 620 ml 100 ml IV Total 775 ml 885 ml Output Urine Total 450 ml 1000 ml Cardiovascular: RSR Respiratory: clear Abdomen: soft, flat, non-tender, present bowel sounds Extremities: no cyanosis, other Laboratory Tests Test 01/26/19 04:30 White Blood Count 10.6 K/UL (4.8-10.8) Red Blood Count 3.45 M/UL (4.20-5.40) L Hemoglobin 9.7 G/DL (12.0-16.0) L Hematocrit 29.6 % (37.0-47.0) L Mean Corpuscular Volume 86 FL (80-99) Mean Corpuscular Hemoglobin 28.2 PG (27.0-31.0) Mean Corpuscular Hemoglobin Concent 32.9 G/DL (32.0-36.0) Red Cell Distribution Width 12.3 % (11.6-14.8) Platelet Count 112 K/UL (150-450) L Mean Platelet Volume 7.7 FL (6.5-10.1) Neutrophils (%) (Auto) 76.3 % (45.0-75.0) H Lymphocytes (%) (Auto) 9.4 % (20.0-45.0) L Monocytes (%) (Auto) 10.2 % (1.0-10.0) H Eosinophils (%) (Auto) 3.3 % (0.0-3.0) H Basophils (%) (Auto) 0.7 % (0.0-2.0) Sodium Level 137 MMOL/L (136-145) Potassium Level 3.0 MMOL/L (3.5-5.1) L Chloride Level 107 MMOL/L (98-107) Carbon Dioxide Level 21 MMOL/L (21-32) Anion Gap 9 mmol/L (5-15) Blood Urea Nitrogen 30 mg/dL (7-18) H Creatinine 3.0 MG/DL (0.55-1.30) H Estimat Glomerular Filtration Rate mL/min (>60) Glucose Level 106 MG/DL (74-106) Calcium Level 6.3 MG/DL (8.5-10.1) L Total Bilirubin 0.7 MG/DL (0.2-1.0) Aspartate Amino Transf (AST/SGOT) 86 U/L (15-37) H Alanine Aminotransferase (ALT/SGPT) 72 U/L (12-78) Alkaline Phosphatase 358 U/L (46-116) H Total Protein 5.3 G/DL (6.4-8.2) L Albumin 1.2 G/DL (3.4-5.0) L Globulin 4.1 g/dL Albumin/Globulin Ratio 0.3 (1.0-2.7) L Plan Problems: (1) Dehydration (2) Decubitus skin ulcer Assessment & Plan: Pt presented on admission with multiple wounds.Hx R Mastectomy . Full thickness wound that is tunneled into R axilla noted to aleksander R mastectomy.Base of wound is sahara with macerated borders oozing small amt serous exudate noted. No odor noted. (L)3cm x (W)6cm x (D)0.3, tunneling clockwise @10o'clock by 6.6cm. Full thickness wound lateral/posterior R chest. Scattered slough at base of wound with erythematous borders .Periwound indurated. wound oozing small amt serous exudate. (L)1cm x (W)3cm. Full thickness wound posterior thoracic. 100% slough at base of wound. Erythematous borders. No odor or exudate noted(L)2.3cm x (W)2.5cm. Full thickness wound median R humerus. 100% slough with erythematous borders. No odor or exudate noted.(L)3.9cm x (W)2.4cm. Incontinence associated dermatitis noted to sacral and cleft of buttocks. Affected area is erythematous. Pt denied burning or itching. DTPI noted to medial L foot . Base of wound is indurated,purple with red margins.(L)3.2cm x (W)1cm. L heel boggy with non-blanchable erythema. Non-blanchable erythema without fluctuance R heel. Tx.Plan: Cleanse wound Aleksander R chest with Saline. Loosely pack wound (@10o'clock) with 1 /2 inch Iodoform packing. Apply Cavilon periwound. Cover with Optifoam drsg.Daily and prn. Cleanse wounds R arm with saline. Apply Xeroform gauze.Apply Cavilon periwound. Cover with Optifoam drsg. Change daily and prn. Cleanse wound Lateral/posterior chest with Saline. Apply xeroform gauze. Cover with Optifoam drsg. Change Daily and prn. Cleanse wound Posterior R thoracic with Saline. Cover with Xeroform. Apply Cavilon Skin Barrier periwound. Cover with Optifoam drsg. Daily and prn. Apply Triad Paste to Buttocks with each perineal care. Apply Cavilon Skin Barrier to both heels. Cover each heel with Optifoam drsg. every 7 days and prn. Reposition at least every 2hours or as tolerated. Off-load heels with pillow. (3) Leukocytosis Assessment & Plan: cont Abx worsening unlikely related to wounds that do not seem actively infected (4) Severe protein-calorie malnutrition Assessment & Plan: DAILY ESTIMATED NEEDS: Needs based on Cancer, wounds 48kg 30-40 kcals/kg 3993-2707 total kcals 1.25-2 g protein/kg 60-96 g total protein 25-30 mL/kg 7724-2561 total fluid mLs NUTRITION DIAGNOSIS: Increased kcal and pro needs r/t wound healing and low BMI as evidenced by BMI underweight per guidelines, pt w/ multiple partial thickness wounds, refer to WC eval. CURRENT DIET: Soft GAGE PO DIET RECOMMENDATIONS: GAGE diet/ texture as tolerated ADDITIONAL RECOMMENDATIONS: - Pt w/ poor po intake, would rec to liberalized diet to REGULAR - Add ENSURE ENLIVE TID w/ meals - Obtain a standing scale wt as able Or recalibrate bed scale for accurate CBW - Monitor renal fxn/ lytes and need for renal supplement - WOUND CARE: add DILAN BID + MVI x1 + VIT C 500mg daily (5) Failure to thrive in adult (6) Acute cholecystitis Assessment & Plan: Patient with possible acalculous cholecystitis. Afebrile, hemodynamic stable, leukocytosis, acute episode of pancreatitis which is resolved chemically. On examination difficult to examine but no significant tenderness identified in the right upper quadrant. CT reviewed. US noted. inconsistent with CT findings HIDA negative Continue IV antibiotics We will follow with recommendations no acute surgical intervention recommended at this time conservative management with Abx Jesus Bennett Jan 26, 2019 08:32
[2019-01-26] MEDS: Anastrazole 1mg tab ORAL SCH (08:57)
[2019-01-26] MEDS: Aspirin EC 81mg tab ORAL SCH (08:57)
[2019-01-26] MEDS: Metoprolol 25mg tab ORAL SCH ×2 (08:57→21:00)
[2019-01-26] MEDS: OLANZapine 2.5mg tab ORAL SCH (08:58)
[2019-01-26] MEDS: Heparin 5000 units/ml inj SUBQ SCH ×2 (08:58→21:00)
[2019-01-26] MEDS: Ascorbic Acid 500mg tab ORAL SCH (08:58)
--- NOTE | 2019-01-26 09:25 | Nephrology Progress Note ---
Assessment/Plan Problem List: (1) Acute renal failure (ARF) Assessment: Cr 3. stable (2) Failure to thrive in adult (3) Severe protein-calorie malnutrition (4) Dehydration (5) Elevated LFTs Assessment: improving (6) Hypokalemia Assessment Acute on chronic renal failure- Dehydration Failing to thrive, Malnutrition Decubiti Urinary retention Plan marte Urine studies Hydrate- has PICC now K supplement as needed CXR STANLEY kidney noted per orders [facility] DC planning?? Subjective ROS Limited/Unobtainable: No Constitutional: Reports: malaise Objective Objective Last 24 Hour Vital Signs Date Time Temp Pulse Resp B/P (MAP) Pulse Ox O2 Delivery O2 Flow Rate FiO2 01/26/19 08:57 74 90/59 01/26/19 08:00 97.3 74 20 90/59 (69) 98 01/26/19 04:00 97.9 75 18 101/53 (69) 97 01/26/19 04:00 76 01/26/19 00:00 75 01/26/19 00:00 98.0 77 18 95/50 (65) 98 01/25/19 21:12 83 106/63 01/25/19 21:00 Room Air 01/25/19 20:00 97.9 78 16 106/63 (77) 97 01/25/19 20:00 86 01/25/19 16:00 118 01/25/19 16:00 98.4 79 22 129/74 (92) 98 01/25/19 12:00 97.7 78 23 111/63 (79) 01/25/19 12:00 73 Intake and Output 01/25/19 01/26/19 18:59 06:59 Intake Total 1395 ml 985 ml Output Total 450 ml 1000 ml Balance 945 ml -15 ml Intake Oral 620 ml 100 ml IV Total 775 ml 885 ml Output Urine Total 450 ml 1000 ml Laboratory Tests 01/26/19 04:30: White Blood Count 10.6, Red Blood Count 3.45L, Hemoglobin 9.7L, Hematocrit 29.6L , Mean Corpuscular Volume 86, Mean Corpuscular Hemoglobin 28.2, Mean Corpuscular Hemoglobin Concent 32.9, Red Cell Distribution Width 12.3, Platelet Count 112L, Mean Platelet Volume 7.7, Neutrophils (%) (Auto) 76.3H, Lymphocytes (%) (Auto) 9.4L, Monocytes (%) (Auto) 10.2H, Eosinophils (%) (Auto) 3.3H, Basophils (%) (Auto) 0.7, Sodium Level 137, Potassium Level 3.0L, Chloride Level 107, Carbon Dioxide Level 21, Anion Gap 9, Blood Urea Nitrogen 30H, Creatinine 3.0H, Estimat Glomerular Filtration Rate , Glucose Level 106, Calcium Level 6.3L, Total Bilirubin 0.7, Aspartate Amino Transf (AST/SGOT) 86H, Alanine Aminotransferase (ALT/SGPT) 72, Alkaline Phosphatase 358H, Total Protein 5.3L, Albumin 1.2L, Globulin 4.1, Albumin/Globulin Ratio 0.3L Height (Feet): 5 Height (Inches): 1.00 Weight (Pounds): 120 General Appearance: no apparent distress Objective no change Mauri Huddleston MD Jan 26, 2019 09:25
--- NOTE | 2019-01-26 09:40 | General Progress Note ---
Assessment/Plan Problem List: (1) Acute renal failure (ARF) ICD Codes: N17.9 - Acute kidney failure, unspecified SNOMED: 06878340 (2) Dehydration ICD Codes: E86.0 - Dehydration SNOMED: 77065461 (3) Decubitus skin ulcer ICD Codes: L89.90 - Pressure ulcer of unspecified site, unspecified stage SNOMED: 698945787 (4) Leukocytosis ICD Codes: D72.829 - Elevated white blood cell count, unspecified SNOMED: 647571776, 221989851 (5) Failure to thrive in adult ICD Codes: R62.7 - Adult failure to thrive SNOMED: 519150385 (6) Severe protein-calorie malnutrition ICD Codes: E43 - Unspecified severe protein-calorie malnutrition SNOMED: 277853004, 226403437, 399245011 Status: stable, progressing Assessment/Plan: ivf encourage po monitor renal fxn/lytes anxiolytics as needed psych follow up cannot go back to snf if needing restraints. wound care dnr conservative rx family did not want hospice poor prognosis Subjective ROS Limited/Unobtainable: No Constitutional: Reports: malaise, weakness HEENT: Reports: no symptoms Cardiovascular: Reports: no symptoms Respiratory: Reports: no symptoms Gastrointestinal/Abdominal: Reports: poor appetite, poor fluid intake Genitourinary: Reports: no symptoms Neurologic/Psychiatric: Reports: anxiety, depressed, emotional problems Endocrine: Reports: no symptoms Hematologic/Lymphatic: Reports: no symptoms Allergies: Coded Allergies: No Known Allergies (Unverified , 01/15/19) All Systems: reviewed and negative except above Subjective the same. intermittent agitated and aggressive. repeatedly trying to pullout iv and marte catheter. given haldol im. currently resting. Objective Last 24 Hour Vital Signs Date Time Temp Pulse Resp B/P (MAP) Pulse Ox O2 Delivery O2 Flow Rate FiO2 01/26/19 08:57 74 90/59 01/26/19 08:00 97.3 74 20 90/59 (69) 98 01/26/19 04:00 97.9 75 18 101/53 (69) 97 01/26/19 04:00 76 01/26/19 00:00 75 01/26/19 00:00 98.0 77 18 95/50 (65) 98 01/25/19 21:12 83 106/63 01/25/19 21:00 Room Air 01/25/19 20:00 97.9 78 16 106/63 (77) 97 01/25/19 20:00 86 01/25/19 16:00 118 01/25/19 16:00 98.4 79 22 129/74 (92) 98 01/25/19 12:00 97.7 78 23 111/63 (79) 01/25/19 12:00 73 Intake and Output 01/25/19 01/26/19 18:59 06:59 Intake Total 1395 ml 985 ml Output Total 450 ml 1000 ml Balance 945 ml -15 ml Intake Oral 620 ml 100 ml IV Total 775 ml 885 ml Output Urine Total 450 ml 1000 ml Laboratory Tests 01/26/19 04:30: White Blood Count 10.6, Red Blood Count 3.45L, Hemoglobin 9.7L, Hematocrit 29.6L , Mean Corpuscular Volume 86, Mean Corpuscular Hemoglobin 28.2, Mean Corpuscular Hemoglobin Concent 32.9, Red Cell Distribution Width 12.3, Platelet Count 112L, Mean Platelet Volume 7.7, Neutrophils (%) (Auto) 76.3H, Lymphocytes (%) (Auto) 9.4L, Monocytes (%) (Auto) 10.2H, Eosinophils (%) (Auto) 3.3H, Basophils (%) (Auto) 0.7, Sodium Level 137, Potassium Level 3.0L, Chloride Level 107, Carbon Dioxide Level 21, Anion Gap 9, Blood Urea Nitrogen 30H, Creatinine 3.0H, Estimat Glomerular Filtration Rate , Glucose Level 106, Calcium Level 6.3L, Total Bilirubin 0.7, Aspartate Amino Transf (AST/SGOT) 86H, Alanine Aminotransferase (ALT/SGPT) 72, Alkaline Phosphatase 358H, Total Protein 5.3L, Albumin 1.2L, Globulin 4.1, Albumin/Globulin Ratio 0.3L Height (Feet): 5 Height (Inches): 1.00 Weight (Pounds): 120 Objective General Appearance: WD/WN, alert Neck: supple Cardiovascular: regular rhythm Respiratory/Chest: chest wall non-tender, lungs clear, normal breath sounds, no respiratory distress Abdomen: normal bowel sounds, non tender, soft, no organomegaly Edema: no edema noted Arm (L), no edema noted Arm (R), no edema noted Leg (L), no edema noted Leg (R), no edema noted Pedal (L), no edema noted Pedal (R), no edema noted Generalized Mesfin Chapa MD Jan 26, 2019 09:40
--- NOTE | 2019-01-26 09:42 | General Progress Note ---
Assessment/Plan Problem List: (1) Acute renal failure (ARF) ICD Codes: N17.9 - Acute kidney failure, unspecified SNOMED: 74427275 (2) Dehydration ICD Codes: E86.0 - Dehydration SNOMED: 33315438 (3) Decubitus skin ulcer ICD Codes: L89.90 - Pressure ulcer of unspecified site, unspecified stage SNOMED: 653567255 (4) Leukocytosis ICD Codes: D72.829 - Elevated white blood cell count, unspecified SNOMED: 448127197, 600855502 (5) Failure to thrive in adult ICD Codes: R62.7 - Adult failure to thrive SNOMED: 967740750 (6) Severe protein-calorie malnutrition ICD Codes: E43 - Unspecified severe protein-calorie malnutrition SNOMED: 032100797, 416488226, 962129677 Status: stable, progressing Assessment/Plan: ivf encourage po monitor renal fxn/lytes anxiolytics as needed psych follow up cannot go back to snf if needing restraints. wound care dnr conservative rx family did not want hospice poor prognosis dc planning Subjective Allergies: Coded Allergies: No Known Allergies (Unverified , 01/15/19) Subjective the same. intermittent agitated and aggressive. repeatedly trying to pullout iv and marte catheter. given haldol im. currently resting. Objective Last 24 Hour Vital Signs Date Time Temp Pulse Resp B/P (MAP) Pulse Ox O2 Delivery O2 Flow Rate FiO2 01/26/19 08:57 74 90/59 01/26/19 08:00 97.3 74 20 90/59 (69) 98 01/26/19 04:00 97.9 75 18 101/53 (69) 97 01/26/19 04:00 76 01/26/19 00:00 75 01/26/19 00:00 98.0 77 18 95/50 (65) 98 01/25/19 21:12 83 106/63 01/25/19 21:00 Room Air 01/25/19 20:00 97.9 78 16 106/63 (77) 97 01/25/19 20:00 86 01/25/19 16:00 118 01/25/19 16:00 98.4 79 22 129/74 (92) 98 01/25/19 12:00 97.7 78 23 111/63 (79) 01/25/19 12:00 73 Intake and Output 01/25/19 01/26/19 18:59 06:59 Intake Total 1395 ml 985 ml Output Total 450 ml 1000 ml Balance 945 ml -15 ml Intake Oral 620 ml 100 ml IV Total 775 ml 885 ml Output Urine Total 450 ml 1000 ml Laboratory Tests 01/26/19 04:30: White Blood Count 10.6, Red Blood Count 3.45L, Hemoglobin 9.7L, Hematocrit 29.6L , Mean Corpuscular Volume 86, Mean Corpuscular Hemoglobin 28.2, Mean Corpuscular Hemoglobin Concent 32.9, Red Cell Distribution Width 12.3, Platelet Count 112L, Mean Platelet Volume 7.7, Neutrophils (%) (Auto) 76.3H, Lymphocytes (%) (Auto) 9.4L, Monocytes (%) (Auto) 10.2H, Eosinophils (%) (Auto) 3.3H, Basophils (%) (Auto) 0.7, Sodium Level 137, Potassium Level 3.0L, Chloride Level 107, Carbon Dioxide Level 21, Anion Gap 9, Blood Urea Nitrogen 30H, Creatinine 3.0H, Estimat Glomerular Filtration Rate , Glucose Level 106, Calcium Level 6.3L, Total Bilirubin 0.7, Aspartate Amino Transf (AST/SGOT) 86H, Alanine Aminotransferase (ALT/SGPT) 72, Alkaline Phosphatase 358H, Total Protein 5.3L, Albumin 1.2L, Globulin 4.1, Albumin/Globulin Ratio 0.3L Height (Feet): 5 Height (Inches): 1.00 Weight (Pounds): 120 Objective General Appearance: WD/WN, alert Neck: supple Cardiovascular: regular rhythm Respiratory/Chest: chest wall non-tender, lungs clear, normal breath sounds, no respiratory distress Abdomen: normal bowel sounds, non tender, soft, no organomegaly Edema: no edema noted Arm (L), no edema noted Arm (R), no edema noted Leg (L), no edema noted Leg (R), no edema noted Pedal (L), no edema noted Pedal (R), no edema noted Generalized Mesfin Chapa MD Jan 26, 2019 09:42
--- NOTE | 2019-01-26 10:08 | Infectious Diseases Prog Note ---
Assessment/Plan Assessment/Plan antibiotics : none A 1. pancreatitis resolved 2. cirrhosis 3. leucocytosis resolved 4. renal failure improving 5. 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 observe off antibiotics Subjective Constitutional: Denies: fever, chills Respiratory: Denies: shortness of breath, dry cough Gastrointestinal/Abdominal: Denies: nausea, vomiting, diarrhea Musculoskeletal: Denies: pain Allergies: Coded Allergies: No Known Allergies (Unverified , 01/15/19) Objective Vital Signs Last 24 Hour Vital Signs Date Time Temp Pulse Resp B/P (MAP) Pulse Ox O2 Delivery O2 Flow Rate FiO2 01/26/19 08:57 74 90/59 01/26/19 08:00 97.3 74 20 90/59 (69) 98 01/26/19 04:00 97.9 75 18 101/53 (69) 97 01/26/19 04:00 76 01/26/19 00:00 75 01/26/19 00:00 98.0 77 18 95/50 (65) 98 01/25/19 21:12 83 106/63 01/25/19 21:00 Room Air 01/25/19 20:00 97.9 78 16 106/63 (77) 97 01/25/19 20:00 86 01/25/19 16:00 118 01/25/19 16:00 98.4 79 22 129/74 (92) 98 01/25/19 12:00 97.7 78 23 111/63 (79) 01/25/19 12:00 73 Height (Feet): 5 Height (Inches): 1.00 Weight (Pounds): 120 Respiratory/Chest: lungs clear Cardiovascular: normal rate, regular rhythm, no gallop/murmur Abdomen: soft, non tender Extremities: no edema, other - left arm PICC Laboratory Tests Test 01/26/19 04:30 White Blood Count 10.6 K/UL (4.8-10.8) Red Blood Count 3.45 M/UL (4.20-5.40) L Hemoglobin 9.7 G/DL (12.0-16.0) L Hematocrit 29.6 % (37.0-47.0) L Mean Corpuscular Volume 86 FL (80-99) Mean Corpuscular Hemoglobin 28.2 PG (27.0-31.0) Mean Corpuscular Hemoglobin Concent 32.9 G/DL (32.0-36.0) Red Cell Distribution Width 12.3 % (11.6-14.8) Platelet Count 112 K/UL (150-450) L Mean Platelet Volume 7.7 FL (6.5-10.1) Neutrophils (%) (Auto) 76.3 % (45.0-75.0) H Lymphocytes (%) (Auto) 9.4 % (20.0-45.0) L Monocytes (%) (Auto) 10.2 % (1.0-10.0) H Eosinophils (%) (Auto) 3.3 % (0.0-3.0) H Basophils (%) (Auto) 0.7 % (0.0-2.0) Sodium Level 137 MMOL/L (136-145) Potassium Level 3.0 MMOL/L (3.5-5.1) L Chloride Level 107 MMOL/L (98-107) Carbon Dioxide Level 21 MMOL/L (21-32) Anion Gap 9 mmol/L (5-15) Blood Urea Nitrogen 30 mg/dL (7-18) H Creatinine 3.0 MG/DL (0.55-1.30) H Estimat Glomerular Filtration Rate mL/min (>60) Glucose Level 106 MG/DL (74-106) Calcium Level 6.3 MG/DL (8.5-10.1) L Total Bilirubin 0.7 MG/DL (0.2-1.0) Aspartate Amino Transf (AST/SGOT) 86 U/L (15-37) H Alanine Aminotransferase (ALT/SGPT) 72 U/L (12-78) Alkaline Phosphatase 358 U/L (46-116) H Total Protein 5.3 G/DL (6.4-8.2) L Albumin 1.2 G/DL (3.4-5.0) L Globulin 4.1 g/dL Albumin/Globulin Ratio 0.3 (1.0-2.7) L Current Medications Medications (Trade) Dose Ordered Sig/Whitley Route PRN Reason Start Time Stop Time Status Last Admin Dose Admin Acetaminophen (Tylenol) 650 mg Q4H PRN ORAL Mild Pain/Temp > 100.5 01/16/19 15:30 02/15/19 15:29 01/16/19 15:39 Anastrozole (Arimidex) 1 mg DAILY ORAL 9/12/19 09:00 02/15/19 08:59 01/26/19 08:57 Ascorbic Acid (Vitamin C) 500 mg DAILY ORAL 01/18/19 09:00 02/17/19 08:59 01/26/19 08:58 Aspirin (Ecotrin) 81 mg DAILY ORAL 01/17/19 09:00 02/15/19 08:59 01/25/19 08:36 Barium Sulfate (Varibar Honey) 250 ml NOW PRN MC RAD 01/24/19 14:00 01/27/19 13:59 Barium Sulfate (Varibar Elkin) 240 ml NOW PRN RAD 01/24/19 14:00 01/27/19 13:57 Barium Sulfate (Varibar Pudding) 230 ml NOW PRN RAD 01/24/19 14:00 01/27/19 13:57 Chlorhexidine Gluconate (Lizette-Hex 2%) 1 applic DAILY@2000 TOPIC 01/17/19 20:00 02/16/19 19:59 01/25/19 21:04 Dextrose 1,000 ml @ 75 mls/hr [id number] IV 01/23/19 08:30 02/22/19 08:29 01/26/19 01:13 Dextrose (Dextrose 50%) 25 ml Q30M PRN IV Hypoglycemia 01/19/19 11:15 02/18/19 11:14 Dextrose (Dextrose 50%) 50 ml Q30M PRN IV Hypoglycemia 01/19/19 11:15 02/18/19 11:14 Diphenhydramine HCl (Benadryl Cream) 1 applic QIDPRN PRN TOPIC Itching 01/24/19 14:15 02/23/19 14:14 Haloperidol Lactate (Haldol) 2 mg Q4H PRN IM Agitation 01/17/19 14:45 02/16/19 14:44 01/25/19 01:20 Heparin Sodium (Porcine) (Heparin 5000 units/ml) 5,000 units EVERY 12 HOURS SUBQ 01/16/19 21:00 02/15/19 08:59 01/24/19 21:15 Insulin Aspart (NovoLOG) BEFORE MEALS AND HS SUBQ 01/19/19 11:30 02/18/19 11:29 01/26/19 06:10 Metoprolol Tartrate (Lopressor) 25 mg Q12HR ORAL 01/16/19 21:00 02/15/19 08:59 01/25/19 21:12 Mirtazapine (Remeron) 15 mg BEDTIME ORAL 01/17/19 23:15 02/16/19 23:14 01/25/19 21:04 Multivitamins (Multivitamins) 1 tab DAILY ORAL 01/18/19 09:00 02/17/19 08:59 01/26/19 08:58 Olanzapine (ZyPREXA) 2.5 mg DAILY ORAL 01/20/19 09:00 02/19/19 08:59 01/26/19 08:58 Olanzapine (ZyPREXA) 5 mg BEDTIME ORAL 01/20/19 21:00 02/19/19 20:59 01/25/19 21:04 Pantoprazole (Protonix) 40 mg DAILY ORAL 01/18/19 09:00 02/17/19 08:59 01/26/19 08:58 Potassium Chloride 100 ml @ 100 mls/hr Q1HR IVPB 01/26/19 10:00 01/26/19 14:59 01/26/19 10:00 Lalito Major MD Jan 26, 2019 10:08
--- NOTE | 2019-01-26 10:56 | NUR ---
NURSE NOTES: Dr. Huddleston ordered 5bags of 10mEq KCL IV for hypokalemia. Medication administration performed in a safe manner as ordered. Will continue plan of care.
[2019-01-26 12:00] VITALS: BP 96/48
--- NOTE | 2019-01-26 15:43 | NUR ---
NURSE NOTES: Wound care completed per order. The patient is stable without acute distress or shortness of breath. Will continue plan of care.
[2019-01-26 16:00] VITALS: BP 119/55
--- NOTE | 2019-01-26 19:35 | NUR ---
HAND-OFF: Report given to GAIL Centeno. The patient is resting on the bed without acute distress or shortness of breath. The patient's bed in the lowest position, call light in reach, and fall and aspiration precaution reinforced. PICC line intact and patent. Naranjo patent and draining well. Bilateral soft wrist restraints checked and skin and circulation intact. Endorsed plan of care.
--- NOTE | 2019-01-26 19:40 | NUR ---
NURSE NOTES: Received report from Priti Cardenas RN. Patient in bed AAO 1-2 with bouts of confusion, no complaints of acute pain at this time. Kept clean, dry, and comfortable in bed. PICC line intact and patent with non-behavioral restraints on as ordered. FC for retention and is on bedrest for safety. On continuous cardiac monitoring per protocol. Safety precaution in place; siderails X3 up, call light within reach, bed in lowest position, brakes and alarm on at all times. Needs and wants anticipated and attended. Will continue plan of care and monitor for any changes noted. ST video swallow on Monday01/28/19
[2019-01-26 20:00] VITALS: BP 107/79
[2019-01-26] MEDS: Dyna-Hex 2% Top Sol 2oz TOPIC SCH (20:15)
--- NOTE | 2019-01-26 22:00 | NUR ---
NURSE NOTES: Noted patient pulled out PICC line with bilateral soft wrist restraints on. Managed to loosen both restraints and get a hold of the line. No bleeding observed, or complaint of acute pain. CN aware, will notify MD in AM. Will initiate Incident report per protocol.
[2019-01-27] VITALS (7 sets, daily range): BP systolic 92–150; BP diastolic 62–86
--- NOTE | 2019-01-27 02:26 | NUR ---
NURSE NOTES: Patient in bed awake with no S/S of distress. Will continue to monitor.
[2019-01-27] MEDS: NovoLOG Insulin Flexpen SUBQ SCH ×4 (05:50→22:25)
--- NOTE | 2019-01-27 07:11 | NUR ---
HAND-OFF: Report given to Pravin Cardenas RN. Patient in bed awake with no S/S of distress. Endorsed plan of care.
--- NOTE | 2019-01-27 07:41 | NUR ---
NURSE NOTES: Received report from GAIL Centeno. The patient is resting on the bed without acute distress or shortness of breath. The patient's bed in the lowest position, call light in reach, and fall and aspiration precaution reinforced. The patient pulled out PICC and peripheral line, and Dr. Chapa was notified. Bilateral soft wrist restraints on intact, and skin and circulation is intact. Naranjo is patent and draining. Dr. Chapa at the bedside and assessed the patient and ordered CMP and CBC for follow up. Carried out the order. Will continue plan of care.
[2019-01-27] MEDS: Anastrazole 1mg tab ORAL SCH (08:51)
[2019-01-27] MEDS: Aspirin EC 81mg tab ORAL SCH (08:52)
[2019-01-27] MEDS: Metoprolol 25mg tab ORAL SCH ×2 (08:52→21:34)
[2019-01-27] MEDS: Heparin 5000 units/ml inj SUBQ SCH ×2 (08:53→21:00)
[2019-01-27] MEDS: OLANZapine 2.5mg tab ORAL SCH (08:53)
[2019-01-27] MEDS: Ascorbic Acid 500mg tab ORAL SCH (08:53)
--- NOTE | 2019-01-27 09:00 | NUR ---
NURSE NOTES: Both primary nurse and the charge nurse tried to attain the IV access but poor vein and was not able to get IV access. Notified Dr. Chapa. Will carry out the order as soon as receives it. Will continue plan of care.
[2019-01-27 09:42] LABS: BASOPHILS % (AUTO) 1.5 % (0.0-2.0); EOSINOPHILS % (AUTO) 0.5 % (0.0-3.0); HEMATOCRIT 33.2 % (37.0-47.0); HEMOGLOBIN 10.8 G/DL (12.0-16.0); LYMPHOCYTES % (AUTO) 7.6 % (20.0-45.0); MEAN CORPUSCULAR VOLUME 86 FL (80-99); MONOCYTES % (AUTO) 7.5 % (1.0-10.0); PLATELET COUNT 126 K/UL (150-450); RED BLOOD COUNT 3.85 M/UL (4.20-5.40); RED CELL DISTRIBUTION WIDTH 12.3 % (11.6-14.8); WHITE BLOOD COUNT 11.6 K/UL (4.8-10.8)
[2019-01-27 09:49] LABS: ALANINE AMINOTRANSFERASE 62 U/L (12-78); ALBUMIN 1.5 G/DL (3.4-5.0); ALBUMIN/GLOBULIN RATIO 0.3 (1.0-2.7); ALKALINE PHOSPHATASE 424 U/L (46-116); ANION GAP 11 mmol/L (5-15); ASPARTATE AMINO TRANSFERASE 81 U/L (15-37); BILIRUBIN,TOTAL 0.8 MG/DL (0.2-1.0); BLOOD UREA NITROGEN 30 mg/dL (7-18); CALCIUM 6.5 MG/DL (8.5-10.1); CARBON DIOXIDE 22 MMOL/L (21-32); CHLORIDE 109 MMOL/L (98-107); CREATININE 2.9 MG/DL (0.55-1.30); POTASSIUM 4.2 MMOL/L (3.5-5.1); SODIUM 142 MMOL/L (136-145)
--- NOTE | 2019-01-27 10:05 | General Progress Note ---
Assessment/Plan Problem List: (1) Acute renal failure (ARF) ICD Codes: N17.9 - Acute kidney failure, unspecified SNOMED: 86976787 (2) Dehydration ICD Codes: E86.0 - Dehydration SNOMED: 07880482 (3) Decubitus skin ulcer ICD Codes: L89.90 - Pressure ulcer of unspecified site, unspecified stage SNOMED: 198157362 (4) Leukocytosis ICD Codes: D72.829 - Elevated white blood cell count, unspecified SNOMED: 790274531, 248265368 (5) Failure to thrive in adult ICD Codes: R62.7 - Adult failure to thrive SNOMED: 806437817 (6) Severe protein-calorie malnutrition ICD Codes: E43 - Unspecified severe protein-calorie malnutrition SNOMED: 144918675, 785128247, 679802238 Status: stable, progressing Assessment/Plan: ivf per renal encourage po monitor renal fxn/lytes anxiolytics as needed psych follow up cannot go back to snf if needing restraints. wound care dnr conservative rx family did not want hospice poor prognosis dc planning Subjective ROS Limited/Unobtainable: No Constitutional: Reports: weakness HEENT: Reports: no symptoms Cardiovascular: Reports: no symptoms Respiratory: Reports: no symptoms Gastrointestinal/Abdominal: Reports: poor appetite Genitourinary: Reports: no symptoms Neurologic/Psychiatric: Reports: anxiety, emotional problems Endocrine: Reports: no symptoms Hematologic/Lymphatic: Reports: anemia Allergies: Coded Allergies: No Known Allergies (Unverified , 01/15/19) All Systems: reviewed and negative except above Subjective pulled out both picc line and iv. remains confused. in restraints. off abx. Hida scan negative Objective Last 24 Hour Vital Signs Date Time Temp Pulse Resp B/P (MAP) Pulse Ox O2 Delivery O2 Flow Rate FiO2 01/27/19 08:52 87 122/62 01/27/19 08:00 96.6 87 18 122/62 (82) 96 01/27/19 04:00 98.0 85 18 101/85 (90) 95 01/27/19 04:00 100 01/27/19 00:00 104 01/27/19 00:00 97.5 100 18 150/80 (103) 99 01/26/19 21:00 Room Air 01/26/19 21:00 95 107/79 01/26/19 20:00 97.8 95 18 107/79 (88) 99 01/26/19 20:00 96 01/26/19 16:00 98 01/26/19 16:00 98.5 99 18 119/55 (76) 97 01/26/19 12:00 80 01/26/19 12:00 98.1 88 20 96/48 (64) 98 Intake and Output 01/26/19 01/27/19 18:59 06:59 Intake Total 435 ml Output Total 1000 ml 700 ml Balance -565 ml -700 ml Intake Oral 360 ml IV Total 75 ml Output Urine Total 1000 ml 700 ml Laboratory Tests 01/27/19 08:50: White Blood Count 11.6H, Red Blood Count 3.85L, Hemoglobin 10.8L, Hematocrit 33.2L, Mean Corpuscular Volume 86, Mean Corpuscular Hemoglobin 28.1, Mean Corpuscular Hemoglobin Concent 32.7, Red Cell Distribution Width 12.3, Platelet Count 126L, Mean Platelet Volume 7.8, Neutrophils (%) (Auto) 83.0H, Lymphocytes (%) (Auto) 7.6L, Monocytes (%) (Auto) 7.5, Eosinophils (%) (Auto) 0.5, Basophils (%) (Auto) 1.5, Sodium Level 142, Potassium Level 4.2, Chloride Level 109H, Carbon Dioxide Level 22, Anion Gap 11, Blood Urea Nitrogen 30H, Creatinine 2.9H, Estimat Glomerular Filtration Rate , Glucose Level 96, Calcium Level 6.5L, Total Bilirubin 0.8, Aspartate Amino Transf (AST/SGOT) 81H, Alanine Aminotransferase (ALT/SGPT) 62, Alkaline Phosphatase 424H, Total Protein 6.3L, Albumin 1.5L, Globulin 4.8, Albumin/Globulin Ratio 0.3L Height (Feet): 5 Height (Inches): 1.00 Weight (Pounds): 120 Objective General Appearance: WD/WN, alert Neck: supple Cardiovascular: regular rhythm Respiratory/Chest: chest wall non-tender, lungs clear, normal breath sounds, no respiratory distress Abdomen: normal bowel sounds, non tender, soft, no organomegaly Edema: no edema noted Arm (L), no edema noted Arm (R), no edema noted Leg (L), no edema noted Leg (R), no edema noted Pedal (L), no edema noted Pedal (R), no edema noted Generalized Mesfin Chapa MD Jan 27, 2019 10:05
--- NOTE | 2019-01-27 11:04 | Nephrology Progress Note ---
Assessment/Plan Problem List: (1) Acute renal failure (ARF) Assessment: Cr 3. stable (2) Failure to thrive in adult (3) Severe protein-calorie malnutrition (4) Dehydration (5) Elevated LFTs Assessment: improving (6) Hypokalemia Assessment Acute on chronic renal failure- Dehydration Failing to thrive, Malnutrition Decubiti Urinary retention Plan marte Urine studies Hydrate- has PICC now K supplement as needed CXR STANLEY kidney noted per orders [facility] DC planning?? Med surg Subjective ROS Limited/Unobtainable: No Constitutional: Reports: malaise Objective Objective Last 24 Hour Vital Signs Date Time Temp Pulse Resp B/P (MAP) Pulse Ox O2 Delivery O2 Flow Rate FiO2 01/27/19 08:52 87 122/62 01/27/19 08:00 96.6 87 18 122/62 (82) 96 01/27/19 04:00 98.0 85 18 101/85 (90) 95 01/27/19 04:00 100 01/27/19 00:00 104 01/27/19 00:00 97.5 100 18 150/80 (103) 99 01/26/19 21:00 Room Air 01/26/19 21:00 95 107/79 01/26/19 20:00 97.8 95 18 107/79 (88) 99 01/26/19 20:00 96 01/26/19 16:00 98 01/26/19 16:00 98.5 99 18 119/55 (76) 97 01/26/19 12:00 80 01/26/19 12:00 98.1 88 20 96/48 (64) 98 Intake and Output 01/26/19 01/27/19 18:59 06:59 Intake Total 435 ml Output Total 1000 ml 700 ml Balance -565 ml -700 ml Intake Oral 360 ml IV Total 75 ml Output Urine Total 1000 ml 700 ml Laboratory Tests 01/27/19 08:50: White Blood Count 11.6H, Red Blood Count 3.85L, Hemoglobin 10.8L, Hematocrit 33.2L, Mean Corpuscular Volume 86, Mean Corpuscular Hemoglobin 28.1, Mean Corpuscular Hemoglobin Concent 32.7, Red Cell Distribution Width 12.3, Platelet Count 126L, Mean Platelet Volume 7.8, Neutrophils (%) (Auto) 83.0H, Lymphocytes (%) (Auto) 7.6L, Monocytes (%) (Auto) 7.5, Eosinophils (%) (Auto) 0.5, Basophils (%) (Auto) 1.5, Sodium Level 142, Potassium Level 4.2, Chloride Level 109H, Carbon Dioxide Level 22, Anion Gap 11, Blood Urea Nitrogen 30H, Creatinine 2.9H, Estimat Glomerular Filtration Rate , Glucose Level 96, Calcium Level 6.5L, Total Bilirubin 0.8, Aspartate Amino Transf (AST/SGOT) 81H, Alanine Aminotransferase (ALT/SGPT) 62, Alkaline Phosphatase 424H, Total Protein 6.3L, Albumin 1.5L, Globulin 4.8, Albumin/Globulin Ratio 0.3L Height (Feet): 5 Height (Inches): 1.00 Weight (Pounds): 120 General Appearance: no apparent distress Neck: limited range of motion Cardiovascular: normal rate Respiratory/Chest: decreased breath sounds Abdomen: soft, distended Objective no change Mauri Huddleston MD Jan 27, 2019 11:03
--- NOTE | 2019-01-27 11:15 | Infectious Diseases Prog Note ---
Assessment/Plan Assessment/Plan Impression: 1. Pancreatitis. 2. Leukocytosis, improving 3. Renal failure, 4. 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 Dementia 7. DNR status PLAN: 1. Observe off antibiotic Subjective ROS Limited/Unobtainable: Yes Respiratory: Reports: no symptoms Cardiovascular: Reports: other - pulled out PICC line Gastrointestinal/Abdominal: Reports: no symptoms Neurologic: Reports: other - on restraint Allergies: Coded Allergies: No Known Allergies (Unverified , 01/15/19) Objective Vital Signs Last 24 Hour Vital Signs Date Time Temp Pulse Resp B/P (MAP) Pulse Ox O2 Delivery O2 Flow Rate FiO2 01/27/19 08:52 87 122/62 01/27/19 08:00 96.6 87 18 122/62 (82) 96 01/27/19 04:00 98.0 85 18 101/85 (90) 95 01/27/19 04:00 100 01/27/19 00:00 104 01/27/19 00:00 97.5 100 18 150/80 (103) 99 01/26/19 21:00 Room Air 01/26/19 21:00 95 107/79 01/26/19 20:00 97.8 95 18 107/79 (88) 99 01/26/19 20:00 96 01/26/19 16:00 98 01/26/19 16:00 98.5 99 18 119/55 (76) 97 01/26/19 12:00 80 01/26/19 12:00 98.1 88 20 96/48 (64) 98 Height (Feet): 5 Height (Inches): 1.00 Weight (Pounds): 120 General Appearance: no acute distress HEENT: mucous membranes moist Respiratory/Chest: lungs clear Cardiovascular: normal rate Abdomen: soft, non tender Extremities: no edema Neurologic/Psychiatric: alert, responsive Laboratory Tests Test 01/27/19 08:50 White Blood Count 11.6 K/UL (4.8-10.8) H Red Blood Count 3.85 M/UL (4.20-5.40) L Hemoglobin 10.8 G/DL (12.0-16.0) L Hematocrit 33.2 % (37.0-47.0) L Mean Corpuscular Volume 86 FL (80-99) Mean Corpuscular Hemoglobin 28.1 PG (27.0-31.0) Mean Corpuscular Hemoglobin Concent 32.7 G/DL (32.0-36.0) Red Cell Distribution Width 12.3 % (11.6-14.8) Platelet Count 126 K/UL (150-450) L Mean Platelet Volume 7.8 FL (6.5-10.1) Neutrophils (%) (Auto) 83.0 % (45.0-75.0) H Lymphocytes (%) (Auto) 7.6 % (20.0-45.0) L Monocytes (%) (Auto) 7.5 % (1.0-10.0) Eosinophils (%) (Auto) 0.5 % (0.0-3.0) Basophils (%) (Auto) 1.5 % (0.0-2.0) Sodium Level 142 MMOL/L (136-145) Potassium Level 4.2 MMOL/L (3.5-5.1) Chloride Level 109 MMOL/L (98-107) H Carbon Dioxide Level 22 MMOL/L (21-32) Anion Gap 11 mmol/L (5-15) Blood Urea Nitrogen 30 mg/dL (7-18) H Creatinine 2.9 MG/DL (0.55-1.30) H Estimat Glomerular Filtration Rate mL/min (>60) Glucose Level 96 MG/DL (74-106) Calcium Level 6.5 MG/DL (8.5-10.1) L Total Bilirubin 0.8 MG/DL (0.2-1.0) Aspartate Amino Transf (AST/SGOT) 81 U/L (15-37) H Alanine Aminotransferase (ALT/SGPT) 62 U/L (12-78) Alkaline Phosphatase 424 U/L (46-116) H Total Protein 6.3 G/DL (6.4-8.2) L Albumin 1.5 G/DL (3.4-5.0) L Globulin 4.8 g/dL Albumin/Globulin Ratio 0.3 (1.0-2.7) L Current Medications Medications (Trade) Dose Ordered Sig/Whitley Route PRN Reason Start Time Stop Time Status Last Admin Dose Admin Acetaminophen (Tylenol) 650 mg Q4H PRN ORAL Mild Pain/Temp > 100.5 01/16/19 15:30 02/15/19 15:29 01/16/19 15:39 Anastrozole (Arimidex) 1 mg DAILY ORAL 01/17/19 09:00 02/15/19 08:59 01/27/19 08:51 Ascorbic Acid (Vitamin C) 500 mg DAILY ORAL 01/18/19 09:00 02/17/19 08:59 01/27/19 08:53 Aspirin (Ecotrin) 81 mg DAILY ORAL 01/17/19 09:00 02/15/19 08:59 01/25/19 08:36 Barium Sulfate (Varibar Honey) 250 ml NOW PRN MC RAD 01/24/19 14:00 01/27/19 13:59 Barium Sulfate (Varibar [place]) 240 ml NOW PRN MC RAD 01/24/19 14:00 01/27/19 13:57 Barium Sulfate (Varibar Pudding) 230 ml NOW PRN RAD 01/24/19 14:00 01/27/19 13:57 Chlorhexidine Gluconate (Lizette-Hex 2%) 1 applic DAILY@2000 TOPIC 01/17/19 20:00 02/16/19 19:59 01/26/19 20:15 Dextrose 1,000 ml @ 75 mls/hr [id number] IV 01/23/19 08:30 02/22/19 08:29 01/26/19 16:38 Dextrose (Dextrose 50%) 25 ml Q30M PRN IV Hypoglycemia 01/19/19 11:15 02/18/19 11:14 Dextrose (Dextrose 50%) 50 ml Q30M PRN IV Hypoglycemia 01/19/19 11:15 02/18/19 11:14 Diphenhydramine HCl (Benadryl Cream) 1 applic QIDPRN PRN TOPIC Itching 01/24/19 14:15 02/23/19 14:14 Haloperidol Lactate (Haldol) 2 mg Q4H PRN IM Agitation 01/17/19 14:45 02/16/19 14:44 01/25/19 01:20 Heparin Sodium (Porcine) (Heparin 5000 units/ml) 5,000 units EVERY 12 HOURS SUBQ 01/16/19 21:00 02/15/19 08:59 01/24/19 21:15 Insulin Aspart (NovoLOG) BEFORE MEALS AND HS SUBQ 01/19/19 11:30 02/18/19 11:29 01/26/19 12:23 Metoprolol Tartrate (Lopressor) 25 mg Q12HR ORAL 01/16/19 21:00 02/15/19 08:59 01/27/19 08:52 Mirtazapine (Remeron) 15 mg BEDTIME ORAL 01/17/19 23:15 02/16/19 23:14 01/26/19 21:51 Multivitamins (Multivitamins) 1 tab DAILY ORAL 01/18/19 09:00 02/17/19 08:59 01/27/19 08:52 Olanzapine (ZyPREXA) 2.5 mg DAILY ORAL 01/20/19 09:00 02/19/19 08:59 01/27/19 08:53 Olanzapine (ZyPREXA) 5 mg BEDTIME ORAL 01/20/19 21:00 02/19/19 20:59 01/26/19 21:50 Pantoprazole (Protonix) 40 mg DAILY ORAL 01/18/19 09:00 02/17/19 08:59 01/27/19 08:53 Gregorio Paredes MD Jan 27, 2019 11:15
--- NOTE | 2019-01-27 11:33 | NUR ---
PT Note PT minna completed, treatment initiated. Patient has muscle weakness and decreased postural stability, requiring extensive assist in mobility and gait. Patient needs PT to increase her muscle strength and balance to improve his functional mobility and gait. Addendum: 01/27/19 at 1134 by NISH TOVAR PT Amended: Links added.
--- NOTE | 2019-01-27 12:02 | NUR ---
NURSE NOTES: Notified Dr. Chapa regarding unattainable IV access and decreased blood pressure. No new order yet. Will continue plan of care.
--- NOTE | 2019-01-27 13:34 | Surgery Progress Note ---
Surgery Progress Note Subjective Additional Comments pulled out IV line responsive. no complaints Objective Last 24 Hour Vital Signs Date Time Temp Pulse Resp B/P (MAP) Pulse Ox O2 Delivery O2 Flow Rate FiO2 01/27/19 12:48 97.7 90 18 126/85 (99) 100 01/27/19 12:00 97.7 85 18 92/69 (77) 100 01/27/19 09:00 Room Air 01/27/19 08:52 87 122/62 01/27/19 08:00 94 01/27/19 08:00 96.6 87 18 122/62 (82) 96 01/27/19 04:00 98.0 85 18 101/85 (90) 95 01/27/19 04:00 100 01/27/19 00:00 104 01/27/19 00:00 97.5 100 18 150/80 (103) 99 01/26/19 21:00 Room Air 01/26/19 21:00 95 107/79 01/26/19 20:00 97.8 95 18 107/79 (88) 99 01/26/19 20:00 96 01/26/19 16:00 98 01/26/19 16:00 98.5 99 18 119/55 (76) 97 I&O Intake and Output 01/26/19 01/27/19 18:59 06:59 Intake Total 435 ml Output Total 1000 ml 700 ml Balance -565 ml -700 ml Intake Oral 360 ml IV Total 75 ml Output Urine Total 1000 ml 700 ml Cardiovascular: RSR Respiratory: clear Abdomen: soft, flat, non-tender, present bowel sounds Extremities: no edema, no tenderness, no cyanosis Laboratory Tests Test 01/27/19 08:50 White Blood Count 11.6 K/UL (4.8-10.8) H Red Blood Count 3.85 M/UL (4.20-5.40) L Hemoglobin 10.8 G/DL (12.0-16.0) L Hematocrit 33.2 % (37.0-47.0) L Mean Corpuscular Volume 86 FL (80-99) Mean Corpuscular Hemoglobin 28.1 PG (27.0-31.0) Mean Corpuscular Hemoglobin Concent 32.7 G/DL (32.0-36.0) Red Cell Distribution Width 12.3 % (11.6-14.8) Platelet Count 126 K/UL (150-450) L Mean Platelet Volume 7.8 FL (6.5-10.1) Neutrophils (%) (Auto) 83.0 % (45.0-75.0) H Lymphocytes (%) (Auto) 7.6 % (20.0-45.0) L Monocytes (%) (Auto) 7.5 % (1.0-10.0) Eosinophils (%) (Auto) 0.5 % (0.0-3.0) Basophils (%) (Auto) 1.5 % (0.0-2.0) Sodium Level 142 MMOL/L (136-145) Potassium Level 4.2 MMOL/L (3.5-5.1) Chloride Level 109 MMOL/L (98-107) H Carbon Dioxide Level 22 MMOL/L (21-32) Anion Gap 11 mmol/L (5-15) Blood Urea Nitrogen 30 mg/dL (7-18) H Creatinine 2.9 MG/DL (0.55-1.30) H Estimat Glomerular Filtration Rate mL/min (>60) Glucose Level 96 MG/DL (74-106) Calcium Level 6.5 MG/DL (8.5-10.1) L Total Bilirubin 0.8 MG/DL (0.2-1.0) Aspartate Amino Transf (AST/SGOT) 81 U/L (15-37) H Alanine Aminotransferase (ALT/SGPT) 62 U/L (12-78) Alkaline Phosphatase 424 U/L (46-116) H Total Protein 6.3 G/DL (6.4-8.2) L Albumin 1.5 G/DL (3.4-5.0) L Globulin 4.8 g/dL Albumin/Globulin Ratio 0.3 (1.0-2.7) L Plan Problems: (1) Dehydration (2) Decubitus skin ulcer Assessment & Plan: Pt presented on admission with multiple wounds.Hx R Mastectomy . Full thickness wound that is tunneled into R axilla noted to aleksander R mastectomy.Base of wound is sahara with macerated borders oozing small amt serous exudate noted. No odor noted. (L)3cm x (W)6cm x (D)0.3, tunneling clockwise @10o'clock by 6.6cm. Full thickness wound lateral/posterior R chest. Scattered slough at base of wound with erythematous borders .Periwound indurated. wound oozing small amt serous exudate. (L)1cm x (W)3cm. Full thickness wound posterior thoracic. 100% slough at base of wound. Erythematous borders. No odor or exudate noted(L)2.3cm x (W)2.5cm. Full thickness wound median R humerus. 100% slough with erythematous borders. No odor or exudate noted.(L)3.9cm x (W)2.4cm. Incontinence associated dermatitis noted to sacral and cleft of buttocks. Affected area is erythematous. Pt denied burning or itching. DTPI noted to medial L foot . Base of wound is indurated,purple with red margins.(L)3.2cm x (W)1cm. L heel boggy with non-blanchable erythema. Non-blanchable erythema without fluctuance R heel. Tx.Plan: Cleanse wound Aleksander R chest with Saline. Loosely pack wound (@10o'clock) with 1 /2 inch Iodoform packing. Apply Cavilon periwound. Cover with Optifoam drsg.Daily and prn. Cleanse wounds R arm with saline. Apply Xeroform gauze.Apply Cavilon periwound. Cover with Optifoam drsg. Change daily and prn. Cleanse wound Lateral/posterior chest with Saline. Apply xeroform gauze. Cover with Optifoam drsg. Change Daily and prn. Cleanse wound Posterior R thoracic with Saline. Cover with Xeroform. Apply Cavilon Skin Barrier periwound. Cover with Optifoam drsg. Daily and prn. Apply Triad Paste to Buttocks with each perineal care. Apply Cavilon Skin Barrier to both heels. Cover each heel with Optifoam drsg. every 7 days and prn. Reposition at least every 2hours or as tolerated. Off-load heels with pillow. (3) Leukocytosis Assessment & Plan: cont Abx worsening unlikely related to wounds that do not seem actively infected (4) Severe protein-calorie malnutrition Assessment & Plan: DAILY ESTIMATED NEEDS: Needs based on Cancer, wounds 48kg 30-40 kcals/kg 4165-0809 total kcals 1.25-2 g protein/kg 60-96 g total protein 25-30 mL/kg 7727-6322 total fluid mLs NUTRITION DIAGNOSIS: Increased kcal and pro needs r/t wound healing and low BMI as evidenced by BMI underweight per guidelines, pt w/ multiple partial thickness wounds, refer to WC eval. CURRENT DIET: Soft GAGE PO DIET RECOMMENDATIONS: GAGE diet/ texture as tolerated ADDITIONAL RECOMMENDATIONS: - Pt w/ poor po intake, would rec to liberalized diet to REGULAR - Add ENSURE ENLIVE TID w/ meals - Obtain a standing scale wt as able Or recalibrate bed scale for accurate CBW - Monitor renal fxn/ lytes and need for renal supplement - WOUND CARE: add DILAN BID + MVI x1 + VIT C 500mg daily (5) Failure to thrive in adult (6) Acute cholecystitis Assessment & Plan: Patient with possible acalculous cholecystitis. Afebrile, hemodynamic stable, leukocytosis, acute episode of pancreatitis which is resolved chemically. On examination difficult to examine but no significant tenderness identified in the right upper quadrant. CT reviewed. US noted. inconsistent with CT findings HIDA negative Continue IV antibiotics We will follow with recommendations no acute surgical intervention recommended at this time conservative management with Jesus Barker Jan 27, 2019 13:34
--- NOTE | 2019-01-27 13:50 | NUR ---
NURSE NOTES: Obtained IV access on L wrist 24G. Notified Dr. Chapa, Will continue plan of care.
--- NOTE | 2019-01-27 17:00 | NUR ---
NURSE NOTES: The patient pulled out the peripheral IV again. Inserted new peripheral line on L hand 24G. Will continue plan of care.
--- NOTE | 2019-01-27 19:23 | NUR ---
HAND-OFF: Report given to GAIL Gamble. The patient is resting on the bed without acute distress or shortness of breath. The patient's bed in the lowest position, call light in reach, and fall and aspiration precaution reinforced IV site on L hand 24G intact and patent. Endorsed plan of care.
--- NOTE | 2019-01-27 19:24 | NUR ---
NURSE NOTES: Received report from GAIL Tucker. Patient is awake, lying in bed comfortably. A/O x2-3 and confused. Denies pain at this time. No signs of acute cardiorespiratory distress noted. Checked IV site and flushed. No signs of erythema, bleeding or infiltration noted. With bilateral soft restraints noted. No signs redness or any discoloration at both wrists. With marte catheter draining well to gravity. Bed at lowest position, brakes on, siderails x3. Call light within reach. Will continue to monitor.
--- NOTE | 2019-01-27 20:31 | NUR ---
NURSE NOTES: Paged Dr. Chapa regarding discontinuing of Lizette Hex topical solution. Awaiting for call back.
--- NOTE | 2019-01-27 21:20 | NUR ---
NURSE NOTES: Received order from Dr. Self on discontinuation of Lizette Hex topical solution. Carried out orders.
[2019-01-28] VITALS: BP 137/74
--- NOTE | 2019-01-28 02:15 | Progress Note ---
DATE: 01/27/2019 CARDIOLOGY PROGRESS NOTE SUBJECTIVE: The patient no longer has a PICC line in place. It was removed by her. She has no nausea or vomiting. OBJECTIVE: VITAL SIGNS: Blood pressure 123/62, heart rate 87, and respiratory rate 18. LUNGS: Clear. CARDIAC: Regular. ABDOMEN: Soft with no focal tenderness. EXTREMITIES: Without edema. LABORATORY DATA: White count 11.6 and hemoglobin 10.8. Sodium 142, potassium 4.2, bicarbonate 22, BUN 30, and creatinine 2.9. Albumin is 1.5. IMPRESSION: 1. Hypokalemia, corrected. 2. Severe protein-calorie malnutrition. 3. Possible metastatic carcinoma. 4. Acute on chronic renal failure, improved. 5. Paroxysmal sinus tachycardia. PLAN: 1. Conservative management. 2. Adjust IV fluids and replace electrolytes. 3. Protein supplement. 4. No additional cardiovascular recommendations at this time. Jorge Self M.D. DR: SHAQUILLE JOB#: [id number] CC:
--- NOTE | 2019-01-28 02:20 | NUR ---
NURSE NOTES: Resident is awake, lying on semi valladares's; resting comfortably. No significant change of condition noted. Will continue to monitor.
[2019-01-28] MEDS: Haloperidol 5mg/ml Inj IM PRN ×3 (03:53→21:33)
[2019-01-28 04:00] VITALS: BP 146/60
[2019-01-28] MEDS: NovoLOG Insulin Flexpen SUBQ SCH ×4 (06:53→21:35)
--- NOTE | 2019-01-28 07:32 | NUR ---
HAND-OFF: Report given to GAIL Tucker. Plan of care endorsed.
--- NOTE | 2019-01-28 07:33 | NUR ---
NURSE NOTES: Received report from GAIL Gamble. The patient is resting on the bed without acute distress or shortness of breath. Per GAIL Gamble, the patient received Haldol due to agitation at night. The patient is prepared for swallowing evaluation today. Dr. Chapa at the bedside to assess the patient and will be transferred to med/surg when the bed is available. Bilateral soft wrist restraints intact, and skin and circulation is intact. Naranjo is patent and draining well. IV site on L hand intact and patent. The patient's bed in the lowest position, call light in reach, and fall and aspiration precaution reinforced. Will continue plan of care.
[2019-01-28 08:00] VITALS: BP 100/46
--- NOTE | 2019-01-28 08:52 | General Progress Note ---
Assessment/Plan Problem List: (1) Acute renal failure (ARF) ICD Codes: N17.9 - Acute kidney failure, unspecified SNOMED: 54629198 (2) Dehydration ICD Codes: E86.0 - Dehydration SNOMED: 26415857 (3) Decubitus skin ulcer ICD Codes: L89.90 - Pressure ulcer of unspecified site, unspecified stage SNOMED: 725199114 (4) Leukocytosis ICD Codes: D72.829 - Elevated white blood cell count, unspecified SNOMED: 245299651, 477698698 (5) Failure to thrive in adult ICD Codes: R62.7 - Adult failure to thrive SNOMED: 005285160 (6) Severe protein-calorie malnutrition ICD Codes: E43 - Unspecified severe protein-calorie malnutrition SNOMED: 575466130, 248186459, 845486694 Status: stable, progressing Assessment/Plan: ivf per renal encourage po monitor renal fxn/lytes anxiolytic increased psych follow up cannot go back to snf if needing restraints. wound care dnr conservative rx family did not want hospice poor prognosis dc planning Subjective ROS Limited/Unobtainable: No Constitutional: Reports: malaise, weakness HEENT: Reports: no symptoms Cardiovascular: Reports: no symptoms Respiratory: Reports: no symptoms Gastrointestinal/Abdominal: Reports: poor appetite, poor fluid intake Genitourinary: Reports: no symptoms Neurologic/Psychiatric: Reports: anxiety, pre-existing deficit Endocrine: Reports: no symptoms Hematologic/Lymphatic: Reports: no symptoms Allergies: Coded Allergies: No Known Allergies (Unverified , 01/15/19) All Systems: reviewed and negative except above Subjective no events. remains confused and intermittently agitated. Per staff pt still needs restraints. constantly pulling at lines and trying to get out of bed Objective Last 24 Hour Vital Signs Date Time Temp Pulse Resp B/P (MAP) Pulse Ox O2 Delivery O2 Flow Rate FiO2 01/28/19 04:00 96 01/28/19 04:00 97.4 75 18 146/60 (88) 97 01/28/19 00:00 88 01/28/19 00:00 97.5 88 18 137/74 (95) 97 01/27/19 21:34 100 144/65 01/27/19 21:00 Room Air 01/27/19 20:00 98.0 100 16 144/65 (91) 98 01/27/19 20:00 80 01/27/19 16:00 100 01/27/19 16:00 98.4 95 18 126/86 (99) 98 01/27/19 12:48 97.7 90 18 126/85 (99) 100 01/27/19 12:00 97.7 85 18 92/69 (77) 100 01/27/19 12:00 95 01/27/19 09:00 Room Air 01/27/19 08:52 87 122/62 Intake and Output 01/27/19 01/28/19 19:00 07:00 Intake Total 300 ml 2025 ml Output Total 1200 ml 1200 ml Balance -900 ml 825 ml Intake Oral 300 ml 1200 ml IV Total 825 ml Output Urine Total 1200 ml 1200 ml # Voids 2 # Bowel Movements 1 Height (Feet): 5 Height (Inches): 1.00 Weight (Pounds): 120 Objective General Appearance: WD/WN, alert Neck: supple Cardiovascular: regular rhythm Respiratory/Chest: chest wall non-tender, lungs clear, normal breath sounds, no respiratory distress Abdomen: normal bowel sounds, non tender, soft, no organomegaly Edema: no edema noted Arm (L), no edema noted Arm (R), no edema noted Leg (L), no edema noted Leg (R), no edema noted Pedal (L), no edema noted Pedal (R), no edema noted Generalized Mesfin Chapa MD Jan 28, 2019 08:52
[2019-01-28] MEDS: Aspirin EC 81mg tab ORAL SCH (09:00)
[2019-01-28] MEDS: Heparin 5000 units/ml inj SUBQ SCH ×2 (09:00→21:34)
[2019-01-28] MEDS: Anastrazole 1mg tab ORAL SCH (09:32)
[2019-01-28] MEDS: Metoprolol 25mg tab ORAL SCH ×2 (09:33→21:32)
[2019-01-28] MEDS: Ascorbic Acid 500mg tab ORAL SCH (09:34)
[2019-01-28 09:47] LABS: BASOPHILS % (AUTO) 1.6 % (0.0-2.0); EOSINOPHILS % (AUTO) 1.6 % (0.0-3.0); HEMATOCRIT 32.9 % (37.0-47.0); HEMOGLOBIN 10.8 G/DL (12.0-16.0); MEAN CORPUSCULAR VOLUME 86 FL (80-99); MONOCYTES % (AUTO) 6.2 % (1.0-10.0); NEUTROPHILS % (AUTO) 80.7 % (45.0-75.0); PLATELET COUNT 150 K/UL (150-450); RED BLOOD COUNT 3.82 M/UL (4.20-5.40); RED CELL DISTRIBUTION WIDTH 11.9 % (11.6-14.8); WHITE BLOOD COUNT 11.1 K/UL (4.8-10.8)
[2019-01-28 10:18] LABS: ALANINE AMINOTRANSFERASE 59 U/L (12-78); ALBUMIN 1.5 G/DL (3.4-5.0); ALBUMIN/GLOBULIN RATIO 0.3 (1.0-2.7); ALKALINE PHOSPHATASE 421 U/L (46-116); ANION GAP 12 mmol/L (5-15); ASPARTATE AMINO TRANSFERASE 74 U/L (15-37); BILIRUBIN,TOTAL 0.9 MG/DL (0.2-1.0); BLOOD UREA NITROGEN 26 mg/dL (7-18); CALCIUM 6.5 MG/DL (8.5-10.1); CARBON DIOXIDE 23 MMOL/L (21-32); CHLORIDE 105 MMOL/L (98-107); CREATININE 2.6 MG/DL (0.55-1.30); SODIUM 140 MMOL/L (136-145)
--- NOTE | 2019-01-28 10:53 | Infectious Diseases Prog Note ---
Assessment/Plan Assessment/Plan Impression: 1. Pancreatitis. 2. Leukocytosis, improving 3. Renal failure, 4. 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 Dementia 7. DNR status PLAN: 1. Observe off antibiotic Subjective ROS Limited/Unobtainable: Yes Constitutional: Reports: no symptoms Respiratory: Reports: no symptoms Gastrointestinal/Abdominal: Reports: no symptoms Allergies: Coded Allergies: No Known Allergies (Unverified , 01/15/19) Objective Vital Signs Last 24 Hour Vital Signs Date Time Temp Pulse Resp B/P (MAP) Pulse Ox O2 Delivery O2 Flow Rate FiO2 01/28/19 09:33 79 100/46 01/28/19 04:00 96 01/28/19 04:00 97.4 75 18 146/60 (88) 97 01/28/19 00:00 88 01/28/19 00:00 97.5 88 18 137/74 (95) 97 01/27/19 21:34 100 144/65 01/27/19 21:00 Room Air 01/27/19 20:00 98.0 100 16 144/65 (91) 98 01/27/19 20:00 80 01/27/19 16:00 100 01/27/19 16:00 98.4 95 18 126/86 (99) 98 01/27/19 12:48 97.7 90 18 126/85 (99) 100 01/27/19 12:00 97.7 85 18 92/69 (77) 100 01/27/19 12:00 95 Height (Feet): 5 Height (Inches): 1.00 Weight (Pounds): 120 General Appearance: no acute distress HEENT: mucous membranes moist Respiratory/Chest: lungs clear Cardiovascular: normal rate Abdomen: soft, non tender Extremities: no edema Neurologic/Psychiatric: alert, responsive Musculoskeletal: atrophy Laboratory Tests Test 01/28/19 09:30 White Blood Count 11.1 K/UL (4.8-10.8) H Red Blood Count 3.82 M/UL (4.20-5.40) L Hemoglobin 10.8 G/DL (12.0-16.0) L Hematocrit 32.9 % (37.0-47.0) L Mean Corpuscular Volume 86 FL (80-99) Mean Corpuscular Hemoglobin 28.3 PG (27.0-31.0) Mean Corpuscular Hemoglobin Concent 32.8 G/DL (32.0-36.0) Red Cell Distribution Width 11.9 % (11.6-14.8) Platelet Count 150 K/UL (150-450) Mean Platelet Volume 7.5 FL (6.5-10.1) Neutrophils (%) (Auto) 80.7 % (45.0-75.0) H Lymphocytes (%) (Auto) 10.0 % (20.0-45.0) L Monocytes (%) (Auto) 6.2 % (1.0-10.0) Eosinophils (%) (Auto) 1.6 % (0.0-3.0) Basophils (%) (Auto) 1.6 % (0.0-2.0) Sodium Level 140 MMOL/L (136-145) Potassium Level 3.0 MMOL/L (3.5-5.1) L Chloride Level 105 MMOL/L (98-107) Carbon Dioxide Level 23 MMOL/L (21-32) Anion Gap 12 mmol/L (5-15) Blood Urea Nitrogen 26 mg/dL (7-18) H Creatinine 2.6 MG/DL (0.55-1.30) H Estimat Glomerular Filtration Rate mL/min (>60) Glucose Level 96 MG/DL (74-106) Calcium Level 6.5 MG/DL (8.5-10.1) L Total Bilirubin 0.9 MG/DL (0.2-1.0) Aspartate Amino Transf (AST/SGOT) 74 U/L (15-37) H Alanine Aminotransferase (ALT/SGPT) 59 U/L (12-78) Alkaline Phosphatase 421 U/L (46-116) H Total Protein 6.7 G/DL (6.4-8.2) Albumin 1.5 G/DL (3.4-5.0) L Globulin 5.2 g/dL Albumin/Globulin Ratio 0.3 (1.0-2.7) L Current Medications Medications (Trade) Dose Ordered Sig/Whitley Route PRN Reason Start Time Stop Time Status Last Admin Dose Admin Acetaminophen (Tylenol) 650 mg Q4H PRN ORAL Mild Pain/Temp > 100.5 01/16/19 15:30 02/15/19 15:29 01/16/19 15:39 Anastrozole (Arimidex) 1 mg DAILY ORAL 01/17/19 09:00 02/15/19 08:59 01/28/19 09:32 Ascorbic Acid (Vitamin C) 500 mg DAILY ORAL 01/18/19 09:00 02/17/19 08:59 01/28/19 09:34 Aspirin (Ecotrin) 81 mg DAILY ORAL 01/17/19 09:00 02/15/19 08:59 01/25/19 08:36 Dextrose 1,000 ml @ 75 mls/hr [id number] IV 01/23/19 08:30 02/22/19 08:29 01/28/19 09:29 Dextrose (Dextrose 50%) 25 ml Q30M PRN IV Hypoglycemia 01/19/19 11:15 02/18/19 11:14 Dextrose (Dextrose 50%) 50 ml Q30M PRN IV Hypoglycemia 01/19/19 11:15 02/18/19 11:14 Diphenhydramine HCl (Benadryl Cream) 1 applic QIDPRN PRN TOPIC Itching 01/24/19 14:15 02/23/19 14:14 Haloperidol Lactate (Haldol) 2 mg Q4H PRN IM Agitation 01/17/19 14:45 02/16/19 14:44 01/28/19 03:56 Heparin Sodium (Porcine) (Heparin 5000 units/ml) 5,000 units EVERY 12 HOURS SUBQ 01/16/19 21:00 02/15/19 08:59 01/24/19 21:15 Insulin Aspart (NovoLOG) BEFORE MEALS AND HS SUBQ 01/19/19 11:30 02/18/19 11:29 01/28/19 06:53 Metoprolol Tartrate (Lopressor) 25 mg Q12HR ORAL 01/16/19 21:00 02/15/19 08:59 01/28/19 09:33 Mirtazapine (Remeron) 15 mg BEDTIME ORAL 01/17/19 23:15 02/16/19 23:14 01/27/19 21:34 Multivitamins (Multivitamins) 1 tab DAILY ORAL 01/18/19 09:00 02/17/19 08:59 01/28/19 09:33 Olanzapine (ZyPREXA) 5 mg DAILY ORAL 01/28/19 09:00 02/27/19 08:59 01/28/19 09:34 Olanzapine (ZyPREXA) 7.5 mg BEDTIME ORAL 01/28/19 21:00 02/27/19 20:59 Pantoprazole (Protonix) 40 mg DAILY ORAL 01/18/19 09:00 02/17/19 08:59 01/28/19 09:34 Gregorio Paredes MD Jan 28, 2019 10:53
--- NOTE | 2019-01-28 11:21 | NUR ---
CASE MANAGEMENT:REVIEW 01/28/19 SI: ACUTE RENAL FAILURE DEHYDRATION. LEUKOCYTOSIS. MULTIPLE LIVER LESIONS 97.6 79 18 100/46 99% ON RA WBC+11.1 H/H-10.8/32.9 K-3.0 IS: IVF@75/HR ZYPREXA 7.5MG PO QHS ZYPREXA 5MG PO QD PROTONIX PO QD ASA PO QD LOPRESSOR PO Q12 : TELEMETRY STATUS DCP: FROM [facility]FFRE[facility] PLAN: RESTRAINTS NEED TO BE DC'D BEFORE RETURNING TO SNF
--- NOTE | 2019-01-28 11:27 | NUR ---
NURSE NOTES: Dr. Huddleston was notified regarding low potassium level. Will wait for the order. Will continue plan of care.
--- NOTE | 2019-01-28 11:45 | Nephrology Progress Note ---
Assessment/Plan Problem List: (1) Acute renal failure (ARF) Assessment: Cr lowering (2) Failure to thrive in adult (3) Severe protein-calorie malnutrition (4) Dehydration (5) Elevated LFTs Assessment: improving (6) Hypokalemia Assessment Acute on chronic renal failure- Dehydration Failing to thrive, Malnutrition Decubiti Urinary retention Plan marte Urine studies Hydrate- has PICC now K supplement as needed CXR STANLEY kidney noted per orders monitor [facility] DC planning?? Med surg Subjective ROS Limited/Unobtainable: No Objective Objective Last 24 Hour Vital Signs Date Time Temp Pulse Resp B/P (MAP) Pulse Ox O2 Delivery O2 Flow Rate FiO2 01/28/19 09:33 79 100/46 01/28/19 09:00 Room Air 01/28/19 08:00 97.6 79 18 100/46 (64) 99 01/28/19 04:00 96 01/28/19 04:00 97.4 75 18 146/60 (88) 97 01/28/19 00:00 88 01/28/19 00:00 97.5 88 18 137/74 (95) 97 01/27/19 21:34 100 144/65 01/27/19 21:00 Room Air 01/27/19 20:00 98.0 100 16 144/65 (91) 98 01/27/19 20:00 80 01/27/19 16:00 100 01/27/19 16:00 98.4 95 18 126/86 (99) 98 01/27/19 12:48 97.7 90 18 126/85 (99) 100 01/27/19 12:00 97.7 85 18 92/69 (77) 100 01/27/19 12:00 95 Intake and Output 01/27/19 01/28/19 18:59 06:59 Intake Total 420 ml 2025 ml Output Total 1200 ml 1200 ml Balance -780 ml 825 ml Intake Oral 420 ml 1200 ml IV Total 825 ml Output Urine Total 1200 ml 1200 ml # Voids 2 # Bowel Movements 1 Laboratory Tests 01/28/19 09:30: White Blood Count 11.1H, Red Blood Count 3.82L, Hemoglobin 10.8L, Hematocrit 32.9L, Mean Corpuscular Volume 86, Mean Corpuscular Hemoglobin 28.3, Mean Corpuscular Hemoglobin Concent 32.8, Red Cell Distribution Width 11.9, Platelet Count 150, Mean Platelet Volume 7.5, Neutrophils (%) (Auto) 80.7H, Lymphocytes ( %) (Auto) 10.0L, Monocytes (%) (Auto) 6.2, Eosinophils (%) (Auto) 1.6, Basophils (%) (Auto) 1.6, Sodium Level 140, Potassium Level 3.0L, Chloride Level 105, Carbon Dioxide Level 23, Anion Gap 12, Blood Urea Nitrogen 26H, Creatinine 2.6H, Estimat Glomerular Filtration Rate , Glucose Level 96, Calcium Level 6.5L, Total Bilirubin 0.9, Aspartate Amino Transf (AST/SGOT) 74H, Alanine Aminotransferase (ALT/SGPT) 59, Alkaline Phosphatase 421H, Total Protein 6.7, Albumin 1.5L, Globulin 5.2, Albumin/Globulin Ratio 0.3L Height (Feet): 5 Height (Inches): 1.00 Weight (Pounds): 120 General Appearance: no apparent distress Cardiovascular: normal rate Respiratory/Chest: decreased breath sounds Abdomen: soft Objective no change Mauri Huddleston MD Jan 28, 2019 11:45
[2019-01-28 12:00] VITALS: BP 119/60
--- NOTE | 2019-01-28 12:46 | Surgery Progress Note ---
Surgery Progress Note Subjective Additional Comments Patient seen and examined at bedside. States she is doing well. Her son is at bedside today and informed of her medical condition current therapy and care plan. She has no complaints. Labs noted. Objective Last 24 Hour Vital Signs Date Time Temp Pulse Resp B/P (MAP) Pulse Ox O2 Delivery O2 Flow Rate FiO2 01/28/19 09:33 79 100/46 01/28/19 09:00 Room Air 01/28/19 08:00 97.6 79 18 100/46 (64) 99 01/28/19 04:00 96 01/28/19 04:00 97.4 75 18 146/60 (88) 97 01/28/19 00:00 88 01/28/19 00:00 97.5 88 18 137/74 (95) 97 01/27/19 21:34 100 144/65 01/27/19 21:00 Room Air 01/27/19 20:00 98.0 100 16 144/65 (91) 98 01/27/19 20:00 80 01/27/19 16:00 100 01/27/19 16:00 98.4 95 18 126/86 (99) 98 01/27/19 12:48 97.7 90 18 126/85 (99) 100 I&O Intake and Output 01/27/19 01/28/19 18:59 06:59 Intake Total 420 ml 2025 ml Output Total 1200 ml 1200 ml Balance -780 ml 825 ml Intake Oral 420 ml 1200 ml IV Total 825 ml Output Urine Total 1200 ml 1200 ml # Voids 2 # Bowel Movements 1 Cardiovascular: RSR Respiratory: clear Abdomen: soft, non-tender, present bowel sounds, non-distended Extremities: no edema, no tenderness, no cyanosis Laboratory Tests Test 01/28/19 09:30 White Blood Count 11.1 K/UL (4.8-10.8) H Red Blood Count 3.82 M/UL (4.20-5.40) L Hemoglobin 10.8 G/DL (12.0-16.0) L Hematocrit 32.9 % (37.0-47.0) L Mean Corpuscular Volume 86 FL (80-99) Mean Corpuscular Hemoglobin 28.3 PG (27.0-31.0) Mean Corpuscular Hemoglobin Concent 32.8 G/DL (32.0-36.0) Red Cell Distribution Width 11.9 % (11.6-14.8) Platelet Count 150 K/UL (150-450) Mean Platelet Volume 7.5 FL (6.5-10.1) Neutrophils (%) (Auto) 80.7 % (45.0-75.0) H Lymphocytes (%) (Auto) 10.0 % (20.0-45.0) L Monocytes (%) (Auto) 6.2 % (1.0-10.0) Eosinophils (%) (Auto) 1.6 % (0.0-3.0) Basophils (%) (Auto) 1.6 % (0.0-2.0) Sodium Level 140 MMOL/L (136-145) Potassium Level 3.0 MMOL/L (3.5-5.1) L Chloride Level 105 MMOL/L (98-107) Carbon Dioxide Level 23 MMOL/L (21-32) Anion Gap 12 mmol/L (5-15) Blood Urea Nitrogen 26 mg/dL (7-18) H Creatinine 2.6 MG/DL (0.55-1.30) H Estimat Glomerular Filtration Rate mL/min (>60) Glucose Level 96 MG/DL (74-106) Calcium Level 6.5 MG/DL (8.5-10.1) L Total Bilirubin 0.9 MG/DL (0.2-1.0) Aspartate Amino Transf (AST/SGOT) 74 U/L (15-37) H Alanine Aminotransferase (ALT/SGPT) 59 U/L (12-78) Alkaline Phosphatase 421 U/L (46-116) H Total Protein 6.7 G/DL (6.4-8.2) Albumin 1.5 G/DL (3.4-5.0) L Globulin 5.2 g/dL Albumin/Globulin Ratio 0.3 (1.0-2.7) L Plan Problems: (1) Dehydration (2) Decubitus skin ulcer Assessment & Plan: Pt presented on admission with multiple wounds.Hx R Mastectomy . Full thickness wound that is tunneled into R axilla noted to aleksander R mastectomy.Base of wound is sahara with macerated borders oozing small amt serous exudate noted. No odor noted. (L)3cm x (W)6cm x (D)0.3, tunneling clockwise @10o'clock by 6.6cm. Full thickness wound lateral/posterior R chest. Scattered slough at base of wound with erythematous borders .Periwound indurated. wound oozing small amt serous exudate. (L)1cm x (W)3cm. Full thickness wound posterior thoracic. 100% slough at base of wound. Erythematous borders. No odor or exudate noted(L)2.3cm x (W)2.5cm. Full thickness wound median R humerus. 100% slough with erythematous borders. No odor or exudate noted.(L)3.9cm x (W)2.4cm. Incontinence associated dermatitis noted to sacral and cleft of buttocks. Affected area is erythematous. Pt denied burning or itching. DTPI noted to medial L foot . Base of wound is indurated,purple with red margins.(L)3.2cm x (W)1cm. L heel boggy with non-blanchable erythema. Non-blanchable erythema without fluctuance R heel. Tx.Plan: Cleanse wound Aleksander R chest with Saline. Loosely pack wound (@10o'clock) with 1 /2 inch Iodoform packing. Apply Cavilon periwound. Cover with Optifoam drsg.Daily and prn. Cleanse wounds R arm with saline. Apply Xeroform gauze.Apply Cavilon periwound. Cover with Optifoam drsg. Change daily and prn. Cleanse wound Lateral/posterior chest with Saline. Apply xeroform gauze. Cover with Optifoam drsg. Change Daily and prn. Cleanse wound Posterior R thoracic with Saline. Cover with Xeroform. Apply Cavilon Skin Barrier periwound. Cover with Optifoam drsg. Daily and prn. Apply Triad Paste to Buttocks with each perineal care. Apply Cavilon Skin Barrier to both heels. Cover each heel with Optifoam drsg. every 7 days and prn. Reposition at least every 2hours or as tolerated. Off-load heels with pillow. (3) Leukocytosis Assessment & Plan: cont Abx worsening unlikely related to wounds that do not seem actively infected (4) Severe protein-calorie malnutrition Assessment & Plan: DAILY ESTIMATED NEEDS: Needs based on Cancer, wounds 48kg 30-40 kcals/kg 1002-0190 total kcals 1.25-2 g protein/kg 60-96 g total protein 25-30 mL/kg 9007-5195 total fluid mLs NUTRITION DIAGNOSIS: Increased kcal and pro needs r/t wound healing and low BMI as evidenced by BMI underweight per guidelines, pt w/ multiple partial thickness wounds, refer to WC dioneal. CURRENT DIET: Soft GAGE PO DIET RECOMMENDATIONS: GAGE diet/ texture as tolerated ADDITIONAL RECOMMENDATIONS: - Pt w/ poor po intake, would rec to liberalized diet to REGULAR - Add ENSURE ENLIVE TID w/ meals - Obtain a standing scale wt as able Or recalibrate bed scale for accurate CBW - Monitor renal fxn/ lytes and need for renal supplement - WOUND CARE: add DILAN BID + MVI x1 + VIT C 500mg daily (5) Failure to thrive in adult (6) Acute cholecystitis Assessment & Plan: Patient with possible acalculous cholecystitis. Afebrile, hemodynamic stable, leukocytosis, acute episode of pancreatitis which is resolved chemically. On examination difficult to examine but no significant tenderness identified in the right upper quadrant. CT reviewed. US noted. inconsistent with CT findings HIDA negative Continue IV antibiotics We will follow with recommendations no acute surgical intervention recommended at this time conservative management with Abx Additional Comments Okay for discharge planning from surgical standpoint Jesus Bennett Jan 28, 2019 12:46
--- NOTE | 2019-01-28 12:59 | NUR ---
NURSE NOTES: Dr. Huddleston ordered 4 bags of 10mEq KCL for hypokalemia. Medication administration done as prescribed in a safe manner. Will continue plan of care.
[2019-01-28 16:00] VITALS: BP 146/61
--- NOTE | 2019-01-28 19:27 | NUR ---
HAND-OFF: Report given to GAIL Gamble. The patient is resting on the bed without acute distress or shortness of breath. The patient's bed in the lowest position, call light in reach, and fall and aspiration precaution reinforced. Bilateral wrist soft restraints are intact, and the skin and circulation is intact. Naranjo patent and draining. IV site on L hand 24G intact and patent. Endorsed plan of care.
--- NOTE | 2019-01-28 19:28 | NUR ---
NURSE NOTES: Received report from GAIL Tucker. Patient is awake, lying in semi valladares's; resting comfortably. Denies pain at this time. No signs of acute cardiorespiratory distress noted. Checked IV site and flushed. No erythema, bleeding or infiltration noted. On bilateral soft wrist restraints, with good skin and circulation noted. With marte catheter draining well to gravity. Bed at lowest position, brakes on, siderails x3. Call light within reach. Will continue to monitor.
[2019-01-28 20:00] VITALS: BP 131/73
[2019-01-28] MEDS ORDERED: OLANZapine 2.5mg tab ORAL SCH (21:00)
--- NOTE | 2019-01-28 22:45 | Progress Note ---
DATE: 01/28/2019 CARDIOLOGY PROGRESS NOTE SUBJECTIVE: The patient remains confused, intermittently agitated, still needs restraints. This has been preventing discharge. OBJECTIVE: VITAL SIGNS: Blood pressure 146/60, pulse 75, and respirations 18. LUNGS: Clear. CARDIAC: Regular. ABDOMEN: Soft, with no ascites. EXTREMITIES: There is no edema. LABORATORY DATA: White count 11, hemoglobin 10.8. Potassium 3, BUN 26, and creatinine 2.6. Albumin 1.5. IMPRESSION: 1. Metabolic and toxic encephalopathy. 2. Hypokalemia. 3. Acute on chronic renal failure. 4. Severe protein-calorie malnutrition. 5. Anemia. 6. Paroxysmal sinus tachycardia. PLAN: 1. Check ammonia level. 2. Attempt to discontinue restraints. 3. Nutritional support with protein supplement. 4. Check magnesium. 5. Replace potassium. Jorge Self M.D. DR: DREW JOB#: [id number] CC:
--- NOTE | 2019-01-28 23:15 | Progress Note ---
DATE: 01/28/2019 SUBJECTIVE: The patient is in restraints and calm. No behavioral issues. She has episodes of agitation. MENTAL STATUS EXAMINATION: The patient is alert, confused, knows her name. Mood is neutral. Affect is flat. Thought process, there is a paucity of thought content. Thought content, no suicidal or homicidal ideations. Cognition is impaired. ASSESSMENT: Stable. PLAN: 1. We will continue current medication. 2. Provide the patient with reality orientation and supportive therapy. Cynthia Nicholson M.D. DR: VONDA JOB#: [id number] CC:
--- NOTE | 2019-01-28 23:45 | NUR ---
TRANSFER TO FLOOR: Report given to GAIL Chapa. Patient was transferred to Med Surg 4E from tele via gurney without any incident. Patient is awake, and in stable condition. Belongings list checked with transferring RN.
[2019-01-29] VITALS: BP 128/75
--- NOTE | 2019-01-29 01:35 | NUR ---
NURSE NOTES: Received patient from tele unit. With bilateral soft wrist restraints on. Active range of motion. Pulses are present. Normal skin color. With marte catheter. Marte anchor applied. Wound care photos taken. Dressings are changed. Instructed to use call light for assistance, in reach. Bed in lowest, lock engaged and alarm on. Will continue to monitor.
[2019-01-29 04:00] VITALS: BP 132/60
[2019-01-29] MEDS: NovoLOG Insulin Flexpen SUBQ SCH ×4 (05:53→21:00)
[2019-01-29 06:25] LABS: BASOPHILS % (AUTO) 1.1 % (0.0-2.0); HEMATOCRIT 30.9 % (37.0-47.0); LYMPHOCYTES % (AUTO) 4.2 % (20.0-45.0); MEAN CORPUSCULAR VOLUME 87 FL (80-99); MONOCYTES % (AUTO) 9.5 % (1.0-10.0); NEUTROPHILS % (AUTO) 84.2 % (45.0-75.0); PLATELET COUNT 122 K/UL (150-450); RED BLOOD COUNT 3.56 M/UL (4.20-5.40); RED CELL DISTRIBUTION WIDTH 12.6 % (11.6-14.8); WHITE BLOOD COUNT 11.1 K/UL (4.8-10.8)
--- NOTE | 2019-01-29 06:25 | NUR ---
NURSE NOTES: Patient refused Protonix.
--- NOTE | 2019-01-29 06:51 | NUR ---
NURSE NOTES: Dr. Chapa made aware for unsuccessful IV insertions.
--- NOTE | 2019-01-29 07:44 | NUR ---
HAND-OFF: Report given to GAIL Lehman.
--- NOTE | 2019-01-29 07:56 | NUR ---
NURSE NOTES: Received pt in bed, AAOx 2. No c/o of pain/distress. Room air. No IV access. Anranjo catheter noted. Bilateral restraints on. Pulse present. Side rails x 2. Bed in the lowest, locked, and alarm on. Call light within reach. Will continue to monitor
[2019-01-29 07:58] LABS: ANION GAP 12 mmol/L (5-15); BLOOD UREA NITROGEN 27 mg/dL (7-18); CALCIUM 6.7 MG/DL (8.5-10.1); CARBON DIOXIDE 21 MMOL/L (21-32); CHLORIDE 107 MMOL/L (98-107); CREATININE 2.5 MG/DL (0.55-1.30); POTASSIUM 3.3 MMOL/L (3.5-5.1); SODIUM 140 MMOL/L (136-145)
[2019-01-29 08:00] VITALS: BP 108/74
[2019-01-29] MEDS: Metoprolol 25mg tab ORAL SCH ×3 (09:00→20:44)
[2019-01-29] MEDS: Heparin 5000 units/ml inj SUBQ SCH ×2 (09:00→20:59)
[2019-01-29] MEDS: Aspirin EC 81mg tab ORAL SCH (09:01)
[2019-01-29] MEDS: Ascorbic Acid 500mg tab ORAL SCH (09:02)
[2019-01-29] MEDS: Anastrazole 1mg tab ORAL SCH (09:03)
--- NOTE | 2019-01-29 09:10 | General Progress Note ---
Assessment/Plan Problem List: (1) Acute renal failure (ARF) ICD Codes: N17.9 - Acute kidney failure, unspecified SNOMED: 49318965 (2) Dehydration ICD Codes: E86.0 - Dehydration SNOMED: 80467190 (3) Decubitus skin ulcer ICD Codes: L89.90 - Pressure ulcer of unspecified site, unspecified stage SNOMED: 350141320 (4) Leukocytosis ICD Codes: D72.829 - Elevated white blood cell count, unspecified SNOMED: 235310217, 494742525 (5) Failure to thrive in adult ICD Codes: R62.7 - Adult failure to thrive SNOMED: 503877897 (6) Severe protein-calorie malnutrition ICD Codes: E43 - Unspecified severe protein-calorie malnutrition SNOMED: 759248735, 332743576, 822634089 Status: stable, progressing Assessment/Plan: ivf per renal encourage po monitor renal fxn/lytes add depakote psych follow up cannot go back to snf if needing restraints. wound care dnr conservative rx family did not want hospice poor prognosis dc planning Subjective ROS Limited/Unobtainable: No Constitutional: Reports: malaise, weakness HEENT: Reports: no symptoms Cardiovascular: Reports: no symptoms Respiratory: Reports: no symptoms Gastrointestinal/Abdominal: Reports: poor appetite, poor fluid intake Genitourinary: Reports: no symptoms Neurologic/Psychiatric: Reports: anxiety, emotional problems, pre-existing deficit Endocrine: Reports: no symptoms Hematologic/Lymphatic: Reports: anemia Allergies: Coded Allergies: No Known Allergies (Unverified , 01/15/19) All Systems: reviewed and negative except above Subjective no events. remains confused and intermittently agitated. Per staff pt still needs restraints. constantly pulling at lines and trying to get out of bed Objective Last 24 Hour Vital Signs Date Time Temp Pulse Resp B/P (MAP) Pulse Ox O2 Delivery O2 Flow Rate FiO2 01/29/19 09:00 81 108/74 01/29/19 08:00 96.2 81 20 108/74 (85) 97 01/29/19 04:00 98.4 95 18 132/60 (84) 100 01/29/19 00:00 98.1 92 18 128/75 (92) 100 01/28/19 21:32 96 131/73 01/28/19 21:00 Room Air 01/28/19 20:00 89 01/28/19 20:00 97.0 96 18 131/73 (92) 100 01/28/19 16:00 90 01/28/19 16:00 98.1 91 18 146/61 (89) 98 01/28/19 12:00 98.1 89 18 119/60 (79) 98 01/28/19 12:00 96 01/28/19 09:33 79 100/46 Intake and Output 01/28/19 01/29/19 19:00 07:00 Intake Total 465 ml 485 ml Output Total 550 ml 400 ml Balance -85 ml 85 ml Intake Oral 390 ml 200 ml IV Total 75 ml 285 ml Output Urine Total 550 ml 400 ml Laboratory Tests 01/28/19 09:30: White Blood Count 11.1H, Red Blood Count 3.82L, Hemoglobin 10.8L, Hematocrit 32.9L, Mean Corpuscular Volume 86, Mean Corpuscular Hemoglobin 28.3, Mean Corpuscular Hemoglobin Concent 32.8, Red Cell Distribution Width 11.9, Platelet Count 150, Mean Platelet Volume 7.5, Neutrophils (%) (Auto) 80.7H, Lymphocytes ( %) (Auto) 10.0L, Monocytes (%) (Auto) 6.2, Eosinophils (%) (Auto) 1.6, Basophils (%) (Auto) 1.6, Sodium Level 140, Potassium Level 3.0L, Chloride Level 105, Carbon Dioxide Level 23, Anion Gap 12, Blood Urea Nitrogen 26H, Creatinine 2.6H, Estimat Glomerular Filtration Rate , Glucose Level 96, Calcium Level 6.5L, Total Bilirubin 0.9, Aspartate Amino Transf (AST/SGOT) 74H, Alanine Aminotransferase (ALT/SGPT) 59, Alkaline Phosphatase 421H, Total Protein 6.7, Albumin 1.5L, Globulin 5.2, Albumin/Globulin Ratio 0.3L 01/29/19 05:50: White Blood Count 11.1H, Red Blood Count 3.56L, Hemoglobin 10.0L, Hematocrit 30.9L, Mean Corpuscular Volume 87, Mean Corpuscular Hemoglobin 28.1, Mean Corpuscular Hemoglobin Concent 32.4, Red Cell Distribution Width 12.6, Platelet Count 122L, Mean Platelet Volume 7.1, Neutrophils (%) (Auto) 84.2H, Lymphocytes (%) (Auto) 4.2L, Monocytes (%) (Auto) 9.5, Eosinophils (%) (Auto) 1.0, Basophils (%) (Auto) 1.1, Sodium Level 140, Potassium Level 3.3L, Chloride Level 107, Carbon Dioxide Level 21, Anion Gap 12, Blood Urea Nitrogen 27H, Creatinine 2.5H, Estimat Glomerular Filtration Rate , Glucose Level 96, Calcium Level 6.7L, Magnesium Level 1.6L, Ammonia 25, Pro-B-Type Natriuretic Peptide 6805H Height (Feet): 5 Height (Inches): 1.00 Weight (Pounds): 120 Objective General Appearance: WD/WN, alert Neck: supple Cardiovascular: regular rhythm Respiratory/Chest: chest wall non-tender, lungs clear, normal breath sounds, no respiratory distress Abdomen: normal bowel sounds, non tender, soft, no organomegaly Edema: no edema noted Arm (L), no edema noted Arm (R), no edema noted Leg (L), no edema noted Leg (R), no edema noted Pedal (L), no edema noted Pedal (R), no edema noted Generalized Mesfin Chapa MD Jan 29, 2019 09:10
--- NOTE | 2019-01-29 10:56 | Infectious Diseases Prog Note ---
Assessment/Plan Assessment/Plan antibiotics : none A 1. pancreatitis resolved 2. cirrhosis 3. leucocytosis resolved 4. renal failure improving 5. 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 observe off antibiotics Subjective ROS Limited/Unobtainable: Yes Allergies: Coded Allergies: No Known Allergies (Unverified , 01/15/19) Objective Vital Signs Last 24 Hour Vital Signs Date Time Temp Pulse Resp B/P (MAP) Pulse Ox O2 Delivery O2 Flow Rate FiO2 01/29/19 09:00 81 108/74 01/29/19 09:00 Room Air 01/29/19 08:00 96.2 81 20 108/74 (85) 97 01/29/19 04:00 98.4 95 18 132/60 (84) 100 01/29/19 00:00 98.1 92 18 128/75 (92) 100 01/28/19 21:32 96 131/73 01/28/19 21:00 Room Air 01/28/19 20:00 89 01/28/19 20:00 97.0 96 18 131/73 (92) 100 01/28/19 16:00 90 01/28/19 16:00 98.1 91 18 146/61 (89) 98 01/28/19 12:00 98.1 89 18 119/60 (79) 98 01/28/19 12:00 96 Height (Feet): 5 Height (Inches): 1.00 Weight (Pounds): 120 Respiratory/Chest: lungs clear Cardiovascular: normal rate, regular rhythm, no gallop/murmur Abdomen: soft, non tender Extremities: other - + edema Laboratory Tests Test 01/29/19 05:50 White Blood Count 11.1 K/UL (4.8-10.8) H Red Blood Count 3.56 M/UL (4.20-5.40) L Hemoglobin 10.0 G/DL (12.0-16.0) L Hematocrit 30.9 % (37.0-47.0) L Mean Corpuscular Volume 87 FL (80-99) Mean Corpuscular Hemoglobin 28.1 PG (27.0-31.0) Mean Corpuscular Hemoglobin Concent 32.4 G/DL (32.0-36.0) Red Cell Distribution Width 12.6 % (11.6-14.8) Platelet Count 122 K/UL (150-450) L Mean Platelet Volume 7.1 FL (6.5-10.1) Neutrophils (%) (Auto) 84.2 % (45.0-75.0) H Lymphocytes (%) (Auto) 4.2 % (20.0-45.0) L Monocytes (%) (Auto) 9.5 % (1.0-10.0) Eosinophils (%) (Auto) 1.0 % (0.0-3.0) Basophils (%) (Auto) 1.1 % (0.0-2.0) Sodium Level 140 MMOL/L (136-145) Potassium Level 3.3 MMOL/L (3.5-5.1) L Chloride Level 107 MMOL/L (98-107) Carbon Dioxide Level 21 MMOL/L (21-32) Anion Gap 12 mmol/L (5-15) Blood Urea Nitrogen 27 mg/dL (7-18) H Creatinine 2.5 MG/DL (0.55-1.30) H Estimat Glomerular Filtration Rate mL/min (>60) Glucose Level 96 MG/DL (74-106) Calcium Level 6.7 MG/DL (8.5-10.1) L Magnesium Level 1.6 MG/DL (1.8-2.4) L Ammonia 25 umol/L (11-32) Pro-B-Type Natriuretic Peptide 6805 pg/mL (0-125) H Current Medications Medications (Trade) Dose Ordered Sig/Whitley Route PRN Reason Start Time Stop Time Status Last Admin Dose Admin Acetaminophen (Tylenol) 650 mg Q4H PRN ORAL Mild Pain/Temp > 100.5 01/29/19 03:30 02/15/19 15:29 Anastrozole (Arimidex) 1 mg DAILY ORAL 01/29/19 09:00 02/15/19 08:59 01/29/19 09:03 Ascorbic Acid (Vitamin C) 500 mg DAILY ORAL 01/29/19 09:00 02/17/19 08:59 01/29/19 09:02 Aspirin (Ecotrin) 81 mg DAILY ORAL 01/29/19 09:00 02/15/19 08:59 01/29/19 09:01 Dextrose 1,000 ml @ 75 mls/hr [id number] IV 01/29/19 00:15 02/22/19 08:29 01/29/19 00:39 Dextrose (Dextrose 50%) 25 ml Q30M PRN IV Hypoglycemia 01/29/19 00:15 02/18/19 11:14 Dextrose (Dextrose 50%) 50 ml Q30M PRN IV Hypoglycemia 01/29/19 00:15 02/18/19 11:14 Diphenhydramine HCl (Benadryl Cream) 1 applic QIDPRN PRN TOPIC Itching 01/29/19 14:15 02/23/19 14:14 Divalproex Sodium (Depakote) 250 mg EVERY 12 HOURS ORAL 01/29/19 09:15 02/28/19 09:14 Haloperidol Lactate (Haldol) 2 mg Q4H PRN IM Agitation 01/29/19 02:45 02/16/19 14:44 Heparin Sodium (Porcine) (Heparin 5000 units/ml) 5,000 units EVERY 12 HOURS SUBQ 01/29/19 09:00 02/15/19 08:59 Insulin Aspart (NovoLOG) BEFORE MEALS AND HS SUBQ 01/29/19 06:30 02/18/19 11:29 Metoprolol Tartrate (Lopressor) 25 mg Q12HR ORAL 01/29/19 09:00 02/15/19 08:59 Mirtazapine (Remeron) 15 mg BEDTIME ORAL 01/29/19 21:00 02/16/19 23:14 Multivitamins (Multivitamins) 1 tab DAILY ORAL 01/29/19 09:00 02/17/19 08:59 01/29/19 09:02 Olanzapine (ZyPREXA) 5 mg DAILY ORAL 01/29/19 09:00 02/27/19 08:59 01/29/19 09:03 Olanzapine (ZyPREXA) 7.5 mg BEDTIME ORAL 01/29/19 21:00 02/27/19 20:59 Pantoprazole (Protonix) 40 mg DAILY@0630 ORAL 01/29/19 06:30 02/28/19 06:29 Lalito Major MD Jan 29, 2019 10:56
[2019-01-29 12:00] VITALS: BP 110/70
--- NOTE | 2019-01-29 13:33 | Nephrology Progress Note ---
Assessment/Plan Problem List: (1) Acute renal failure (ARF) Assessment: Cr lowering (2) Failure to thrive in adult (3) Severe protein-calorie malnutrition (4) Dehydration (5) Elevated LFTs Assessment: improving (6) Hypokalemia Assessment Acute on chronic renal failure- Dehydration Failing to thrive, Malnutrition Decubiti Urinary retention Plan marte Urine studies Hydrate- has PICC now K and Mag supplement as needed CXR STANLEY kidney noted per orders [facility] Subjective ROS Limited/Unobtainable: No Constitutional: Reports: malaise, weakness Objective Objective Last 24 Hour Vital Signs Date Time Temp Pulse Resp B/P (MAP) Pulse Ox O2 Delivery O2 Flow Rate FiO2 01/29/19 12:00 97.5 85 19 110/70 (83) 98 01/29/19 09:00 81 108/74 01/29/19 09:00 Room Air 01/29/19 08:00 96.2 81 20 108/74 (85) 97 01/29/19 04:00 98.4 95 18 132/60 (84) 100 01/29/19 00:00 98.1 92 18 128/75 (92) 100 01/28/19 21:32 96 131/73 01/28/19 21:00 Room Air 01/28/19 20:00 89 01/28/19 20:00 97.0 96 18 131/73 (92) 100 01/28/19 16:00 90 01/28/19 16:00 98.1 91 18 146/61 (89) 98 Intake and Output 01/28/19 01/29/19 18:59 06:59 Intake Total 390 ml 560 ml Output Total 550 ml 400 ml Balance -160 ml 160 ml Intake Oral 390 ml 200 ml IV Total 360 ml Output Urine Total 550 ml 400 ml Laboratory Tests 01/29/19 05:50: White Blood Count 11.1H, Red Blood Count 3.56L, Hemoglobin 10.0L, Hematocrit 30.9L, Mean Corpuscular Volume 87, Mean Corpuscular Hemoglobin 28.1, Mean Corpuscular Hemoglobin Concent 32.4, Red Cell Distribution Width 12.6, Platelet Count 122L, Mean Platelet Volume 7.1, Neutrophils (%) (Auto) 84.2H, Lymphocytes (%) (Auto) 4.2L, Monocytes (%) (Auto) 9.5, Eosinophils (%) (Auto) 1.0, Basophils (%) (Auto) 1.1, Sodium Level 140, Potassium Level 3.3L, Chloride Level 107, Carbon Dioxide Level 21, Anion Gap 12, Blood Urea Nitrogen 27H, Creatinine 2.5H, Estimat Glomerular Filtration Rate , Glucose Level 96, Calcium Level 6.7L, Magnesium Level 1.6L, Ammonia 25, Pro-B-Type Natriuretic Peptide 6805H Height (Feet): 5 Height (Inches): 1.00 Weight (Pounds): 120 General Appearance: confused Cardiovascular: tachycardia Respiratory/Chest: decreased breath sounds Abdomen: distended Objective no change Mauri Huddleston MD Jan 29, 2019 13:33
[2019-01-29] MEDS ORDERED: DiphenhydrAMINE & Zinc 28g Cream TOPIC PRN (14:15)
--- NOTE | 2019-01-29 15:14 | NUR ---
RD ASSESSMENT & RECOMMENDATIONS SEE CARE ACTIVITY FOR COMPLETE ASSESSMENT DAILY ESTIMATED NEEDS: Needs based on Cancer, wounds 48kg 30-40 kcals/kg 2858-5698 total kcals 1.25-2 g protein/kg 60-96 g total protein 25-30 mL/kg 9063-9621 total fluid mLs NUTRITION DIAGNOSIS: Increased kcal and pro needs r/t wound healing and low BMI as evidenced by BMI underweight per guidelines, pt w/ multiple partial thickness wounds, refer to WC eval, currently w/ poor and variable PO intake CURRENT DIET:CCHO MED/ pureed moist -> SOFT EASY CHEW + Glucerna TID w/ meals PO DIET RECOMMENDATIONS: Liberalized regular diet w/ poor PO (texture per STOCK DIGGER) ADDITIONAL RECOMMENDATIONS: - Calibrated bedscale wt for accurate CBW - F/up w/ [place] Count x 48 hrs- completed, overall poor intake - WOUND CARE: add DILAN BID, continue MVI x1 + VIT C 500mg daily - Consider additional appetite stimulant: on Remeron, cont w/ poor PO - Monitor lytes, replete as needed - Continue to offer Glucerna @ all meals - Add CCHO MED to diet w/ PO intake consistently >50%
--- NOTE | 2019-01-29 15:26 | Surgery Progress Note ---
Surgery Progress Note Subjective Symptoms: improved, pain absent, tolerating diet, voiding well Objective Last 24 Hour Vital Signs Date Time Temp Pulse Resp B/P (MAP) Pulse Ox O2 Delivery O2 Flow Rate FiO2 01/29/19 12:00 97.5 85 19 110/70 (83) 98 01/29/19 09:00 81 108/74 01/29/19 09:00 Room Air 01/29/19 08:00 96.2 81 20 108/74 (85) 97 01/29/19 04:00 98.4 95 18 132/60 (84) 100 01/29/19 00:00 98.1 92 18 128/75 (92) 100 01/28/19 21:32 96 131/73 01/28/19 21:00 Room Air 01/28/19 20:00 89 01/28/19 20:00 97.0 96 18 131/73 (92) 100 01/28/19 16:00 90 01/28/19 16:00 98.1 91 18 146/61 (89) 98 I&O Intake and Output 01/28/19 01/29/19 19:00 07:00 Intake Total 465 ml 485 ml Output Total 550 ml 400 ml Balance -85 ml 85 ml Intake Oral 390 ml 200 ml IV Total 75 ml 285 ml Output Urine Total 550 ml 400 ml Dressing: dry Wound: clean Cardiovascular: RSR Respiratory: clear Abdomen: soft, flat, tenderness, present bowel sounds Extremities: no tenderness, no cyanosis Laboratory Tests Test 01/29/19 05:50 White Blood Count 11.1 K/UL (4.8-10.8) H Red Blood Count 3.56 M/UL (4.20-5.40) L Hemoglobin 10.0 G/DL (12.0-16.0) L Hematocrit 30.9 % (37.0-47.0) L Mean Corpuscular Volume 87 FL (80-99) Mean Corpuscular Hemoglobin 28.1 PG (27.0-31.0) Mean Corpuscular Hemoglobin Concent 32.4 G/DL (32.0-36.0) Red Cell Distribution Width 12.6 % (11.6-14.8) Platelet Count 122 K/UL (150-450) L Mean Platelet Volume 7.1 FL (6.5-10.1) Neutrophils (%) (Auto) 84.2 % (45.0-75.0) H Lymphocytes (%) (Auto) 4.2 % (20.0-45.0) L Monocytes (%) (Auto) 9.5 % (1.0-10.0) Eosinophils (%) (Auto) 1.0 % (0.0-3.0) Basophils (%) (Auto) 1.1 % (0.0-2.0) Sodium Level 140 MMOL/L (136-145) Potassium Level 3.3 MMOL/L (3.5-5.1) L Chloride Level 107 MMOL/L (98-107) Carbon Dioxide Level 21 MMOL/L (21-32) Anion Gap 12 mmol/L (5-15) Blood Urea Nitrogen 27 mg/dL (7-18) H Creatinine 2.5 MG/DL (0.55-1.30) H Estimat Glomerular Filtration Rate mL/min (>60) Glucose Level 96 MG/DL (74-106) Calcium Level 6.7 MG/DL (8.5-10.1) L Magnesium Level 1.6 MG/DL (1.8-2.4) L Ammonia 25 umol/L (11-32) Pro-B-Type Natriuretic Peptide 6805 pg/mL (0-125) H Plan Problems: (1) Dehydration (2) Decubitus skin ulcer Assessment & Plan: Pt presented on admission with multiple wounds.Hx R Mastectomy . Full thickness wound that is tunneled into R axilla noted to aleksander R mastectomy.Base of wound is sahara with macerated borders oozing small amt serous exudate noted. No odor noted. (L)3cm x (W)6cm x (D)0.3, tunneling clockwise @10o'clock by 6.6cm. Full thickness wound lateral/posterior R chest. Scattered slough at base of wound with erythematous borders .Periwound indurated. wound oozing small amt serous exudate. (L)1cm x (W)3cm. Full thickness wound posterior thoracic. 100% slough at base of wound. Erythematous borders. No odor or exudate noted(L)2.3cm x (W)2.5cm. Full thickness wound median R humerus. 100% slough with erythematous borders. No odor or exudate noted.(L)3.9cm x (W)2.4cm. Incontinence associated dermatitis noted to sacral and cleft of buttocks. Affected area is erythematous. Pt denied burning or itching. DTPI noted to medial L foot . Base of wound is indurated,purple with red margins.(L)3.2cm x (W)1cm. L heel boggy with non-blanchable erythema. Non-blanchable erythema without fluctuance R heel. Tx.Plan: Cleanse wound Aleksander R chest with Saline. Loosely pack wound (@10o'clock) with 1 /2 inch Iodoform packing. Apply Cavilon periwound. Cover with Optifoam drsg.Daily and prn. Cleanse wounds R arm with saline. Apply Xeroform gauze.Apply Cavilon periwound. Cover with Optifoam drsg. Change daily and prn. Cleanse wound Lateral/posterior chest with Saline. Apply xeroform gauze. Cover with Optifoam drsg. Change Daily and prn. Cleanse wound Posterior R thoracic with Saline. Cover with Xeroform. Apply Cavilon Skin Barrier periwound. Cover with Optifoam drsg. Daily and prn. Apply Triad Paste to Buttocks with each perineal care. Apply Cavilon Skin Barrier to both heels. Cover each heel with Optifoam drsg. every 7 days and prn. Reposition at least every 2hours or as tolerated. Off-load heels with pillow. (3) Leukocytosis Assessment & Plan: cont Abx worsening unlikely related to wounds that do not seem actively infected (4) Severe protein-calorie malnutrition Assessment & Plan: DAILY ESTIMATED NEEDS: Needs based on Cancer, wounds 48kg 30-40 kcals/kg 6162-4688 total kcals 1.25-2 g protein/kg 60-96 g total protein 25-30 mL/kg 4819-8149 total fluid mLs NUTRITION DIAGNOSIS: Increased kcal and pro needs r/t wound healing and low BMI as evidenced by BMI underweight per guidelines, pt w/ multiple partial thickness wounds, refer to WC eval. CURRENT DIET: Soft GAGE PO DIET RECOMMENDATIONS: GAGE diet/ texture as tolerated ADDITIONAL RECOMMENDATIONS: - Pt w/ poor po intake, would rec to liberalized diet to REGULAR - Add ENSURE ENLIVE TID w/ meals - Obtain a standing scale wt as able Or recalibrate bed scale for accurate CBW - Monitor renal fxn/ lytes and need for renal supplement - WOUND CARE: add DILAN BID + MVI x1 + VIT C 500mg daily (5) Failure to thrive in adult (6) Acute cholecystitis Assessment & Plan: Patient with possible acalculous cholecystitis. Afebrile, hemodynamic stable, leukocytosis, acute episode of pancreatitis which is resolved chemically. On examination difficult to examine but no significant tenderness identified in the right upper quadrant. CT reviewed. US noted. inconsistent with CT findings HIDA negative Continue IV antibiotics We will follow with recommendations no acute surgical intervention recommended at this time conservative management with Abx Jesus Bennett Jan 29, 2019 15:26
[2019-01-29 16:00] VITALS: BP 128/63
--- NOTE | 2019-01-29 16:43 | NUR ---
NURSE NOTES: dr bardales aware of trial for dc restraints per cm , need for trial to remove restraints to place patient in snf. pt found on the floor in sitting position, bed alarm ringing still, pt is severely confused, no skin breakdown, no apparent injury, no c/o pain. assisted pt back to bed, pt still wants to be out of bed, reapplied bilateral soft wrist restraints. bed in lowest position. made aware, awaiting response. Addendum: 01/29/19 at 1732 by EMERSON MONTOYA RN ean samuel aware of above Addendum: 01/29/19 at 1756 by EMERSON MONTOYA RN DR BARDALES OKAYED RESTRAINTS MANAGER OF COMPLIANCE , ALSO RECOMMENDED TO DR BARDALES RE NEURO CONSULT BECAUSE PT IS SEVERELY CONFUSED
--- NOTE | 2019-01-29 19:23 | NUR ---
NURSE NOTES: IV was removed per patient
--- NOTE | 2019-01-29 19:24 | NUR ---
HAND-OFF: Report given to GAIL Mckeon and endorsed to put IV in and give second bag of magnesium .
--- NOTE | 2019-01-29 19:59 | NUR ---
NURSE NOTES: Received report from GAIL Lehman. Patient is in bed, awake and confused. Patient removed her IV despite being in bilateral soft wrist restraints. Naranjo intact and draining urine. No c/o pain at this time. No signs of SOB or distress. Bed locked and in lowest position. Bed alarm on. Call light in reach. Will continue to monitor.
[2019-01-29 20:00] VITALS: BP 150/106
--- NOTE | 2019-01-29 20:17 | NUR ---
NURSE NOTES: made aware that patient noes not have IV access at this time. Will attempt to reinsert.
[2019-01-29] MEDS: OLANZapine 2.5mg tab ORAL SCH (20:46)
--- NOTE | 2019-01-29 23:00 | Progress Note ---
DATE: 01/29/2019 SUBJECTIVE: The patient is confused. The patient still has episodes of agitation. He pulled out his IV access. He is confused and disoriented. Unable to be engaged during the evaluation. MENTAL STATUS EXAMINATION: The patient is alert, disoriented. Mood is neutral. Affect is flat. Thought process, disorganized. Thought content, no suicidal or homicidal ideations. Cognition is impaired. ASSESSMENT: Dementia with behavior disturbance. PLAN: 1. We will continue the current medications. 2. Continue bilateral restraints. Cynthia Nicholson M.D. DR: JAKY JOB#: [id number] CC:
--- NOTE | 2019-01-29 23:15 | Progress Note ---
DATE: 01/29/2019 CARDIOLOGY PROGRESS NOTE SUBJECTIVE: Remains confused, agitated requiring restraints at times. No shortness of breath apparent. OBJECTIVE: VITAL SIGNS: Blood pressure 108/74, pulse 81, respirations 20, afebrile. Adequate oxygen saturation on room air. LUNGS: Clear. CARDIAC: Regular. Normal S1, S2. There is a 1/6 systolic murmur at apex. ABDOMEN: Soft. There is no obvious ascites and trace dependent edema. LABORATORY DATA: White count 11.1, hemoglobin 10. Sodium 140, potassium 3.3, bicarb 21, BUN 27, creatinine 2.5, magnesium 1.6. Pro-natriuretic peptide is , down from 20,000. IMPRESSION: 1. Hypomagnesemia. 2. Hypokalemia. 3. Acute on chronic diastolic congestive heart failure, improved. 4. Acute on chronic renal failure, improved. 5. Moderate to severe protein-calorie malnutrition. 6. Possible metastatic carcinoma. 7. Cirrhosis of the liver. 8. Metabolic and toxic encephalopathies. PLAN: 1. Conservative management. 2. Potassium replacement. 3. IV magnesium replacement. 4. Cautious use of antiplatelet therapy. 5. Taper neuroleptics as able. Jorge Self M.D. DR: MARIO JOB#: [id number] CC:
[2019-01-30] VITALS: BP 97/56
[2019-01-30 04:00] VITALS: BP 109/64
--- NOTE | 2019-01-30 05:52 | NUR ---
NURSE NOTES: Notified Dr. Chapa of unsuccessful IV attempts. dock supervisor aware.
[2019-01-30] MEDS: NovoLOG Insulin Flexpen SUBQ SCH ×4 (06:30→21:00)
--- NOTE | 2019-01-30 06:30 | NUR ---
NURSE NOTES: IV access obtained. aware.
--- NOTE | 2019-01-30 07:10 | NUR ---
HAND-OFF: Report given to GAIL Lehman.
--- NOTE | 2019-01-30 07:12 | NUR ---
NURSE NOTES: Received pt in bed, sleeping. No s/s of distress/pain. IV on the L FA 22g intact and patent, running D5W @ 75 ml/hr. Bilateral soft restraints on. Pulse present. Swelling noted on R arm. FC draining yellow urine. Bed in the lowest and locked, with alarm on. Call light within reach. Will continue to monitor
[2019-01-30 07:31] LABS: ALANINE AMINOTRANSFERASE 50 U/L (12-78); ALBUMIN 1.6 G/DL (3.4-5.0); ALBUMIN/GLOBULIN RATIO 0.3 (1.0-2.7); ALKALINE PHOSPHATASE 401 U/L (46-116); ANION GAP 12 mmol/L (5-15); ASPARTATE AMINO TRANSFERASE 63 U/L (15-37); BILIRUBIN,TOTAL 0.8 MG/DL (0.2-1.0); BLOOD UREA NITROGEN 25 mg/dL (7-18); CALCIUM 6.8 MG/DL (8.5-10.1); CARBON DIOXIDE 22 MMOL/L (21-32); CHLORIDE 112 MMOL/L (98-107); CREATININE 2.3 MG/DL (0.55-1.30); POTASSIUM 3.6 MMOL/L (3.5-5.1); SODIUM 146 MMOL/L (136-145)
[2019-01-30 08:00] VITALS: BP 123/70
[2019-01-30] MEDS: Metoprolol 25mg tab ORAL SCH ×2 (09:00→21:16)
[2019-01-30] MEDS: Anastrazole 1mg tab ORAL SCH (09:00)
[2019-01-30] MEDS: Heparin 5000 units/ml inj SUBQ SCH ×2 (09:00→21:17)
[2019-01-30] MEDS: Aspirin EC 81mg tab ORAL SCH (09:00)
[2019-01-30] MEDS: Ascorbic Acid 500mg tab ORAL SCH (09:00)
--- NOTE | 2019-01-30 09:34 | General Progress Note ---
Assessment/Plan Problem List: (1) Acute renal failure (ARF) ICD Codes: N17.9 - Acute kidney failure, unspecified SNOMED: 51880761 (2) Dehydration ICD Codes: E86.0 - Dehydration SNOMED: 06468607 (3) Decubitus skin ulcer ICD Codes: L89.90 - Pressure ulcer of unspecified site, unspecified stage SNOMED: 121500845 (4) Leukocytosis ICD Codes: D72.829 - Elevated white blood cell count, unspecified SNOMED: 270243970, 478477224 (5) Failure to thrive in adult ICD Codes: R62.7 - Adult failure to thrive SNOMED: 284204102 (6) Severe protein-calorie malnutrition ICD Codes: E43 - Unspecified severe protein-calorie malnutrition SNOMED: 394646748, 943930588, 390228626 Status: stable, progressing Assessment/Plan: ivf if able to get iv encourage po monitor renal fxn/lytes add depakote psych follow up neuro eval called- family request cannot go back to snf if needing restraints. wound care dnr conservative rx family did not want hospice poor prognosis dc planning Subjective ROS Limited/Unobtainable: Yes Constitutional: Reports: malaise, weakness HEENT: Reports: no symptoms Cardiovascular: Reports: no symptoms Respiratory: Reports: no symptoms Gastrointestinal/Abdominal: Reports: poor appetite, poor fluid intake Genitourinary: Reports: no symptoms Neurologic/Psychiatric: Reports: pre-existing deficit Endocrine: Reports: no symptoms Hematologic/Lymphatic: Reports: anemia Allergies: Coded Allergies: No Known Allergies (Unverified , 01/15/19) All Systems: reviewed and negative except above Subjective no events. remains confused and intermittently agitated. Per staff pt still needs restraints. constantly pulling at lines and trying to get out of bed. cant get iv Objective Last 24 Hour Vital Signs Date Time Temp Pulse Resp B/P (MAP) Pulse Ox O2 Delivery O2 Flow Rate FiO2 01/30/19 08:00 97.8 92 16 123/70 (87) 99 01/30/19 04:00 97.4 86 18 109/64 (79) 97 01/30/19 00:00 98.1 88 16 97/56 (70) 100 01/29/19 21:00 Room Air 01/29/19 20:44 109 150/106 01/29/19 20:00 99.0 109 18 150/106 (121) 95 01/29/19 16:00 97.8 100 18 128/63 (84) 95 01/29/19 12:00 97.5 85 19 110/70 (83) 98 Intake and Output 01/29/19 01/30/19 19:00 07:00 Intake Total 1000 ml Output Total 900 ml 1400 ml Balance 100 ml -1400 ml Intake Oral 1000 ml Output Urine Total 900 ml 1400 ml Laboratory Tests 01/30/19 05:53: Sodium Level 146H, Potassium Level 3.6, Chloride Level 112H, Carbon Dioxide Level 22, Anion Gap 12, Blood Urea Nitrogen 25H, Creatinine 2.3H, Estimat Glomerular Filtration Rate , Glucose Level 67L, Uric Acid 6.4, Calcium Level 6.8L, Phosphorus Level 4.0, Magnesium Level 1.7L, Total Bilirubin 0.8, Aspartate Amino Transf (AST/SGOT) 63H, Alanine Aminotransferase (ALT/SGPT) 50, Alkaline Phosphatase 401H, Total Protein 6.6, Albumin 1.6L, Globulin 5.0, Albumin/Globulin Ratio 0.3L Height (Feet): 5 Height (Inches): 1.00 Weight (Pounds): 118 Objective General Appearance: WD/WN, alert Neck: supple Cardiovascular: regular rhythm Respiratory/Chest: chest wall non-tender, lungs clear, normal breath sounds, no respiratory distress Abdomen: normal bowel sounds, non tender, soft, no organomegaly Edema: no edema noted Arm (L), no edema noted Arm (R), no edema noted Leg (L), no edema noted Leg (R), no edema noted Pedal (L), no edema noted Pedal (R), no edema noted Generalized Mesfin Chapa MD Jan 30, 2019 09:34
[2019-01-30 12:00] VITALS: BP 134/78
[2019-01-30] MEDS: Thiamine HCl 100 MG in D5W 55 ML IVPB SCH (13:52)
--- NOTE | 2019-01-30 14:07 | NUR ---
CASE MANAGEMENT:REVIEW 01/30/19 SI: ACUTE RENAL FAILURE DEHYDRATION. LEUKOCYTOSIS. MULTIPLE LIVER LESIONS 98.5 102 18 134/78 97% ON RA WBC+11.1 PLT-122 BUN+25 CR+2.3 MAG-1.7 IS: IV THIAMINE QD IV MAG SULFATE IVF@75/HR ZYPREXA 7.5MG PO QHS ZYPREXA 5MG PO QD PROTONIX PO QD ASA PO QD LOPRESSOR PO Q12 : TELEMETRY STATUS DCP: FROM [facility] PLAN: RESTRAINTS NEED TO BE DC'D BEFORE RETURNING TO SNF
--- NOTE | 2019-01-30 14:51 | Nephrology Progress Note ---
Assessment/Plan Problem List: (1) Acute renal failure (ARF) Assessment: Cr lowering (2) Failure to thrive in adult (3) Severe protein-calorie malnutrition Assessment: Low Albumin (4) Dehydration (5) Elevated LFTs Assessment: improving (6) Hypokalemia (7) Acute encephalopathy Assessment remains encephalopathic Acute on chronic renal failure- Dehydration Failing to thrive, Malnutrition Decubiti Urinary retention Plan marte Urine studies Hydrate- has PICC now K and Mag supplement as needed CXR STANLEY kidney noted Med surg Subjective ROS Limited/Unobtainable: No Constitutional: Reports: malaise Objective Objective Last 24 Hour Vital Signs Date Time Temp Pulse Resp B/P (MAP) Pulse Ox O2 Delivery O2 Flow Rate FiO2 01/30/19 12:00 98.5 102 18 134/78 (96) 97 01/30/19 09:00 Room Air 01/30/19 08:00 97.8 92 16 123/70 (87) 99 01/30/19 04:00 97.4 86 18 109/64 (79) 97 01/30/19 00:00 98.1 88 16 97/56 (70) 100 01/29/19 21:00 Room Air 01/29/19 20:44 109 150/106 01/29/19 20:00 99.0 109 18 150/106 (121) 95 01/29/19 16:00 97.8 100 18 128/63 (84) 95 Intake and Output 01/29/19 01/30/19 19:00 07:00 Intake Total 1000 ml Output Total 900 ml 1400 ml Balance 100 ml -1400 ml Intake Oral 1000 ml Output Urine Total 900 ml 1400 ml Laboratory Tests 01/30/19 05:50: Thyroid Stimulating Hormone (TSH) 16.098H 01/30/19 05:53: Sodium Level 146H, Potassium Level 3.6, Chloride Level 112H, Carbon Dioxide Level 22, Anion Gap 12, Blood Urea Nitrogen 25H, Creatinine 2.3H, Estimat Glomerular Filtration Rate , Glucose Level 67L, Uric Acid 6.4, Calcium Level 6.8L, Phosphorus Level 4.0, Magnesium Level 1.7L, Total Bilirubin 0.8, Aspartate Amino Transf (AST/SGOT) 63H, Alanine Aminotransferase (ALT/SGPT) 50, Alkaline Phosphatase 401H, Total Protein 6.6, Albumin 1.6L, Globulin 5.0, Albumin/Globulin Ratio 0.3L 01/30/19 14:15: Ammonia 22 Height (Feet): 5 Height (Inches): 1.00 Weight (Pounds): 118 General Appearance: lethargic, confused, mild distress Cardiovascular: tachycardia Respiratory/Chest: decreased breath sounds Abdomen: distended Objective no change Mauri Huddleston MD Jan 30, 2019 14:51
[2019-01-30 16:00] VITALS: BP 108/65
--- NOTE | 2019-01-30 19:26 | NUR ---
HAND-OFF: Report given to GAIL [place].
--- NOTE | 2019-01-30 19:30 | Consultation ---
DATE OF CONSULTATION: 01/30/2019 NEUROLOGIC CONSULTATION CONSULTING PHYSICIAN: Dariel Schilling M.D. CHIEF COMPLAINT: This 84-year-old right-handed woman is a patient of Dr. Chapa admitted from her care home facility with a history of breast cancer, status post mastectomy, history of ischemic cardiomyopathy, status post angioplasty, scleroderma, hypertension, dementia, and left hip fracture, status post ORIF. The patient's history is from the chart. An attempt to contact the son was unsuccessful. The [facility] An IV was placed and she pulled out her IV. She has a history of depression and insomnia. Her examination of laboratory revealed a white count of 18,900, hemoglobin of 16.4 with a left shift, platelet count of 292,000, which is stable and gone down. On 01/18/2019 and 01/19/2019, her white count went up to 29,100. Decreased on 01/20/2019, but still elevated at 11,100. Platelet count has gone down to 122,000. The patient's ProTime is 14.4 with an INR of 1.4. APTT was 89. Urinalysis revealed mild bacteria, 2 to 4 wbc's per high-power field, 2+ protein, 2+ blood. The chemistries on admission revealed normal sodium 136, anion gap is 17, BUN is 66, creatinine 3.6, glucose 127, calcium of 6.6. She had elevated liver function tests. Lipase of greater than 2000. Vitamin B12 is 1398. Free T3 of 1.6 with a free T4 of 1.21. The lipase is declined from . She had a low magnesium on admission, low iron, low percent saturation. Her sugar on 01/19/2019 got up to 601. Serum sodium did up on 01/23/2019 to 151, chloride of 119. The liver function tests were also increasing over time with elevated alkaline phosphatase. The patient's CT scan of the brain on admission reveals chronic age-related changes. No evidence of atrophy. The chest x-ray revealed a possible right pleural effusion and clear lungs on 01/18/2019. Echocardiogram on 01/17/2019 is mildly abnormal study, see the chart. The CT of the abdomen and pelvis on 01/19/2019 revealed small lobulated liver mass lesion with gallbladder distention and gallbladder wall thickening and some renal cysts. There was some presacral edema noted and osseous metastases noted. The mass in the right upper quadrant of the liver could be an exophytic hepatic lesion about 6 cm. The abdominal ultrasound revealed a suggestion of a cirrhotic liver, but no ascites. There was a thickened gallbladder wall noted. HIDA scan done on 01/23/2019 revealed insignificant common bile duct. Microbiology studies revealed no growth from urine culture on 01/17/2019. MRSA from 01/16/2019. Blood cultures were negative at this timeframe. The patient had multiple consultants. Please see their notes, noted she had an acute on chronic renal failure by Dr. Huddleston. The patient initially was placed on medications, see the chart including the mirtazapine, Zyprexa, and Depakote 250 mg. The patient apparently has no history of seizures. I think it is the dementia out of her. She is a prior smoker, but quit. There is no illegal drug use. No alcohol use. The patient denies all symptoms except for possible weakness in the legs. No headaches. No family history of neurologic disease available. PAST MEDICAL ILLNESSES: See above. SURGERIES: See above. ALLERGIES: None. FAMILY HISTORY: Remarkable for heart disease. SOCIAL HISTORY: Unavailable. REVIEW OF SYSTEMS: Unavailable. PHYSICAL EXAMINATION: GENERAL: She is a well developed, chronically ill-appearing woman, lying in bed, in restraints. VITAL SIGNS: Temperature is 97.8 degrees, blood pressure 123/70, pulse 92 and regular, respiration rate 16 to 18. HEENT: Reveals temporalis muscle wasting and poor dentition. NECK: Neck is supple. Carotids are +2. No bruits could be appreciated. There is no obvious tenderness. LUNGS: Lungs are clear to auscultation. CARDIOVASCULAR: PMI could not felt. JVP was not well visualized. The heart tones were distant. ABDOMEN: Abdomen was slightly obese. Bowel sounds intact. No tenderness, masses, or organomegaly appreciated. BACK: Could not be tested. EXTREMITIES: Has evidence of degenerative joint disease. She had asterixis of the left upper extremity noted. NEUROLOGIC EXAMINATION: The patient is alert and awake, but was easily distracted and easily agitated. Essentially refused to be examined. MENTAL STATUS: Date, the patient thought it was 1941. Place, she thought she was in [place], [place]. Person, she thought she was 39 years old. She could spell world forwards, but not backwards. She could add 2 + 2 and 8 + 5, but could not subtract 19 from 17. Language function, spoken speech was fluent. Comprehension was basically intact. Simple repetition was intact. CRANIAL NERVE EXAMINATION: CRANIAL NERVES II: Visual noel are intact to gross confrontation. Fundi were not well visualized. Visual acuity not tested. CRANIAL NERVES III, IV, AND : Extraocular motility is full with saccadic smooth pursuit. Pupils are approximately 5.5 mm, round, light reactive. CRANIAL NERVE V: Corneal sensation was intact to fine touch. CRANIAL NERVE VII: Facial strength appeared to be symmetrical. CRANIAL NERVE VIII: Auditory acuity is grossly intact bilaterally. CRANIAL NERVES IX AND X: Could not be tested. CRANIAL NERVE XI: Sternocleidomastoid strength is 5/5. CRANIAL NERVE XII: Tongue protrudes in the midline with motor impersistence. MUSCLE EXAMINATION: Muscle bulk reveals slightly deviated bulk in lower extremities. Tone reveals paratonia in all 4 extremities. Strength, the patient can move all 4 extremities, probably nearly 5/5. Reflexes are 0 in the upper and lower extremities with withdrawal. Attempting to test for Babinski responses, she became more agitated and we did not examine her. COORDINATION: Could not be tested. GAIT AND STATION: The patient is in restraints, bedbound. SENSORY EXAMINATION: Sensation is intact to pain. IMPRESSION: The patient has probable Alzheimer disease and now superimposed probably metabolic encephalopathy. 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 Multiple small metastatic lesions could be missed on a noncontrast CT scan of the brain. The patient has some asterixis and some liver function abnormalities. She may have hyperammonemia and encephalopathy. There is only 1 extremity that is noted. The patient also had elevated white count and pancreatitis, which could cause more of a metabolic encephalopathy. The patient's medications can also contribute. I am concerned about . I do not think she has Wernicke's disease, but I will treat her with thiamine 100 mg a day IV. Serum ammonia level can be obtained. The patient does not appear to have seizures at this time and is not postictal. Her T3 is a little low, but the T4 is in the normal range. We are going to obtain a TSH. We will discuss whether or not a lumbar puncture should be done. She has carcinomatous meningitis and her prognosis would be worse than probably already is. The patient has osseous metastases according to one study. This does not appear to be a new myocardial infarction and she does not appear to have a stroke, although an infarct in the right parietal temporal area, which could mimic metabolic encephalopathy without muscle weakness. The patient's dehydration could also be a contributing factor as well as hyponatremia at least early on in her course. PLAN: 1. I will speak to you about the lumbar puncture. 2. Thiamine 100 mg IV daily. 3. Serum ammonia level. 4. I would obtain a TSH. 5. Consider MRI scan of the brain. 6. The patient may need more antipsychotics. Discussed with the psychiatrist. Thank you for this interesting case, Dr. Chapa. Dariel Schilling MD DR: BRENDAN JOB#: [id number] CC:
--- NOTE | 2019-01-30 19:52 | NUR ---
NURSE NOTES: Received patient awake,verbal,confused,non-compliant,uncooperative anf high fall risk,Patient is on bilateral soft wrist restraints.
[2019-01-30 20:00] VITALS: BP 116/73
--- NOTE | 2019-01-30 20:00 | Progress Note ---
DATE: 01/30/2019 SUBJECTIVE: The patient is in bed, no acute distress. The patient continues to have episodes of agitation, disoriented. The patient is taking olanzapine . MENTAL STATUS EXAMINATION: The patient is alert, oriented times self. Mood is neutral to anxious. Affect is flat. Thought process, there is a paucity of thought content. Thought content, no suicidal or homicidal ideation. ASSESSMENT: 1. Dementia with behavior disturbance. 2. Psychotic disorder. PLAN: We will continue Zyprexa 5 mg in the morning and 7.5 at bedtime. Cynthia Nicholson M.D. DR: Calvin JOB#: [id number] CC: AMISHA
[2019-01-30] MEDS: OLANZapine 2.5mg tab ORAL SCH (21:16)
--- NOTE | 2019-01-30 22:00 | Surgery Progress Note ---
Surgery Progress Note Subjective Additional Comments no acute events labs noted exam stable Objective Last 24 Hour Vital Signs Date Time Temp Pulse Resp B/P (MAP) Pulse Ox O2 Delivery O2 Flow Rate FiO2 01/30/19 21:16 90 116/73 01/30/19 20:00 97.9 90 18 116/73 (87) 97 01/30/19 16:00 98.3 91 18 108/65 (79) 98 01/30/19 12:00 98.5 102 18 134/78 (96) 97 01/30/19 09:00 Room Air 01/30/19 08:00 97.8 92 16 123/70 (87) 99 01/30/19 04:00 97.4 86 18 109/64 (79) 97 01/30/19 00:00 98.1 88 16 97/56 (70) 100 I&O Intake and Output 01/29/19 01/30/19 19:00 07:00 Intake Total 1000 ml Output Total 900 ml 1400 ml Balance 100 ml -1400 ml Intake Oral 1000 ml Output Urine Total 900 ml 1400 ml Dressing: other Wound: other Drains: other Cardiovascular: RSR Respiratory: decreased breath sounds Abdomen: soft, present bowel sounds Extremities: no cyanosis, other Laboratory Tests Test 01/30/19 05:50 01/30/19 05:53 01/30/19 14:15 Thyroid Stimulating Hormone (TSH) 16.098 uiU/mL (0.358-3.740) Sodium Level 146 MMOL/L (136-145) H Potassium Level 3.6 MMOL/L (3.5-5.1) Chloride Level 112 MMOL/L (98-107) H Carbon Dioxide Level 22 MMOL/L (21-32) Anion Gap 12 mmol/L (5-15) Blood Urea Nitrogen 25 mg/dL (7-18) H Creatinine 2.3 MG/DL (0.55-1.30) H Estimat Glomerular Filtration Rate mL/min (>60) Glucose Level 67 MG/DL (74-106) L Uric Acid 6.4 MG/DL (2.6-7.2) Calcium Level 6.8 MG/DL (8.5-10.1) L Phosphorus Level 4.0 MG/DL (2.5-4.9) Magnesium Level 1.7 MG/DL (1.8-2.4) L Total Bilirubin 0.8 MG/DL (0.2-1.0) Aspartate Amino Transf (AST/SGOT) 63 U/L (15-37) H Alanine Aminotransferase (ALT/SGPT) 50 U/L (12-78) Alkaline Phosphatase 401 U/L (46-116) H Total Protein 6.6 G/DL (6.4-8.2) Albumin 1.6 G/DL (3.4-5.0) L Globulin 5.0 g/dL Albumin/Globulin Ratio 0.3 (1.0-2.7) L Ammonia 22 umol/L (11-32) Plan Problems: (1) Dehydration (2) Decubitus skin ulcer Assessment & Plan: Pt presented on admission with multiple wounds.Hx R Mastectomy . Full thickness wound that is tunneled into R axilla noted to aleksander R mastectomy.Base of wound is sahara with macerated borders oozing small amt serous exudate noted. No odor noted. (L)3cm x (W)6cm x (D)0.3, tunneling clockwise @10o'clock by 6.6cm. Full thickness wound lateral/posterior R chest. Scattered slough at base of wound with erythematous borders .Periwound indurated. wound oozing small amt serous exudate. (L)1cm x (W)3cm. Full thickness wound posterior thoracic. 100% slough at base of wound. Erythematous borders. No odor or exudate noted(L)2.3cm x (W)2.5cm. Full thickness wound median R humerus. 100% slough with erythematous borders. No odor or exudate noted.(L)3.9cm x (W)2.4cm. Incontinence associated dermatitis noted to sacral and cleft of buttocks. Affected area is erythematous. Pt denied burning or itching. DTPI noted to medial L foot . Base of wound is indurated,purple with red margins.(L)3.2cm x (W)1cm. L heel boggy with non-blanchable erythema. Non-blanchable erythema without fluctuance R heel. Tx.Plan: Cleanse wound Aleksander R chest with Saline. Loosely pack wound (@10o'clock) with 1 /2 inch Iodoform packing. Apply Cavilon periwound. Cover with Optifoam drsg.Daily and prn. Cleanse wounds R arm with saline. Apply Xeroform gauze.Apply Cavilon periwound. Cover with Optifoam drsg. Change daily and prn. Cleanse wound Lateral/posterior chest with Saline. Apply xeroform gauze. Cover with Optifoam drsg. Change Daily and prn. Cleanse wound Posterior R thoracic with Saline. Cover with Xeroform. Apply Cavilon Skin Barrier periwound. Cover with Optifoam drsg. Daily and prn. Apply Triad Paste to Buttocks with each perineal care. Apply Cavilon Skin Barrier to both heels. Cover each heel with Optifoam drsg. every 7 days and prn. Reposition at least every 2hours or as tolerated. Off-load heels with pillow. (3) Leukocytosis Assessment & Plan: cont Abx worsening unlikely related to wounds that do not seem actively infected (4) Severe protein-calorie malnutrition Assessment & Plan: DAILY ESTIMATED NEEDS: Needs based on Cancer, wounds 48kg 30-40 kcals/kg 3453-3630 total kcals 1.25-2 g protein/kg 60-96 g total protein 25-30 mL/kg 9156-7482 total fluid mLs NUTRITION DIAGNOSIS: Increased kcal and pro needs r/t wound healing and low BMI as evidenced by BMI underweight per guidelines, pt w/ multiple partial thickness wounds, refer to WC eval. CURRENT DIET: Soft GAGE PO DIET RECOMMENDATIONS: GAGE diet/ texture as tolerated ADDITIONAL RECOMMENDATIONS: - Pt w/ poor po intake, would rec to liberalized diet to REGULAR - Add ENSURE ENLIVE TID w/ meals - Obtain a standing scale wt as able Or recalibrate bed scale for accurate CBW - Monitor renal fxn/ lytes and need for renal supplement - WOUND CARE: add DILAN BID + MVI x1 + VIT C 500mg daily (5) Failure to thrive in adult (6) Acute cholecystitis Assessment & Plan: Patient with possible acalculous cholecystitis. Afebrile, hemodynamic stable, leukocytosis, acute episode of pancreatitis which is resolved chemically. On examination difficult to examine but no significant tenderness identified in the right upper quadrant. CT reviewed. US noted. inconsistent with CT findings HIDA negative Continue IV antibiotics We will follow with recommendations no acute surgical intervention recommended at this time conservative management with Abx Jesus Bennett Jan 30, 2019 22:00
[2019-01-31] VITALS: BP 118/92
[2019-01-31 04:00] VITALS: BP 132/69
[2019-01-31] MEDS: NovoLOG Insulin Flexpen SUBQ SCH ×4 (05:52→20:42)
--- NOTE | 2019-01-31 07:23 | NUR ---
HAND-OFF: Report given to Pablo Smith RN.
--- NOTE | 2019-01-31 07:37 | General Progress Note ---
Assessment/Plan Problem List: (1) Acute renal failure (ARF) ICD Codes: N17.9 - Acute kidney failure, unspecified SNOMED: 08197348 (2) Dehydration ICD Codes: E86.0 - Dehydration SNOMED: 18022528 (3) Decubitus skin ulcer ICD Codes: L89.90 - Pressure ulcer of unspecified site, unspecified stage SNOMED: 623251077 (4) Leukocytosis ICD Codes: D72.829 - Elevated white blood cell count, unspecified SNOMED: 944334794, 955379005 (5) Failure to thrive in adult ICD Codes: R62.7 - Adult failure to thrive SNOMED: 363198097 (6) Severe protein-calorie malnutrition ICD Codes: E43 - Unspecified severe protein-calorie malnutrition SNOMED: 031469180, 701402279, 542375619 Status: stable, progressing Assessment/Plan: ivf if able to get iv encourage po monitor renal fxn/lytes psych follow up neuro eval appreciated- MRI ordered thyroid replacement rx monitor labs cannot go back to snf if needing restraints. wound care dnr conservative rx family did not want hospice poor prognosis dc planning Subjective ROS Limited/Unobtainable: No Constitutional: Reports: malaise, weakness HEENT: Reports: no symptoms Cardiovascular: Reports: no symptoms Respiratory: Reports: no symptoms Gastrointestinal/Abdominal: Reports: poor appetite, poor fluid intake Neurologic/Psychiatric: Reports: anxiety, emotional problems, pre-existing deficit Endocrine: Reports: no symptoms Hematologic/Lymphatic: Reports: anemia Allergies: Coded Allergies: No Known Allergies (Unverified , 01/15/19) All Systems: reviewed and negative except above Subjective no events. remains confused and intermittently agitated. Per staff pt still needs restraints. constantly pulling at lines and trying to get out of bed. cant get iv. restraints removed yesterday. pt found shortly after sitting on the floor. no trauma noted. Neuro appreciated Objective Last 24 Hour Vital Signs Date Time Temp Pulse Resp B/P (MAP) Pulse Ox O2 Delivery O2 Flow Rate FiO2 01/31/19 04:00 97.5 80 18 132/69 (90) 99 01/31/19 00:00 97.6 83 18 118/92 (101) 97 01/30/19 21:16 90 116/73 01/30/19 21:00 Room Air 01/30/19 20:00 97.9 90 18 116/73 (87) 97 01/30/19 16:00 98.3 91 18 108/65 (79) 98 01/30/19 12:00 98.5 102 18 134/78 (96) 97 01/30/19 09:00 Room Air 01/30/19 08:00 97.8 92 16 123/70 (87) 99 Intake and Output 01/30/19 01/31/19 18:59 06:59 Intake Total 480 ml 900 ml Output Total 300 ml 600 ml Balance 180 ml 300 ml Intake Oral 480 ml IV Total 900 ml Output Urine Total 300 ml 600 ml # Voids 2 Laboratory Tests 01/30/19 14:15: Ammonia 22 Height (Feet): 5 Height (Inches): 1.00 Weight (Pounds): 118 Objective General Appearance: WD/WN, alert Neck: supple Cardiovascular: regular rhythm Respiratory/Chest: chest wall non-tender, lungs clear, normal breath sounds, no respiratory distress Abdomen: normal bowel sounds, non tender, soft, no organomegaly Edema: no edema noted Arm (L), no edema noted Arm (R), no edema noted Leg (L), no edema noted Leg (R), no edema noted Pedal (L), no edema noted Pedal (R), no edema noted Generalized Mesfin Chapa MD Jan 31, 2019 07:37
--- NOTE | 2019-01-31 07:48 | NUR ---
NURSE NOTES: PT AXOX1, TO NAME ONLY. PT IS ABLE TO TELL RN NAME OF SON, MICHEAL (TRISTA). PT WAS FOUND WITH LEGS HANGING OUT OF ONE SIDE OF BED. PT WAS REPOSITIONED AND EDUCATED ON FALL PRECAUTIONS. PT WAS UNABLE TO VERBALIZE UNDERSTANDING AND KEPT REPEATING SHE NEEDS TO CALL HER SON TO RUN ERRANDS. PT WITH BILATERAL SOFT WRIST RESTRAINTS. NO SWELLING OR SKIN ISSUES NOTED OF BILATERAL WRISTS. RADIAL PULSES ARE STRONG AND PALPABLE. ULLOA CATH ANCHOR PLACES. DRAINING CLEAR YELLOW URINE BY GRAVITY. IN HIGH AMARAL'S POSITION WITH HOB ELEVATED. BED IN LOWEST POSITION WITH BED ALARM ON. FALL RISK AND DNR BRACELET APPLIED TO RIGHT WRIST. IN NO APPARENT DISTRESS AT THIS TIME. WILL CONTINUE TO MONITOR.
[2019-01-31 08:00] VITALS: BP 118/72
[2019-01-31] MEDS ORDERED: LORazepam Inj 2mg/ml 1ml IM SCH ×3 (08:00→12:15)
[2019-01-31] MEDS: Metoprolol 25mg tab ORAL SCH ×2 (08:41→20:30)
[2019-01-31] MEDS: Ascorbic Acid 500mg tab ORAL SCH ×2 (08:41→09:00)
[2019-01-31] MEDS: Anastrazole 1mg tab ORAL SCH ×2 (08:41→09:00)
[2019-01-31] MEDS: Aspirin EC 81mg tab ORAL SCH ×2 (08:41→09:00)
[2019-01-31] MEDS: Heparin 5000 units/ml inj SUBQ SCH ×2 (08:42→20:33)
--- NOTE | 2019-01-31 08:45 | NUR ---
PT NOTE Attempted to see patient for PT treatment. Patient refusing to participate, agitated. Will re-attempt later as schedule and patient's condition permits.
[2019-01-31 08:55] LABS: BASOPHILS % (AUTO) 1.5 % (0.0-2.0); EOSINOPHILS % (AUTO) 0.6 % (0.0-3.0); HEMATOCRIT 29.6 % (37.0-47.0); HEMOGLOBIN 9.5 G/DL (12.0-16.0); MEAN CORPUSCULAR VOLUME 87 FL (80-99); MONOCYTES % (AUTO) 8.7 % (1.0-10.0); NEUTROPHILS % (AUTO) 83.1 % (45.0-75.0); PLATELET COUNT 171 K/UL (150-450); RED BLOOD COUNT 3.39 M/UL (4.20-5.40); RED CELL DISTRIBUTION WIDTH 12.5 % (11.6-14.8); WHITE BLOOD COUNT 10.3 K/UL (4.8-10.8)
[2019-01-31 09:14] LABS: AMMONIA 28 umol/L (11-32)
[2019-01-31 09:22] LABS: ALANINE AMINOTRANSFERASE 42 U/L (12-78); ALBUMIN 1.5 G/DL (3.4-5.0); ALBUMIN/GLOBULIN RATIO 0.3 (1.0-2.7); ALKALINE PHOSPHATASE 347 U/L (46-116); ANION GAP 6 mmol/L (5-15); ASPARTATE AMINO TRANSFERASE 51 U/L (15-37); BILIRUBIN,TOTAL 0.6 MG/DL (0.2-1.0); BLOOD UREA NITROGEN 20 mg/dL (7-18); CALCIUM 6.3 MG/DL (8.5-10.1); CARBON DIOXIDE 27 MMOL/L (21-32); CHLORIDE 106 MMOL/L (98-107); CREATININE 2.2 MG/DL (0.55-1.30); PHOSPHORUS 3.3 MG/DL (2.5-4.9); POTASSIUM 3.4 MMOL/L (3.5-5.1); SODIUM 139 MMOL/L (136-145)
[2019-01-31] MEDS: Haloperidol 5mg/ml Inj IM PRN (09:44)
[2019-01-31] MEDS: Thiamine HCl 100 MG in D5W 55 ML IVPB SCH (09:44)
--- NOTE | 2019-01-31 10:10 | NUR ---
NURSE NOTES: PT IS RESTLESS, ATTEMPTING TO GET OUT OF BED DESPITE RESTRAINTS. PT SLIDES DOWN ON BED, VERBALLY AGGRESSIVE, REFUSES TO TAKE MEDICATIONS. RN ADMINISTERED PRN HALDOL ORDERED. PT WAS REPOSITIONED AND PLACED IN HIGH AMARAL'S POSITION. BED IN LOWEST POSITION. BEDSIDE RAILS X3 RAISED. WILL CONTINUE TO MONITOR.
--- NOTE | 2019-01-31 10:25 | Infectious Diseases Prog Note ---
Assessment/Plan Assessment/Plan Impression: 1. Pancreatitis. 2. Leukocytosis, resolved 3. Renal failure,improving 4. 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 Dementia 7. DNR status PLAN: 1. Observe off antibiotic Subjective ROS Limited/Unobtainable: Yes Constitutional: Reports: anorexia Respiratory: Reports: no symptoms Gastrointestinal/Abdominal: Reports: no symptoms Genitourinary: Reports: no symptoms Neurologic: Reports: other - on restraint Allergies: Coded Allergies: No Known Allergies (Unverified , 01/15/19) Objective Vital Signs Last 24 Hour Vital Signs Date Time Temp Pulse Resp B/P (MAP) Pulse Ox O2 Delivery O2 Flow Rate FiO2 01/31/19 09:00 Room Air 01/31/19 08:41 82 118/72 01/31/19 08:00 98.5 82 19 118/72 (87) 96 01/31/19 04:00 97.5 80 18 132/69 (90) 99 01/31/19 00:00 97.6 83 18 118/92 (101) 97 01/30/19 21:16 90 116/73 01/30/19 21:00 Room Air 01/30/19 20:00 97.9 90 18 116/73 (87) 97 01/30/19 16:00 98.3 91 18 108/65 (79) 98 01/30/19 12:00 98.5 102 18 134/78 (96) 97 Height (Feet): 5 Height (Inches): 1.00 Weight (Pounds): 118 General Appearance: no acute distress HEENT: mucous membranes moist Respiratory/Chest: lungs clear Cardiovascular: normal rate Abdomen: soft, non tender Extremities: no edema Neurologic/Psychiatric: alert, responsive Musculoskeletal: atrophy Laboratory Tests Test 01/30/19 14:15 01/31/19 08:40 Ammonia 22 umol/L (11-32) 28 umol/L (11-32) White Blood Count 10.3 K/UL (4.8-10.8) Red Blood Count 3.39 M/UL (4.20-5.40) L Hemoglobin 9.5 G/DL (12.0-16.0) L Hematocrit 29.6 % (37.0-47.0) L Mean Corpuscular Volume 87 FL (80-99) Mean Corpuscular Hemoglobin 28.1 PG (27.0-31.0) Mean Corpuscular Hemoglobin Concent 32.2 G/DL (32.0-36.0) Red Cell Distribution Width 12.5 % (11.6-14.8) Platelet Count 171 K/UL (150-450) Mean Platelet Volume 6.0 FL (6.5-10.1) L Neutrophils (%) (Auto) 83.1 % (45.0-75.0) H Lymphocytes (%) (Auto) 6.0 % (20.0-45.0) L Monocytes (%) (Auto) 8.7 % (1.0-10.0) Eosinophils (%) (Auto) 0.6 % (0.0-3.0) Basophils (%) (Auto) 1.5 % (0.0-2.0) Sodium Level 139 MMOL/L (136-145) Potassium Level 3.4 MMOL/L (3.5-5.1) L Chloride Level 106 MMOL/L (98-107) Carbon Dioxide Level 27 MMOL/L (21-32) Anion Gap 6 mmol/L (5-15) Blood Urea Nitrogen 20 mg/dL (7-18) H Creatinine 2.2 MG/DL (0.55-1.30) H Estimat Glomerular Filtration Rate mL/min (>60) Glucose Level 98 MG/DL (74-106) Calcium Level 6.3 MG/DL (8.5-10.1) L Phosphorus Level 3.3 MG/DL (2.5-4.9) Magnesium Level 2.3 MG/DL (1.8-2.4) Total Bilirubin 0.6 MG/DL (0.2-1.0) Aspartate Amino Transf (AST/SGOT) 51 U/L (15-37) H Alanine Aminotransferase (ALT/SGPT) 42 U/L (12-78) Alkaline Phosphatase 347 U/L (46-116) H C-Reactive Protein, Quantitative 5.9 mg/dL (0.00-0.90) H Pro-B-Type Natriuretic Peptide 4911 pg/mL (0-125) H Total Protein 6.2 G/DL (6.4-8.2) L Albumin 1.5 G/DL (3.4-5.0) L Globulin 4.7 g/dL Albumin/Globulin Ratio 0.3 (1.0-2.7) L Current Medications Medications (Trade) Dose Ordered Sig/Whitley Route PRN Reason Start Time Stop Time Status Last Admin Dose Admin Acetaminophen (Tylenol) 650 mg Q4H PRN ORAL Mild Pain/Temp > 100.5 01/29/19 03:30 02/15/19 15:29 Anastrozole (Arimidex) 1 mg DAILY ORAL 01/29/19 09:00 02/15/19 08:59 01/29/19 09:03 Ascorbic Acid (Vitamin C) 500 mg DAILY ORAL 01/29/19 09:00 02/17/19 08:59 01/29/19 09:02 Aspirin (Ecotrin) 81 mg DAILY ORAL 01/29/19 09:00 02/15/19 08:59 01/29/19 09:01 Dextrose 1,000 ml @ 75 mls/hr [id number] IV 01/29/19 00:15 02/22/19 08:29 01/31/19 05:52 Dextrose (Dextrose 50%) 25 ml Q30M PRN IV Hypoglycemia 01/29/19 00:15 02/18/19 11:14 Dextrose (Dextrose 50%) 50 ml Q30M PRN IV Hypoglycemia 01/29/19 00:15 02/18/19 11:14 Diphenhydramine HCl (Benadryl Cream) 1 applic QIDPRN PRN TOPIC Itching 01/29/19 14:15 02/23/19 14:14 Divalproex Sodium (Depakote) 250 mg EVERY 12 HOURS ORAL 01/29/19 09:15 02/28/19 09:14 01/31/19 08:41 Haloperidol Lactate (Haldol) 2 mg Q4H PRN IM Agitation 01/29/19 02:45 02/16/19 14:44 01/31/19 09:44 Heparin Sodium (Porcine) (Heparin 5000 units/ml) 5,000 units EVERY 12 HOURS SUBQ 01/29/19 09:00 02/15/19 08:59 01/30/19 21:17 Insulin Aspart (NovoLOG) BEFORE MEALS AND HS SUBQ 01/29/19 06:30 02/18/19 11:29 01/30/19 16:47 Levothyroxine Sodium (Synthroid) 75 mcg DAILY@0630 ORAL 02/01/19 06:30 03/03/19 06:29 Metoprolol Tartrate (Lopressor) 25 mg Q12HR ORAL 01/29/19 09:00 02/15/19 08:59 01/30/19 21:16 Mirtazapine (Remeron) 15 mg BEDTIME ORAL 01/29/19 21:00 02/16/19 23:14 01/30/19 21:16 Multivitamins (Multivitamins) 1 tab DAILY ORAL 01/29/19 09:00 02/17/19 08:59 01/29/19 09:02 Olanzapine (ZyPREXA) 5 mg DAILY ORAL 01/29/19 09:00 02/27/19 08:59 01/30/19 08:38 Olanzapine (ZyPREXA) 7.5 mg BEDTIME ORAL 01/29/19 21:00 02/27/19 20:59 01/30/19 21:16 Pantoprazole (Protonix) 40 mg DAILY@0630 ORAL 01/29/19 06:30 02/28/19 06:29 01/31/19 05:52 Potassium Chloride 100 ml @ 100 mls/hr Q1H IVPB 01/31/19 11:00 01/31/19 12:59 Thiamine HCl 100 mg/Dextrose 56 ml @ 112 mls/hr DAILY IVPB 01/30/19 14:00 03/01/19 13:59 01/31/19 09:44 Gregorio Paredes MD Jan 31, 2019 10:25
[2019-01-31 12:00] VITALS: BP 111/67
--- NOTE | 2019-01-31 12:00 | NUR ---
NURSE NOTES: DRESSINGS CHANGED AT BEDSIDE WITH WOUND CARE NURSE. PER WOUND CARE NURSE, NO NEED FOR DRESSING CHANGES OF RIGHT LATERAL CHEST AND RIGHT POSTERIOR BACK DUE TO HEALED WOUNDS.
--- NOTE | 2019-01-31 14:22 | Nephrology Progress Note ---
Assessment/Plan Problem List: (1) Acute renal failure (ARF) Assessment: Cr lowering (2) Failure to thrive in adult (3) Severe protein-calorie malnutrition Assessment: Low Albumin (4) Dehydration (5) Elevated LFTs Assessment: improving (6) Hypokalemia (7) Acute encephalopathy Assessment remains encephalopathic Acute on chronic renal failure- Dehydration Failing to thrive, Malnutrition Decubiti Urinary retention Plan marte Urine studies Hydrate- has PICC now K and Mag supplement as needed CXR STANLEY kidney noted Med surg Subjective ROS Limited/Unobtainable: No Constitutional: Reports: malaise Objective Objective Last 24 Hour Vital Signs Date Time Temp Pulse Resp B/P (MAP) Pulse Ox O2 Delivery O2 Flow Rate FiO2 01/31/19 12:00 98.6 85 19 111/67 (82) 99 01/31/19 09:00 Room Air 01/31/19 08:41 82 118/72 01/31/19 08:00 98.5 82 19 118/72 (87) 96 01/31/19 04:00 97.5 80 18 132/69 (90) 99 01/31/19 00:00 97.6 83 18 118/92 (101) 97 01/30/19 21:16 90 116/73 01/30/19 21:00 Room Air 01/30/19 20:00 97.9 90 18 116/73 (87) 97 01/30/19 16:00 98.3 91 18 108/65 (79) 98 Intake and Output 01/30/19 01/31/19 19:00 07:00 Intake Total 555 ml 900 ml Output Total 300 ml 600 ml Balance 255 ml 300 ml Intake Oral 480 ml IV Total 75 ml 900 ml Output Urine Total 300 ml 600 ml # Voids 2 Laboratory Tests 01/31/19 08:40: White Blood Count 10.3, Red Blood Count 3.39L, Hemoglobin 9.5L, Hematocrit 29.6L , Mean Corpuscular Volume 87, Mean Corpuscular Hemoglobin 28.1, Mean Corpuscular Hemoglobin Concent 32.2, Red Cell Distribution Width 12.5, Platelet Count 171, Mean Platelet Volume 6.0L, Neutrophils (%) (Auto) 83.1H, Lymphocytes (%) (Auto) 6.0L, Monocytes (%) (Auto) 8.7, Eosinophils (%) (Auto) 0.6, Basophils (%) (Auto) 1.5, Sodium Level 139, Potassium Level 3.4L, Chloride Level 106, Carbon Dioxide Level 27, Anion Gap 6, Blood Urea Nitrogen 20H, Creatinine 2.2H, Estimat Glomerular Filtration Rate , Glucose Level 98, Calcium Level 6.3L, Phosphorus Level 3.3, Magnesium Level 2.3, Total Bilirubin 0.6, Aspartate Amino Transf (AST/SGOT) 51H, Alanine Aminotransferase (ALT/SGPT) 42, Alkaline Phosphatase 347H, Ammonia 28, C-Reactive Protein, Quantitative 5.9H, Pro-B-Type Natriuretic Peptide 4911H, Total Protein 6.2L, Albumin 1.5L, Globulin 4.7, Albumin/Globulin Ratio 0.3L Height (Feet): 5 Height (Inches): 1.00 Weight (Pounds): 118 General Appearance: confused Cardiovascular: normal rate Respiratory/Chest: decreased breath sounds Abdomen: distended Objective no change Mauri Huddleston MD Jan 31, 2019 14:22
--- NOTE | 2019-01-31 15:03 | NUR ---
NURSE NOTES: RN ADMINISTERED ATIVAN 2MG IM BEFORE MRI BRAIN ORDERED. RN SPOKE TO THAD TAYLOR. PT WAS STILL AWAKE AND UNABLE TO COOPERATE/FOLLOW DIRECTION, SO PT WAS NOT TAKEN DOWN FOR MRI. RN WILL COORDINATE WITH BILINGUAL NANNY AGAIN AFTER GIVING PRN HALDOL ORDERED. WILL CONTINUE TO MONITOR.
[2019-01-31 16:00] VITALS: BP 115/60
--- NOTE | 2019-01-31 16:51 | NUR ---
NURSE NOTES:WOUND CARE FOLLOW- UP NOTES:Wounds R axilla, Lateral R chest and R back have resolved . Sites of previous wounds are clean pink and dry. Wound at site of R mastectomy with pink and moist . Wound oozing small amt non-odorous serous exudate.(L)1.5cm x (W)5cm, tunneled at 10o'clock by 2.5cm. Perianal erythema with skin erosion noted .Pt denied burning at site.Sacral area without erythema . Both heels are dry and blanchable. Tx.Plan: Cleanse wound L mastectomy site with Saline. Loosely pack wound with 1/2 incha Iodoform packing(Attention to tunneling at 10o'clock) Cover with Optifoam drsg daily and prn. Apply Triad Paste to perianal area with each incontinence care. Apply Triad paste to Sacrum . Cover with Optifoam drsg. Change every 3 ays and prn. Reposition at least every 2hours or as tolerated. Off-load heels with pillow
--- NOTE | 2019-01-31 17:30 | NUR ---
NURSE NOTES: RN HELD SCHEDULED NOVOLOG. PT REFUSING TO EAT MEALS. OCCASIONALLY WILL DRINK GLUCERNA SUPPLEMENT. PT IS ON D5W IVF. WILL CONTINUE TO MONITOR.
--- NOTE | 2019-01-31 17:40 | Surgery Progress Note ---
Surgery Progress Note Subjective Symptoms: improved, tolerating diet, voiding well, passing flatus, BM, pain decreased Objective Last 24 Hour Vital Signs Date Time Temp Pulse Resp B/P (MAP) Pulse Ox O2 Delivery O2 Flow Rate FiO2 01/31/19 16:00 98.9 90 15 115/60 (78) 96 01/31/19 12:00 98.6 85 19 111/67 (82) 99 01/31/19 09:00 Room Air 01/31/19 08:41 82 118/72 01/31/19 08:00 98.5 82 19 118/72 (87) 96 01/31/19 04:00 97.5 80 18 132/69 (90) 99 01/31/19 00:00 97.6 83 18 118/92 (101) 97 01/30/19 21:16 90 116/73 01/30/19 21:00 Room Air 01/30/19 20:00 97.9 90 18 116/73 (87) 97 I&O Intake and Output 01/30/19 01/31/19 19:00 07:00 Intake Total 555 ml 900 ml Output Total 300 ml 600 ml Balance 255 ml 300 ml Intake Oral 480 ml IV Total 75 ml 900 ml Output Urine Total 300 ml 600 ml # Voids 2 Dressing: other Wound: other Drains: other Cardiovascular: RSR Respiratory: clear Abdomen: soft, flat, non-tender, present bowel sounds Extremities: no tenderness, no cyanosis, other Laboratory Tests Test 01/31/19 08:40 White Blood Count 10.3 K/UL (4.8-10.8) Red Blood Count 3.39 M/UL (4.20-5.40) L Hemoglobin 9.5 G/DL (12.0-16.0) L Hematocrit 29.6 % (37.0-47.0) L Mean Corpuscular Volume 87 FL (80-99) Mean Corpuscular Hemoglobin 28.1 PG (27.0-31.0) Mean Corpuscular Hemoglobin Concent 32.2 G/DL (32.0-36.0) Red Cell Distribution Width 12.5 % (11.6-14.8) Platelet Count 171 K/UL (150-450) Mean Platelet Volume 6.0 FL (6.5-10.1) L Neutrophils (%) (Auto) 83.1 % (45.0-75.0) H Lymphocytes (%) (Auto) 6.0 % (20.0-45.0) L Monocytes (%) (Auto) 8.7 % (1.0-10.0) Eosinophils (%) (Auto) 0.6 % (0.0-3.0) Basophils (%) (Auto) 1.5 % (0.0-2.0) Sodium Level 139 MMOL/L (136-145) Potassium Level 3.4 MMOL/L (3.5-5.1) L Chloride Level 106 MMOL/L (98-107) Carbon Dioxide Level 27 MMOL/L (21-32) Anion Gap 6 mmol/L (5-15) Blood Urea Nitrogen 20 mg/dL (7-18) H Creatinine 2.2 MG/DL (0.55-1.30) H Estimat Glomerular Filtration Rate mL/min (>60) Glucose Level 98 MG/DL (74-106) Calcium Level 6.3 MG/DL (8.5-10.1) L Phosphorus Level 3.3 MG/DL (2.5-4.9) Magnesium Level 2.3 MG/DL (1.8-2.4) Total Bilirubin 0.6 MG/DL (0.2-1.0) Aspartate Amino Transf (AST/SGOT) 51 U/L (15-37) H Alanine Aminotransferase (ALT/SGPT) 42 U/L (12-78) Alkaline Phosphatase 347 U/L (46-116) H Ammonia 28 umol/L (11-32) C-Reactive Protein, Quantitative 5.9 mg/dL (0.00-0.90) H Pro-B-Type Natriuretic Peptide 4911 pg/mL (0-125) H Total Protein 6.2 G/DL (6.4-8.2) L Albumin 1.5 G/DL (3.4-5.0) L Globulin 4.7 g/dL Albumin/Globulin Ratio 0.3 (1.0-2.7) L Plan Problems: (1) Dehydration (2) Decubitus skin ulcer Assessment & Plan: Pt presented on admission with multiple wounds.Hx R Mastectomy . Full thickness wound that is tunneled into R axilla noted to aleksander R mastectomy.Base of wound is sahara with macerated borders oozing small amt serous exudate noted. No odor noted. (L)3cm x (W)6cm x (D)0.3, tunneling clockwise @10o'clock by 6.6cm. Full thickness wound lateral/posterior R chest. Scattered slough at base of wound with erythematous borders .Periwound indurated. wound oozing small amt serous exudate. (L)1cm x (W)3cm. Full thickness wound posterior thoracic. 100% slough at base of wound. Erythematous borders. No odor or exudate noted(L)2.3cm x (W)2.5cm. Full thickness wound median R humerus. 100% slough with erythematous borders. No odor or exudate noted.(L)3.9cm x (W)2.4cm. Incontinence associated dermatitis noted to sacral and cleft of buttocks. Affected area is erythematous. Pt denied burning or itching. DTPI noted to medial L foot . Base of wound is indurated,purple with red margins.(L)3.2cm x (W)1cm. L heel boggy with non-blanchable erythema. Non-blanchable erythema without fluctuance R heel. Tx.Plan: Cleanse wound Aleksander R chest with Saline. Loosely pack wound (@10o'clock) with 1 /2 inch Iodoform packing. Apply Cavilon periwound. Cover with Optifoam drsg.Daily and prn. Cleanse wounds R arm with saline. Apply Xeroform gauze.Apply Cavilon periwound. Cover with Optifoam drsg. Change daily and prn. Cleanse wound Lateral/posterior chest with Saline. Apply xeroform gauze. Cover with Optifoam drsg. Change Daily and prn. Cleanse wound Posterior R thoracic with Saline. Cover with Xeroform. Apply Cavilon Skin Barrier periwound. Cover with Optifoam drsg. Daily and prn. Apply Triad Paste to Buttocks with each perineal care. Apply Cavilon Skin Barrier to both heels. Cover each heel with Optifoam drsg. every 7 days and prn. Reposition at least every 2hours or as tolerated. Off-load heels with pillow. (3) Leukocytosis Assessment & Plan: cont Abx worsening unlikely related to wounds that do not seem actively infected (4) Severe protein-calorie malnutrition Assessment & Plan: DAILY ESTIMATED NEEDS: Needs based on Cancer, wounds 48kg 30-40 kcals/kg 6703-4404 total kcals 1.25-2 g protein/kg 60-96 g total protein 25-30 mL/kg 6725-3661 total fluid mLs NUTRITION DIAGNOSIS: Increased kcal and pro needs r/t wound healing and low BMI as evidenced by BMI underweight per guidelines, pt w/ multiple partial thickness wounds, refer to WC eval. CURRENT DIET: Soft GAGE PO DIET RECOMMENDATIONS: GAGE diet/ texture as tolerated ADDITIONAL RECOMMENDATIONS: - Pt w/ poor po intake, would rec to liberalized diet to REGULAR - Add ENSURE ENLIVE TID w/ meals - Obtain a standing scale wt as able Or recalibrate bed scale for accurate CBW - Monitor renal fxn/ lytes and need for renal supplement - WOUND CARE: add DILAN BID + MVI x1 + VIT C 500mg daily (5) Failure to thrive in adult (6) Acute cholecystitis Assessment & Plan: Patient with possible acalculous cholecystitis. Afebrile, hemodynamic stable, leukocytosis, acute episode of pancreatitis which is resolved chemically. On examination difficult to examine but no significant tenderness identified in the right upper quadrant. CT reviewed. US noted. inconsistent with CT findings HIDA negative Continue IV antibiotics We will follow with recommendations no acute surgical intervention recommended at this time conservative management with Jesus Barker Jan 31, 2019 17:40
--- NOTE | 2019-01-31 18:43 | NUR ---
NURSE NOTES: SPOKE TO PCB DESIGNERFRANCISCO CONNER. UNABLE TO TAKE PT DOWN TO FOR MRI BRAIN.
--- NOTE | 2019-01-31 19:15 | NUR ---
NURSE NOTES: Received pt resting in bed. AAO x 1, confused. On room air. Dressing on the R chest dry and intact. IV intact and running D5W 100cc/hr. Pt has soft wrist restraints bilaterally and skin intact under the restraints. Naranjo intact and draining yellow urine. Fall precaution and contact precaution maintained. Bed locked, lowest position, alarm on, side rails up x 3, call light within reach. Will continue to monitor.
--- NOTE | 2019-01-31 19:31 | NUR ---
HAND-OFF: Report given to Trish RAMSEY RN.
[2019-01-31 20:00] VITALS: BP 131/79
[2019-01-31] MEDS: OLANZapine 2.5mg tab ORAL SCH (20:25)
--- NOTE | 2019-01-31 20:45 | NUR ---
NURSE NOTES: RN held scheduled NOVOLOG due to poor po intake. Will continue to monitor.
[2019-02-01] VITALS: BP 132/51
--- NOTE | 2019-02-01 | Progress Note ---
DATE: 01/31/2019 SUBJECTIVE: The patient is in no acute distress. Confused. Continues to have episodes of agitation. Poor memory. MENTAL STATUS EXAMINATION: The patient is alert, oriented x1. Mood is anxious. Affect is flat. Thought processes disorganized. Thought content, no suicidal or homicidal ideations. Cognition is impaired. ASSESSMENT: Dementia with behavior disturbance. PLAN: 1. We will continue the Remeron 15 mg at bedtime, olanzapine (Zyprexa) 5 mg in the morning, 7.5 at bedtime. 2. Continue Depakote. 3. Ativan p.r.n. Cynthia Nicholson M.D. DR: JAKY JOB#: [id number] CC:
--- NOTE | 2019-02-01 00:30 | Progress Note ---
DATE: 01/31/2019 CARDIOLOGY PROGRESS NOTE SUBJECTIVE: The patient is confused, but more directable. Restraints have been removed, but the patient was found on the floor subsequently. OBJECTIVE: VITAL SIGNS: Blood pressure 132/69, pulse 80, and respirations 18. Afebrile. LUNGS: Clear. CARDIAC: Regular, normal S1, S2. ABDOMEN: Soft. No ascites. EXTREMITIES: No edema. LABORATORY DATA: White count 10.3, hemoglobin 9.5. Sodium 139, potassium 3.4, bicarbonate 27, BUN 20, and creatinine 2.2. Magnesium 2.3. Albumin 1.5. Pro-natriuretic peptide 4900, which has decreased. TSH yesterday was 16. IMPRESSION: 1. Severe protein-calorie malnutrition. 2. Acute on chronic diastolic congestive heart failure, improved. 3. Hypokalemia. 4. Acute on chronic renal failure, improved. 5. Possible metastatic disease. 6. Chronic liver disease with cirrhosis. 7. Metabolic encephalopathy. 8. Hypothyroidism. 9. Ischemic cardiomyopathy with stable angina. PLAN: 1. Potassium replacement. 2. IV fluid hydration. 3. Anti-platelet therapy. 4. Insulin titration. 5. Thyroid replacement. 6. Continue beta-rehana. Jorge Self M.D. DR: DREW JOB#: [id number] CC:
[2019-02-01 04:00] VITALS: BP 98/81
[2019-02-01] MEDS: NovoLOG Insulin Flexpen SUBQ SCH ×4 (05:51→21:00)
[2019-02-01 06:40] LABS: BASOPHILS % (AUTO) 1.5 % (0.0-2.0); EOSINOPHILS % (AUTO) 0.2 % (0.0-3.0); HEMATOCRIT 29.1 % (37.0-47.0); HEMOGLOBIN 9.1 G/DL (12.0-16.0); LYMPHOCYTES % (AUTO) 8.6 % (20.0-45.0); MEAN CORPUSCULAR VOLUME 88 FL (80-99); NEUTROPHILS % (AUTO) 76.7 % (45.0-75.0); PLATELET COUNT 171 K/UL (150-450); RED BLOOD COUNT 3.29 M/UL (4.20-5.40); RED CELL DISTRIBUTION WIDTH 13.1 % (11.6-14.8); WHITE BLOOD COUNT 10.2 K/UL (4.8-10.8)
--- NOTE | 2019-02-01 06:57 | NUR ---
HAND-OFF: Report given to GAIL Shah.
--- NOTE | 2019-02-01 07:00 | NUR ---
NURSE NOTES: Received patient in bed. No SOB or cardiac distress. With soft restraints on both wrists, skin checked, no new issues noted, pulses palpable. Right arm with continued swelling, elevated on pillow. Head of bed elevated. Bed on lowest position and locked. Will continue plan of care.
[2019-02-01 07:24] LABS: ALANINE AMINOTRANSFERASE 38 U/L (12-78); ALBUMIN 1.3 G/DL (3.4-5.0); ALBUMIN/GLOBULIN RATIO 0.3 (1.0-2.7); ALKALINE PHOSPHATASE 327 U/L (46-116); ANION GAP 9 mmol/L (5-15); ASPARTATE AMINO TRANSFERASE 50 U/L (15-37); BILIRUBIN,TOTAL 0.5 MG/DL (0.2-1.0); BLOOD UREA NITROGEN 18 mg/dL (7-18); CALCIUM 6.5 MG/DL (8.5-10.1); CARBON DIOXIDE 23 MMOL/L (21-32); CHLORIDE 105 MMOL/L (98-107); CREATININE 2.1 MG/DL (0.55-1.30); POTASSIUM 3.3 MMOL/L (3.5-5.1); SODIUM 137 MMOL/L (136-145)
[2019-02-01 08:00] VITALS: BP 100/68
--- NOTE | 2019-02-01 08:00 | General Progress Note ---
Assessment/Plan Problem List: (1) Acute renal failure (ARF) ICD Codes: N17.9 - Acute kidney failure, unspecified SNOMED: 64000097 (2) Dehydration ICD Codes: E86.0 - Dehydration SNOMED: 92147102 (3) Decubitus skin ulcer ICD Codes: L89.90 - Pressure ulcer of unspecified site, unspecified stage SNOMED: 419974735 (4) Leukocytosis ICD Codes: D72.829 - Elevated white blood cell count, unspecified SNOMED: 148935312, 235623555 (5) Failure to thrive in adult ICD Codes: R62.7 - Adult failure to thrive SNOMED: 426194721 (6) Severe protein-calorie malnutrition ICD Codes: E43 - Unspecified severe protein-calorie malnutrition SNOMED: 074270334, 118477667, 982160583 Status: stable, progressing Assessment/Plan: ivf if able to get iv encourage po monitor renal fxn/lytes psych follow up neuro eval appreciated- MRI pending thyroid replacement rx monitor labs cannot go back to snf if needing restraints. wound care dnr conservative rx family did not want hospice poor prognosis dc planning Subjective ROS Limited/Unobtainable: Yes Constitutional: Reports: malaise, weakness HEENT: Reports: no symptoms Cardiovascular: Reports: no symptoms Respiratory: Reports: no symptoms Gastrointestinal/Abdominal: Reports: difficulty swallowing, poor appetite, poor fluid intake Genitourinary: Reports: no symptoms Neurologic/Psychiatric: Reports: pre-existing deficit Endocrine: Reports: no symptoms Hematologic/Lymphatic: Reports: anemia Allergies: Coded Allergies: No Known Allergies (Unverified , 01/15/19) All Systems: reviewed and negative except above Subjective no events. remains confused and intermittently agitated. Per staff pt still needs restraints. constantly pulling at lines and trying to get out of bed. cant get iv. restraints removed yesterday. pt found shortly after sitting on the floor. no trauma noted. Neuro appreciated unable to do mri. still with poor po intake Objective Last 24 Hour Vital Signs Date Time Temp Pulse Resp B/P (MAP) Pulse Ox O2 Delivery O2 Flow Rate FiO2 02/01/19 04:00 97.8 94 18 98/81 (87) 96 02/01/19 00:00 97.8 89 20 132/51 (78) 95 9/26/19 21:00 Room Air 01/31/19 20:30 110 131/79 01/31/19 20:00 97.6 110 20 131/79 (96) 97 01/31/19 16:00 98.9 90 15 115/60 (78) 96 01/31/19 12:00 98.6 85 19 111/67 (82) 99 01/31/19 09:00 Room Air 01/31/19 08:41 82 118/72 01/31/19 08:00 98.5 82 19 118/72 (87) 96 Intake and Output 01/31/19 02/01/19 18:59 06:59 Intake Total 1156 ml 900 ml Output Total 500 ml 900 ml Balance 656 ml 0 ml Intake Oral 300 ml IV Total 856 ml 900 ml Output Urine Total 500 ml 900 ml # Voids 1 Laboratory Tests 01/31/19 08:40: White Blood Count 10.3, Red Blood Count 3.39L, Hemoglobin 9.5L, Hematocrit 29.6L , Mean Corpuscular Volume 87, Mean Corpuscular Hemoglobin 28.1, Mean Corpuscular Hemoglobin Concent 32.2, Red Cell Distribution Width 12.5, Platelet Count 171, Mean Platelet Volume 6.0L, Neutrophils (%) (Auto) 83.1H, Lymphocytes (%) (Auto) 6.0L, Monocytes (%) (Auto) 8.7, Eosinophils (%) (Auto) 0.6, Basophils (%) (Auto) 1.5, Sodium Level 139, Potassium Level 3.4L, Chloride Level 106, Carbon Dioxide Level 27, Anion Gap 6, Blood Urea Nitrogen 20H, Creatinine 2.2H, Estimat Glomerular Filtration Rate , Glucose Level 98, Calcium Level 6.3L, Phosphorus Level 3.3, Magnesium Level 2.3, Total Bilirubin 0.6, Aspartate Amino Transf (AST/SGOT) 51H, Alanine Aminotransferase (ALT/SGPT) 42, Alkaline Phosphatase 347H, Ammonia 28, C-Reactive Protein, Quantitative 5.9H, Pro-B-Type Natriuretic Peptide 4911H, Total Protein 6.2L, Albumin 1.5L, Globulin 4.7, Albumin/Globulin Ratio 0.3L 02/01/19 05:20: White Blood Count 10.2, Red Blood Count 3.29L, Hemoglobin 9.1L, Hematocrit 29.1L , Mean Corpuscular Volume 88, Mean Corpuscular Hemoglobin 27.8, Mean Corpuscular Hemoglobin Concent 31.4L, Red Cell Distribution Width 13.1, Platelet Count 171, Mean Platelet Volume 6.7, Neutrophils (%) (Auto) 76.7H, Lymphocytes (%) (Auto) 8.6L, Monocytes (%) (Auto) 13.0H, Eosinophils (%) (Auto) 0.2, Basophils (%) (Auto) 1.5, Sodium Level 137, Potassium Level 3.3L, Chloride Level 105, Carbon Dioxide Level 23, Anion Gap 9, Blood Urea Nitrogen 18, Creatinine 2.1H, Estimat Glomerular Filtration Rate , Glucose Level 134H, Calcium Level 6.5L, Total Bilirubin 0.5, Aspartate Amino Transf (AST/SGOT) 50H, Alanine Aminotransferase (ALT/SGPT) 38, Alkaline Phosphatase 327H, Total Protein 6.1L, Albumin 1.3L, Globulin 4.8, Albumin/Globulin Ratio 0.3L Height (Feet): 5 Height (Inches): 1.00 Weight (Pounds): 118 Objective General Appearance: WD/WN, alert Neck: supple Cardiovascular: regular rhythm Respiratory/Chest: chest wall non-tender, lungs clear, normal breath sounds, no respiratory distress Abdomen: normal bowel sounds, non tender, soft, no organomegaly Edema: no edema noted Arm (L), no edema noted Arm (R), no edema noted Leg (L), no edema noted Leg (R), no edema noted Pedal (L), no edema noted Pedal (R), no edema noted Generalized Mesfin Chapa MD Feb 01, 2019 08:00
[2019-02-01] MEDS: Aspirin EC 81mg tab ORAL SCH (08:23)
[2019-02-01] MEDS: Anastrazole 1mg tab ORAL SCH (08:24)
[2019-02-01] MEDS: Ascorbic Acid 500mg tab ORAL SCH (08:27)
[2019-02-01] MEDS: Metoprolol 25mg tab ORAL SCH ×2 (08:29→21:34)
[2019-02-01] MEDS: Heparin 5000 units/ml inj SUBQ SCH ×2 (08:32→21:00)
[2019-02-01] MEDS: Haloperidol 5mg/ml Inj IM PRN ×2 (09:35→17:54)
[2019-02-01] MEDS: Thiamine HCl 100 MG in D5W 55 ML IVPB SCH ×2 (10:00→10:11)
--- NOTE | 2019-02-01 10:23 | NUR ---
NURSE NOTES: Patient found with IV access out, with legs hanging over the rail. Patient was agitated and restless. RN Pablo administered PRN as ordered. Patient was repositioned and now resting in bed. New IV access was inserted on left thumb. Patient refused to eat breakfast, refused to take oral meds. Will continue to monitor.
[2019-02-01] MEDS ORDERED: LORazepam Inj 2mg/ml 1ml IV SCH (10:30)
--- NOTE | 2019-02-01 10:58 | Infectious Diseases Prog Note ---
Assessment/Plan Assessment/Plan antibiotics : none A 1. pancreatitis resolved 2. cirrhosis 3. leucocytosis resolved 4. renal failure improving 5. 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 observe off antibiotics Subjective Constitutional: Denies: fever, chills Respiratory: Denies: shortness of breath, dry cough Gastrointestinal/Abdominal: Denies: nausea, vomiting, diarrhea Musculoskeletal: Denies: pain Allergies: Coded Allergies: No Known Allergies (Unverified , 01/15/19) Objective Vital Signs Last 24 Hour Vital Signs Date Time Temp Pulse Resp B/P (MAP) Pulse Ox O2 Delivery O2 Flow Rate FiO2 02/01/19 09:00 Room Air 02/01/19 08:29 75 100/68 02/01/19 08:00 98.0 75 16 100/68 (79) 98 02/01/19 04:00 97.8 94 18 98/81 (87) 96 02/01/19 00:00 97.8 89 20 132/51 (78) 95 01/31/19 21:00 Room Air 01/31/19 20:30 110 131/79 01/31/19 20:00 97.6 110 20 131/79 (96) 97 01/31/19 16:00 98.9 90 15 115/60 (78) 96 01/31/19 12:00 98.6 85 19 111/67 (82) 99 Height (Feet): 5 Height (Inches): 1.00 Weight (Pounds): 118 Respiratory/Chest: lungs clear Cardiovascular: normal rate, regular rhythm, no gallop/murmur Abdomen: soft, non tender Extremities: no edema Laboratory Tests Test 02/01/19 05:20 White Blood Count 10.2 K/UL (4.8-10.8) Red Blood Count 3.29 M/UL (4.20-5.40) L Hemoglobin 9.1 G/DL (12.0-16.0) L Hematocrit 29.1 % (37.0-47.0) L Mean Corpuscular Volume 88 FL (80-99) Mean Corpuscular Hemoglobin 27.8 PG (27.0-31.0) Mean Corpuscular Hemoglobin Concent 31.4 G/DL (32.0-36.0) L Red Cell Distribution Width 13.1 % (11.6-14.8) Platelet Count 171 K/UL (150-450) Mean Platelet Volume 6.7 FL (6.5-10.1) Neutrophils (%) (Auto) 76.7 % (45.0-75.0) H Lymphocytes (%) (Auto) 8.6 % (20.0-45.0) L Monocytes (%) (Auto) 13.0 % (1.0-10.0) H Eosinophils (%) (Auto) 0.2 % (0.0-3.0) Basophils (%) (Auto) 1.5 % (0.0-2.0) Sodium Level 137 MMOL/L (136-145) Potassium Level 3.3 MMOL/L (3.5-5.1) L Chloride Level 105 MMOL/L (98-107) Carbon Dioxide Level 23 MMOL/L (21-32) Anion Gap 9 mmol/L (5-15) Blood Urea Nitrogen 18 mg/dL (7-18) Creatinine 2.1 MG/DL (0.55-1.30) H Estimat Glomerular Filtration Rate mL/min (>60) Glucose Level 134 MG/DL (74-106) H Calcium Level 6.5 MG/DL (8.5-10.1) L Total Bilirubin 0.5 MG/DL (0.2-1.0) Aspartate Amino Transf (AST/SGOT) 50 U/L (15-37) H Alanine Aminotransferase (ALT/SGPT) 38 U/L (12-78) Alkaline Phosphatase 327 U/L (46-116) H Total Protein 6.1 G/DL (6.4-8.2) L Albumin 1.3 G/DL (3.4-5.0) L Globulin 4.8 g/dL Albumin/Globulin Ratio 0.3 (1.0-2.7) L Current Medications Medications (Trade) Dose Ordered Sig/Whitley Route PRN Reason Start Time Stop Time Status Last Admin Dose Admin Acetaminophen (Tylenol) 650 mg Q4H PRN ORAL Mild Pain/Temp > 100.5 01/29/19 03:30 02/15/19 15:29 Anastrozole (Arimidex) 1 mg DAILY ORAL 01/29/19 09:00 02/15/19 08:59 02/01/19 08:24 Ascorbic Acid (Vitamin C) 500 mg DAILY ORAL 01/29/19 09:00 02/17/19 08:59 02/01/19 08:27 Aspirin (Ecotrin) 81 mg DAILY ORAL 01/29/19 09:00 02/15/19 08:59 02/01/19 08:23 Dextrose 1,000 ml @ 75 mls/hr [id number] IV 01/29/19 00:15 02/22/19 08:29 02/01/19 08:37 Dextrose (Dextrose 50%) 25 ml Q30M PRN IV Hypoglycemia 01/29/19 00:15 02/18/19 11:14 Dextrose (Dextrose 50%) 50 ml Q30M PRN IV Hypoglycemia 01/29/19 00:15 02/18/19 11:14 Diphenhydramine HCl (Benadryl Cream) 1 applic QIDPRN PRN TOPIC Itching 01/29/19 14:15 02/23/19 14:14 Divalproex Sodium (Depakote) 250 mg EVERY 12 HOURS ORAL 01/29/19 09:15 02/28/19 09:14 02/01/19 08:26 Haloperidol Lactate (Haldol) 2 mg Q4H PRN IM Agitation 01/29/19 02:45 02/16/19 14:44 02/01/19 09:35 Heparin Sodium (Porcine) (Heparin 5000 units/ml) 5,000 units EVERY 12 HOURS SUBQ 01/29/19 09:00 02/15/19 08:59 02/01/19 08:32 Insulin Aspart (NovoLOG) BEFORE MEALS AND HS SUBQ 01/29/19 06:30 02/18/19 11:29 01/30/19 16:47 Levothyroxine Sodium (Synthroid) 75 mcg DAILY@0630 ORAL 02/01/19 06:30 03/03/19 06:29 02/01/19 05:47 Lorazepam (Ativan 2mg/ml 1ml) 2 mg ONCE IV 02/01/19 10:30 02/01/19 12:29 Metoprolol Tartrate (Lopressor) 25 mg Q12HR ORAL 01/29/19 09:00 02/15/19 08:59 01/31/19 20:30 Mirtazapine (Remeron) 15 mg BEDTIME ORAL 01/29/19 21:00 02/16/19 23:14 01/31/19 20:24 Multivitamins (Multivitamins) 1 tab DAILY ORAL 01/29/19 09:00 02/17/19 08:59 02/01/19 08:24 Olanzapine (ZyPREXA) 5 mg DAILY ORAL 01/29/19 09:00 02/27/19 08:59 02/01/19 08:24 Olanzapine (ZyPREXA) 7.5 mg BEDTIME ORAL 01/29/19 21:00 02/27/19 20:59 01/31/19 20:25 Pantoprazole (Protonix) 40 mg DAILY@0630 ORAL 01/29/19 06:30 02/28/19 06:29 02/01/19 05:47 Potassium Chloride 100 ml @ 100 mls/hr NOW ONCE IVPB 02/01/19 12:00 02/01/19 12:59 Potassium Chloride 100 ml @ 100 mls/hr Q1HR IVPB 02/01/19 09:00 02/01/19 11:59 02/01/19 10:52 Thiamine HCl 100 mg/Dextrose 56 ml @ 112 mls/hr DAILY IVPB 01/30/19 14:00 03/01/19 13:59 02/01/19 10:11 Lalito Major MD Feb 01, 2019 10:58
[2019-02-01 12:00] VITALS: BP 123/58
--- NOTE | 2019-02-01 12:15 | Nephrology Progress Note ---
Assessment/Plan Problem List: (1) Acute renal failure (ARF) Assessment: Cr lowering (2) Failure to thrive in adult (3) Severe protein-calorie malnutrition Assessment: Low Albumin (4) Dehydration (5) Elevated LFTs Assessment: improving (6) Hypokalemia (7) Acute encephalopathy Assessment remains encephalopathic Acute on chronic renal failure- Dehydration Failing to thrive, Malnutrition Decubiti Urinary retention Plan marte Urine studies Hydrate- has PICC now K and Mag supplement as needed CXR STANLEY kidney noted Med surg Subjective ROS Limited/Unobtainable: No Constitutional: Reports: malaise Objective Objective Last 24 Hour Vital Signs Date Time Temp Pulse Resp B/P (MAP) Pulse Ox O2 Delivery O2 Flow Rate FiO2 02/01/19 09:00 Room Air 02/01/19 08:29 75 100/68 02/01/19 08:00 98.0 75 16 100/68 (79) 98 02/01/19 04:00 97.8 94 18 98/81 (87) 96 02/01/19 00:00 97.8 89 20 132/51 (78) 95 01/31/19 21:00 Room Air 01/31/19 20:30 110 131/79 01/31/19 20:00 97.6 110 20 131/79 (96) 97 01/31/19 16:00 98.9 90 15 115/60 (78) 96 Intake and Output 01/31/19 02/01/19 18:59 06:59 Intake Total 1156 ml 900 ml Output Total 500 ml 900 ml Balance 656 ml 0 ml Intake Oral 300 ml IV Total 856 ml 900 ml Output Urine Total 500 ml 900 ml # Voids 1 Laboratory Tests 02/01/19 05:20: White Blood Count 10.2, Red Blood Count 3.29L, Hemoglobin 9.1L, Hematocrit 29.1L , Mean Corpuscular Volume 88, Mean Corpuscular Hemoglobin 27.8, Mean Corpuscular Hemoglobin Concent 31.4L, Red Cell Distribution Width 13.1, Platelet Count 171, Mean Platelet Volume 6.7, Neutrophils (%) (Auto) 76.7H, Lymphocytes (%) (Auto) 8.6L, Monocytes (%) (Auto) 13.0H, Eosinophils (%) (Auto) 0.2, Basophils (%) (Auto) 1.5, Sodium Level 137, Potassium Level 3.3L, Chloride Level 105, Carbon Dioxide Level 23, Anion Gap 9, Blood Urea Nitrogen 18, Creatinine 2.1H, Estimat Glomerular Filtration Rate , Glucose Level 134H, Calcium Level 6.5L, Total Bilirubin 0.5, Aspartate Amino Transf (AST/SGOT) 50H, Alanine Aminotransferase (ALT/SGPT) 38, Alkaline Phosphatase 327H, Total Protein 6.1L, Albumin 1.3L, Globulin 4.8, Albumin/Globulin Ratio 0.3L Height (Feet): 5 Height (Inches): 1.00 Weight (Pounds): 118 General Appearance: confused Cardiovascular: tachycardia Respiratory/Chest: decreased breath sounds Abdomen: distended Objective no change Mauri Huddleston MD Feb 01, 2019 12:15
--- NOTE | 2019-02-01 12:43 | NUR ---
CASE MANAGEMENT:REVIEW 02/01/19 SI: ACUTE RENAL FAILURE DEHYDRATION. LEUKOCYTOSIS. MULTIPLE LIVER LESIONS 98.6 75 16 123/58 100% ON RA H/H-9.1/29.1 K-3.3 CR+2.1 ALB-1.3 IS: IV THIAMINE QD IV KCL Q1HRS X4 BAGS IVF@75/HR ZYPREXA 7.5MG PO QHS ZYPREXA 5MG PO QD PROTONIX PO QD ASA PO QD LOPRESSOR PO Q12 : TELEMETRY STATUS DCP: FROM [facility] PLAN: RESTRAINTS NEED TO BE DC'D BEFORE RETURNING TO SNF MRI PENDING ~ NEEDS INCREASED SEDATION
--- NOTE | 2019-02-01 13:38 | NUR ---
NURSE NOTES: Patient found with IV line out, RN Pablo made attempts to reinsert but unsuccessful. made aware.
--- NOTE | 2019-02-01 13:44 | NUR ---
NURSE NOTES: DR BARDALES MADE AWARE OF UNSUCCESSFUL IV ACCESS ATTEMPT AND UNABLE TO ADMINISTER ALL KCL IV ORDERED. PER DR BARDALES, ADMINISTER KDUR 20MEQ PO X1.
--- NOTE | 2019-02-01 13:45 | NUR ---
02/01..Concerning MRI, pt uncooperative, pulls out IV (twice). IM sedation didn't work. RN Pablo to call Dr Chapa. tjb 13:40
--- NOTE | 2019-02-01 15:30 | NUR ---
RD ASSESSMENT & RECOMMENDATIONS SEE CARE ACTIVITY FOR COMPLETE ASSESSMENT DAILY ESTIMATED NEEDS: Needs based on Cancer, wounds 48kg 30-40 kcals/kg 9575-2240 total kcals 1.25-2 g protein/kg 60-96 g total protein 25-30 mL/kg 9807-9166 total fluid mLs NUTRITION DIAGNOSIS: Increased kcal and pro needs r/t wound healing and low BMI as evidenced by BMI underweight per guidelines, pt w/ multiple partial thickness wounds, refer to WC eval, currently w/ poor and variable PO intake CURRENT DIET:CCHO MED/ pureed moist -> SOFT EASY CHEW + Glucerna TID w/ meals PO DIET RECOMMENDATIONS: Liberalized regular diet w/ poor PO (texture per DISPATCHER [place]) ADDITIONAL RECOMMENDATIONS: - Calibrated bedscale wt for accurate CBW - Niles Count x 48 hrs completed 01/22-> overall poor intake - WOUND CARE: add DILAN BID, continue MVI x1 + VIT C 500mg daily - Consider additional appetite stimulant: on Remeron, cont w/ poor PO - Monitor lytes, replete as needed - Continue to offer Glucerna @ all meals - Add CCHO MED to diet w/ PO intake consistently >50%
--- NOTE | 2019-02-01 15:59 | Surgery Progress Note ---
Surgery Progress Note Subjective Additional Comments no acute events family at bedside, son d/c planning Objective Last 24 Hour Vital Signs Date Time Temp Pulse Resp B/P (MAP) Pulse Ox O2 Delivery O2 Flow Rate FiO2 02/01/19 12:00 98.6 17 123/58 (79) 100 02/01/19 09:00 Room Air 02/01/19 08:29 75 100/68 02/01/19 08:00 98.0 75 16 100/68 (79) 98 02/01/19 04:00 97.8 94 18 98/81 (87) 96 02/01/19 00:00 97.8 89 20 132/51 (78) 95 01/31/19 21:00 Room Air 01/31/19 20:30 110 131/79 01/31/19 20:00 97.6 110 20 131/79 (96) 97 01/31/19 16:00 98.9 90 15 115/60 (78) 96 I&O Intake and Output 01/31/19 02/01/19 19:00 07:00 Intake Total 1081 ml 900 ml Output Total 500 ml 900 ml Balance 581 ml 0 ml Intake Oral 300 ml IV Total 781 ml 900 ml Output Urine Total 500 ml 900 ml # Voids 1 Dressing: other Wound: other Drains: other Cardiovascular: RSR Respiratory: decreased breath sounds Abdomen: soft, present bowel sounds, non-distended Extremities: no tenderness, no cyanosis Laboratory Tests Test 02/01/19 05:20 White Blood Count 10.2 K/UL (4.8-10.8) Red Blood Count 3.29 M/UL (4.20-5.40) L Hemoglobin 9.1 G/DL (12.0-16.0) L Hematocrit 29.1 % (37.0-47.0) L Mean Corpuscular Volume 88 FL (80-99) Mean Corpuscular Hemoglobin 27.8 PG (27.0-31.0) Mean Corpuscular Hemoglobin Concent 31.4 G/DL (32.0-36.0) L Red Cell Distribution Width 13.1 % (11.6-14.8) Platelet Count 171 K/UL (150-450) Mean Platelet Volume 6.7 FL (6.5-10.1) Neutrophils (%) (Auto) 76.7 % (45.0-75.0) H Lymphocytes (%) (Auto) 8.6 % (20.0-45.0) L Monocytes (%) (Auto) 13.0 % (1.0-10.0) H Eosinophils (%) (Auto) 0.2 % (0.0-3.0) Basophils (%) (Auto) 1.5 % (0.0-2.0) Sodium Level 137 MMOL/L (136-145) Potassium Level 3.3 MMOL/L (3.5-5.1) L Chloride Level 105 MMOL/L (98-107) Carbon Dioxide Level 23 MMOL/L (21-32) Anion Gap 9 mmol/L (5-15) Blood Urea Nitrogen 18 mg/dL (7-18) Creatinine 2.1 MG/DL (0.55-1.30) H Estimat Glomerular Filtration Rate mL/min (>60) Glucose Level 134 MG/DL (74-106) H Calcium Level 6.5 MG/DL (8.5-10.1) L Total Bilirubin 0.5 MG/DL (0.2-1.0) Aspartate Amino Transf (AST/SGOT) 50 U/L (15-37) H Alanine Aminotransferase (ALT/SGPT) 38 U/L (12-78) Alkaline Phosphatase 327 U/L (46-116) H Total Protein 6.1 G/DL (6.4-8.2) L Albumin 1.3 G/DL (3.4-5.0) L Globulin 4.8 g/dL Albumin/Globulin Ratio 0.3 (1.0-2.7) L Plan Problems: (1) Dehydration (2) Decubitus skin ulcer Assessment & Plan: Pt presented on admission with multiple wounds.Hx R Mastectomy . Full thickness wound that is tunneled into R axilla noted to aleksander R mastectomy.Base of wound is sahara with macerated borders oozing small amt serous exudate noted. No odor noted. (L)3cm x (W)6cm x (D)0.3, tunneling clockwise @10o'clock by 6.6cm. Full thickness wound lateral/posterior R chest. Scattered slough at base of wound with erythematous borders .Periwound indurated. wound oozing small amt serous exudate. (L)1cm x (W)3cm. Full thickness wound posterior thoracic. 100% slough at base of wound. Erythematous borders. No odor or exudate noted(L)2.3cm x (W)2.5cm. Full thickness wound median R humerus. 100% slough with erythematous borders. No odor or exudate noted.(L)3.9cm x (W)2.4cm. Incontinence associated dermatitis noted to sacral and cleft of buttocks. Affected area is erythematous. Pt denied burning or itching. DTPI noted to medial L foot . Base of wound is indurated,purple with red margins.(L)3.2cm x (W)1cm. L heel boggy with non-blanchable erythema. Non-blanchable erythema without fluctuance R heel. Tx.Plan: Cleanse wound Aleksander R chest with Saline. Loosely pack wound (@10o'clock) with 1 /2 inch Iodoform packing. Apply Cavilon periwound. Cover with Optifoam drsg.Daily and prn. Cleanse wounds R arm with saline. Apply Xeroform gauze.Apply Cavilon periwound. Cover with Optifoam drsg. Change daily and prn. Cleanse wound Lateral/posterior chest with Saline. Apply xeroform gauze. Cover with Optifoam drsg. Change Daily and prn. Cleanse wound Posterior R thoracic with Saline. Cover with Xeroform. Apply Cavilon Skin Barrier periwound. Cover with Optifoam drsg. Daily and prn. Apply Triad Paste to Buttocks with each perineal care. Apply Cavilon Skin Barrier to both heels. Cover each heel with Optifoam drsg. every 7 days and prn. Reposition at least every 2hours or as tolerated. Off-load heels with pillow. (3) Leukocytosis Assessment & Plan: cont Abx worsening unlikely related to wounds that do not seem actively infected (4) Severe protein-calorie malnutrition Assessment & Plan: DAILY ESTIMATED NEEDS: Needs based on Cancer, wounds 48kg 30-40 kcals/kg 1196-0027 total kcals 1.25-2 g protein/kg 60-96 g total protein 25-30 mL/kg 3610-9927 total fluid mLs NUTRITION DIAGNOSIS: Increased kcal and pro needs r/t wound healing and low BMI as evidenced by BMI underweight per guidelines, pt w/ multiple partial thickness wounds, refer to WC eval. CURRENT DIET: Soft GAGE PO DIET RECOMMENDATIONS: GAGE diet/ texture as tolerated ADDITIONAL RECOMMENDATIONS: - Pt w/ poor po intake, would rec to liberalized diet to REGULAR - Add ENSURE ENLIVE TID w/ meals - Obtain a standing scale wt as able Or recalibrate bed scale for accurate CBW - Monitor renal fxn/ lytes and need for renal supplement - WOUND CARE: add DILAN BID + MVI x1 + VIT C 500mg daily (5) Failure to thrive in adult (6) Acute cholecystitis Assessment & Plan: Patient with possible acalculous cholecystitis. Afebrile, hemodynamic stable, leukocytosis, acute episode of pancreatitis which is resolved chemically. On examination difficult to examine but no significant tenderness identified in the right upper quadrant. CT reviewed. US noted. inconsistent with CT findings HIDA negative Continue IV antibiotics We will follow with recommendations no acute surgical intervention recommended at this time conservative management with Abx Jesus Bennett Feb 01, 2019 15:59
[2019-02-01 16:00] VITALS: BP 110/70
--- NOTE | 2019-02-01 18:19 | NUR ---
NURSE NOTES: PT ATE 3 SPOONFULS OF DINNER AND DRANK APPROXIMATELY 120CC OF GLUCERNA. PT REFUSES TO EAT MORE.
--- NOTE | 2019-02-01 19:19 | NUR ---
HAND-OFF: Report given to joaquin cobos RN.
--- NOTE | 2019-02-01 19:20 | NUR ---
NURSE NOTES: Received report from Pablo Smith RN. Patient is in bed, awake and confused, talkative. Patient is on room air with no signs of distress or SOB. Bilat soft wrist restraints still in progress. Patient has no IV access at this time. MD aware per AM nurse. Naranjo intact and draining urine. Bed locked and in lowest position. 3 side rails up. Call light in reach. Will continue to monitor.
[2019-02-01 20:00] VITALS: BP 115/57
[2019-02-01] MEDS: OLANZapine 2.5mg tab ORAL SCH (21:35)
[2019-02-02] VITALS: BP 139/65
--- NOTE | 2019-02-02 01:45 | Progress Note ---
DATE: 02/01/2019 SUBJECTIVE: The patient is confused and disoriented. Still has waxing and waning consciousness and confusion. Decreased appetite. MENTAL STATUS EXAMINATION: The patient is alert and confused. Mood is agitated. Affect is flat. Thought process, there is a paucity of thought content. Thought content, no suicidal or homicidal ideations. Cognition is impaired. Insight and judgment impaired. ASSESSMENT: Dementia with behavior disturbance. Decreased appetite. PLAN: 1. We will continue Zyprexa to also stimulate her appetite. 2. Provide the patient with reality orientation and supportive therapy. Cynthia Nicholson M.D. DR: MICHAEL JOB#: [id number] CC:
--- NOTE | 2019-02-02 02:00 | Progress Note ---
DATE: 02/01/2019 CARDIOLOGY PROGRESS NOTE SUBJECTIVE: The patient still requires close observation due to agitation and risk of getting out of bed and falling. OBJECTIVE: VITAL SIGNS: Blood pressure 98/81 to 131/79, heart rate 75 to 110, and respiratory rate 15 to 20. The patient is afebrile. HEENT: Temporal wasting. LUNGS: Clear. CARDIAC: Regular. No ascites. EXTREMITIES: No edema. LABORATORY DATA: White count 10.2 and hemoglobin 9.1. Potassium 3.3, BUN 18, and creatinine 2.1. Albumin 1.3. IMPRESSION: 1. Acute on chronic diastolic congestive heart failure. 2. Severe protein-calorie malnutrition. 3. Resolving renal failure. 4. Hypokalemia. 5. Corrected hypomagnesemia. 6. Elevated alkaline phosphatase. 7. Possible metastatic disease. 8. Chronic liver disease with cirrhosis. 9. Hypothyroidism, on replacement therapy. 10. Metabolic encephalopathy. PLAN: 1. Poor prognosis. 2. Continue thyroid replacement. 3. Continue replacement of electrolytes as needed. 4. Protein supplement as tolerated. 5. Hold diuresis at this time. 6. Optimize cardiovascular regimen. 7. Unable to transfer to a lower level of care until behavior has improved. Jorge Self M.D. DR: ALINA JOB#: [id number] CC:
[2019-02-02 04:00] VITALS: BP 101/51
[2019-02-02] MEDS: NovoLOG Insulin Flexpen SUBQ SCH ×4 (06:20→21:00)
--- NOTE | 2019-02-02 06:55 | NUR ---
NURSE NOTES: Unsuccessful IV reinsertion. MD and charger operator helper notified.
--- NOTE | 2019-02-02 07:55 | NUR ---
HAND-OFF: Report given to Ronda blakely RN.
--- NOTE | 2019-02-02 07:55 | NUR ---
NURSE NOTES: Received patient on bed asleep. With bilateral soft wrist restraints on, pulses palpable, no new skin issues noted on wrists. Naranjo catheter intact and patent. No SOB or cardiac distress. Head of bed kept elevated. Bed kept in lowest position and locked. Call light within reach. Will continue plan of care.
[2019-02-02 08:00] VITALS: BP 125/66
[2019-02-02 08:56] LABS: ALANINE AMINOTRANSFERASE 36 U/L (12-78); ALBUMIN 1.6 G/DL (3.4-5.0); ALBUMIN/GLOBULIN RATIO 0.3 (1.0-2.7); ALKALINE PHOSPHATASE 337 U/L (46-116); ANION GAP 10 mmol/L (5-15); ASPARTATE AMINO TRANSFERASE 44 U/L (15-37); BILIRUBIN,TOTAL 0.5 MG/DL (0.2-1.0); BLOOD UREA NITROGEN 15 mg/dL (7-18); CALCIUM 6.5 MG/DL (8.5-10.1); CARBON DIOXIDE 26 MMOL/L (21-32); CHLORIDE 109 MMOL/L (98-107); SODIUM 145 MMOL/L (136-145)
[2019-02-02] MEDS: Thiamine HCl 100 MG in D5W 55 ML IVPB SCH (09:00)
[2019-02-02] MEDS: Metoprolol 25mg tab ORAL SCH ×2 (09:00→20:54)
--- NOTE | 2019-02-02 09:00 | NUR ---
NURSE NOTES: Patient is in bed, RN tried to put IV but patient is verbally abusive, combative and non-compliance. RN explained the risks of not getting the IV access. Patient stated that " I do not care, leave me alone." Will continue to monitor and follow up with IV.
--- NOTE | 2019-02-02 09:00 | NUR ---
NURSE NOTES: :E for 02/02/19, unable to administer Thiamine IV due to no IV access.
--- NOTE | 2019-02-02 09:31 | NUR ---
NURSE NOTES: Dr. Huddleston is aware of low potassium of 3.0 and he ordered IV potassium.Patient denies chest pain, or any cardiac issue, No s/s of pain or discomfort per FLACC pain scale.
--- NOTE | 2019-02-02 09:33 | Nephrology Progress Note ---
Assessment/Plan Problem List: (1) Acute renal failure (ARF) Assessment: Cr lowering (2) Failure to thrive in adult (3) Severe protein-calorie malnutrition Assessment: Low Albumin (4) Dehydration (5) Elevated LFTs Assessment: improving (6) Hypokalemia (7) Acute encephalopathy Assessment remains encephalopathic Acute on chronic renal failure- Dehydration Failing to thrive, Malnutrition Decubiti Urinary retention Plan marte Urine studies Hydrate- has PICC now K and Mag supplement as needed CXR STANLEY kidney noted Med surg Subjective ROS Limited/Unobtainable: No Constitutional: Reports: malaise Objective Objective Last 24 Hour Vital Signs Date Time Temp Pulse Resp B/P (MAP) Pulse Ox O2 Delivery O2 Flow Rate FiO2 02/02/19 08:00 98.1 93 20 125/66 (85) 98 02/02/19 04:00 97.4 80 18 101/51 (68) 95 02/02/19 00:00 97.7 92 18 139/65 (89) 95 02/01/19 21:34 107 115/57 02/01/19 21:00 Room Air 02/01/19 20:00 97.3 107 20 115/57 (76) 98 02/01/19 16:00 98.2 17 110/70 (83) 100 02/01/19 12:00 98.6 17 123/58 (79) 100 Intake and Output 02/01/19 02/02/19 18:59 06:59 Intake Total 100 ml Output Total 800 ml Balance -700 ml Intake Oral 100 ml Output Urine Total 800 ml # Voids 6 # Bowel Movements 2 Laboratory Tests 02/02/19 05:49: Sodium Level 145, Potassium Level 3.0L, Chloride Level 109H, Carbon Dioxide Level 26, Anion Gap 10, Blood Urea Nitrogen 15, Creatinine 2.0H, Estimat Glomerular Filtration Rate , Glucose Level 72L, Calcium Level 6.5L, Total Bilirubin 0.5, Aspartate Amino Transf (AST/SGOT) 44H, Alanine Aminotransferase ( ALT/SGPT) 36, Alkaline Phosphatase 337H, Total Protein 6.6, Albumin 1.6L, Globulin 5.0, Albumin/Globulin Ratio 0.3L Height (Feet): 5 Height (Inches): 1.00 Weight (Pounds): 118 General Appearance: lethargic, confused Cardiovascular: normal rate Respiratory/Chest: decreased breath sounds Abdomen: distended Objective no change Mauri Huddleston MD Feb 02, 2019 09:33
--- NOTE | 2019-02-02 10:00 | NUR ---
NURSE NOTES: Observed patient tried to pull her marte cath during reassessment of restraints due to it is over 72 hrs. Diversional intervention was unsuccessful due to patient's cognition status. Prolonged restraints assessment done and daily restraint renew done. No skin break, pulses are present , no skin discolorations on bilateral hands and wrists. Will continue to monitor. Unable to get IV since patient is a hard stick and right arm precaution. Will follow up.
[2019-02-02] MEDS: Anastrazole 1mg tab ORAL SCH (10:48)
--- NOTE | 2019-02-02 10:49 | General Progress Note ---
Assessment/Plan Problem List: (1) Acute renal failure (ARF) ICD Codes: N17.9 - Acute kidney failure, unspecified SNOMED: 33841942 (2) Dehydration ICD Codes: E86.0 - Dehydration SNOMED: 72558981 (3) Decubitus skin ulcer ICD Codes: L89.90 - Pressure ulcer of unspecified site, unspecified stage SNOMED: 936399404 (4) Leukocytosis ICD Codes: D72.829 - Elevated white blood cell count, unspecified SNOMED: 699741026, 778212776 (5) Failure to thrive in adult ICD Codes: R62.7 - Adult failure to thrive SNOMED: 842102182 (6) Severe protein-calorie malnutrition ICD Codes: E43 - Unspecified severe protein-calorie malnutrition SNOMED: 517943874, 470910285, [id number] Status: stable, progressing Assessment/Plan: ivf if able to get iv encourage po monitor renal fxn/lytes psych follow up retry mri monday thyroid replacement rx monitor labs cannot go back to snf if needing restraints. wound care dnr conservative rx family did not want hospice poor prognosis dc psych meds Subjective ROS Limited/Unobtainable: Yes Constitutional: Reports: malaise, weakness HEENT: Reports: no symptoms Cardiovascular: Reports: no symptoms Respiratory: Reports: no symptoms Gastrointestinal/Abdominal: Reports: difficulty swallowing, poor appetite, poor fluid intake Genitourinary: Reports: no symptoms Neurologic/Psychiatric: Reports: pre-existing deficit Endocrine: Reports: no symptoms Hematologic/Lymphatic: Reports: no symptoms Allergies: Coded Allergies: No Known Allergies (Unverified , 01/15/19) All Systems: reviewed and negative except above Subjective pulled out iv. no access. unable to cooperate with MRI. family requesting all psych meds be dcd. they feel pt is worse with meds Objective Last 24 Hour Vital Signs Date Time Temp Pulse Resp B/P (MAP) Pulse Ox O2 Delivery O2 Flow Rate FiO2 02/02/19 08:00 98.1 93 20 125/66 (85) 98 02/02/19 04:00 97.4 80 18 101/51 (68) 95 02/02/19 00:00 97.7 92 18 139/65 (89) 95 02/01/19 21:34 107 115/57 02/01/19 21:00 Room Air 02/01/19 20:00 97.3 107 20 115/57 (76) 98 02/01/19 16:00 98.2 17 110/70 (83) 100 02/01/19 12:00 98.6 17 123/58 (79) 100 Intake and Output 02/01/19 02/02/19 19:00 07:00 Intake Total 100 ml Output Total 800 ml Balance -700 ml Intake Oral 100 ml Output Urine Total 800 ml # Voids 6 # Bowel Movements 2 Laboratory Tests 02/02/19 05:49: Sodium Level 145, Potassium Level 3.0L, Chloride Level 109H, Carbon Dioxide Level 26, Anion Gap 10, Blood Urea Nitrogen 15, Creatinine 2.0H, Estimat Glomerular Filtration Rate , Glucose Level 72L, Calcium Level 6.5L, Total Bilirubin 0.5, Aspartate Amino Transf (AST/SGOT) 44H, Alanine Aminotransferase ( ALT/SGPT) 36, Alkaline Phosphatase 337H, Total Protein 6.6, Albumin 1.6L, Globulin 5.0, Albumin/Globulin Ratio 0.3L Height (Feet): 5 Height (Inches): 1.00 Weight (Pounds): 118 Objective General Appearance: WD/WN, alert Neck: supple Cardiovascular: regular rhythm Respiratory/Chest: chest wall non-tender, lungs clear, normal breath sounds, no respiratory distress Abdomen: normal bowel sounds, non tender, soft, no organomegaly Edema: no edema noted Arm (L), no edema noted Arm (R), no edema noted Leg (L), no edema noted Leg (R), no edema noted Pedal (L), no edema noted Pedal (R), no edema noted Generalized Mesfin Chapa MD Feb 02, 2019 10:49
[2019-02-02] MEDS: Heparin 5000 units/ml inj SUBQ SCH ×2 (10:54→21:04)
[2019-02-02] MEDS: Aspirin EC 81mg tab ORAL SCH (11:50)
[2019-02-02] MEDS: Ascorbic Acid 500mg tab ORAL SCH (11:51)
[2019-02-02 12:00] VITALS: BP 98/52
--- NOTE | 2019-02-02 12:39 | Surgery Progress Note ---
Surgery Progress Note Subjective Symptoms: tolerating diet, voiding well, passing flatus Objective Last 24 Hour Vital Signs Date Time Temp Pulse Resp B/P (MAP) Pulse Ox O2 Delivery O2 Flow Rate FiO2 02/02/19 12:00 98.3 92 19 98/52 (67) 99 02/02/19 09:00 91 114/63 02/02/19 08:00 98.1 93 20 125/66 (85) 98 02/02/19 04:00 97.4 80 18 101/51 (68) 95 02/02/19 00:00 97.7 92 18 139/65 (89) 95 02/01/19 21:34 107 115/57 02/01/19 21:00 Room Air 02/01/19 20:00 97.3 107 20 115/57 (76) 98 02/01/19 16:00 98.2 17 110/70 (83) 100 I&O Intake and Output 02/01/19 02/02/19 18:59 06:59 Intake Total 100 ml Output Total 800 ml Balance -700 ml Intake Oral 100 ml Output Urine Total 800 ml # Voids 6 # Bowel Movements 2 Cardiovascular: RSR Respiratory: clear Abdomen: soft, non-tender, present bowel sounds, non-distended Extremities: no edema, no tenderness, no cyanosis Laboratory Tests Test 02/02/19 05:49 Sodium Level 145 MMOL/L (136-145) Potassium Level 3.0 MMOL/L (3.5-5.1) L Chloride Level 109 MMOL/L (98-107) H Carbon Dioxide Level 26 MMOL/L (21-32) Anion Gap 10 mmol/L (5-15) Blood Urea Nitrogen 15 mg/dL (7-18) Creatinine 2.0 MG/DL (0.55-1.30) H Estimat Glomerular Filtration Rate mL/min (>60) Glucose Level 72 MG/DL (74-106) L Calcium Level 6.5 MG/DL (8.5-10.1) L Total Bilirubin 0.5 MG/DL (0.2-1.0) Aspartate Amino Transf (AST/SGOT) 44 U/L (15-37) H Alanine Aminotransferase (ALT/SGPT) 36 U/L (12-78) Alkaline Phosphatase 337 U/L (46-116) H Total Protein 6.6 G/DL (6.4-8.2) Albumin 1.6 G/DL (3.4-5.0) L Globulin 5.0 g/dL Albumin/Globulin Ratio 0.3 (1.0-2.7) L Plan Problems: (1) Dehydration (2) Decubitus skin ulcer Assessment & Plan: Pt presented on admission with multiple wounds.Hx R Mastectomy . Full thickness wound that is tunneled into R axilla noted to aleksander R mastectomy.Base of wound is sahara with macerated borders oozing small amt serous exudate noted. No odor noted. (L)3cm x (W)6cm x (D)0.3, tunneling clockwise @10o'clock by 6.6cm. Full thickness wound lateral/posterior R chest. Scattered slough at base of wound with erythematous borders .Periwound indurated. wound oozing small amt serous exudate. (L)1cm x (W)3cm. Full thickness wound posterior thoracic. 100% slough at base of wound. Erythematous borders. No odor or exudate noted(L)2.3cm x (W)2.5cm. Full thickness wound median R humerus. 100% slough with erythematous borders. No odor or exudate noted.(L)3.9cm x (W)2.4cm. Incontinence associated dermatitis noted to sacral and cleft of buttocks. Affected area is erythematous. Pt denied burning or itching. DTPI noted to medial L foot . Base of wound is indurated,purple with red margins.(L)3.2cm x (W)1cm. L heel boggy with non-blanchable erythema. Non-blanchable erythema without fluctuance R heel. Tx.Plan: Cleanse wound Aleksander R chest with Saline. Loosely pack wound (@10o'clock) with 1 /2 inch Iodoform packing. Apply Cavilon periwound. Cover with Optifoam drsg.Daily and prn. Cleanse wounds R arm with saline. Apply Xeroform gauze.Apply Cavilon periwound. Cover with Optifoam drsg. Change daily and prn. Cleanse wound Lateral/posterior chest with Saline. Apply xeroform gauze. Cover with Optifoam drsg. Change Daily and prn. Cleanse wound Posterior R thoracic with Saline. Cover with Xeroform. Apply Cavilon Skin Barrier periwound. Cover with Optifoam drsg. Daily and prn. Apply Triad Paste to Buttocks with each perineal care. Apply Cavilon Skin Barrier to both heels. Cover each heel with Optifoam drsg. every 7 days and prn. Reposition at least every 2hours or as tolerated. Off-load heels with pillow. (3) Leukocytosis Assessment & Plan: cont Abx worsening unlikely related to wounds that do not seem actively infected (4) Severe protein-calorie malnutrition Assessment & Plan: DAILY ESTIMATED NEEDS: Needs based on Cancer, wounds 48kg 30-40 kcals/kg 0785-4702 total kcals 1.25-2 g protein/kg 60-96 g total protein 25-30 mL/kg 1573-5363 total fluid mLs NUTRITION DIAGNOSIS: Increased kcal and pro needs r/t wound healing and low BMI as evidenced by BMI underweight per guidelines, pt w/ multiple partial thickness wounds, refer to WC eval. CURRENT DIET: Soft GAGE PO DIET RECOMMENDATIONS: GAGE diet/ texture as tolerated ADDITIONAL RECOMMENDATIONS: - Pt w/ poor po intake, would rec to liberalized diet to REGULAR - Add ENSURE ENLIVE TID w/ meals - Obtain a standing scale wt as able Or recalibrate bed scale for accurate CBW - Monitor renal fxn/ lytes and need for renal supplement - WOUND CARE: add DILAN BID + MVI x1 + VIT C 500mg daily (5) Failure to thrive in adult (6) Acute cholecystitis Assessment & Plan: Patient with possible acalculous cholecystitis. Afebrile, hemodynamic stable, leukocytosis, acute episode of pancreatitis which is resolved chemically. On examination difficult to examine but no significant tenderness identified in the right upper quadrant. CT reviewed. US noted. inconsistent with CT findings HIDA negative Continue IV antibiotics We will follow with recommendations no acute surgical intervention recommended at this time conservative management with Abx Jesus Bennett Feb 02, 2019 12:39
--- NOTE | 2019-02-02 13:00 | NUR ---
NURSE NOTES: Patient refused to eat breakfast and lunch but when RN offered water she drank some water without any difficulties. Oral care done. Naranjo is draining well with straw colored urine.
--- NOTE | 2019-02-02 13:30 | NUR ---
NURSE NOTES: RN spoke to Dr. Huddleston and asked if IVPB potassium can be switched to po since patient has no IV access but Dr. Huddleston declined. Will follow up with IV insertion.
--- NOTE | 2019-02-02 14:26 | Infectious Diseases Prog Note ---
Assessment/Plan Assessment/Plan Impression: 1. Pancreatitis. 2. Leukocytosis, resolved 3. Renal failure,improving 4. 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 Dementia 7. DNR status PLAN: 1. Observe off antibiotic Subjective ROS Limited/Unobtainable: Yes Constitutional: Reports: anorexia Allergies: Coded Allergies: No Known Allergies (Unverified , 01/15/19) Objective Vital Signs Last 24 Hour Vital Signs Date Time Temp Pulse Resp B/P (MAP) Pulse Ox O2 Delivery O2 Flow Rate FiO2 02/02/19 12:00 98.3 92 19 98/52 (67) 99 02/02/19 09:00 91 114/63 02/02/19 08:00 98.1 93 20 125/66 (85) 98 02/02/19 04:00 97.4 80 18 101/51 (68) 95 02/02/19 00:00 97.7 92 18 139/65 (89) 95 02/01/19 21:34 107 115/57 02/01/19 21:00 Room Air 02/01/19 20:00 97.3 107 20 115/57 (76) 98 02/01/19 16:00 98.2 17 110/70 (83) 100 Height (Feet): 5 Height (Inches): 1.00 Weight (Pounds): 118 General Appearance: no acute distress HEENT: mucous membranes moist Respiratory/Chest: lungs clear Cardiovascular: normal rate Abdomen: soft, non tender Extremities: no edema Neurologic/Psychiatric: other - sleeping Laboratory Tests Test 02/02/19 05:49 Sodium Level 145 MMOL/L (136-145) Potassium Level 3.0 MMOL/L (3.5-5.1) L Chloride Level 109 MMOL/L (98-107) H Carbon Dioxide Level 26 MMOL/L (21-32) Anion Gap 10 mmol/L (5-15) Blood Urea Nitrogen 15 mg/dL (7-18) Creatinine 2.0 MG/DL (0.55-1.30) H Estimat Glomerular Filtration Rate mL/min (>60) Glucose Level 72 MG/DL (74-106) L Calcium Level 6.5 MG/DL (8.5-10.1) L Total Bilirubin 0.5 MG/DL (0.2-1.0) Aspartate Amino Transf (AST/SGOT) 44 U/L (15-37) H Alanine Aminotransferase (ALT/SGPT) 36 U/L (12-78) Alkaline Phosphatase 337 U/L (46-116) H Total Protein 6.6 G/DL (6.4-8.2) Albumin 1.6 G/DL (3.4-5.0) L Globulin 5.0 g/dL Albumin/Globulin Ratio 0.3 (1.0-2.7) L Current Medications Medications (Trade) Dose Ordered Sig/Whitley Route PRN Reason Start Time Stop Time Status Last Admin Dose Admin Acetaminophen (Tylenol) 650 mg Q4H PRN ORAL Mild Pain/Temp > 100.5 01/29/19 03:30 02/15/19 15:29 Anastrozole (Arimidex) 1 mg DAILY ORAL 01/29/19 09:00 02/15/19 08:59 02/02/19 10:48 Ascorbic Acid (Vitamin C) 500 mg DAILY ORAL 01/29/19 09:00 02/17/19 08:59 02/02/19 11:51 Aspirin (Ecotrin) 81 mg DAILY ORAL 01/29/19 09:00 02/15/19 08:59 02/02/19 11:50 Dextrose 1,000 ml @ 75 mls/hr [id number] IV 01/29/19 00:15 02/22/19 08:29 02/01/19 08:37 Dextrose (Dextrose 50%) 25 ml Q30M PRN IV Hypoglycemia 01/29/19 00:15 02/18/19 11:14 Dextrose (Dextrose 50%) 50 ml Q30M PRN IV Hypoglycemia 01/29/19 00:15 02/18/19 11:14 Diphenhydramine HCl (Benadryl Cream) 1 applic QIDPRN PRN TOPIC Itching 01/29/19 14:15 02/23/19 14:14 Heparin Sodium (Porcine) (Heparin 5000 units/ml) 5,000 units EVERY 12 HOURS SUBQ 01/29/19 09:00 02/15/19 08:59 02/02/19 10:54 Insulin Aspart (NovoLOG) BEFORE MEALS AND HS SUBQ 01/29/19 06:30 02/18/19 11:29 01/30/19 16:47 Levothyroxine Sodium (Synthroid) 75 mcg DAILY@0630 ORAL 02/01/19 06:30 03/03/19 06:29 02/02/19 06:20 Metoprolol Tartrate (Lopressor) 25 mg Q12HR ORAL 01/29/19 09:00 02/15/19 08:59 02/01/19 21:34 Multivitamins (Multivitamins) 1 tab DAILY ORAL 01/29/19 09:00 02/17/19 08:59 02/02/19 11:50 Pantoprazole (Protonix) 40 mg DAILY@0630 ORAL 01/29/19 06:30 02/28/19 06:29 02/02/19 06:20 Thiamine HCl 100 mg/Dextrose 56 ml @ 112 mls/hr DAILY IVPB 01/30/19 14:00 03/01/19 13:59 01/31/19 09:44 Gregorio Paredes MD Feb 02, 2019 14:26
--- NOTE | 2019-02-02 14:40 | NUR ---
NURSE NOTES: IV started on left hand 24 gauge. IV is asymptomatic, patent and secure.
[2019-02-02 16:00] VITALS: BP 110/62
--- NOTE | 2019-02-02 17:04 | NUR ---
NURSE NOTES: Patient completed one bag of potassium so far and still has 3 bags of potassium 10 MEQ premixed IV, RN tried to pull out medication from pyxis but since the order fell off unable to get the medication from pyxis. RN spoke to the pharmacist and the pharmacist said that's how pyxis programmed was told that nursing has to put another order. RN paged Dr. Huddleston and explained. Pharmacy will bring 3 more bags of potassium 10MEQ premix IVPB.
--- NOTE | 2019-02-02 19:28 | NUR ---
HAND-OFF: Report given to Moriah.
--- NOTE | 2019-02-02 19:29 | NUR ---
NURSE NOTES: Received report from GAIL Bolivar and Ronda blakely RN. Patient is in bed, awake and confused. On room air with no signs of distress or SOB. IV on the L hand 24g is intact and running bag 2/4 of KCL. Bilateral soft wrist restraints still in progress. Bed locked and in lowest position with 3x side rails up. Call light in reach. Will monitor closely.
--- NOTE | 2019-02-02 19:30 | NUR ---
NURSE NOTES: Received orders from Dr. Nicholson to renew zyprexa,remeron,haldol PRN and depakote. Order read back and carried out.
[2019-02-02] MEDS ORDERED: Haloperidol 5mg/ml Inj IM PRN (19:45)
[2019-02-02 20:00] VITALS: BP 132/87
[2019-02-02] MEDS ORDERED: OLANZapine 2.5mg tab ORAL SCH (21:00)
[2019-02-03] VITALS: BP 124/70
--- NOTE | 2019-02-03 01:30 | Progress Note ---
DATE: 02/02/2019 SUBJECTIVE: She is still alert and awake, but still agitated, pulling out her IVs. Right now, an IV is being attempted to be placed. PHYSICAL EXAMINATION: VITAL SIGNS: Blood pressure is 98/52, pulse 92, respiratory rate 19, and temperature 98.3 degrees. MENTAL STATUS: She is alert and awake. Judgment was impaired. Affect was appropriate to mood, which was irritable. Intellect could not be tested. Orientation to time. She did not know the date, did not know the year or place. She knew she was in the hospital, but did not know which one. She said there was "a lot of hospitals." She was oriented to person. Language function, spoken speech with good comprehension. There were no paresthesias noted. Spelling world, she could spell it forwards and spilling it backwards, spelled "DLOWD." CRANIAL NERVE EXAMINATION: Cranial Nerves III, IV, and : Horizontal extraocular motility was full. CRANIAL NERVE VII: Facial strength was 5/5. Most of the cranial nerves were not tested. IMPRESSION: The patient is hypothyroid, whether or not . Mental status improved. It is probably too early to tell. However, she needs to be continued to be treated. She may or may not need steroid along with thyroid replacement. PLAN: The patient at this time not have any further recommendations. EEG is probably not necessary. The lumbar puncture is probably not necessary. So, plan is to continue her treatment. Thank you for this interesting case. Dariel Schilling MD DR: OMER JOB#: [id number] CC:
--- NOTE | 2019-02-03 02:45 | Progress Note ---
DATE: 02/02/2019 CARDIOLOGY PROGRESS NOTE SUBJECTIVE: The patient has been taken off all psychiatric medications. Vitals are stable. The patient unable to cooperate for further MRI and diagnostic studies at this time. OBJECTIVE: LUNGS: Clear. CARDIAC: Regular. Normal S1 and S2. ABDOMEN: Soft. EXTREMITIES: No edema. IMPRESSION: 1. Encephalopathy. 2. Multiple comorbidities. PLAN: Observe off psychiatric medications. Jorge Self M.D. DR: HEIDY JOB#: [id number] CC:
[2019-02-03 04:00] VITALS: BP 103/52
[2019-02-03] MEDS: NovoLOG Insulin Flexpen SUBQ SCH ×4 (06:09→21:00)
--- NOTE | 2019-02-03 07:14 | NUR ---
HAND-OFF: Report given to Ronda Colmenares RN and GAIL Bolivar.
--- NOTE | 2019-02-03 07:14 | NUR ---
NURSE NOTES: Received patient on bed asleep. IV line intact and patent. Soft wrist restraints on, pulses palpable, no skin issues on wrists. Naranjo catheter intact and patent. Head of bed elevated. Bed kept on lowest position and locked. Call light within reach. Will continue plan of care.
--- NOTE | 2019-02-03 07:35 | NUR ---
NURSE NOTES: Patient was seen by Dr. Chapa, per Dr. Chapa family does not want psychotropic meds for the patient. Will continue to monitor. Dr. Chapa is aware of patient's poor po intake. Will continue to monitor.
[2019-02-03 08:00] VITALS: BP 106/54
--- NOTE | 2019-02-03 08:00 | NUR ---
NURSE NOTES: Patient is on bed, restlessness,agitated. Patient tried to get out of the bed dangling her legs out of the side rails stating " I need to get out of here." RN re-positioned the patient, offered water, released restraints to check the skin while RN staying with the patient and re-orientation given to the patient.Patient denies pain. Will continue to monitor.
[2019-02-03] MEDS: Metoprolol 25mg tab ORAL SCH ×2 (09:00→20:46)
--- NOTE | 2019-02-03 09:04 | General Progress Note ---
Assessment/Plan Problem List: (1) Acute renal failure (ARF) ICD Codes: N17.9 - Acute kidney failure, unspecified SNOMED: 94983015 (2) Dehydration ICD Codes: E86.0 - Dehydration SNOMED: 04693635 (3) Decubitus skin ulcer ICD Codes: L89.90 - Pressure ulcer of unspecified site, unspecified stage SNOMED: 561854665 (4) Leukocytosis ICD Codes: D72.829 - Elevated white blood cell count, unspecified SNOMED: 361160799, 405246217 (5) Failure to thrive in adult ICD Codes: R62.7 - Adult failure to thrive SNOMED: 731808508 (6) Severe protein-calorie malnutrition ICD Codes: E43 - Unspecified severe protein-calorie malnutrition SNOMED: 665271168, 018871932, 498120680 Status: stable, progressing Assessment/Plan: ivf encourage po monitor renal fxn/lytes off anxiolytics/psych rx per family request thyroid replacement rx monitor labs cannot go back to snf if needing restraints. wound care dnr conservative rx family did not want hospice poor prognosis dc planning Subjective ROS Limited/Unobtainable: No Constitutional: Reports: weakness Allergies: Coded Allergies: No Known Allergies (Unverified , 01/15/19) Subjective no events. off psych meds per family request. remains confused. mostly cooperative with care. poor po intake Objective Last 24 Hour Vital Signs Date Time Temp Pulse Resp B/P (MAP) Pulse Ox O2 Delivery O2 Flow Rate FiO2 02/03/19 08:00 97.6 90 18 106/54 (71) 98 02/03/19 04:00 97.0 92 18 103/52 (69) 99 02/03/19 00:00 97.0 91 18 124/70 (88) 100 02/02/19 21:00 Room Air 02/02/19 20:54 99 132/87 02/02/19 20:00 98.1 99 16 132/87 (102) 100 02/02/19 16:00 98.1 87 18 110/62 (78) 98 02/02/19 12:00 98.3 92 19 98/52 (67) 99 Intake and Output 02/02/19 02/03/19 19:00 07:00 Intake Total 875 ml 825 ml Output Total 900 ml 300 ml Balance -25 ml 525 ml Intake Oral 800 ml IV Total 75 ml 825 ml Output Urine Total 900 ml 300 ml Height (Feet): 5 Height (Inches): 1.00 Weight (Pounds): 118 Objective General Appearance: WD/WN, alert Neck: supple Cardiovascular: regular rhythm Respiratory/Chest: chest wall non-tender, lungs clear, normal breath sounds, no respiratory distress Abdomen: normal bowel sounds, non tender, soft, no organomegaly Edema: no edema noted Arm (L), no edema noted Arm (R), no edema noted Leg (L), no edema noted Leg (R), no edema noted Pedal (L), no edema noted Pedal (R), no edema noted Generalized Mesfin Chapa MD Feb 03, 2019 09:04
[2019-02-03] MEDS: Anastrazole 1mg tab ORAL SCH (09:32)
[2019-02-03] MEDS: Aspirin EC 81mg tab ORAL SCH (09:32)
[2019-02-03] MEDS: Ascorbic Acid 500mg tab ORAL SCH (09:32)
[2019-02-03] MEDS: Heparin 5000 units/ml inj SUBQ SCH ×2 (09:34→20:51)
[2019-02-03] MEDS: Thiamine HCl 100 MG in D5W 55 ML IVPB SCH (09:36)
--- NOTE | 2019-02-03 10:42 | Infectious Diseases Prog Note ---
Assessment/Plan Assessment/Plan Impression: 1. Pancreatitis. 2. Leukocytosis, resolved 3. Renal failure,improving 4. 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 Dementia 7. DNR status PLAN: 1. Observe off antibiotic Subjective ROS Limited/Unobtainable: Yes Constitutional: Reports: anorexia Respiratory: Reports: no symptoms Cardiovascular: Reports: no symptoms Gastrointestinal/Abdominal: Reports: no symptoms Neurologic: Reports: other - on restraint Allergies: Coded Allergies: No Known Allergies (Unverified , 01/15/19) Objective Vital Signs Last 24 Hour Vital Signs Date Time Temp Pulse Resp B/P (MAP) Pulse Ox O2 Delivery O2 Flow Rate FiO2 02/03/19 08:00 97.6 90 18 106/54 (71) 98 02/03/19 04:00 97.0 92 18 103/52 (69) 99 02/03/19 00:00 97.0 91 18 124/70 (88) 100 02/02/19 21:00 Room Air 02/02/19 20:54 99 132/87 02/02/19 20:00 98.1 99 16 132/87 (102) 100 02/02/19 16:00 98.1 87 18 110/62 (78) 98 02/02/19 12:00 98.3 92 19 98/52 (67) 99 Height (Feet): 5 Height (Inches): 1.00 Weight (Pounds): 118 General Appearance: no acute distress HEENT: mucous membranes moist Respiratory/Chest: lungs clear Cardiovascular: normal rate Abdomen: soft, non tender Extremities: no edema Neurologic/Psychiatric: alert, responsive Current Medications Medications (Trade) Dose Ordered Sig/Whitley Route PRN Reason Start Time Stop Time Status Last Admin Dose Admin Acetaminophen (Tylenol) 650 mg Q4H PRN ORAL Mild Pain/Temp > 100.5 01/29/19 03:30 02/15/19 15:29 Anastrozole (Arimidex) 1 mg DAILY ORAL 01/29/19 09:00 02/15/19 08:59 02/03/19 09:32 Ascorbic Acid (Vitamin C) 500 mg DAILY ORAL 01/29/19 09:00 02/17/19 08:59 02/03/19 09:32 Aspirin (Ecotrin) 81 mg DAILY ORAL 01/29/19 09:00 02/15/19 08:59 02/03/19 09:32 Dextrose 1,000 ml @ 75 mls/hr [id number] IV 01/29/19 00:15 02/22/19 08:29 02/01/19 08:37 Dextrose (Dextrose 50%) 25 ml Q30M PRN IV Hypoglycemia 01/29/19 00:15 02/18/19 11:14 Dextrose (Dextrose 50%) 50 ml Q30M PRN IV Hypoglycemia 01/29/19 00:15 02/18/19 11:14 Heparin Sodium (Porcine) (Heparin 5000 units/ml) 5,000 units EVERY 12 HOURS SUBQ 01/29/19 09:00 02/15/19 08:59 02/03/19 09:34 Insulin Aspart (NovoLOG) BEFORE MEALS AND HS SUBQ 01/29/19 06:30 02/18/19 11:29 01/30/19 16:47 Levothyroxine Sodium (Synthroid) 75 mcg DAILY@0630 ORAL 02/01/19 06:30 03/03/19 06:29 02/02/19 06:20 Metoprolol Tartrate (Lopressor) 25 mg Q12HR ORAL 01/29/19 09:00 02/15/19 08:59 02/02/19 20:54 Multivitamins (Multivitamins) 1 tab DAILY ORAL 01/29/19 09:00 02/17/19 08:59 02/03/19 09:32 Pantoprazole (Protonix) 40 mg DAILY@0630 ORAL 01/29/19 06:30 02/28/19 06:29 02/02/19 06:20 Thiamine HCl 100 mg/Dextrose 56 ml @ 112 mls/hr DAILY IVPB 01/30/19 14:00 03/01/19 13:59 02/03/19 09:36 Gregorio Paredes MD Feb 03, 2019 10:42
[2019-02-03 12:00] VITALS: BP 130/62
--- NOTE | 2019-02-03 13:30 | NUR ---
NURSE NOTES: patient's son is @ the bedside. Patient is calm @ this time.
--- NOTE | 2019-02-03 14:26 | Nephrology Progress Note ---
Assessment/Plan Problem List: (1) Acute renal failure (ARF) Assessment: Cr lowering (2) Failure to thrive in adult (3) Severe protein-calorie malnutrition Assessment: Low Albumin (4) Dehydration (5) Elevated LFTs Assessment: improving (6) Hypokalemia (7) Acute encephalopathy Assessment remains encephalopathic Acute on chronic renal failure- Dehydration Failing to thrive, Malnutrition Decubiti Urinary retention Plan no labs today marte Urine studies Hydrate- has PICC now K and Mag supplement as needed CXR STANLEY kidney noted Med surg Subjective ROS Limited/Unobtainable: No Constitutional: Reports: malaise, weakness Objective Objective Last 24 Hour Vital Signs Date Time Temp Pulse Resp B/P (MAP) Pulse Ox O2 Delivery O2 Flow Rate FiO2 02/03/19 12:00 98.6 99 19 130/62 (84) 98 02/03/19 09:00 Room Air 02/03/19 09:00 90 106/54 02/03/19 08:00 97.6 90 18 106/54 (71) 98 02/03/19 04:00 97.0 92 18 103/52 (69) 99 02/03/19 00:00 97.0 91 18 124/70 (88) 100 02/02/19 21:00 Room Air 02/02/19 20:54 99 132/87 02/02/19 20:00 98.1 99 16 132/87 (102) 100 02/02/19 16:00 98.1 87 18 110/62 (78) 98 Intake and Output 02/02/19 02/03/19 19:00 07:00 Intake Total 875 ml 825 ml Output Total 900 ml 300 ml Balance -25 ml 525 ml Intake Oral 800 ml IV Total 75 ml 825 ml Output Urine Total 900 ml 300 ml Height (Feet): 5 Height (Inches): 1.00 Weight (Pounds): 118 General Appearance: no apparent distress, confused Objective no change Mauri Huddleston MD Feb 03, 2019 14:26
--- NOTE | 2019-02-03 15:53 | Surgery Progress Note ---
Surgery Progress Note Subjective Additional Comments Patient seen and examined bedside. No acute events. Comfortable. Walking around with physical therapy. No complaints. Objective Last 24 Hour Vital Signs Date Time Temp Pulse Resp B/P (MAP) Pulse Ox O2 Delivery O2 Flow Rate FiO2 02/03/19 12:00 98.6 99 19 130/62 (84) 98 02/03/19 09:00 Room Air 02/03/19 09:00 90 106/54 02/03/19 08:00 97.6 90 18 106/54 (71) 98 02/03/19 04:00 97.0 92 18 103/52 (69) 99 02/03/19 00:00 97.0 91 18 124/70 (88) 100 02/02/19 21:00 Room Air 02/02/19 20:54 99 132/87 02/02/19 20:00 98.1 99 16 132/87 (102) 100 02/02/19 16:00 98.1 87 18 110/62 (78) 98 I&O Intake and Output 02/02/19 02/03/19 19:00 07:00 Intake Total 875 ml 825 ml Output Total 900 ml 300 ml Balance -25 ml 525 ml Intake Oral 800 ml IV Total 75 ml 825 ml Output Urine Total 900 ml 300 ml Cardiovascular: RSR Respiratory: clear Abdomen: soft, flat, non-tender, present bowel sounds Extremities: no tenderness, no cyanosis Plan Problems: (1) Dehydration (2) Decubitus skin ulcer Assessment & Plan: Pt presented on admission with multiple wounds.Hx R Mastectomy . Full thickness wound that is tunneled into R axilla noted to aleksander R mastectomy.Base of wound is sahara with macerated borders oozing small amt serous exudate noted. No odor noted. (L)3cm x (W)6cm x (D)0.3, tunneling clockwise @10o'clock by 6.6cm. Full thickness wound lateral/posterior R chest. Scattered slough at base of wound with erythematous borders .Periwound indurated. wound oozing small amt serous exudate. (L)1cm x (W)3cm. Full thickness wound posterior thoracic. 100% slough at base of wound. Erythematous borders. No odor or exudate noted(L)2.3cm x (W)2.5cm. Full thickness wound median R humerus. 100% slough with erythematous borders. No odor or exudate noted.(L)3.9cm x (W)2.4cm. Incontinence associated dermatitis noted to sacral and cleft of buttocks. Affected area is erythematous. Pt denied burning or itching. DTPI noted to medial L foot . Base of wound is indurated,purple with red margins.(L)3.2cm x (W)1cm. L heel boggy with non-blanchable erythema. Non-blanchable erythema without fluctuance R heel. Tx.Plan: Cleanse wound Aleksander R chest with Saline. Loosely pack wound (@10o'clock) with 1 /2 inch Iodoform packing. Apply Cavilon periwound. Cover with Optifoam drsg.Daily and prn. Cleanse wounds R arm with saline. Apply Xeroform gauze.Apply Cavilon periwound. Cover with Optifoam drsg. Change daily and prn. Cleanse wound Lateral/posterior chest with Saline. Apply xeroform gauze. Cover with Optifoam drsg. Change Daily and prn. Cleanse wound Posterior R thoracic with Saline. Cover with Xeroform. Apply Cavilon Skin Barrier periwound. Cover with Optifoam drsg. Daily and prn. Apply Triad Paste to Buttocks with each perineal care. Apply Cavilon Skin Barrier to both heels. Cover each heel with Optifoam drsg. every 7 days and prn. Reposition at least every 2hours or as tolerated. Off-load heels with pillow. (3) Leukocytosis Assessment & Plan: cont Abx worsening unlikely related to wounds that do not seem actively infected (4) Severe protein-calorie malnutrition Assessment & Plan: DAILY ESTIMATED NEEDS: Needs based on Cancer, wounds 48kg 30-40 kcals/kg 5326-9112 total kcals 1.25-2 g protein/kg 60-96 g total protein 25-30 mL/kg 6595-1366 total fluid mLs NUTRITION DIAGNOSIS: Increased kcal and pro needs r/t wound healing and low BMI as evidenced by BMI underweight per guidelines, pt w/ multiple partial thickness wounds, refer to WC eval. CURRENT DIET: Soft GAGE PO DIET RECOMMENDATIONS: GAGE diet/ texture as tolerated ADDITIONAL RECOMMENDATIONS: - Pt w/ poor po intake, would rec to liberalized diet to REGULAR - Add ENSURE ENLIVE TID w/ meals - Obtain a standing scale wt as able Or recalibrate bed scale for accurate CBW - Monitor renal fxn/ lytes and need for renal supplement - WOUND CARE: add DILAN BID + MVI x1 + VIT C 500mg daily (5) Failure to thrive in adult (6) Acute cholecystitis Assessment & Plan: Patient with possible acalculous cholecystitis. Afebrile, hemodynamic stable, leukocytosis, acute episode of pancreatitis which is resolved chemically. On examination difficult to examine but no significant tenderness identified in the right upper quadrant. CT reviewed. US noted. inconsistent with CT findings HIDA negative Continue IV antibiotics We will follow with recommendations no acute surgical intervention recommended at this time conservative management with Abx Jesus Bennett Feb 03, 2019 15:53
[2019-02-03 16:00] VITALS: BP 128/67
--- NOTE | 2019-02-03 19:23 | NUR ---
HAND-OFF: Report given to Moriah.
--- NOTE | 2019-02-03 19:25 | NUR ---
NURSE NOTES: Received report from GAIL Bolivar and Ronda blakely RN. Patient is in bed, awake and confused, trying to get out of bed. Reorientation unsuccessful. On room air with no signs of distress or SOB. IV on the L hand 24g is intact and running fluids. Bilateral soft wrist restraints still in progress. Bed locked and in lowest position with 3x side rails up. Call light in reach. Will monitor closely.
[2019-02-03 20:00] VITALS: BP 140/77
[2019-02-04] VITALS: BP 127/56
--- NOTE | 2019-02-04 01:45 | Progress Note ---
DATE: 02/03/2019 CARDIOLOGY PROGRESS NOTE SUBJECTIVE: Off psych medications. More cooperative. OBJECTIVE: VITAL SIGNS: Blood pressure 106/54, pulse 90, respiratory rate 18. Afebrile. LUNGS: Bilateral breath sounds. HEART: Regular rhythm and rate. Normal S1, S2. ABDOMEN: Soft. No edema. LABORATORY DATA: No new labs today. IMPRESSION: 1. Metabolic and toxic encephalopathy. 2. Dementia. 3. Hypokalemia. 4. Hypertensive heart disease. 5. Cirrhosis. 6. Coronary atherosclerosis. 7. Stable angina. PLAN: 1. Recheck laboratory studies including potassium and magnesium. 2. Maintain adequate hydration. 3. No psych therapy. 4. Continue beta-rehana and anti-platelet drugs. 5. Thyroid replacement. Jorge Self M.D. DR: RANJITH JOB#: [id number] CC:
[2019-02-04 04:00] VITALS: BP 138/72
--- NOTE | 2019-02-04 06:06 | General Progress Note ---
Assessment/Plan Problem List: (1) Acute renal failure (ARF) ICD Codes: N17.9 - Acute kidney failure, unspecified SNOMED: 51116692 (2) Dehydration ICD Codes: E86.0 - Dehydration SNOMED: 35881868 (3) Decubitus skin ulcer ICD Codes: L89.90 - Pressure ulcer of unspecified site, unspecified stage SNOMED: 004072019 (4) Leukocytosis ICD Codes: D72.829 - Elevated white blood cell count, unspecified SNOMED: 910207655, 272923550 (5) Failure to thrive in adult ICD Codes: R62.7 - Adult failure to thrive SNOMED: 787301693 (6) Severe protein-calorie malnutrition ICD Codes: E43 - Unspecified severe protein-calorie malnutrition SNOMED: 674604054, 359802657, 564963532 Status: stable, progressing Assessment/Plan: ivf encourage po monitor renal fxn/lytes off anxiolytics/psych rx per family request- worse without meds(ie didnt sleep or eat yesterday) thyroid replacement rx monitor labs cannot go back to snf if needing restraints. wound care dnr conservative rx family did not want hospice poor prognosis dc planning Subjective ROS Limited/Unobtainable: Yes Constitutional: Reports: malaise, weakness HEENT: Reports: no symptoms Cardiovascular: Reports: no symptoms Respiratory: Reports: no symptoms Gastrointestinal/Abdominal: Reports: poor appetite Genitourinary: Reports: no symptoms Neurologic/Psychiatric: Reports: anxiety, emotional problems Endocrine: Reports: no symptoms Hematologic/Lymphatic: Reports: anemia Allergies: Coded Allergies: No Known Allergies (Unverified , 01/15/19) All Systems: reviewed and negative except above Subjective without psych meds x 2 days. remains restless and anxious. according to staff behavior is unchanged with the exception that pt refused toe at yesterday and did not sleep last night. Objective Last 24 Hour Vital Signs Date Time Temp Pulse Resp B/P (MAP) Pulse Ox O2 Delivery O2 Flow Rate FiO2 02/04/19 04:00 98.2 90 18 138/72 (94) 95 02/04/19 00:00 97.9 93 19 127/56 (79) 96 02/03/19 21:00 Room Air 02/03/19 20:46 102 133/84 02/03/19 20:00 98.3 104 18 140/77 (98) 99 02/03/19 16:00 98.4 89 20 128/67 (87) 98 02/03/19 12:00 98.6 99 19 130/62 (84) 98 02/03/19 09:00 Room Air 02/03/19 09:00 90 106/54 02/03/19 08:00 97.6 90 18 106/54 (71) 98 Intake and Output 02/03/19 02/04/19 19:00 07:00 Intake Total 471 ml Balance 471 ml Intake Oral 240 ml IV Total 231 ml Height (Feet): 5 Height (Inches): 1.00 Weight (Pounds): 118 Objective General Appearance: WD/WN, alert Neck: supple Cardiovascular: regular rhythm Respiratory/Chest: chest wall non-tender, lungs clear, normal breath sounds, no respiratory distress Abdomen: normal bowel sounds, non tender, soft, no organomegaly Edema: no edema noted Arm (L), no edema noted Arm (R), no edema noted Leg (L), no edema noted Leg (R), no edema noted Pedal (L), no edema noted Pedal (R), no edema noted Generalized Mesfin Chapa MD Feb 04, 2019 06:06
[2019-02-04] MEDS: NovoLOG Insulin Flexpen SUBQ SCH ×4 (06:30→20:45)
[2019-02-04 06:52] LABS: ALANINE AMINOTRANSFERASE 29 U/L (12-78); ALBUMIN 1.6 G/DL (3.4-5.0); ALBUMIN/GLOBULIN RATIO 0.3 (1.0-2.7); ALKALINE PHOSPHATASE 312 U/L (46-116); ANION GAP 10 mmol/L (5-15); ASPARTATE AMINO TRANSFERASE 43 U/L (15-37); BILIRUBIN,TOTAL 0.5 MG/DL (0.2-1.0); BLOOD UREA NITROGEN 12 mg/dL (7-18); CALCIUM 6.4 MG/DL (8.5-10.1); CARBON DIOXIDE 24 MMOL/L (21-32); CHLORIDE 108 MMOL/L (98-107); POTASSIUM 3.3 MMOL/L (3.5-5.1); SODIUM 141 MMOL/L (136-145)
[2019-02-04 06:59] LABS: EOSINOPHILS % (AUTO) 0.4 % (0.0-3.0); HEMATOCRIT 33.1 % (37.0-47.0); HEMOGLOBIN 10.7 G/DL (12.0-16.0); MEAN CORPUSCULAR VOLUME 87 FL (80-99); MONOCYTES % (AUTO) 9.7 % (1.0-10.0); PLATELET COUNT 237 K/UL (150-450); RED BLOOD COUNT 3.79 M/UL (4.20-5.40); RED CELL DISTRIBUTION WIDTH 13.1 % (11.6-14.8); WHITE BLOOD COUNT 9.4 K/UL (4.8-10.8)
[2019-02-04 07:31] LABS: PHOSPHORUS 2.5 MG/DL (2.5-4.9)
[2019-02-04 08:00] VITALS: BP 102/65
--- NOTE | 2019-02-04 08:15 | NUR ---
NURSE NOTES: Patient received in stable condition, resting in bed. Denies SOB or pain at this time. Bilateral restraints are on wrists, circulation intact. Naranjo catheter patent and intact. IV fluids running. Bed locked in lowest position, call light placed within reach. Will continue to monitor.
--- NOTE | 2019-02-04 08:19 | NUR ---
HAND-OFF: Report given to GAIL Hunt.
[2019-02-04] MEDS: Ascorbic Acid 500mg tab ORAL SCH (09:18)
[2019-02-04] MEDS: Metoprolol 25mg tab ORAL SCH ×2 (09:18→20:23)
[2019-02-04] MEDS: Aspirin EC 81mg tab ORAL SCH (09:19)
[2019-02-04] MEDS: Anastrazole 1mg tab ORAL SCH (09:19)
[2019-02-04] MEDS: Heparin 5000 units/ml inj SUBQ SCH ×2 (09:23→21:20)
[2019-02-04] MEDS: Thiamine HCl 100 MG in D5W 55 ML IVPB SCH (10:49)
--- NOTE | 2019-02-04 11:26 | Infectious Diseases Prog Note ---
Assessment/Plan Assessment/Plan antibiotics : none A 1. pancreatitis resolved 2. cirrhosis 3. leucocytosis resolved 4. renal failure improving 5. 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 observe off antibiotics Subjective ROS Limited/Unobtainable: Yes Allergies: Coded Allergies: No Known Allergies (Unverified , 01/15/19) Objective Vital Signs Last 24 Hour Vital Signs Date Time Temp Pulse Resp B/P (MAP) Pulse Ox O2 Delivery O2 Flow Rate FiO2 02/04/19 09:18 86 102/65 02/04/19 09:00 Room Air 02/04/19 08:00 98.8 86 18 102/65 (77) 99 02/04/19 04:00 98.2 90 18 138/72 (94) 95 02/04/19 00:00 97.9 93 19 127/56 (79) 96 02/03/19 21:00 Room Air 02/03/19 20:46 102 133/84 02/03/19 20:00 98.3 104 18 140/77 (98) 99 02/03/19 16:00 98.4 89 20 128/67 (87) 98 02/03/19 12:00 98.6 99 19 130/62 (84) 98 Height (Feet): 5 Height (Inches): 1.00 Weight (Pounds): 118 Respiratory/Chest: lungs clear Cardiovascular: normal rate, regular rhythm, no gallop/murmur Abdomen: soft, non tender Extremities: no edema Laboratory Tests Test 02/04/19 05:55 White Blood Count 9.4 K/UL (4.8-10.8) Red Blood Count 3.79 M/UL (4.20-5.40) L Hemoglobin 10.7 G/DL (12.0-16.0) L Hematocrit 33.1 % (37.0-47.0) L Mean Corpuscular Volume 87 FL (80-99) Mean Corpuscular Hemoglobin 28.3 PG (27.0-31.0) Mean Corpuscular Hemoglobin Concent 32.4 G/DL (32.0-36.0) Red Cell Distribution Width 13.1 % (11.6-14.8) Platelet Count 237 K/UL (150-450) Mean Platelet Volume 6.5 FL (6.5-10.1) Neutrophils (%) (Auto) 79.0 % (45.0-75.0) H Lymphocytes (%) (Auto) 9.0 % (20.0-45.0) L Monocytes (%) (Auto) 9.7 % (1.0-10.0) Eosinophils (%) (Auto) 0.4 % (0.0-3.0) Basophils (%) (Auto) 2.0 % (0.0-2.0) Sodium Level 141 MMOL/L (136-145) Potassium Level 3.3 MMOL/L (3.5-5.1) L Chloride Level 108 MMOL/L (98-107) H Carbon Dioxide Level 24 MMOL/L (21-32) Anion Gap 10 mmol/L (5-15) Blood Urea Nitrogen 12 mg/dL (7-18) Creatinine 2.0 MG/DL (0.55-1.30) H Estimat Glomerular Filtration Rate mL/min (>60) Glucose Level 73 MG/DL (74-106) L Calcium Level 6.4 MG/DL (8.5-10.1) L Phosphorus Level 2.5 MG/DL (2.5-4.9) Magnesium Level 1.6 MG/DL (1.8-2.4) L Total Bilirubin 0.5 MG/DL (0.2-1.0) Aspartate Amino Transf (AST/SGOT) 43 U/L (15-37) H Alanine Aminotransferase (ALT/SGPT) 29 U/L (12-78) Alkaline Phosphatase 312 U/L (46-116) H Total Protein 6.9 G/DL (6.4-8.2) Albumin 1.6 G/DL (3.4-5.0) L Globulin 5.3 g/dL Albumin/Globulin Ratio 0.3 (1.0-2.7) L Current Medications Medications (Trade) Dose Ordered Sig/Whitley Route PRN Reason Start Time Stop Time Status Last Admin Dose Admin Acetaminophen (Tylenol) 650 mg Q4H PRN ORAL Mild Pain/Temp > 100.5 01/29/19 03:30 02/15/19 15:29 Anastrozole (Arimidex) 1 mg DAILY ORAL 01/29/19 09:00 02/15/19 08:59 02/04/19 09:19 Ascorbic Acid (Vitamin C) 500 mg DAILY ORAL 01/29/19 09:00 02/17/19 08:59 02/04/19 09:18 Aspirin (Ecotrin) 81 mg DAILY ORAL 01/29/19 09:00 02/15/19 08:59 02/04/19 09:19 Dextrose 1,000 ml @ 75 mls/hr [id number] IV 01/29/19 00:15 02/22/19 08:29 02/03/19 16:54 Dextrose (Dextrose 50%) 25 ml Q30M PRN IV Hypoglycemia 01/29/19 00:15 02/18/19 11:14 Dextrose (Dextrose 50%) 50 ml Q30M PRN IV Hypoglycemia 01/29/19 00:15 02/18/19 11:14 Heparin Sodium (Porcine) (Heparin 5000 units/ml) 5,000 units EVERY 12 HOURS SUBQ 01/29/19 09:00 02/15/19 08:59 02/04/19 09:23 Insulin Aspart (NovoLOG) BEFORE MEALS AND HS SUBQ 01/29/19 06:30 02/18/19 11:29 02/03/19 11:38 Levothyroxine Sodium (Synthroid) 75 mcg DAILY@0630 ORAL 02/01/19 06:30 03/03/19 06:29 02/04/19 07:50 Magnesium Sulfate 100 ml @ 100 mls/hr Q1H IVPB 02/04/19 09:00 02/04/19 12:59 02/04/19 10:49 Metoprolol Tartrate (Lopressor) 25 mg Q12HR ORAL 01/29/19 09:00 02/15/19 08:59 02/04/19 09:18 Multivitamins (Multivitamins) 1 tab DAILY ORAL 01/29/19 09:00 02/17/19 08:59 02/04/19 09:18 Pantoprazole (Protonix) 40 mg DAILY@0630 ORAL 01/29/19 06:30 02/28/19 06:29 02/04/19 07:50 Potassium Chloride 100 ml @ 100 mls/hr Q1HR IVPB 02/04/19 09:00 02/04/19 12:59 02/04/19 10:49 Thiamine HCl 100 mg/Dextrose 56 ml @ 112 mls/hr DAILY IVPB 01/30/19 14:00 03/01/19 13:59 02/04/19 10:49 Lalito Major MD Feb 04, 2019 11:26
[2019-02-04 12:00] VITALS: BP 109/71
--- NOTE | 2019-02-04 12:51 | Nephrology Progress Note ---
Assessment/Plan Problem List: (1) Acute renal failure (ARF) Assessment: Cr stable (2) Failure to thrive in adult (3) Severe protein-calorie malnutrition Assessment: Low Albumin (4) Dehydration (5) Elevated LFTs Assessment: improving (6) Hypokalemia (7) Acute encephalopathy Assessment remains encephalopathic Acute on chronic renal failure- Dehydration Failing to thrive, Malnutrition Decubiti Urinary retention Plan marte Urine studies Hydrate- has PICC now K and Mag supplement as needed CXR STANLEY kidney noted Med surg Subjective ROS Limited/Unobtainable: No Constitutional: Reports: malaise Objective Objective Last 24 Hour Vital Signs Date Time Temp Pulse Resp B/P (MAP) Pulse Ox O2 Delivery O2 Flow Rate FiO2 02/04/19 12:00 98.6 90 19 109/71 (84) 96 02/04/19 09:18 86 102/65 02/04/19 09:00 Room Air 02/04/19 08:00 98.8 86 18 102/65 (77) 99 02/04/19 04:00 98.2 90 18 138/72 (94) 95 02/04/19 00:00 97.9 93 19 127/56 (79) 96 02/03/19 21:00 Room Air 02/03/19 20:46 102 133/84 02/03/19 20:00 98.3 104 18 140/77 (98) 99 02/03/19 16:00 98.4 89 20 128/67 (87) 98 Intake and Output 02/03/19 02/04/19 19:00 07:00 Intake Total 471 ml 240 ml Output Total 700 ml Balance 471 ml -460 ml Intake Oral 240 ml 240 ml IV Total 231 ml Output Urine Total 700 ml # Voids 2 # Bowel Movements 2 Laboratory Tests 02/04/19 05:55: White Blood Count 9.4, Red Blood Count 3.79L, Hemoglobin 10.7L, Hematocrit 33.1L , Mean Corpuscular Volume 87, Mean Corpuscular Hemoglobin 28.3, Mean Corpuscular Hemoglobin Concent 32.4, Red Cell Distribution Width 13.1, Platelet Count 237, Mean Platelet Volume 6.5, Neutrophils (%) (Auto) 79.0H, Lymphocytes ( %) (Auto) 9.0L, Monocytes (%) (Auto) 9.7, Eosinophils (%) (Auto) 0.4, Basophils (%) (Auto) 2.0, Sodium Level 141, Potassium Level 3.3L, Chloride Level 108H, Carbon Dioxide Level 24, Anion Gap 10, Blood Urea Nitrogen 12, Creatinine 2.0H, Estimat Glomerular Filtration Rate , Glucose Level 73L, Calcium Level 6.4L, Phosphorus Level 2.5, Magnesium Level 1.6L, Total Bilirubin 0.5, Aspartate Amino Transf (AST/SGOT) 43H, Alanine Aminotransferase (ALT/SGPT) 29, Alkaline Phosphatase 312H, Total Protein 6.9, Albumin 1.6L, Globulin 5.3, Albumin/ Globulin Ratio 0.3L Height (Feet): 5 Height (Inches): 1.00 Weight (Pounds): 118 General Appearance: no apparent distress, lethargic, confused Objective no change Mauri Huddleston MD Feb 04, 2019 12:51
--- NOTE | 2019-02-04 13:25 | NUR ---
CASE MANAGEMENT:REVIEW 02/04/19 SI: ACUTE RENAL FAILURE DEHYDRATION. ACUTE ENCEPHALOPATHY 98.6 90 19 109/71 96% ON RA H/H-10.7/33.1 K-3.3 CR+2.0 MAG-1.6 IS: IV THIAMINE QD IVF@75/HR PROTONIX PO QD ASA PO QD LOPRESSOR PO Q12 : TELEMETRY STATUS [facility] NEED TO BE DC'D BEFORE RETURNING TO SNF
[2019-02-04 16:00] VITALS: BP 118/53
--- NOTE | 2019-02-04 16:45 | Surgery Progress Note ---
Surgery Progress Note Subjective Additional Comments Patient seen and examined bedside. No acute events. Amatory with physical therapy. Labs noted. Exam noted. Objective Last 24 Hour Vital Signs Date Time Temp Pulse Resp B/P (MAP) Pulse Ox O2 Delivery O2 Flow Rate FiO2 02/04/19 12:00 98.6 90 19 109/71 (84) 96 02/04/19 09:18 86 102/65 02/04/19 09:00 Room Air 02/04/19 08:00 98.8 86 18 102/65 (77) 99 02/04/19 04:00 98.2 90 18 138/72 (94) 95 02/04/19 00:00 97.9 93 19 127/56 (79) 96 02/03/19 21:00 Room Air 02/03/19 20:46 102 133/84 02/03/19 20:00 98.3 104 18 140/77 (98) 99 I&O Intake and Output 02/03/19 02/04/19 19:00 07:00 Intake Total 471 ml 240 ml Output Total 700 ml Balance 471 ml -460 ml Intake Oral 240 ml 240 ml IV Total 231 ml Output Urine Total 700 ml # Voids 2 # Bowel Movements 2 Dressing: other Wound: other Drains: other Cardiovascular: RSR Respiratory: decreased breath sounds Abdomen: soft, present bowel sounds, non-distended Extremities: no cyanosis Laboratory Tests Test 02/04/19 05:55 White Blood Count 9.4 K/UL (4.8-10.8) Red Blood Count 3.79 M/UL (4.20-5.40) L Hemoglobin 10.7 G/DL (12.0-16.0) L Hematocrit 33.1 % (37.0-47.0) L Mean Corpuscular Volume 87 FL (80-99) Mean Corpuscular Hemoglobin 28.3 PG (27.0-31.0) Mean Corpuscular Hemoglobin Concent 32.4 G/DL (32.0-36.0) Red Cell Distribution Width 13.1 % (11.6-14.8) Platelet Count 237 K/UL (150-450) Mean Platelet Volume 6.5 FL (6.5-10.1) Neutrophils (%) (Auto) 79.0 % (45.0-75.0) H Lymphocytes (%) (Auto) 9.0 % (20.0-45.0) L Monocytes (%) (Auto) 9.7 % (1.0-10.0) Eosinophils (%) (Auto) 0.4 % (0.0-3.0) Basophils (%) (Auto) 2.0 % (0.0-2.0) Sodium Level 141 MMOL/L (136-145) Potassium Level 3.3 MMOL/L (3.5-5.1) L Chloride Level 108 MMOL/L (98-107) H Carbon Dioxide Level 24 MMOL/L (21-32) Anion Gap 10 mmol/L (5-15) Blood Urea Nitrogen 12 mg/dL (7-18) Creatinine 2.0 MG/DL (0.55-1.30) H Estimat Glomerular Filtration Rate mL/min (>60) Glucose Level 73 MG/DL (74-106) L Calcium Level 6.4 MG/DL (8.5-10.1) L Phosphorus Level 2.5 MG/DL (2.5-4.9) Magnesium Level 1.6 MG/DL (1.8-2.4) L Total Bilirubin 0.5 MG/DL (0.2-1.0) Aspartate Amino Transf (AST/SGOT) 43 U/L (15-37) H Alanine Aminotransferase (ALT/SGPT) 29 U/L (12-78) Alkaline Phosphatase 312 U/L (46-116) H Total Protein 6.9 G/DL (6.4-8.2) Albumin 1.6 G/DL (3.4-5.0) L Globulin 5.3 g/dL Albumin/Globulin Ratio 0.3 (1.0-2.7) L Plan Problems: (1) Dehydration (2) Decubitus skin ulcer Assessment & Plan: Pt presented on admission with multiple wounds.Hx R Mastectomy . Full thickness wound that is tunneled into R axilla noted to aleksander R mastectomy.Base of wound is sahara with macerated borders oozing small amt serous exudate noted. No odor noted. (L)3cm x (W)6cm x (D)0.3, tunneling clockwise @10o'clock by 6.6cm. Full thickness wound lateral/posterior R chest. Scattered slough at base of wound with erythematous borders .Periwound indurated. wound oozing small amt serous exudate. (L)1cm x (W)3cm. Full thickness wound posterior thoracic. 100% slough at base of wound. Erythematous borders. No odor or exudate noted(L)2.3cm x (W)2.5cm. Full thickness wound median R humerus. 100% slough with erythematous borders. No odor or exudate noted.(L)3.9cm x (W)2.4cm. Incontinence associated dermatitis noted to sacral and cleft of buttocks. Affected area is erythematous. Pt denied burning or itching. DTPI noted to medial L foot . Base of wound is indurated,purple with red margins.(L)3.2cm x (W)1cm. L heel boggy with non-blanchable erythema. Non-blanchable erythema without fluctuance R heel. Tx.Plan: Cleanse wound Aleksander R chest with Saline. Loosely pack wound (@10o'clock) with 1 /2 inch Iodoform packing. Apply Cavilon periwound. Cover with Optifoam drsg.Daily and prn. Cleanse wounds R arm with saline. Apply Xeroform gauze.Apply Cavilon periwound. Cover with Optifoam drsg. Change daily and prn. Cleanse wound Lateral/posterior chest with Saline. Apply xeroform gauze. Cover with Optifoam drsg. Change Daily and prn. Cleanse wound Posterior R thoracic with Saline. Cover with Xeroform. Apply Cavilon Skin Barrier periwound. Cover with Optifoam drsg. Daily and prn. Apply Triad Paste to Buttocks with each perineal care. Apply Cavilon Skin Barrier to both heels. Cover each heel with Optifoam drsg. every 7 days and prn. Reposition at least every 2hours or as tolerated. Off-load heels with pillow. (3) Leukocytosis Assessment & Plan: cont Abx Overall has improved. unlikely related to wounds that do not seem actively infected Imaging as below No acute surgical intervention (4) Severe protein-calorie malnutrition Assessment & Plan: DAILY ESTIMATED NEEDS: Needs based on Cancer, wounds 48kg 30-40 kcals/kg 8586-0673 total kcals 1.25-2 g protein/kg 60-96 g total protein 25-30 mL/kg 4866-5294 total fluid mLs NUTRITION DIAGNOSIS: Increased kcal and pro needs r/t wound healing and low BMI as evidenced by BMI underweight per guidelines, pt w/ multiple partial thickness wounds, refer to WC minna. CURRENT DIET: Soft GAGE PO DIET RECOMMENDATIONS: GAGE diet/ texture as tolerated ADDITIONAL RECOMMENDATIONS: - Pt w/ poor po intake, would rec to liberalized diet to REGULAR - Add ENSURE ENLIVE TID w/ meals - Obtain a standing scale wt as able Or recalibrate bed scale for accurate CBW - Monitor renal fxn/ lytes and need for renal supplement - WOUND CARE: add DILAN BID + MVI x1 + VIT C 500mg daily (5) Failure to thrive in adult (6) Acute cholecystitis Assessment & Plan: Patient with possible acalculous cholecystitis. Afebrile, hemodynamic stable, leukocytosis, acute episode of pancreatitis which is resolved chemically. On examination difficult to examine but no significant tenderness identified in the right upper quadrant. CT reviewed. US noted. inconsistent with CT findings HIDA negative Continue IV antibiotics We will follow with recommendations no acute surgical intervention recommended at this time conservative management with Jesus Barker Feb 04, 2019 16:45
--- NOTE | 2019-02-04 19:09 | NUR ---
HAND-OFF: Report given to Sherlyn REYNOLDS.
--- NOTE | 2019-02-04 19:34 | NUR ---
NURSE NOTES: Received patient in bed, no acute distress noted, awake, confused, disoriented, IV site clean dry and intact, patient is noted with poor appetite. Call light is within reach, bed is lowered, locked and alarm is on. Will continue to monitor for comfort and safety.
[2019-02-04 20:00] VITALS: BP 109/50
--- NOTE | 2019-02-04 22:11 | NUR ---
NURSE NOTES: Bedside blood glucose check at 2100 was 65, followed protocol, administered dextrose as ordered, re checked BS at 2200 its 167. CN was made aware.
[2019-02-05] VITALS: BP 135/68
--- NOTE | 2019-02-05 | Progress Note ---
DATE: 02/04/2019 SUBJECTIVE: The patient is currently in bed calm. She has episodes of agitation, confused, and disoriented and not able to be engaged. The patient needs administration of p.r.n. medications. MENTAL STATUS EXAMINATION: The patient is confused. Mood is anxious. Affect is flat. Thought process, there is a paucity of thought content. Thought content, no suicidal or homicidal ideation. ASSESSMENT: 1. Dementia with behavioral disturbance. 2. Acute encephalopathy. PLAN: 1. We will continue current medications. 2. Provide the patient with reality orientation. Cynthia Nicholson M.D. DR: JAMARCUS JOB#: [id number] CC:
--- NOTE | 2019-02-05 00:45 | Progress Note ---
DATE: 02/04/2019 CARDIOLOGY PROGRESS NOTE SUBJECTIVE: The patient has been off psych medications for 2 days. She continues to have agitation and episodes of combative behavior. OBJECTIVE: VITAL SIGNS: Stable. She is afebrile. LUNGS: Bilateral breath sounds. HEART: Regular rhythm and rate. Normal S1, S2. ABDOMEN: Soft. EXTREMITIES: Edema. LABORATORY DATA: Reviewed. White count 9.4 and hemoglobin 10.7. Magnesium 1.6. Potassium 3.3. BUN 12 and creatinine 2. IMPRESSION: 1. Metabolic encephalopathy. 2. Dementia. 3. Hypokalemia. 4. Hypomagnesemia. 5. Hypertensive heart disease. 6. Chronic liver disease with cirrhosis. 7. Severe protein-calorie malnutrition. 8. Acute on chronic diastolic congestive heart failure. 9. Acute on chronic renal failure. RECOMMENDATIONS: 1. Replace potassium and magnesium. 2. Monitor clinical parameters closely. 3. Avoid psychiatric medications for now. 4. Trend natriuretic peptide essay and monitor volume status clinically. Jorge Self M.D. DR: ALINA JOB#: [id number] CC:
[2019-02-05 04:00] VITALS: BP 127/62
[2019-02-05] MEDS: NovoLOG Insulin Flexpen SUBQ SCH ×4 (06:08→20:55)
--- NOTE | 2019-02-05 06:55 | NUR ---
NURSE NOTES: Blood sugar was checked at 6 am, result 63, was made aware, juice with administered, BS rechecked at 0630 -84
--- NOTE | 2019-02-05 07:00 | NUR ---
NURSE NOTES: Received patient in bed awake. No SOB or cardiac distress. Bilateral wrist restraints in place. Pulses palpable, no new skin issues noted on wrists. Naranjo catheter intact and patent. IV line out. Head of bed elevated. Bed locked in lowest position. Call light within reach. Will continue plan of care.
--- NOTE | 2019-02-05 07:00 | NUR ---
HAND-OFF: Report given to Ciro REYNOLDS.
[2019-02-05 07:02] LABS: ALANINE AMINOTRANSFERASE 33 U/L (12-78); ALBUMIN 1.5 G/DL (3.4-5.0); ALKALINE PHOSPHATASE 282 U/L (46-116); ANION GAP 9 mmol/L (5-15); ASPARTATE AMINO TRANSFERASE 38 U/L (15-37); BILIRUBIN,DIRECT 0.2 MG/DL (0.0-0.3); BILIRUBIN,TOTAL 0.5 MG/DL (0.2-1.0); BLOOD UREA NITROGEN 11 mg/dL (7-18); CALCIUM 6.4 MG/DL (8.5-10.1); CARBON DIOXIDE 24 MMOL/L (21-32); CHLORIDE 107 MMOL/L (98-107); CREATININE 1.8 MG/DL (0.55-1.30); POTASSIUM 3.4 MMOL/L (3.5-5.1); SODIUM 140 MMOL/L (136-145)
[2019-02-05 08:00] VITALS: BP 104/62
[2019-02-05] MEDS: Thiamine HCl 100 MG in D5W 55 ML IVPB SCH (09:00)
[2019-02-05] MEDS: Metoprolol 25mg tab ORAL SCH ×2 (09:00→20:46)
--- NOTE | 2019-02-05 09:00 | NUR ---
NURSE NOTES: Unable to hang Thiamine IV due to no IV access @ this time and patient refused IV insertion. Will follow up.
[2019-02-05] MEDS: Anastrazole 1mg tab ORAL SCH (09:32)
[2019-02-05] MEDS: Aspirin EC 81mg tab ORAL SCH (09:32)
[2019-02-05] MEDS: Ascorbic Acid 500mg tab ORAL SCH (09:32)
[2019-02-05] MEDS: Heparin 5000 units/ml inj SUBQ SCH ×2 (09:42→20:55)
--- NOTE | 2019-02-05 10:59 | Surgery Progress Note ---
Surgery Progress Note Subjective Additional Comments no acute events comfortable more alert and responsive today labs noted exam stable Objective Last 24 Hour Vital Signs Date Time Temp Pulse Resp B/P (MAP) Pulse Ox O2 Delivery O2 Flow Rate FiO2 02/05/19 04:00 97.4 89 18 127/62 (83) 02/05/19 00:00 98.1 77 18 135/68 (90) 02/04/19 21:32 Room Air 02/04/19 20:23 77 109/50 02/04/19 20:00 97.8 77 16 109/50 (69) 02/04/19 16:00 98.7 83 16 118/53 (74) 97 02/04/19 12:00 98.6 90 19 109/71 (84) 96 I&O Intake and Output 02/04/19 02/05/19 19:00 07:00 Intake Total 250 ml Output Total 500 ml 700 ml Balance -250 ml -700 ml Intake Oral 250 ml Output Urine Total 500 ml 700 ml Cardiovascular: RSR Respiratory: clear Abdomen: soft, non-tender, present bowel sounds Extremities: no cyanosis Laboratory Tests Test 02/05/19 05:35 Sodium Level 140 MMOL/L (136-145) Potassium Level 3.4 MMOL/L (3.5-5.1) L Chloride Level 107 MMOL/L (98-107) Carbon Dioxide Level 24 MMOL/L (21-32) Anion Gap 9 mmol/L (5-15) Blood Urea Nitrogen 11 mg/dL (7-18) Creatinine 1.8 MG/DL (0.55-1.30) H Estimat Glomerular Filtration Rate mL/min (>60) Glucose Level 67 MG/DL (74-106) L Calcium Level 6.4 MG/DL (8.5-10.1) L Magnesium Level 2.8 MG/DL (1.8-2.4) H Total Bilirubin 0.5 MG/DL (0.2-1.0) Direct Bilirubin 0.2 MG/DL (0.0-0.3) Aspartate Amino Transf (AST/SGOT) 38 U/L (15-37) H Alanine Aminotransferase (ALT/SGPT) 33 U/L (12-78) Alkaline Phosphatase 282 U/L (46-116) H Pro-B-Type Natriuretic Peptide 4816 pg/mL (0-125) H Total Protein 6.7 G/DL (6.4-8.2) Albumin 1.5 G/DL (3.4-5.0) L Plan Problems: (1) Dehydration (2) Decubitus skin ulcer Assessment & Plan: Pt presented on admission with multiple wounds.Hx R Mastectomy . Full thickness wound that is tunneled into R axilla noted to aleksander R mastectomy.Base of wound is sahara with macerated borders oozing small amt serous exudate noted. No odor noted. (L)3cm x (W)6cm x (D)0.3, tunneling clockwise @10o'clock by 6.6cm. Full thickness wound lateral/posterior R chest. Scattered slough at base of wound with erythematous borders .Periwound indurated. wound oozing small amt serous exudate. (L)1cm x (W)3cm. Full thickness wound posterior thoracic. 100% slough at base of wound. Erythematous borders. No odor or exudate noted(L)2.3cm x (W)2.5cm. Full thickness wound median R humerus. 100% slough with erythematous borders. No odor or exudate noted.(L)3.9cm x (W)2.4cm. Incontinence associated dermatitis noted to sacral and cleft of buttocks. Affected area is erythematous. Pt denied burning or itching. DTPI noted to medial L foot . Base of wound is indurated,purple with red margins.(L)3.2cm x (W)1cm. L heel boggy with non-blanchable erythema. Non-blanchable erythema without fluctuance R heel. Tx.Plan: Cleanse wound Aleksander R chest with Saline. Loosely pack wound (@10o'clock) with 1 /2 inch Iodoform packing. Apply Cavilon periwound. Cover with Optifoam drsg.Daily and prn. Cleanse wounds R arm with saline. Apply Xeroform gauze.Apply Cavilon periwound. Cover with Optifoam drsg. Change daily and prn. Cleanse wound Lateral/posterior chest with Saline. Apply xeroform gauze. Cover with Optifoam drsg. Change Daily and prn. Cleanse wound Posterior R thoracic with Saline. Cover with Xeroform. Apply Cavilon Skin Barrier periwound. Cover with Optifoam drsg. Daily and prn. Apply Triad Paste to Buttocks with each perineal care. Apply Cavilon Skin Barrier to both heels. Cover each heel with Optifoam drsg. every 7 days and prn. Reposition at least every 2hours or as tolerated. Off-load heels with pillow. (3) Leukocytosis Assessment & Plan: cont Abx Overall has improved. unlikely related to wounds that do not seem actively infected Imaging as below No acute surgical intervention (4) Severe protein-calorie malnutrition Assessment & Plan: DAILY ESTIMATED NEEDS: Needs based on Cancer, wounds 48kg 30-40 kcals/kg 5868-0971 total kcals 1.25-2 g protein/kg 60-96 g total protein 25-30 mL/kg 1596-8860 total fluid mLs NUTRITION DIAGNOSIS: Increased kcal and pro needs r/t wound healing and low BMI as evidenced by BMI underweight per guidelines, pt w/ multiple partial thickness wounds, refer to WC eval. CURRENT DIET: Soft GAGE PO DIET RECOMMENDATIONS: GAGE diet/ texture as tolerated ADDITIONAL RECOMMENDATIONS: - Pt w/ poor po intake, would rec to liberalized diet to REGULAR - Add ENSURE ENLIVE TID w/ meals - Obtain a standing scale wt as able Or recalibrate bed scale for accurate CBW - Monitor renal fxn/ lytes and need for renal supplement - WOUND CARE: add DILAN BID + MVI x1 + VIT C 500mg daily (5) Failure to thrive in adult (6) Acute cholecystitis Assessment & Plan: Patient with possible acalculous cholecystitis. Afebrile, hemodynamic stable, leukocytosis, acute episode of pancreatitis which is resolved chemically. On examination difficult to examine but no significant tenderness identified in the right upper quadrant. CT reviewed. US noted. inconsistent with CT findings HIDA negative Continue IV antibiotics We will follow with recommendations no acute surgical intervention recommended at this time conservative management with Abx Jesus Bennett Feb 05, 2019 10:59
[2019-02-05 12:00] VITALS: BP 144/75
--- NOTE | 2019-02-05 12:35 | NUR ---
RD ASSESSMENT & RECOMMENDATIONS SEE CARE ACTIVITY FOR COMPLETE ASSESSMENT DAILY ESTIMATED NEEDS: Needs based on Cancer, wounds 48kg 30-40 kcals/kg 1256-3881 total kcals 1.25-2 g protein/kg 60-96 g total protein 25-30 mL/kg 9186-8967 total fluid mLs NUTRITION DIAGNOSIS: Increased kcal and pro needs r/t wound healing and low BMI as evidenced by BMI underweight per guidelines, pt admitted w/ multiple partial thickness wounds,now resolved, currently w/ poor and variable PO intake CURRENT DIET:CCHO MED/ SOFT EASY CHEW + Glucerna TID w/ meals PO DIET RECOMMENDATIONS: Liberalized regular diet w/ poor PO (texture per ENERGY ENGINEER) ADDITIONAL RECOMMENDATIONS: - CALIBRATE BEDSCALE FOR ACCURATE CBW (reads 0kg on 02/05) - Niles Count x 48 hrs completed 01/22-> overall poor intake - REC APPETITE STIMULANT: consistently poor PO - Continue to offer Glucerna @ all meals - Monitor lytes, replete as needed - WOUND CARE: add DILAN BID, continue MVI x1 + VIT C 500mg daily - Add CCHO MED to diet w/ PO intake consistently >50%
--- NOTE | 2019-02-05 15:05 | NUR ---
NURSE NOTES: Offered oral medications to patient but she refused, Dr. Nicholson made aware. Also refused to eat. [facility] came to to assess patient. Patient said she did not want to go there.
--- NOTE | 2019-02-05 15:40 | NUR ---
P.T Weekly Progress Notes: Pt. seen this past week of P.T session. Progress is limited by poor participation in therapy and poor carry over of P.T instructions secondary to cognitive issue. Patient has been resistive this past week limiting progress. Assistance varies from SBA -MIN A x 1 for bed mobilities and CGA-MOD A for transfer mobility tasks depending on level of cooperation. Pt able to ambulate and distance of 20-30 ft using the FWW with MIN A X 1. Will continue with POC with progression of activities. Recommend SNF at [place].
[2019-02-05 16:00] VITALS: BP 118/62
--- NOTE | 2019-02-05 16:40 | NUR ---
NURSE NOTES: Attempted for IV insertion but patient was verbally abusive and agitated. Explained the risks and benefits but patient unable to comprehend due to her cognition status. Dr. Chapa made aware.
--- NOTE | 2019-02-05 16:52 | NUR ---
NURSE NOTES: Patient's son visited the patient ans requested for ice cream with meals since she likes ice cream. Rn informed Dr. Chapa son's request. MD agreed to give ice cream, Dr. Chapa and son are aware that patient is diabetic.
[2019-02-05] MEDS ORDERED: Haloperidol 5mg/ml Inj IM PRN (17:00)
--- NOTE | 2019-02-05 17:00 | Progress Note ---
DATE: 02/05/2019 SUBJECTIVE: The patient is in bed. Continues to have episodes of agitation. The patient is still in self restraints. MENTAL STATUS EXAMINATION: The patient is alert and disorganized. Mood is agitated. Affect is flat. Thought process is concrete. Thought content, no suicidal or homicidal ideation. ASSESSMENT: Dementia with behavior disturbance. PLAN: We will resume the psychotropic medication. The patient did not improve with psychotropic medications. We will start Seroquel 25 mg t.i.d. and the goal is to discontinue the restraints and discharge the patient to a lower level of care. Cynthia Nicholson M.D. DR: MICHAEL JOB#: [id number] CC:
--- NOTE | 2019-02-05 19:30 | NUR ---
NURSE NOTES: Patient awake in bed, uncooperative, non in respiratory distress. On bilateral soft wrist restraints. Pulses are present. Normal skin color. Call light in reach. Bed in lowest, lock engaged and alarm on. Will continue to monitor.
--- NOTE | 2019-02-05 19:30 | NUR ---
HAND-OFF: Report given to
[2019-02-05 20:00] VITALS: BP 135/69
--- NOTE | 2019-02-05 21:15 | Progress Note ---
DATE: 02/05/2019 SUBJECTIVE: The patient is alert and interactive today, no apparent distress, off all psych medications for three days. PHYSICAL EXAMINATION: VITAL SIGNS: Blood pressure 127/62, pulse 89, respiratory rate 18, no fevers. LUNGS: Clear. CARDIAC: Regular. No new murmur. ABDOMEN: Soft. No ascites. EXTREMITIES: No edema. LABORATORY DATA: Labs notable for potassium 3.4, BUN 11, creatinine 1.8. Magnesium . IMPRESSION: 1. Resolving encephalopathy. 2. Hypertension, controlled. 3. Diastolic dysfunction with no signs of acute congestive heart failure. 4. Chronic liver disease with cirrhosis. 5. PLAN: 1. Continue off psych therapy. 2. Encourage oral intake. 3. Replace potassium. 4. Monitor volume status and cardiorenal function, may benefit from low-dose Aldactone long-term. Jorge Self M.D. DR: Alyce JOB#: [id number] CC:
[2019-02-06] VITALS: BP 126/69
--- NOTE | 2019-02-06 01:00 | NUR ---
NURSE NOTES: Applied Naranjo anchor.
[2019-02-06 04:00] VITALS: BP 127/66
[2019-02-06] MEDS: NovoLOG Insulin Flexpen SUBQ SCH ×4 (06:07→21:36)
--- NOTE | 2019-02-06 06:38 | NUR ---
NURSE NOTES: Patient's blood sugar was 60, d50% 25 ml was given, rechecked BS was 159. Dr. Chapa made aware.
--- NOTE | 2019-02-06 07:16 | NUR ---
HAND-OFF: Report given to GAIL Bolivar.
--- NOTE | 2019-02-06 07:18 | NUR ---
NURSE NOTES: Received patient in bed awake. No SOB or cardiac distress. IV line on left arm intact and patent. FC intact and patent. Bilateral soft wrist restraints on, pulses palpable, no new skin issues noted on wrists. Head of bed elevated. Bed locked in lowest position. Call light within reach. Will continue plan of care.
[2019-02-06 08:00] VITALS: BP 112/52
--- NOTE | 2019-02-06 08:07 | General Progress Note ---
Assessment/Plan Problem List: (1) Acute renal failure (ARF) ICD Codes: N17.9 - Acute kidney failure, unspecified SNOMED: 71202853 (2) Dehydration ICD Codes: E86.0 - Dehydration SNOMED: 09369234 (3) Decubitus skin ulcer ICD Codes: L89.90 - Pressure ulcer of unspecified site, unspecified stage SNOMED: 400046039 (4) Leukocytosis ICD Codes: D72.829 - Elevated white blood cell count, unspecified SNOMED: 009893071, 217966938 (5) Failure to thrive in adult ICD Codes: R62.7 - Adult failure to thrive SNOMED: 140622938 (6) Severe protein-calorie malnutrition ICD Codes: E43 - Unspecified severe protein-calorie malnutrition SNOMED: 108326600, 070087159, 393040784 Status: stable, progressing Assessment/Plan: ivf encourage po monitor renal fxn/lytes resume psych meds per son thyroid replacement rx monitor labs cannot go back to snf if needing restraints. wound care dnr conservative rx family did not want hospice family declined gt- aware of concern about worsening malnutrition poor prognosis dc planning Subjective ROS Limited/Unobtainable: No Constitutional: Reports: malaise, weakness HEENT: Reports: no symptoms Cardiovascular: Reports: no symptoms Respiratory: Reports: no symptoms Gastrointestinal/Abdominal: Reports: poor appetite Genitourinary: Reports: no symptoms Neurologic/Psychiatric: Reports: pre-existing deficit Endocrine: Reports: no symptoms Allergies: Coded Allergies: No Known Allergies (Unverified , 01/15/19) All Systems: reviewed and negative except above Subjective no events. son at the bedside. cooperative with care. Not eating. denies pain. hypoglycemic this am- better after d50 Objective Last 24 Hour Vital Signs Date Time Temp Pulse Resp B/P (MAP) Pulse Ox O2 Delivery O2 Flow Rate FiO2 02/06/19 04:00 98.5 88 20 127/66 (86) 100 02/06/19 00:00 98.5 90 20 126/69 (88) 96 02/05/19 21:00 Room Air 02/05/19 20:46 95 135/69 02/05/19 20:00 98.6 95 20 135/69 (91) 99 02/05/19 16:00 98.3 92 16 118/62 (80) 100 02/05/19 12:00 98.5 73 20 144/75 (98) 92 02/05/19 09:00 Room Air 02/05/19 09:00 78 104/62 Intake and Output 02/05/19 02/06/19 18:59 06:59 Intake Total 500 ml Output Total 600 ml 1000 ml Balance -100 ml -1000 ml Intake Oral 500 ml Output Urine Total 600 ml 1000 ml # Bowel Movements 1 Height (Feet): 5 Height (Inches): 1.00 Weight (Pounds): 113 Objective General Appearance: WD/WN, alert Neck: supple Cardiovascular: regular rhythm Respiratory/Chest: chest wall non-tender, lungs clear, normal breath sounds, no respiratory distress Abdomen: normal bowel sounds, non tender, soft, no organomegaly Edema: no edema noted Arm (L), no edema noted Arm (R), no edema noted Leg (L), no edema noted Leg (R), no edema noted Pedal (L), no edema noted Pedal (R), no edema noted Generalized Mesfin Chapa MD Feb 06, 2019 08:07
--- NOTE | 2019-02-06 08:23 | NUR ---
NURSE NOTES:WOUND CARE NOTES:Wounds R axilla ,lateral R chest and R thoracic have resolved. Tunneled wound lasha R chest.Base of of wound beefy red and moist . Small amt sanguineous exudate noted. No odor noted. Periwound without erythema or elevation in skin temp.(L)1cm x (W)6.5cm tunneling into R axilla by 2.6cm. Sacrum and both heels are pink ,dry and intact. No new skin concerns noted. Tx.Plan: Clean wound R chest with Saline. Loosely pack with 1/2 inch Iodoform packing strip . Apply Cavilon periwound. Cover with Optifoam drsg Daily and prn. Reposition at least every 2hours or as tolerated. Off-load heels with pillow.
[2019-02-06] MEDS: Ascorbic Acid 500mg tab ORAL SCH (09:00)
[2019-02-06] MEDS: Anastrazole 1mg tab ORAL SCH (09:45)
[2019-02-06] MEDS: Aspirin EC 81mg tab ORAL SCH (09:45)
[2019-02-06] MEDS: Spironolactone 25mg tab ORAL SCH (09:46)
[2019-02-06] MEDS: Metoprolol 25mg tab ORAL SCH ×2 (09:47→21:34)
[2019-02-06] MEDS: Heparin 5000 units/ml inj SUBQ SCH ×2 (09:50→21:36)
--- NOTE | 2019-02-06 10:00 | NUR ---
NURSE NOTES: Bilateral wrist restraints removed as ordered. Sitter present at bedside. Patient took Seroquel and behavior is being monitored.
[2019-02-06] MEDS: Thiamine HCl 100 MG in D5W 55 ML IVPB SCH (10:15)
--- NOTE | 2019-02-06 10:30 | NUR ---
NURSE NOTES: Wound dressing change done by wound nurse. Patient tolerated it well.
--- NOTE | 2019-02-06 10:47 | Infectious Diseases Prog Note ---
Assessment/Plan Assessment/Plan antibiotics : none A 1. pancreatitis resolved 2. cirrhosis 3. leucocytosis resolved 4. renal failure improving 5. 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 observe off antibiotics 2. will sign off Please reconsult if any issues arise thank you Subjective Constitutional: Denies: fever, chills Respiratory: Denies: shortness of breath, dry cough Gastrointestinal/Abdominal: Denies: nausea, vomiting, diarrhea Musculoskeletal: Denies: pain Allergies: Coded Allergies: No Known Allergies (Unverified , 01/15/19) Objective Vital Signs Last 24 Hour Vital Signs Date Time Temp Pulse Resp B/P (MAP) Pulse Ox O2 Delivery O2 Flow Rate FiO2 02/06/19 09:47 83 112/52 02/06/19 09:00 Room Air 02/06/19 08:00 97.2 83 18 112/52 (72) 98 02/06/19 04:00 98.5 88 20 127/66 (86) 100 02/06/19 00:00 98.5 90 20 126/69 (88) 96 02/05/19 21:00 Room Air 02/05/19 20:46 95 135/69 02/05/19 20:00 98.6 95 20 135/69 (91) 99 02/05/19 16:00 98.3 92 16 118/62 (80) 100 02/05/19 12:00 98.5 73 20 144/75 (98) 92 Height (Feet): 5 Height (Inches): 1.00 Weight (Pounds): 113 Respiratory/Chest: lungs clear Cardiovascular: normal rate, regular rhythm, no gallop/murmur Abdomen: soft, non tender Extremities: pedal pulses normal Current Medications Medications (Trade) Dose Ordered Sig/Whitley Route PRN Reason Start Time Stop Time Status Last Admin Dose Admin Acetaminophen (Tylenol) 650 mg Q4H PRN ORAL Mild Pain/Temp > 100.5 01/29/19 03:30 02/15/19 15:29 Anastrozole (Arimidex) 1 mg DAILY ORAL 01/29/19 09:00 02/15/19 08:59 02/06/19 09:45 Ascorbic Acid (Vitamin C) 500 mg DAILY ORAL 01/29/19 09:00 02/17/19 08:59 02/05/19 09:32 Aspirin (Ecotrin) 81 mg DAILY ORAL 01/29/19 09:00 10/11/19 08:59 02/06/19 09:45 Dextrose 1,000 ml @ 75 mls/hr [id number] IV 01/29/19 00:15 02/22/19 08:29 02/05/19 05:59 Dextrose (Dextrose 50%) 25 ml Q30M PRN IV Hypoglycemia 01/29/19 00:15 02/18/19 11:14 02/06/19 06:10 Dextrose (Dextrose 50%) 50 ml Q30M PRN IV Hypoglycemia 01/29/19 00:15 02/18/19 11:14 02/04/19 20:49 Haloperidol Lactate (Haldol) 5 mg Q6H PRN IM Agitation 02/05/19 17:00 03/07/19 16:59 Heparin Sodium (Porcine) (Heparin 5000 units/ml) 5,000 units EVERY 12 HOURS SUBQ 01/29/19 09:00 02/15/19 08:59 02/06/19 09:50 Insulin Aspart (NovoLOG) BEFORE MEALS AND HS SUBQ 01/29/19 06:30 02/18/19 11:29 02/04/19 16:30 Levothyroxine Sodium (Synthroid) 75 mcg DAILY@0630 ORAL 02/01/19 06:30 03/03/19 06:29 02/06/19 06:03 Metoprolol Tartrate (Lopressor) 25 mg Q12HR ORAL 01/29/19 09:00 02/15/19 08:59 02/06/19 09:47 Multivitamins (Multivitamins) 1 tab DAILY ORAL 01/29/19 09:00 02/17/19 08:59 02/05/19 09:32 Pantoprazole (Protonix) 40 mg DAILY@0630 ORAL 01/29/19 06:30 02/28/19 06:29 02/06/19 06:03 Quetiapine Fumarate (SEROquel) 25 mg TID ORAL 02/05/19 13:30 03/07/19 13:29 02/06/19 09:46 Spironolactone (Aldactone) 25 mg DAILY ORAL 02/06/19 09:00 03/08/19 08:59 02/06/19 09:46 Thiamine HCl 100 mg/Dextrose 56 ml @ 112 mls/hr DAILY IVPB 01/30/19 14:00 03/01/19 13:59 02/06/19 10:15 Lalito Major MD Feb 06, 2019 10:47
--- NOTE | 2019-02-06 11:50 | NUR ---
Social Service Note Message left for patient's son Jose Raul Rangel [phone] to discuss treatment plan of care.
[2019-02-06 12:00] VITALS: BP 110/52
--- NOTE | 2019-02-06 13:06 | NUR ---
CASE MANAGEMENT:REVIEW 02/06/19 SI: ACUTE RENAL FAILURE DEHYDRATION. ACUTE ENCEPHALOPATHY 97.2 83 18 112/52 98% ON RA IS: IV THIAMINE QD IVF@75/HR PROTONIX PO QD ASA PO QD LOPRESSOR PO Q12 : TE[facility]METRY STATUS [facility] DC[facility]D AT 1000 AND SITTER AT BEDSIDE
--- NOTE | 2019-02-06 13:47 | Nephrology Progress Note ---
Assessment/Plan Problem List: (1) Acute renal failure (ARF) Assessment: Cr stable (2) Failure to thrive in adult (3) Severe protein-calorie malnutrition Assessment: Low Albumin (4) Dehydration (5) Elevated LFTs Assessment: improving (6) Hypokalemia (7) Acute encephalopathy Assessment remains encephalopathic Acute on chronic renal failure- Dehydration Failing to thrive, Malnutrition Decubiti Urinary retention Plan marte Urine studies Hydrate- has PICC now K and Mag supplement as needed CXR STANLEY kidney noted Med surg Subjective ROS Limited/Unobtainable: No Constitutional: Reports: malaise, weakness Objective Objective Last 24 Hour Vital Signs Date Time Temp Pulse Resp B/P (MAP) Pulse Ox O2 Delivery O2 Flow Rate FiO2 02/06/19 12:00 98.7 74 22 110/52 (71) 99 02/06/19 09:47 83 112/52 02/06/19 09:00 Room Air 02/06/19 08:00 97.2 83 18 112/52 (72) 98 02/06/19 04:00 98.5 88 20 127/66 (86) 100 02/06/19 00:00 98.5 90 20 126/69 (88) 96 02/05/19 21:00 Room Air 02/05/19 20:46 95 135/69 02/05/19 20:00 98.6 95 20 135/69 (91) 99 02/05/19 16:00 98.3 92 16 118/62 (80) 100 Intake and Output 02/05/19 02/06/19 19:00 07:00 Intake Total 500 ml Output Total 600 ml 1000 ml Balance -100 ml -1000 ml Intake Oral 500 ml Output Urine Total 600 ml 1000 ml # Bowel Movements 1 Height (Feet): 5 Height (Inches): 1.00 Weight (Pounds): 113 General Appearance: no apparent distress Objective no change Mauri Huddleston MD Feb 06, 2019 13:47
[2019-02-06 16:00] VITALS: BP 96/57
--- NOTE | 2019-02-06 16:00 | NUR ---
NURSE NOTES: Patient is in bed, awake, sitter @ the bedside. Patient tries to get out of the bed, verbally abusive, tried to grab nurse and kicking. Approached the patient in a calm manner and given re-orientation. re-position done. No injuries sustained.Provide safe and hazard free and quiet environment Will continue to monitor.
--- NOTE | 2019-02-06 16:15 | NUR ---
NURSE NOTES: Patient is asleep @ this time. sitter @ bedside. Will continue to monitor.
--- NOTE | 2019-02-06 19:28 | NUR ---
HAND-OFF: Report given to Murali.
[2019-02-06 20:00] VITALS: BP 126/55
--- NOTE | 2019-02-06 20:04 | Surgery Progress Note ---
Surgery Progress Note Subjective Symptoms: other Objective Last 24 Hour Vital Signs Date Time Temp Pulse Resp B/P (MAP) Pulse Ox O2 Delivery O2 Flow Rate FiO2 02/06/19 16:00 97.0 82 18 96/57 (70) 99 02/06/19 12:00 98.7 74 22 110/52 (71) 99 02/06/19 09:47 83 112/52 02/06/19 09:00 Room Air 02/06/19 08:00 97.2 83 18 112/52 (72) 98 02/06/19 04:00 98.5 88 20 127/66 (86) 100 02/06/19 00:00 98.5 90 20 126/69 (88) 96 02/05/19 21:00 Room Air 02/05/19 20:46 95 135/69 I&O Intake and Output 02/05/19 02/06/19 19:00 07:00 Intake Total 500 ml Output Total 600 ml 1000 ml Balance -100 ml -1000 ml Intake Oral 500 ml Output Urine Total 600 ml 1000 ml # Bowel Movements 1 Cardiovascular: RSR Respiratory: clear Abdomen: soft, non-tender, present bowel sounds Extremities: no cyanosis Plan Problems: (1) Dehydration (2) Decubitus skin ulcer Assessment & Plan: Pt presented on admission with multiple wounds.Hx R Mastectomy . Full thickness wound that is tunneled into R axilla noted to aleksander R mastectomy.Base of wound is sahara with macerated borders oozing small amt serous exudate noted. No odor noted. (L)3cm x (W)6cm x (D)0.3, tunneling clockwise @10o'clock by 6.6cm. Full thickness wound lateral/posterior R chest. Scattered slough at base of wound with erythematous borders .Periwound indurated. wound oozing small amt serous exudate. (L)1cm x (W)3cm. Full thickness wound posterior thoracic. 100% slough at base of wound. Erythematous borders. No odor or exudate noted(L)2.3cm x (W)2.5cm. Full thickness wound median R humerus. 100% slough with erythematous borders. No odor or exudate noted.(L)3.9cm x (W)2.4cm. Incontinence associated dermatitis noted to sacral and cleft of buttocks. Affected area is erythematous. Pt denied burning or itching. DTPI noted to medial L foot . Base of wound is indurated,purple with red margins.(L)3.2cm x (W)1cm. L heel boggy with non-blanchable erythema. Non-blanchable erythema without fluctuance R heel. Tx.Plan: Cleanse wound Aleksander R chest with Saline. Loosely pack wound (@10o'clock) with 1 /2 inch Iodoform packing. Apply Cavilon periwound. Cover with Optifoam drsg.Daily and prn. Cleanse wounds R arm with saline. Apply Xeroform gauze.Apply Cavilon periwound. Cover with Optifoam drsg. Change daily and prn. Cleanse wound Lateral/posterior chest with Saline. Apply xeroform gauze. Cover with Optifoam drsg. Change Daily and prn. Cleanse wound Posterior R thoracic with Saline. Cover with Xeroform. Apply Cavilon Skin Barrier periwound. Cover with Optifoam drsg. Daily and prn. Apply Triad Paste to Buttocks with each perineal care. Apply Cavilon Skin Barrier to both heels. Cover each heel with Optifoam drsg. every 7 days and prn. Reposition at least every 2hours or as tolerated. Off-load heels with pillow. (3) Leukocytosis Assessment & Plan: cont Abx Overall has improved. unlikely related to wounds that do not seem actively infected Imaging as below No acute surgical intervention (4) Severe protein-calorie malnutrition Assessment & Plan: DAILY ESTIMATED NEEDS: Needs based on Cancer, wounds 48kg 30-40 kcals/kg 9340-3381 total kcals 1.25-2 g protein/kg 60-96 g total protein 25-30 mL/kg 4986-2681 total fluid mLs NUTRITION DIAGNOSIS: Increased kcal and pro needs r/t wound healing and low BMI as evidenced by BMI underweight per guidelines, pt w/ multiple partial thickness wounds, refer to WC eval. CURRENT DIET: Soft GAGE PO DIET RECOMMENDATIONS: GAGE diet/ texture as tolerated ADDITIONAL RECOMMENDATIONS: - Pt w/ poor po intake, would rec to liberalized diet to REGULAR - Add ENSURE ENLIVE TID w/ meals - Obtain a standing scale wt as able Or recalibrate bed scale for accurate CBW - Monitor renal fxn/ lytes and need for renal supplement - WOUND CARE: add DILAN BID + MVI x1 + VIT C 500mg daily (5) Failure to thrive in adult (6) Acute cholecystitis Assessment & Plan: Patient with possible acalculous cholecystitis. Afebrile, hemodynamic stable, leukocytosis, acute episode of pancreatitis which is resolved chemically. On examination difficult to examine but no significant tenderness identified in the right upper quadrant. CT reviewed. US noted. inconsistent with CT findings HIDA negative Continue IV antibiotics We will follow with recommendations no acute surgical intervention recommended at this time conservative management with Abx Jesus Bennett Feb 06, 2019 20:04
--- NOTE | 2019-02-06 20:37 | NUR ---
NURSE NOTES: Received report from AM RNKatt. Patient is resting in bed, Naranjo catheter draining clear yellow urine. Left arm IV is wrapped in gauze dressing for safety. No SOB on room air. No c/o of pain. Patient alert and oriented x1 to name. Patient is calm and not agitated at this time. Hill Bowen is at bedside.
[2019-02-07] VITALS: BP 103/51
--- NOTE | 2019-02-07 03:15 | Progress Note ---
DATE: 02/06/2019 SUBJECTIVE: The patient is calmer, more redirectable, in bed. Now, she has a sitter. discontinued. MENTAL STATUS EXAMINATION: The patient is alert, confused, disoriented. Mood is anxious. Affect is flat. Thought process, disorganized. Thought content, no suicidal or homicidal ideations. ASSESSMENT: The patient with behavior disturbance. PLAN: We will continue Seroquel, increase the dosage to 37.5 t.i.d. Cyntiha Nicholson M.D. DR: JERSEY JOB#: [id number] CC: AMISHA
[2019-02-07 04:00] VITALS: BP 110/56
[2019-02-07] MEDS: NovoLOG Insulin Flexpen SUBQ SCH ×4 (06:30→21:00)
--- NOTE | 2019-02-07 07:37 | NUR ---
HAND-OFF: Report given to GAIL Vasquez. Patient in stable condition.
[2019-02-07 08:00] VITALS: BP 89/49
--- NOTE | 2019-02-07 08:47 | General Progress Note ---
Assessment/Plan Problem List: (1) Acute renal failure (ARF) ICD Codes: N17.9 - Acute kidney failure, unspecified SNOMED: 05847210 (2) Dehydration ICD Codes: E86.0 - Dehydration SNOMED: 95038146 (3) Decubitus skin ulcer ICD Codes: L89.90 - Pressure ulcer of unspecified site, unspecified stage SNOMED: 409932006 (4) Leukocytosis ICD Codes: D72.829 - Elevated white blood cell count, unspecified SNOMED: 710498338, 473426241 (5) Failure to thrive in adult ICD Codes: R62.7 - Adult failure to thrive SNOMED: 454438084 (6) Severe protein-calorie malnutrition ICD Codes: E43 - Unspecified severe protein-calorie malnutrition SNOMED: 421985728, 752725701, 918306037 Status: stable, progressing Assessment/Plan: ivf monitor labs/blood sugars encourage po monitor renal fxn/lytes resume psych meds per son thyroid replacement rx monitor labs cannot go back to snf if needing restraints. wound care dnr conservative rx family did not want hospice recommended GT- family refused aware of concern about worsening malnutrition poor prognosis- terminal dc planning Subjective ROS Limited/Unobtainable: Yes Constitutional: Reports: malaise, weakness HEENT: Reports: no symptoms Cardiovascular: Reports: no symptoms Respiratory: Reports: no symptoms Gastrointestinal/Abdominal: Reports: poor appetite, poor fluid intake Genitourinary: Reports: no symptoms Neurologic/Psychiatric: Reports: anxiety, emotional problems, pre-existing deficit Endocrine: Reports: no symptoms Hematologic/Lymphatic: Reports: anemia Allergies: Coded Allergies: No Known Allergies (Unverified , 01/15/19) All Systems: reviewed and negative except above Subjective no events. no restraints since yesterday afternoon. still trying to pull out lines and get out of bed. Has sitter. Blood sugar on d5 ivf Objective Last 24 Hour Vital Signs Date Time Temp Pulse Resp B/P (MAP) Pulse Ox O2 Delivery O2 Flow Rate FiO2 02/07/19 04:00 97.6 72 20 110/56 (74) 97 02/07/19 00:00 97.1 78 18 103/51 (68) 95 02/06/19 21:34 77 134/73 02/06/19 21:00 Room Air 02/06/19 20:00 97.6 81 18 126/55 (78) 94 02/06/19 16:00 97.0 82 18 96/57 (70) 99 02/06/19 12:00 98.7 74 22 110/52 (71) 99 02/06/19 09:47 83 112/52 02/06/19 09:00 Room Air Intake and Output 02/06/19 02/07/19 18:59 06:59 Intake Total 290 ml 360 ml Output Total 300 ml 700 ml Balance -10 ml -340 ml Intake Oral 290 ml 360 ml Output Urine Total 300 ml 700 ml # Bowel Movements 1 Height (Feet): 5 Height (Inches): 1.00 Weight (Pounds): 113 Objective General Appearance: WD/WN, alert Neck: supple Cardiovascular: regular rhythm Respiratory/Chest: chest wall non-tender, lungs clear, normal breath sounds, no respiratory distress Abdomen: normal bowel sounds, non tender, soft, no organomegaly Edema: no edema noted Arm (L), no edema noted Arm (R), no edema noted Leg (L), no edema noted Leg (R), no edema noted Pedal (L), no edema noted Pedal (R), no edema noted Generalized Mesfin Chapa MD Feb 07, 2019 08:47
[2019-02-07] MEDS: Metoprolol 25mg tab ORAL SCH ×2 (09:00→21:00)
[2019-02-07] MEDS: Aspirin EC 81mg tab ORAL SCH (09:21)
[2019-02-07] MEDS: Spironolactone 25mg tab ORAL SCH (09:21)
[2019-02-07] MEDS: Anastrazole 1mg tab ORAL SCH (09:22)
[2019-02-07] MEDS: Ascorbic Acid 500mg tab ORAL SCH (09:22)
[2019-02-07] MEDS: Heparin 5000 units/ml inj SUBQ SCH ×2 (09:23→21:00)
[2019-02-07 10:01] LABS: ALANINE AMINOTRANSFERASE 23 U/L (12-78); ALBUMIN 1.4 G/DL (3.4-5.0); ALBUMIN/GLOBULIN RATIO 0.3 (1.0-2.7); ALKALINE PHOSPHATASE 251 U/L (46-116); ANION GAP 7 mmol/L (5-15); ASPARTATE AMINO TRANSFERASE 41 U/L (15-37); BILIRUBIN,TOTAL 0.5 MG/DL (0.2-1.0); BLOOD UREA NITROGEN 11 mg/dL (7-18); CALCIUM 6.1 MG/DL (8.5-10.1); CARBON DIOXIDE 24 MMOL/L (21-32); CHLORIDE 105 MMOL/L (98-107); CREATININE 1.8 MG/DL (0.55-1.30); POTASSIUM 3.2 MMOL/L (3.5-5.1); SODIUM 136 MMOL/L (136-145)
[2019-02-07 10:04] LABS: BASOPHILS % (AUTO) 2.2 % (0.0-2.0); EOSINOPHILS % (AUTO) 0.7 % (0.0-3.0); HEMATOCRIT 32.6 % (37.0-47.0); HEMOGLOBIN 10.5 G/DL (12.0-16.0); LYMPHOCYTES % (AUTO) 8.2 % (20.0-45.0); MEAN CORPUSCULAR VOLUME 88 FL (80-99); NEUTROPHILS % (AUTO) 76.9 % (45.0-75.0); PLATELET COUNT 324 K/UL (150-450); RED CELL DISTRIBUTION WIDTH 12.6 % (11.6-14.8); WHITE BLOOD COUNT 10.4 K/UL (4.8-10.8)
[2019-02-07] MEDS ORDERED: Thiamine HCl 100 MG in D5W 55 ML IVPB SCH (10:30)
--- NOTE | 2019-02-07 10:59 | Nephrology Progress Note ---
Assessment/Plan Problem List: (1) Acute renal failure (ARF) Assessment: Cr stable (2) Failure to thrive in adult (3) Severe protein-calorie malnutrition Assessment: Low Albumin (4) Dehydration (5) Elevated LFTs Assessment: improving (6) Hypokalemia (7) Acute encephalopathy Assessment remains encephalopathic Acute on chronic renal failure- Dehydration Failing to thrive, Malnutrition Decubiti Urinary retention Plan marte Urine studies Hydrate- has PICC now K and Mag supplement as needed CXR STANLEY kidney noted Med surg Subjective ROS Limited/Unobtainable: No Constitutional: Reports: malaise, weakness Objective Objective Last 24 Hour Vital Signs Date Time Temp Pulse Resp B/P (MAP) Pulse Ox O2 Delivery O2 Flow Rate FiO2 02/07/19 09:00 Room Air 02/07/19 08:00 97.9 73 18 89/49 (62) 95 02/07/19 04:00 97.6 72 20 110/56 (74) 97 02/07/19 00:00 97.1 78 18 103/51 (68) 95 02/06/19 21:34 77 134/73 02/06/19 21:00 Room Air 02/06/19 20:00 97.6 81 18 126/55 (78) 94 02/06/19 16:00 97.0 82 18 96/57 (70) 99 02/06/19 12:00 98.7 74 22 110/52 (71) 99 Intake and Output 02/06/19 02/07/19 18:59 06:59 Intake Total 290 ml 360 ml Output Total 300 ml 700 ml Balance -10 ml -340 ml Intake Oral 290 ml 360 ml Output Urine Total 300 ml 700 ml # Bowel Movements 1 Laboratory Tests 02/07/19 09:30: White Blood Count 10.4, Red Blood Count 3.70L, Hemoglobin 10.5L, Hematocrit 32.6L, Mean Corpuscular Volume 88, Mean Corpuscular Hemoglobin 28.4, Mean Corpuscular Hemoglobin Concent 32.2, Red Cell Distribution Width 12.6, Platelet Count 324, Mean Platelet Volume 6.2L, Neutrophils (%) (Auto) 76.9H, Lymphocytes (%) (Auto) 8.2L, Monocytes (%) (Auto) 12.0H, Eosinophils (%) (Auto) 0.7, Basophils (%) (Auto) 2.2H, Sodium Level 136, Potassium Level 3.2L, Chloride Level 105, Carbon Dioxide Level 24, Anion Gap 7, Blood Urea Nitrogen 11, Creatinine 1.8H, Estimat Glomerular Filtration Rate , Glucose Level 102, Calcium Level 6.1L, Total Bilirubin 0.5, Aspartate Amino Transf (AST/SGOT) 41H, Alanine Aminotransferase (ALT/SGPT) 23, Alkaline Phosphatase 251H, Total Protein 6.6, Albumin 1.4L, Globulin 5.2, Albumin/Globulin Ratio 0.3L Height (Feet): 5 Height (Inches): 1.00 Weight (Pounds): 113 General Appearance: other Cardiovascular: normal rate Respiratory/Chest: decreased breath sounds Abdomen: distended Objective no change Mauri Huddleston MD Feb 07, 2019 10:59
--- NOTE | 2019-02-07 11:07 | NUR ---
Social Service Note BETH spoke with patient's son Jose Raul [phone] regarding plan of care for patient. Jose Raul has signed POLST indicating DNR, comfort focused care however did not indicated artificial administered nutrition. Jose Raul states patient has 4 sons and previously there has been opposing options. Jose Raul indicated that when patient was diagnosed with cancer patient chose not to peruse aggressive care. SW discussed g-tube placement and possible risks, based on patient's behaviors of aggression, pulling IV lines out and the use of restraints. Jose Raul states he will take this information into consideration and will discuss with his brothers. Patient's oldest son will be returning on Monday. Jose Raul is aware that patient is impending dc planning. BETH provided emotional support. SW briefly discussed hospice. Will continue to monitor and assist as needed.
[2019-02-07 12:00] VITALS: BP 105/60
[2019-02-07] MEDS ORDERED: MULTIVITAMINS1 EAC2 ORAL (14:00)
[2019-02-07] MEDS ORDERED: ASPIRIN EC81 MG ORAL (14:00)
[2019-02-07] MEDS ORDERED: ASCORBIC ACID500 M4 ORAL (14:00)
[2019-02-07] MEDS ORDERED: PANTOPRAZOLE SO40 MG ORAL (14:00)
[2019-02-07] MEDS ORDERED: THIAMINE HCL500 MG PO (14:00)
[2019-02-07] MEDS ORDERED: SPIRONOLACTONE25 MG ORAL (14:00)
[2019-02-07] MEDS ORDERED: LEVOTHYROXINE75 MCG ORAL (14:00)
[2019-02-07] MEDS ORDERED: HEPARIN SO5000 UNIT2 SUBQ (14:00)
[2019-02-07] MEDS ORDERED: SEROQUEL25 MG ORAL (14:00)
[2019-02-07] MEDS ORDERED: LOPRESSOR25 M1 ORAL (14:00)
--- NOTE | 2019-02-07 15:40 | NUR ---
DISCHARGE PLANNING DISCHARGE ORDER NOTED Patient has been accepted to; [facility] [address] [place] [address] Bed: 19-C Skilled [phone] for Nurse to Nurse report [facility] ETA for transportation: 17:45
[2019-02-07 16:00] VITALS: BP 128/69
--- NOTE | 2019-02-07 17:30 | NUR ---
NURSE NOTES: Wound care provided and pictures uploaded.
[2019-02-07] MEDS ORDERED: Spironolactone 25mg tab ORAL SCH (18:00)
--- NOTE | 2019-02-07 18:10 | NUR ---
NURSE NOTES: Report given to Zenobia at [facility].
--- NOTE | 2019-02-07 19:30 | NUR ---
NURSE NOTES: Patient asleep in bed, no signs of pain, calm, not in acute respiratory distress. IV access intact. Naranjo cath intact and draining by gravity. For discharge. 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 Call light in reach. Bed in lowest position, lock engaged and alarm on. Will continue to monitor. Sitter at bedside.
--- NOTE | 2019-02-07 19:32 | NUR ---
HAND-OFF: Report given to GAIL Hernandez.
--- NOTE | 2019-02-07 19:32 | Surgery Progress Note ---
Surgery Progress Note Subjective Additional Comments pending d/c exam unchanged comfortable appearing Objective Last 24 Hour Vital Signs Date Time Temp Pulse Resp B/P (MAP) Pulse Ox O2 Delivery O2 Flow Rate FiO2 02/07/19 16:00 98.0 87 20 128/69 (88) 95 02/07/19 12:00 97.3 85 20 105/60 (75) 100 02/07/19 09:00 Room Air 02/07/19 08:00 97.9 73 18 89/49 (62) 95 02/07/19 04:00 97.6 72 20 110/56 (74) 97 02/07/19 00:00 97.1 78 18 103/51 (68) 95 02/06/19 21:34 77 134/73 02/06/19 21:00 Room Air 02/06/19 20:00 97.6 81 18 126/55 (78) 94 I&O Intake and Output 02/06/19 02/07/19 19:00 07:00 Intake Total 290 ml 435 ml Output Total 300 ml 700 ml Balance -10 ml -265 ml Intake Oral 290 ml 360 ml IV Total 75 ml Output Urine Total 300 ml 700 ml # Bowel Movements 1 Cardiovascular: RSR Respiratory: clear Abdomen: soft, non-tender, present bowel sounds Extremities: no edema, no tenderness Laboratory Tests Test 02/07/19 09:30 White Blood Count 10.4 K/UL (4.8-10.8) Red Blood Count 3.70 M/UL (4.20-5.40) L Hemoglobin 10.5 G/DL (12.0-16.0) L Hematocrit 32.6 % (37.0-47.0) L Mean Corpuscular Volume 88 FL (80-99) Mean Corpuscular Hemoglobin 28.4 PG (27.0-31.0) Mean Corpuscular Hemoglobin Concent 32.2 G/DL (32.0-36.0) Red Cell Distribution Width 12.6 % (11.6-14.8) Platelet Count 324 K/UL (150-450) Mean Platelet Volume 6.2 FL (6.5-10.1) L Neutrophils (%) (Auto) 76.9 % (45.0-75.0) H Lymphocytes (%) (Auto) 8.2 % (20.0-45.0) L Monocytes (%) (Auto) 12.0 % (1.0-10.0) H Eosinophils (%) (Auto) 0.7 % (0.0-3.0) Basophils (%) (Auto) 2.2 % (0.0-2.0) H Sodium Level 136 MMOL/L (136-145) Potassium Level 3.2 MMOL/L (3.5-5.1) L Chloride Level 105 MMOL/L (98-107) Carbon Dioxide Level 24 MMOL/L (21-32) Anion Gap 7 mmol/L (5-15) Blood Urea Nitrogen 11 mg/dL (7-18) Creatinine 1.8 MG/DL (0.55-1.30) H Estimat Glomerular Filtration Rate mL/min (>60) Glucose Level 102 MG/DL (74-106) Calcium Level 6.1 MG/DL (8.5-10.1) L Total Bilirubin 0.5 MG/DL (0.2-1.0) Aspartate Amino Transf (AST/SGOT) 41 U/L (15-37) H Alanine Aminotransferase (ALT/SGPT) 23 U/L (12-78) Alkaline Phosphatase 251 U/L (46-116) H Total Protein 6.6 G/DL (6.4-8.2) Albumin 1.4 G/DL (3.4-5.0) L Globulin 5.2 g/dL Albumin/Globulin Ratio 0.3 (1.0-2.7) L Plan Problems: (1) Dehydration (2) Decubitus skin ulcer Assessment & Plan: Pt presented on admission with multiple wounds.Hx R Mastectomy . Full thickness wound that is tunneled into R axilla noted to aleksander R mastectomy.Base of wound is sahara with macerated borders oozing small amt serous exudate noted. No odor noted. (L)3cm x (W)6cm x (D)0.3, tunneling clockwise @10o'clock by 6.6cm. Full thickness wound lateral/posterior R chest. Scattered slough at base of wound with erythematous borders .Periwound indurated. wound oozing small amt serous exudate. (L)1cm x (W)3cm. Full thickness wound posterior thoracic. 100% slough at base of wound. Erythematous borders. No odor or exudate noted(L)2.3cm x (W)2.5cm. Full thickness wound median R humerus. 100% slough with erythematous borders. No odor or exudate noted.(L)3.9cm x (W)2.4cm. Incontinence associated dermatitis noted to sacral and cleft of buttocks. Affected area is erythematous. Pt denied burning or itching. DTPI noted to medial L foot . Base of wound is indurated,purple with red margins.(L)3.2cm x (W)1cm. L heel boggy with non-blanchable erythema. Non-blanchable erythema without fluctuance R heel. Tx.Plan: Cleanse wound Aleksander R chest with Saline. Loosely pack wound (@10o'clock) with 1 /2 inch Iodoform packing. Apply Cavilon periwound. Cover with Optifoam drsg.Daily and prn. Cleanse wounds R arm with saline. Apply Xeroform gauze.Apply Cavilon periwound. Cover with Optifoam drsg. Change daily and prn. Cleanse wound Lateral/posterior chest with Saline. Apply xeroform gauze. Cover with Optifoam drsg. Change Daily and prn. Cleanse wound Posterior R thoracic with Saline. Cover with Xeroform. Apply Cavilon Skin Barrier periwound. Cover with Optifoam drsg. Daily and prn. Apply Triad Paste to Buttocks with each perineal care. Apply Cavilon Skin Barrier to both heels. Cover each heel with Optifoam drsg. every 7 days and prn. Reposition at least every 2hours or as tolerated. Off-load heels with pillow. (3) Leukocytosis Assessment & Plan: cont Abx Overall has improved. unlikely related to wounds that do not seem actively infected Imaging as below No acute surgical intervention (4) Severe protein-calorie malnutrition Assessment & Plan: DAILY ESTIMATED NEEDS: Needs based on Cancer, wounds 48kg 30-40 kcals/kg 8229-2354 total kcals 1.25-2 g protein/kg 60-96 g total protein 25-30 mL/kg 0917-0081 total fluid mLs NUTRITION DIAGNOSIS: Increased kcal and pro needs r/t wound healing and low BMI as evidenced by BMI underweight per guidelines, pt w/ multiple partial thickness wounds, refer to WC eval. CURRENT DIET: Soft GAGE PO DIET RECOMMENDATIONS: GAGE diet/ texture as tolerated ADDITIONAL RECOMMENDATIONS: - Pt w/ poor po intake, would rec to liberalized diet to REGULAR - Add ENSURE ENLIVE TID w/ meals - Obtain a standing scale wt as able Or recalibrate bed scale for accurate CBW - Monitor renal fxn/ lytes and need for renal supplement - WOUND CARE: add DILAN BID + MVI x1 + VIT C 500mg daily (5) Failure to thrive in adult (6) Acute cholecystitis Assessment & Plan: Patient with possible acalculous cholecystitis. Afebrile, hemodynamic stable, leukocytosis, acute episode of pancreatitis which is resolved chemically. On examination difficult to examine but no significant tenderness identified in the right upper quadrant. CT reviewed. US noted. inconsistent with CT findings HIDA negative Continue IV antibiotics We will follow with recommendations no acute surgical intervention recommended at this time conservative management with Abx Jesus Bennett Feb 07, 2019 19:32
[2019-02-07 20:00] VITALS: BP 131/61
--- NOTE | 2019-02-07 20:34 | NUR ---
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 ETA @20:45.
--- NOTE | 2019-02-07 21:19 | NUR ---
NURSE NOTES: Attempted to check patient's blood sugar but patient refused and became combative.
--- NOTE | 2019-02-07 21:45 | NUR ---
NURSE NOTES: Discharged patient @ 2145. Dentures was worn by patient. Glasses given to patient and informed [facility] staff about it. Patient went with IV access on and Naranjo catheter intact as ordered.
--- NOTE | 2019-02-07 23:15 | Progress Note ---
DATE: 02/07/2019 CARDIOLOGY PROGRESS NOTE SUBJECTIVE: The patient remains confused and frequently agitated. She still is trying to pull out IV lines and get out of bed. Vitals are stable. Exam otherwise without change. Discharge planning in progress. Cardiovascular parameters remained stable. Prognosis long-term remains poor. Jorge Self M.D. DR: MARIO JOB#: [id number] CC:
--- NOTE | 2019-02-08 02:00 | Discharge Summary ---
DATE OF ADMISSION: 01/15/2019 DATE OF DISCHARGE: 02/07/2019 ADMISSION DIAGNOSES: 1. Altered mental status. 2. Failure to thrive. 3. Dehydration. 4. History of metastatic breast cancer. 5. Hypertensive heart disease. 6. Dementia. 7. Toxic metabolic encephalopathy. DISCHARGE DIAGNOSES: 1. Altered mental status. 2. Failure to thrive. 3. Dehydration. 4. History of metastatic breast cancer. 5. Hypertensive heart disease. 6. Dementia. 7. Toxic metabolic encephalopathy. HOSPITAL COURSE: The patient is an 84-year-old female. She has a history of dementia and metastatic breast cancer. She was admitted with complaints of failure to thrive, dehydration, and altered mentation. She had a CAT scan of the head that was unremarkable. She was diagnosed with urinary tract infection. She received intravenous antibiotics. Her infection cleared, but she remained confused and altered. A Neuro consultation was obtained. It was felt likely that the patient had dementia with possibly some delirium secondary to her urinary tract infection. The patient continued to have poor p.o. intake. It was recommended that a G-tube be placed. Family declined. The patient was placed on multiple antipsychotics because of agitation, aggressive and combative behavior, and unsafe behavior. Her symptoms improved somewhat. She was taken off her anxiolytics for several days to see if there is improvement without medications and the patient did not improve. In fact, she became more agitated and did not sleep for several days. On discharge, the patient was stable. She continued to have poor p.o. intake. Again, a G-tube was recommended to the family members, but they declined. The patient is discharged back to the long term facility with close monitoring. She will remain on IV fluids. Her overall prognosis is very poor. Family is aware. They have been offered hospice, but they have also declined that. DISCHARGE MEDICATIONS: Please see discharge medication list for discharge medications. DIET: Regular diet. ACTIVITIES: Ad-bonnie. Mesfin Chapa M.D. DR: BILLIE JOB#: [id number] CC:
--- NOTE | 2019-02-08 06:00 | Progress Note ---
DATE: 02/07/2019 SUBJECTIVE: The patient's mental condition is unchanged. He is calmer, more manageable, compliant with medications. No behavior issues. MENTAL STATUS EXAMINATION: The patient is alert, disoriented, confused. Mood is neutral. Affect is flat. Thought process, there is a paucity of thought content. Thought content, no suicidal or homicidal ideation. ASSESSMENT: Stable. PLAN: 1. We will continue current medication. 2. Provide the patient with reality orientation and supportive therapy. Cynthia Nicholson M.D. DR: Mihir JOB#: [id number] CC:
--- NOTE | 2019-02-08 17:15 | Progress Note ---
DATE: 02/08/2019 CARDIOLOGY PROGRESS NOTE NOTE: INCOMPLETE DICTATION Jorge Self M.D. DR: MARIO JOB#: [id number] CC:
== END 2019-02-07 21:45 | DRG 682 ==
LOC: 3E 21:45 → 2E 01-16 08:35 → 4E 01-28 23:46
PROC: 02HV33Z Insertion of Infusion Device into Superior Vena Cava, Percutaneous Approach (ICD-10-PCS; principal; 2019-01-18)
PROC: B518ZZA Fluoroscopy of Superior Vena Cava, Guidance (ICD-10-PCS; principal; 2019-01-18)
DX: N17.0 Acute kidney failure with tubular necrosis (principal); E43 Unspecified severe protein-calorie malnutrition; I50.33 Acute on chronic diastolic (congestive) heart failure; G92 Toxic encephalopathy; K85.90 Acute pancreatitis without necrosis or infection, unspecified; I13.0 Hypertensive heart and chronic kidney disease with heart failure and stage 1 through stage 4 chronic kidney disease, or unspecified chronic kidney disease; F02.81 Dementia in other diseases classified elsewhere, unspecified severity, with behavioral disturbance; K81.0 Acute cholecystitis; N39.0 Urinary tract infection, site not specified; E86.0 Dehydration; L89.90 Pressure ulcer of unspecified site, unspecified stage; R62.7 Adult failure to thrive; Z68.21 Body mass index [BMI] 21.0-21.9, adult; Z85.3 Personal history of malignant neoplasm of breast; I25.5 Ischemic cardiomyopathy; I25.118 Atherosclerotic heart disease of native coronary artery with other forms of angina pectoris; Z98.61 Coronary angioplasty status; M34.9 Systemic sclerosis, unspecified; N18.9 Chronic kidney disease, unspecified; R33.9 Retention of urine, unspecified; F32.9 Major depressive disorder, single episode, unspecified; G30.0 Alzheimer's disease with early onset; Z78.1 Physical restraint status; E86.1 Hypovolemia; Z22.322 Carrier or suspected carrier of Methicillin resistant Staphylococcus aureus; K74.60 Unspecified cirrhosis of liver; E87.6 Hypokalemia; R73.9 Hyperglycemia, unspecified; E83.42 Hypomagnesemia
CPT/HCPCS: 36415; 36569; 70450; 71045; 74176; 76700; 76770; 76937; 78266; 80048; 80053; 80061; 80076; 80202; 81003; 82140; 82550; 82607; 82728; 82746; 82962; 82977; 83036; 83540; 83550; 83690; 83735; 83880; 84100; 84300; 84439; 84443; 84481; 84484; 84550; 85007; 85025; 85610; 85730; 86140; 87040; 87081; 87086; 93005; 93306; J1815; J8499